=== PATIENT | male | born 1960 | race Caucasian/White ===

== ENCOUNTER 2020-01-31 10:48 | Emergency (ER) | payer MEDICARE, BC, SELFPAY ==
[2020-01-31 11:08] VITALS: BP 155/90; PULSE 70; RESP 16; TEMP 37.1; O2SAT 94; BMI 34.4
--- NOTE | 2020-01-31 11:22 | ED.WOUNDLAC ---
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 Admits to pain & associated tingling. Denies injury to other area. Denies taking anticoagulation. Denies decreased ROM, weakness, fever. Tetanus up-to-date Onset (ago): hour(s) Related Data Allergies Allergy/AdvReac Type Severity Reaction Status Date / Time niacin [NIACIN] Allergy Intermediate AGITATION Unverified 10/27/19 14:42 nystatin [NYSTATIN] Allergy Unknown RASH Unverified 10/27/19 14:42 ropinirole [ROPINIROLE] Allergy Unknown ANXIOUS Unverified 10/27/19 14:42 Review of Systems Review of Systems: Constitutional: No Fever, No Chills Musculoskeletal: + joint pain, No Myalgias, No Joint Swelling Skin: +laceration, No rash Neuro: No Weakness, +tingling, No Numbness, No Paresthesias Yes all other systems are reviewed and are negative Neurologic: Denies Sensory deficit (Neuro) [facility] Past Medical History Attestation statement: The following information was validated with the patient. Medical History (Updated 01/31/20 @ 12:47 by MAYRA Xie) Depression High cholesterol Hypothyroid Surgical History (Updated 01/31/20 @ 11:13 by Christina Millan) S/P ankle joint replacement Social History Social History Smoked in Last 30 Days: No Substance Use Type: Marijuana Substance Use Frequency: Daily Advance Directives: No Advance Directives Information Provided: Yes Physical Exam Vital Signs: Vital Signs: Last Vital Signs Temp 98.8 F 01/31/20 11:08 Pulse 70 01/31/20 11:08 Resp 16 01/31/20 11:08 BP 155/90 H 01/31/20 11:08 Pulse Ox 94 01/31/20 11:08 Body Mass Index 34.4 Const: General: cooperative and healthy appearing Orientation/consciousness: patient oriented x3 Limitations: no limitations HENMT: Head: Yes normal to inspection Ears: hearing grossly normal bilaterally General nose exam: Normal external nose present Face and sinus: Yes normal facial exam Eyes: General: appearance normal, both eyes and all related structures EOM: EOMs intact bilaterally Neck: Neck: Yes normal visual inspection Resp: Effort & Inspection: normal respiratory effort Cardio: Peripheral pulses: radial pulses present Skin: Other: Right 3rd phalanx with distal superifical avulsion. Actively bleeding. No nail involvement or bony exposure. FROM intact. Sensation intact to light touch. NV intact Rashes: no rashes Nails: normal Neuro: General: patient oriented x3 Gait exam (Neuro): Normal gait present Sensory Exam: No Sensory deficit (Neuro) Extrem: General: Yes normal to inspection Course Course Course Narrative: Soaked finger and in lidocaine with epinephrine which controlled the bleeding. Then applied layer of Dermabond for protection. MDM - Wound/Laceration MDM Narrative Medical decision making narrative: On exam VSS, NAD/well-appearing, distal tip of finger avulsed. Will soak in lidocaine with epi to control bleeding and Dermabond for protection Discharge Plan Discharge Clinical Impression: Avulsion of skin Patient Disposition: Home, Self-Care Instructions: Skin Avulsion (ED) Additional Instructions: The skin without was applied will follow up on its own, keep dry and clean, you may get wet, but do not soak, only pat dry, do not scrub If area begins to look infected, is red, there is pus drainage, no fever/chills return to the ED Referrals: Sj Scott [Primary Care Provider] - 1 week (As needed)
[2020-01-31] MEDS: Lidocaine HCl 1%/Epi 1:100,000 20 ML VIAL INFILTRATI (11:59)
== END 2020-01-31 13:13 | disposition home or self-care (01) ==
PROVIDERS: Emergency Provider Emergency Medicine; PCP Hospitalist
DX: S61.212A Laceration without foreign body of right middle finger without damage to nail, initial encounter (principal); W26.0XXA Contact with knife, initial encounter; M79.641 Pain in right hand; F12.90 Cannabis use, unspecified, uncomplicated; Y93.G3 Activity, cooking and baking; Y92.000 Kitchen of unspecified non-institutional (private) residence as the place of occurrence of the external cause; Y99.9 Unspecified external cause status
CPT/HCPCS: 12001; 99284

== ENCOUNTER 2023-04-10 08:57 | Outpatient (AMB) | payer MEDICARE, BC, SELFPAY ==
--- NOTE | 2023-04-10 09:01 | A.OFFPC_ITS ---
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 care Allergies niacin [NIACIN] Allergy (Intermediate, Unverified 04/10/23 09:23) AGITATION nystatin [NYSTATIN] Allergy (Unknown, Unverified 04/10/23 09:23) RASH ropinirole [ROPINIROLE] Allergy (Unknown, Unverified 04/10/23 09:23) ANXIOUS duloxetine Adverse Reaction (Unknown, Verified 04/10/23 09:23) Unknown Medication List - Last Reconciled 04/10/23 by RODRIGUEZ Nunn bupropion HCl 150 mg PO QAM celecoxib mg PO BID clonidine HCl 0.2 mg PO BID fenofibrate 160 mg PO DAILY levothyroxine (Synthroid) 100 mcg PO DAILY pramipexole mg PO pravastatin 40 mg PO DAILY sildenafil 50 mg PO DAILY PRN Tobacco use date assessed: 04/10/23 Dental Screening Dental Screen Date: 04/10/23 Did you have a dental visit in the last 12 months?: Yes Did you have a dental problem in the last 6 months where you did not have access to dental care?: No Was dental information given to patient?: Patient has dentist HPI HPI Comments History of Present Illness Details Patient is a 62-year-old male here to establish care. He is due for colonoscopy, declined, would like to try Cologuard will order. He has a past medical history significant for bilateral osteoarthritis of the knees, restless leg syndrome, depression anxiety, hypothyroid, hyperlipidemia, and SLAC left wrist. Patient states that he feels his anxiety and depression is under control. His primary concern today is bilateral knee pain. He states his history of osteoarthritis, will obtain x-ray. Patient currently takes Celebrex for the pain that he says is having diminished effectiveness. Denies tingling or numbness of the bilateral legs. The patient uses a cane to assist with ambulation. 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 [facility] Medical History (Updated 04/10/23 @ 10:04 by RODRIGUEZ Nunn) Restless legs syndrome Hypothyroid Depression High cholesterol Surgical History H/O rotator cuff surgery S/P tendon repair S/P ankle joint replacement Social History Household Members: Spouse Housing: House Alcohol intake: current Alcohol intake frequency: holidays/special occasions only Patient Tobacco Use Status: Former Tobacco user e-Cigarette/Vaping Use: Currently Using Second Hand Smoke Exposure: No Substance Use Type: Marijuana service: Yes Current occupational status: disabled Questionnaire PHQ-9 Over the last 2 weeks, how often have you been bothered by any of the following problems? 1. Little interest or pleasure in doing things: several days 2. Feeling down, depressed, or hopeless: several days 3. Trouble falling or staying asleep, or sleeping too much: several days 4. Feeling tired or having little energy: several days 5. Poor appetite or overeating: several days 6. Feeling bad about yourself - or that you are a failure or have let yourself or your family down: several days 7. Trouble concentrating on things, such as reading the newspaper or watching television: several days 8. Moving or speaking so slowly that other people could have noticed. Or the opposite - being so fidgety or restless that you have been moving around a lot more than usual: several days 9. Thoughts that you would be better off or of hurting yourself in some way: several days Total score: 9 Depression Screening Interpretation: Negative Depression Screening Done: Yes 78501 - PHQ-9 Billing: Yes Source: Developed by Drs. Woody Florentino, Sue Dash, Shamar Ott and colleagues, with an educational min from [employer]. Thrive Questionnaire I am a: Patient Within the past 12 months, did the food you bought not last and you didn't have the money to get more?: Never true Within the past 12 months, did you worry whether your food would run out before you got money to buy more?: Never true Do you have trouble paying for medicines?: No Do you have trouble getting transportation to medical appointments?: No Do you have trouble paying your heating and electricity bill?: No Do you have trouble taking care of your child, family member or friend?: No Do you have trouble with day-to-day activities such as bathing, preparing meals, shopping, managing finances, etc.?: Yes Are you currently unemployed and looking for a job?: No Are you interested in more education?: No THRIVE Score: 0 AUDIT C Alcohol Use Questionnaire (AUDIT-C) 1. How often do you have a drink containing alcohol?: Never Total Score: 0 LACEY-7 AMB Questionnaire LACEY-7 Feeling nervous, anxious, or on edge: 1 = Several days Not being able to stop or control worryin = Several days Worrying too much about different things: 1 = Several days Trouble relaxin = Several days Being so restless that it is hard to sit still: 1 = Several days Becoming easily annoyed or irritable: 1 = Several days Feeling afraid as if something awful might happen: 1 = Several days Total LACEY-7 score (0-4 normal; 5-9 mild; 10-14 moderate; 15-21 severe): 7 Source: Developed by Drs. Woody Florentino, Sue Dash, Shamar Ott and colleagues, with an educational min from [employer]. LACEY-7 Assessment Billing LACEY-7 Assessment Tool: LACEY-7 Assessment 91128 Review of Systems Const Details: Constitutional : No Weight loss, No Fever, No Chills, No Fatigue, No Malaise ENT/Mouth : No sore throat, No Rhinorrhea Eyes: No Eye Pain, No Swelling, No Redness Cardiovascular : No Chest Pain, No SOB, No Dyspnea on Exertion, No Orthopnea, No Edema, No Palpitations Respiratory : No Cough, No Sputum, No Wheezing Gastrointestinal : No Nausea, No Vomiting, No Diarrhea, No Constipation, No abdominal Pain, No Hematochezia, No Melena Genitourinary : No Dysuria, No Urinary Frequency, No Hematuria, Musculoskeletal : Admits bilateral knee pain. Skin : No Skin Lesions, No rash Neuro : No Weakness, No Numbness, No Dizziness, No Headache. Admits intermittent tingling of the left hand, first 2 fingers and thumb. Psych : No Anxiety/Panic, No Depression Heme/Lymph: No Bruising, No Bleeding,No Lymphadenopathy Endocrine : No Polyuria, No Polydipsia All other systems reviewed and are negative Physical exam (Primary Care) Vital Signs: Last Vital Signs Pulse 55 04/10/23 09:02 BP 110/70 04/10/23 09:02 Pulse Ox 97 04/10/23 09:02 Oxygen Delivery Method Room Air 04/10/23 09:02 Care Plan Goal for BP management: Patient pulse on auscultation was 65 beats per minute BMI result Body Mass Index 30.9 Tobacco/Smoking Status: Tobacco use Status Tobacco use date assessed 04/10/23 04/10/23 09:18 Patient Tobacco Use Status Former Tobacco user 04/10/23 09:18 e-Cigarette/Vaping Use Currently Using 04/10/23 09:18 Depression Screening Interpretation: Negative Const Other: Appearance: Alert.? Oriented X3.? No acute distress.? CVS: Normal heart rate and rhythm.? Pulses normal.? Respiratory: No respiratory distress.? Breath sounds normal.? Abdomen: Soft and nontender.? Skin: Skin warm and dry.? Normal skin color.? Normal skin turgor.? Extremities: Deformity of the left knee. Patient limited motion to flexion and extension of knees bilaterally. + tineals sign left wrist. Back: No midline tenderness, no C-spine tenderness, full range of motion, no CVA tenderness bilaterally Neuro: Oriented X 3.? No motor deficit.? No sensory deficit. CN 2-12 intact Assessment and Plan Assessment & Plan (1) Osteoarthritis of knees, bilateral: Comment: Will obtain x-ray of bilateral knees. 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 Patient currently taking Celebrex with limited effect. Code(s): M17.0 - Bilateral primary osteoarthritis of knee Qualifiers: Osteoarthritis type: unspecified Qualified Code(s): M17.0 - Bilateral primary osteoarthritis of knee Plan: Will follow-up with imaging results (2) Numbness and tingling in left hand: Comment: Patient states he has intermittent numbness and tingling in the left hand, predominantly thumb in the 1st 2 fingers. Positive Tinel sign in office. Patient tried using splint. Will refer for nerve conduction study. Patient also has history of surgical repair of left thumb Code(s): R20.0 - Anesthesia of skin; R20.2 - Paresthesia of skin Plan Will follow-up with labs, patient will follow-up with physical exam in to 3 month Orders: Orders Complete Blood Count Auto Diff Today Z13.0 - Encounter for screening for diseases of the blood and blood-forming organs and certain disorders involving the immune mechanism Lipid Panel Today Z13.220 - Encounter for screening for lipoid disorders PSA,Total (Free>4and<10) Today Z12.5 - Encounter for screening for malignant neoplasm of prostate Vitamin D 25-OH (D2 and D3) Today Z13.21 - Encounter for screening for nutritional disorder Vitamin B6 Today Z13.21 - Encounter for screening for nutritional disorder UA CC w/rflx Micro + Cult Today Z13.89 - Encounter for screening for other disorder Comprehensive Met. Panel Today Z91.89 - Other specified personal risk factors, not elsewhere classified Vitamin B12 Today Z13.21 - Encounter for screening for nutritional disorder TSH reflex Free T4 Today Z13.29 - Encounter for screening for other suspected endocrine disorder XR knee LT 2V Today M17.0 - Bilateral primary osteoarthritis of knee XR knee RT 2V Today M17.0 - Bilateral primary osteoarthritis of knee Referrals Cologuard Test Z12.11 - Encounter for screening for malignant neoplasm of colon, Z12.12 - Encounter for screening for malignant neoplasm of rectum Review Patient declined Colonoscopy: 04/10/23 Flu Vaccine not done: patient reason (Up-to-date) Coding Level of Care Code Est Pt Level 3 (49630) Diagnoses Osteoarthritis of both knees, unspecified osteoarthritis type M17.0 Osteoarthritis type: unspecified Numbness and tingling in left hand R20.0; R20.2 Additional Codes LACEY-7 Assessment Billing - LACEY-7 Assessment Tool: LACEY-7 Assessment 70706 ([id number]) Time Spent (min) 35
[2023-04-10 09:02] VITALS: BP 110/70; PULSE 55; O2SAT 97; BMI 30.9
[2023-04-10 09:58] VITALS: PULSE 65
== END 2023-04-10 10:41 | disposition home or self-care (01) ==
PROVIDERS: PCP Nurse Practitioner Family; Visit Provider Nurse Practitioner Primary Care
DX: M17.0 Bilateral primary osteoarthritis of knee (principal); R20.0 Anesthesia of skin; R20.2 Paresthesia of skin
CPT/HCPCS: 99203

== ENCOUNTER 2023-04-10 09:48 | Outpatient (REF) | payer MEDICARE, BC, SELFPAY ==
[2023-04-10 13:12] LABS: MANUAL DIFF FLAG NO
[2023-04-10 13:22] LABS: Basophils Absolute Auto 0.1 X10*3/uL (0.0-0.2); Eosinophils Absolute Auto 0.1 X10*3/uL (0.0-0.4); Eosinophils Percent Auto 2.1 % (0-4); Hematocrit 43.2 % (42.0-52.0); Imm Gran Abs Auto 0.03 X10*3/uL (0.00-0.03); Imm Gran Pct Auto 0.4 % (0.0-0.4); Lymphocytes Absolute Auto 1.4 X10*3/uL (1.2-4.9); Lymphocytes Percent Auto 21.2 % (20-40); Mean Corpuscular HGB Conc 32.4 g/dl (31.0-36.0); Mean Corpuscular Hemoglobin 27.2 pg (27.0-33.0); Mean Platelet Volume 10.4 fL (9.4-12.4); Monocytes Absolute Auto 0.6 X10*3/uL (0.1-1.2); Monocytes Percent Auto 9.2 % (2-11); Neutrophils Absolute Auto 4.5 x10*3/uL (2.0-8.3); Neutrophils Percent Auto 66.1 % (45-73); Platelet Count 417 X10*3/uL (160-400); Red Blood Count 5.14 X10*6/uL (4.60-5.80); Red Cell Distribution Width 15.5 % (11.0-16.0); White Blood Count 6.7 X10*3/uL (4.8-10.8)
[2023-04-10 13:54] LABS: Appearance Urine Clear; Color Urine Yellow; Glucose Urine UA Negative (Negative); Leukocyte Esterase Urine Negative (Negative); Nitrite Urine Negative (Negative); PH 6.5 (5.0-9.0); Specific Gravity - Urine 1.025 (1.005-1.025); UMIC TRIGGER UACC YES; Urine Blood Trace (Negative); Urine Ketones Negative (Negative); Urine Protein Negative (Neg-Trace)
[2023-04-10 14:03] LABS: Bacteria Urine None Seen (None Seen); Hyaline Casts Urine 0-2 /LPF (0-2); RBC Urine 0-2 /HPF (0-2); Squamous Epithelial Cell Urine 0-2 /HPF (0-2); WBC Urine 0-5 /HPF (0-5)
[2023-04-10 14:27] LABS: PSA,Total (Free>4and<10) 1.65 ng/mL (0.00-4.00)
[2023-04-10 14:31] LABS: Vitamin B12 394 pg/mL (200-900)
[2023-04-10 14:32] LABS: Alanine Aminotransferase 22 U/L (0-40); Albumin Level 3.9 g/dL (3.5-5.0); Alkaline Phosphatase 70 U/L (39-117); Anion Gap 11 (12-20); Aspartate Amino Transferase 19 U/L (5-37); Bilirubin Total 0.5 mg/dL (0.0-1.0); Blood Urea Nitrogen 16 mg/dL (9-16); Calcium 8.9 mg/dL (8.4-10.2); Carbon Dioxide 25 mmol/L (22-29); Chloride 110 mmol/L (96-108); Cholesterol 124 mg/dL (<200); Estimated Glomerular Filt Rate > 60; Glucose Random 110 mg/dL (60-115); HDL Cholesterol 43 mg/dL (>40); LDL Cholesterol Calculated 70 mg/dL (<100); Potassium 4.2 mmol/L (3.3-5.1); Sodium 142 mmol/L (135-145); Total Protein 7.4 g/dL (6.5-8.0); Triglycerides 56 mg/dL (<150)
[2023-04-10 14:35] LABS: TSH reflex Free T4 1.06 uIU/mL (0.32-4.0)
[2023-04-14 17:47] LABS: Vitamin D 25-OH, D2 <4 ng/mL; Vitamin D 25-OH, D3 15 ng/mL; Vitamin D 25-OH, Total 15 ng/mL (30-100)
[2023-04-14 18:09] LABS: Vitamin B6 3.5 ng/mL (2.1-21.7)
== END 2023-04-10 09:49 | disposition home or self-care (01) ==
LOC: HO.HMGCLDS 09:48
PROVIDERS: PCP Nurse Practitioner Primary Care; Visit Provider Nurse Practitioner Primary Care
DX: M17.0 Bilateral primary osteoarthritis of knee (principal); Z13.21 Encounter for screening for nutritional disorder; Z13.0 Encounter for screening for diseases of the blood and blood-forming organs and certain disorders involving the immune mechanism; Z91.89 Other specified personal risk factors, not elsewhere classified; Z13.220 Encounter for screening for lipoid disorders; Z13.29 Encounter for screening for other suspected endocrine disorder; Z13.89 Encounter for screening for other disorder; Z12.5 Encounter for screening for malignant neoplasm of prostate
CPT/HCPCS: 36415; 80053; 80061; 81001; 82306; 82607; 84153; 84207; 84443; 85025

== ENCOUNTER 2023-05-04 08:46 | Outpatient (REF) | payer MEDICARE, BC, SELFPAY ==
--- NOTE | ~2023-05-04 | XR_ITS ---
BILATERAL KNEE RADIOGRAPHS CLINICAL HISTORY: Pain. COMPARISON: No relevant prior studies are available for comparison. TECHNIQUE: Lateral and sunrise views of each knee. AP standing view of both knees. FINDINGS: Right knee: End-stage bone on bone contact of the medial compartment of the right knee with mild lateral subluxation of the tibia with respect to the femur, associated deformity of the medial tibial plateau and focal subcortical lucency in the medial tibial plateau. Moderate to severe degenerative space narrowing of the patellofemoral compartments. Prominent bony productive changes in the medial and patellofemoral compartments. No joint effusion. Scattered vascular calcifications. Left knee: Moderate joint space narrowing of the lateral compartment with associated subcortical sclerosis. Mild multifocal marginal osteophytes. No joint effusion. Scattered vascular calcifications. XR/XR knee RT 3V IMPRESSION: End-stage bone on bone contact of the medial compartment of the right knee with associated mild lateral subluxation of the tibia with respect to the femur as well as deformity and focal subcortical lucency of the medial tibial plateau; further evaluation with a CT or MRI of the right knee is recommended. Moderate to severe degenerative osteoarthritis of the patellofemoral compartment of the right knee. Moderate joint space narrowing of the lateral compartment of the left knee.
--- NOTE | ~2023-05-04 | XR_ITS ---
BILATERAL KNEE RADIOGRAPHS CLINICAL HISTORY: Pain. COMPARISON: No relevant prior studies are available for comparison. TECHNIQUE: Lateral and sunrise views of each knee. AP standing view of both knees. FINDINGS: Right knee: End-stage bone on bone contact of the medial compartment of the right knee with mild lateral subluxation of the tibia with respect to the femur, associated deformity of the medial tibial plateau and focal subcortical lucency in the medial tibial plateau. Moderate to severe degenerative space narrowing of the patellofemoral compartments. Prominent bony productive changes in the medial and patellofemoral compartments. No joint effusion. Scattered vascular calcifications. Left knee: Moderate joint space narrowing of the lateral compartment with associated subcortical sclerosis. Mild multifocal marginal osteophytes. No joint effusion. Scattered vascular calcifications. XR/XR knee LT 3V IMPRESSION: End-stage bone on bone contact of the medial compartment of the right knee with associated mild lateral subluxation of the tibia with respect to the femur as well as deformity and focal subcortical lucency of the medial tibial plateau; further evaluation with a CT or MRI of the right knee is recommended. Moderate to severe degenerative osteoarthritis of the patellofemoral compartment of the right knee. Moderate joint space narrowing of the lateral compartment of the left knee.
== END 2023-05-04 08:47 | disposition home or self-care (01) ==
LOC: HO.HOSX 08:46
PROVIDERS: Visit Provider Orthopaedic Surgery
DX: M17.0 Bilateral primary osteoarthritis of knee (principal)
CPT/HCPCS: 73562; 99202

== ENCOUNTER 2023-05-04 08:47 | Outpatient (AMB) | payer MEDICARE, BC, SELFPAY ==
[2023-05-04 09:15] VITALS: BMI 30.9
--- NOTE | 2023-05-04 09:15 | A.OFFVIS_ITS ---
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 patient reports that he has had ongoing knee pain for about 5 years now, right worse than the left. He has tried physical therapy in the past which he feels made him feel worse. He takes celebrex which has decreased effectiveness over time, and uses a cane for ambulatory assistance. Pain is worsened with all activity.. 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 patient reports that he has had ongoing knee pain for about 5 years now, right worse than the left. He has tried physical therapy in the past which he feels made him feel worse. He takes celebrex which has decreased effectiveness over time, and uses a cane for ambulatory assistance. Pain is worsened with all activity. He feels that he is having a harder and harder time walking and his states it looks like his knee is becoming more crooked . [facility] Medical History (Updated 05/10/23 @ 08:36 by Hernando Zamora MD) Restless legs syndrome Hypothyroid Depression High cholesterol Surgical History H/O rotator cuff surgery S/P tendon repair S/P ankle joint replacement Social History Household Members: Spouse Housing: House Alcohol intake: current Alcohol intake frequency: holidays/special occasions only Patient Tobacco Use Status: Former Tobacco user e-Cigarette/Vaping Use: Currently Using Second Hand Smoke Exposure: No Substance Use Type: Marijuana service: Yes Current occupational status: disabled Physical Exam Vital Signs: BMI result Body Mass Index 30.9 Const General: cooperative, healthy appearing, no acute distress, well developed and alert HEENT Head: Yes normal to inspection, Yes normocephalic and Yes atraumatic Mouth: moist mucous membranes Eyes General: appearance normal, both eyes and all related structures EOM: EOMs intact bilaterally Chest Other: no audible wheezing. Resp Other: No audible wheezing Effort & Inspection: normal respiratory effort Back/Spine/Pelvis Cervical Spine: normal cervical lordosis Skin General skin exam: no rashes or lesions noted Neuro General: no focal motor deficits Extrem Other: right knee with severe varus thrust with gait 2+ varus instability 2+ DP pulse 10-110 deg motion Psych Appearance: grossly normal and well kempt Mental Status: mental status grossly normal Speech and movement: Normal speech and movement present Affect: normal affect Attitude: cooperative Results Reviewed Results Reviewed: I personally reviewed relevant radiographs. End-stage bone on bone contact of the medial compartment of the right knee with associated mild lateral subluxation of the tibia with respect to the femur as well as deformity and focal subcortical lucency of the medial tibial plateau; further evaluation with a CT or MRI of the right knee is recommended. Moderate to severe degenerative osteoarthritis of the patellofemoral compartment of the right knee. Moderate joint space narrowing of the lateral compartment of the left knee. Assessment & Plan Assessment & Plan (1) Arthritis of right knee: Code(s): M17.11 - Unilateral primary osteoarthritis, right knee Plan: This is a 62 yo M with severe, end stage, OA of the right knee. He has medial bone loss and a varus deformity that is severe. He has a severe varus thrust and his thinks it is worsening. He is unable to walk comfortably. His quality of life is diminished and he is unable to engage in ADLs without pain. I recommend right TKA. I discussed the risks benefits and alternatives including but not limited to the risk of pain, infection, stiffness, need for further surgery as well as potential medical complications such as blood clots, pulmonary embolism and cardiac complications. We will begin our pre operative clearance process but he appears to be a good candidate medically with no cardiovascular comorbidities. Orders: Orders XR knee standing BI 05/04/23 M25.569 - Pain in unspecified knee Coding Level of Care Code New Pt Level 4 (95817) Diagnoses Arthritis of right knee M17.11
== END 2023-05-04 09:48 | disposition home or self-care (01) ==
PROVIDERS: PCP Nurse Practitioner Primary Care; Visit Provider Orthopaedic Surgery
DX: M17.11 Unilateral primary osteoarthritis, right knee (principal)
CPT/HCPCS: 99204

== ENCOUNTER → 2023-05-29 08:44 | Outpatient (BNVA) | payer MEDICARE, BC, SELFPAY | PROVIDERS: PCP Nurse Practitioner Primary Care; Visit Provider Orthopaedic Surgery ==

== ENCOUNTER 2023-06-08 10:52 | Outpatient (AMB) | payer MEDICARE, BC, SELFPAY ==
[2023-06-08 11:00] VITALS: BP 120/70; PULSE 82; O2SAT 97; BMI 30.9
--- NOTE | 2023-06-08 11:00 | A.OFFPC_ITS ---
Vital Signs 06/08/23 11:00 Height 5 ft 7 in Weight 197 lb BMI 30.9 BP 120/70 Blood Pressure Location Lt brachial Position Sitting Pulse 82 Pulse Source Pulse Oximeter Pulse Oximetry (%) 97 Oxygen Delivery Method Room Air Intake Visit Reasons: pre-op Rt total knee Dr Zamora(EKG,BMP,CBC.w/dif) Intake Note: pt is here for pre op appt, EKG done in office Allergies niacin [NIACIN] Allergy (Intermediate, Verified 06/08/23 11:25) AGITATION nystatin [NYSTATIN] Allergy (Unknown, Verified 06/08/23 11:25) RASH ropinirole [ROPINIROLE] Allergy (Unknown, Verified 06/08/23 11:25) ANXIOUS duloxetine Adverse Reaction (Unknown, Verified 06/08/23 11:25) Unknown Medication List - Last Reconciled 06/08/23 by RODRIGUEZ Nunn bupropion HCl XL 150 mg PO QAM celecoxib mg PO BID clonidine HCl 0.2 mg PO BID fenofibrate 160 mg PO DAILY levothyroxine (Synthroid) 100 mcg PO DAILY pramipexole mg PO pravastatin 40 mg PO DAILY walker Folding Front wheeled walker Tobacco use date assessed: 04/10/23 Last assessed Fall Risk: 06/08/23 Dental Screening Dental Screen Date: 04/10/23 Did you have a dental visit in the last 12 months?: Yes Did you have a dental problem in the last 6 months where you did not have access to dental care?: No Was dental information given to patient?: Patient has dentist HPI HPI Comments History of Present Illness Details Patient is a 63 year old man in for a preop visit. He is scheduled to have a right knee replacement. Patient has been educated on the importance of not taking NSAIDs including his Celebrex at least 1 week prior to the surgery. Is also indicated that patient should not have dental procedure 1 month prior or 3 months post right knee replacement. Patient will have in office EKG, will have BMP and CBC drawn today. Patient has no new complaints at office visit today [facility] Medical History Restless legs syndrome Hypothyroid Depression High cholesterol Surgical History H/O rotator cuff surgery S/P tendon repair S/P ankle joint replacement Social History Household Members: Spouse Housing: House Alcohol intake: current Alcohol intake frequency: holidays/special occasions only Patient Tobacco Use Status: Former Tobacco user e-Cigarette/Vaping Use: Currently Using Second Hand Smoke Exposure: No Substance Use Type: Marijuana service: Yes Current occupational status: disabled Cognitive needs: No Hearing needs: No Vision needs: No Questionnaire Thrive Questionnaire I am a: Patient What is your living situation today?: I have a steady place to live Within the past 12 months, did the food you bought not last and you didn't have the money to get more?: Never true Within the past 12 months, did you worry whether your food would run out before you got money to buy more?: Never true Please select the resources that you would like help with: None THRIVE Score: 0 AUDIT C Alcohol Use Questionnaire (AUDIT-C) 1. How often do you have a drink containing alcohol?: Never 3. How often do you have six or more drinks on one occasion?: Never Total Score: 0 LACEY-7 AMB Questionnaire LACEY-7 Feeling nervous, anxious, or on edge: 0 = Not at all Not being able to stop or control worryin = Not at all Worrying too much about different things: 0 = Not at all Source: Developed by Drs. Woody Florentino, Sue Dash, Shamar Ott and colleagues, with an educational min from [employer]. Review of Systems Const Details: Constitutional : No Weight loss, No Fever, No Chills, No Fatigue, No Malaise ENT/Mouth : No sore throat, No Rhinorrhea Eyes: No Eye Pain, No Swelling, No Redness Cardiovascular : No Chest Pain, No SOB, No Dyspnea on Exertion, No Orthopnea, No Edema, No Palpitations Respiratory : No Cough, No Sputum, No Wheezing Gastrointestinal : No Nausea, No Vomiting, No Diarrhea, No Constipation, No abdominal Pain, No Hematochezia, No Melena Genitourinary : No Dysuria, No Urinary Frequency, No Hematuria, Musculoskeletal : Admits right knee pain. Skin : No Skin Lesions, No rash Neuro : No Weakness, No Numbness, No Dizziness, No Headache Psych : No Anxiety/Panic, No Depression Heme/Lymph: No Bruising, No Bleeding,No Lymphadenopathy Endocrine : No Polyuria, No Polydipsia All other systems reviewed and are negative Physical exam (Primary Care) Vital Signs: Last Vital Signs Pulse 82 06/08/23 11:00 BP 120/70 06/08/23 11:00 Pulse Ox 97 06/08/23 11:00 Oxygen Delivery Method Room Air 06/08/23 11:00 BMI result Body Mass Index 30.9 Tobacco/Smoking Status: Tobacco use Status Tobacco use date assessed 04/10/23 06/08/23 11:04 Patient Tobacco Use Status Former Tobacco user 06/08/23 11:04 e-Cigarette/Vaping Use Currently Using 06/08/23 11:04 Const Other: Appearance: Alert.? Oriented X3.? No acute distress.? Head: Normocephalic, atraumatic, no step-offs or deformities ?CVS: Normal heart rate and rhythm.? Pulses normal.? Respiratory: No respiratory distress.? Breath sounds normal.? Extremities: No lower extremity edema.? No calf ttp. +right knee crepitus, Ambulates with cane. Back: No midline tenderness, no C-spine tenderness, full range of motion, no CVA tenderness bilaterally Neuro: Oriented X 3.? No motor deficit.? No sensory deficit. CN 2-12 intact Assessment and Plan Assessment & Plan (1) Preoperative clearance: Comment: Patient will have BMP, CMP, and EKG in office today. Code(s): Z01.818 - Encounter for other preprocedural examination (2) Arthritis of right knee: Comment: Patient has known osteoarthritis of right knee is going is scheduled for right knee replacement. Code(s): M17.11 - Unilateral primary osteoarthritis, right knee (3) Hypertension: Comment: Blood pressure is well controlled Code(s): I10 - Essential (primary) hypertension Qualifiers: Hypertension type: unspecified Qualified Code(s): I10 - Essential (primary) hypertension (4) Hypothyroid: Comment: Thyroid values normal, well controlled. Code(s): E03.9 - Hypothyroidism, unspecified Qualifiers: Hypothyroidism type: unspecified Qualified Code(s): E03.9 - Hypothyroidism, unspecified Plan: Patient is cleared for surgical replacement of right knee. Orders: Orders Basic Metabolic Panel 06/08/23 Z01.818 - Encounter for other preprocedural examination Complete Blood Count Auto Diff 06/08/23 Z01.818 - Encounter for other preprocedural examination AMB EKG-In Office 06/08/23 Z13.6 - Encounter for screening for cardiovascular disorders Coding Level of Care Code Est Pt Level 3 (09360) Diagnoses Preoperative clearance Z01.818 Arthritis of right knee M17.11 Hypertension, unspecified type I10 Hypertension type: unspecified Hypothyroidism, unspecified type E03.9 Hypothyroidism type: unspecified Time Spent (min) 25
== END 2023-06-08 15:30 | disposition home or self-care (01) ==
PROVIDERS: PCP Nurse Practitioner Primary Care; Visit Provider Nurse Practitioner Primary Care
DX: Z01.818 Encounter for other preprocedural examination (principal); M17.11 Unilateral primary osteoarthritis, right knee; I10 Essential (primary) hypertension; E03.9 Hypothyroidism, unspecified
CPT/HCPCS: 99213

== ENCOUNTER 2023-06-08 11:35 | Outpatient (REF) | payer MEDICARE, BC, SELFPAY ==
[2023-06-08 13:15] LABS: MANUAL DIFF FLAG NO
[2023-06-08 13:26] LABS: Basophils Absolute Auto 0.1 X10*3/uL (0.0-0.2); Eosinophils Absolute Auto 0.2 X10*3/uL (0.0-0.4); Eosinophils Percent Auto 2.5 % (0-4); Hematocrit 42.8 % (42.0-52.0); Hemoglobin 13.8 g/dl (14.0-18.0); Imm Gran Abs Auto 0.05 X10*3/uL (0.00-0.03); Imm Gran Pct Auto 0.6 % (0.0-0.4); Lymphocytes Absolute Auto 1.4 X10*3/uL (1.2-4.9); Mean Corpuscular HGB Conc 32.2 g/dl (31.0-36.0); Mean Corpuscular Hemoglobin 27.1 pg (27.0-33.0); Mean Corpuscular Volume 83.9 fL (80.0-98.0); Mean Platelet Volume 9.8 fL (9.4-12.4); Monocytes Absolute Auto 0.5 X10*3/uL (0.1-1.2); Monocytes Percent Auto 6.5 % (2-11); Neutrophils Absolute Auto 5.9 x10*3/uL (2.0-8.3); Neutrophils Percent Auto 72.4 % (45-73); Platelet Count 415 X10*3/uL (160-400); Red Cell Distribution Width 14.8 % (11.0-16.0); White Blood Count 8.1 X10*3/uL (4.8-10.8)
[2023-06-08 13:54] LABS: Anion Gap 9 (12-20); Blood Urea Nitrogen 17 mg/dL (9-16); Calcium 8.9 mg/dL (8.4-10.2); Carbon Dioxide 26 mmol/L (22-29); Chloride 106 mmol/L (96-108); Estimated Glomerular Filt Rate > 60; Glucose Random 112 mg/dL (60-115); Potassium 3.9 mmol/L (3.3-5.1); Sodium 137 mmol/L (135-145)
== END 2023-06-08 11:36 | disposition home or self-care (01) ==
LOC: HO.HMGCLDS 11:35
PROVIDERS: PCP Nurse Practitioner Primary Care; Visit Provider Nurse Practitioner Primary Care
DX: Z01.818 Encounter for other preprocedural examination (principal)
CPT/HCPCS: 36415; 80048; 85025

== ENCOUNTER 2023-06-25 12:28 | Outpatient (REF) | payer MEDICARE, BC, SELFPAY ==
--- NOTE | ~2023-06-25 | XR_ITS ---
EXAMINATION: AP UPRIGHT BOTH KNEES WITH ADDITIONAL 2 VIEWS OF THE RIGHT KNEE CLINICAL INFORMATION: Osteoarthritis right knee preoperative. COMPARISON: X-rays of the right and left knee April 2023. TECHNIQUE: AP upright of both knees and lateral patella views of the right knee. FINDINGS: RIGHT KNEE: Severe genu varus. Lateral subluxation of the tibia with respect to the femur. Severe arthrosis of the medial compartment with [id number] appearance and medial sloping of the tibial plateau. Loose bodies noted medially. At least mild arthrosis of lateral plateau. Patellofemoral compartment: Marginal osteophytes and joint space narrowing indicative of [id number] osteoarthritis. Arterial calcification present. LEFT KNEE LIMITED AP UPRIGHT: There is severe joint space narrowing of the lateral compartment with marginal osteophytes indicative of severe osteoarthritis. Medial compartment: Marginal osteophytes without joint space narrowing indicative of at least mild osteoarthritis. Patellofemoral compartment: Not assessed. XR/XR knee RT 3V IMPRESSION: RIGHT KNEE: Advanced osteoarthritis with loose bodies. LEFT KNEE: Osteoarthritis with severe degenerative changes in the lateral compartment.
== END 2023-06-25 12:29 | disposition home or self-care (01) ==
LOC: HO.HOSX 12:28
PROVIDERS: Visit Provider Physician Assistant
DX: Z01.818 Encounter for other preprocedural examination (principal); M17.11 Unilateral primary osteoarthritis, right knee
CPT/HCPCS: 73562; 99212

== ENCOUNTER 2023-06-25 13:03 | Outpatient (AMB) | payer MEDICARE, BC, SELFPAY ==
--- NOTE | 2023-06-25 13:18 | MHC.OFFVIS ---
Vital Signs 06/25/23 13:20 Height 5 ft 7 in Weight 197 lb BMI 30.9 Intake Visit Reasons: R TKA w/NE 06/30/23 Intake Note: Hang a 63 year old male who presents today for a preoperative right TKA, DOS 06/30/23 NE. Pain management agreement reviewed and signed. Allergies niacin [NIACIN] Allergy (Intermediate, Verified 06/25/23 13:19) AGITATION nystatin [NYSTATIN] Allergy (Unknown, Verified 06/25/23 13:19) RASH ropinirole [ROPINIROLE] Allergy (Unknown, Verified 06/25/23 13:19) ANXIOUS duloxetine Adverse Reaction (Unknown, Verified 06/25/23 13:19) Unknown Medication List - Last Reconciled 06/25/23 by Sabina Romano PA-C bupropion HCl XL 150 mg PO QAM celecoxib 200 mg PO BID clonidine HCl 0.2 mg PO BID fenofibrate 160 mg PO DAILY@1700 levothyroxine (Synthroid) 100 mcg PO DAILY pramipexole 1 mg PO TID pravastatin 40 mg PO DAILY@1700 walker Folding Front wheeled walker HPI Comments Details: Mr Bernal presents to the office today for preop visit. She is scheduled for right total knee arthroplasty with Dr. Zamora. She continues to have ongoing pain and difficulty with ambulation in the right knee, which is affecting her quality of life; therefore, she has elected to move forward with surgery. [facility] Medical History (Updated 06/22/23 @ 12:18 by Lise Ravi RN) GERD (gastroesophageal reflux disease) Sleep apnea Restless legs syndrome Hypothyroid Depression High cholesterol Surgical History H/O rotator cuff surgery S/P tendon repair S/P ankle joint replacement Social History Household Members: Spouse Housing: House Are you a primary district manager primary care sales to a significant other at home: No Do you presently have visiting nurse or other home services: No Alcohol intake: current Alcohol intake frequency: does not drink Patient Tobacco Use Status: Former Tobacco user e-Cigarette/Vaping Use: Currently Using Second Hand Smoke Exposure: No Use of substances other than those prescribed or required for medical reasons: Yes Substance Use Type: Marijuana Substance Use Frequency: Daily Have you been hit, kicked, punched, or otherwise hurt by someone within the past year? If so, by whom?: No Are you DNR?: No Advance Directives: No Advance Directives Information Provided: No Advance Directives on File: No Recently lost weight without trying: No Nutrition Risks: No Nutritional Risk Poor oral hygiene: Yes (missing teeth on upper and lower) service: Yes Current occupational status: disabled Cognitive needs: No Hearing needs: No Vision needs: No Review of Systems Const All systems reviewed & are unremarkable except as noted in HPI and below Physical Exam Vital Signs: BMI result Body Mass Index 30.9 Const General: cooperative and no acute distress Orientation/consciousness: patient oriented x3 HEENT Head: Yes normal to inspection, Yes normocephalic and Yes atraumatic Eyes General: appearance normal, both eyes and all related structures Neck Neck: Yes normal visual inspection and Yes no lymphadenopathy Resp Effort & Inspection: normal respiratory effort and able to speak in complete sentences Cardio Rate: regular rate Peripheral pulses: Peripheral pulses 2+ throughout GI Inspection: Yes normal to inspection Palpation (GI): Soft to palpation Skin General skin exam: no rashes or lesions noted Neuro General: patient oriented x3 Extrem Other: Right knee: Skin is intact. No abrasion or open wounds. No erythema or joint effusion. ROM is 0-80 degrees. He has varus alignment. Calf supple, nontender. NVI. ? Psych Appearance: grossly normal Mental Status: mental status grossly normal Results Reviewed Results Reviewed: Xrays were obtained in the office today and personally reviewed by me of the right knee for pre op planning show severe end stage OA with varus deformity. Assessment & Plan Assessment & Plan (1) Arthritis of right knee: Comment: Patient has known osteoarthritis of right knee is going is scheduled for right knee replacement. Code(s): M17.11 - Unilateral primary osteoarthritis, right knee Category: Medical Plan: I discussed in detail the procedure and what to expect pre and post operatively. We discussed the risks, benefits and alternatives to the surgery as well as the rehabilitation course. The risks; which include, but are not limited to infection, bleeding, nerve injury, ongoing pain, swelling, and stiffness, perioperative risk of injury to bones and soft tissues, and blood clots. I?ve answered all questions and with their understanding they have consented to move forward with Right total knee arthroplasty with Dr. Zamora PT ordered for [place] CORE Walker order given ASA for post op dvt ppx Orders: Orders PT Evaluation and Treatment Today Z96.651 - Presence of right artificial knee joint XR knee RT 3V Today M17.11 - Unilateral primary osteoarthritis, right knee Medications: Refilled walker Folding Front wheeled walker 1 ea 0RF duration 99 days M17.11 - Unilateral primary osteoarthritis, right knee Patient Instructions: Scribed for Sabina Romano PA-C, by Jagdeep Foster medical administrative assistant, on 06/25/2023 at 1:15 PM EST.? I, Sabina Romano PA-C, have personally reviewed and agree with the information entered by the scribe. Coding Level of Care Code Est Pt Level 3 (88948) Diagnoses Arthritis of right knee M17
[2023-06-25 13:20] VITALS: BMI 30.9
== END 2023-06-25 15:06 | disposition home or self-care (01) ==
PROVIDERS: PCP Nurse Practitioner Primary Care; Visit Provider Physician Assistant
DX: M17.11 Unilateral primary osteoarthritis, right knee (principal)
CPT/HCPCS: 99024

== ENCOUNTER 2023-06-30 12:08 | Inpatient (IN) | payer BC, SELFPAY ==
[2023-06-22 12:26] VITALS: BP 143/87; PULSE 61; RESP 16; O2SAT 95; BMI 31.0
--- NOTE | 2023-06-22 12:47 | HO.ANESPROP2 ---
HPI - Anesthesia Eval Consult details Narrative: 63yo M for Right Knee Replacement Total, 06/30/23 PCP cleared No recent illness No CP/SOB with housework GERD: Occassional, prn TUMS POLO: No CPAP at this time, partner states mostly resolved On exam at PAT: RUL wheeze, otherwise cta. No cough or SOB. Likely seasonal allergy related. Will use flonase or zyrtek daily until surgery PMFSH Active Problems Active Problems: All Active Problems Preoperative clearance (Acute) Arthritis of right knee (Acute) Numbness and tingling in left hand (Acute) Hypothyroid (Acute) Hypertension (Acute) 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, bilateral (Acute) Osteoarthritis of knees, bilateral (Acute) Past Medical History Medical History (Updated 07/03/23 @ 00:01 by Keli Javier) GERD (gastroesophageal reflux disease) Sleep apnea Restless legs syndrome Hypothyroid Depression High cholesterol Family History Family history of problems with anesthesia: No Surgical History Surgical History H/O rotator cuff surgery S/P tendon repair S/P ankle joint replacement History of Problems with Anesthesia: No Social History Social History Household Members: Family Housing: House Are you a primary health care facilities inspector to a significant other at home: No Do you presently have visiting nurse or other home services: No Alcohol intake: current Alcohol intake frequency: does not drink Patient Tobacco Use Status: Former Tobacco user e-Cigarette/Vaping Use: Currently Using Second Hand Smoke Exposure: No Substance Use Type: Marijuana service: No Current occupational status: disabled Cognitive needs: No Hearing needs: No Vision needs: No Meds Allergies Allergy/AdvReac Type Severity Reaction Status Date / Time niacin [NIACIN] Allergy Intermediate AGITATION Verified 06/25/23 13:19 nystatin [NYSTATIN] Allergy Unknown RASH Verified 06/25/23 13:19 ropinirole [ROPINIROLE] Allergy Unknown ANXIOUS Verified 06/25/23 13:19 duloxetine AdvReac Unknown Unknown Verified 06/25/23 13:19 Home Medications ?Medication ?Instructions ?Recorded ?Confirmed ?Last Taken ?Type bupropion HCl 150 mg 24 hr tablet, 150 mg PO QAM 04/10/23 06/25/23 Unknown History extended release clonidine HCl 0.2 mg tablet 0.2 mg PO BID 04/10/23 06/25/23 Unknown History fenofibrate 160 mg tablet 160 mg PO DAILY@169904/10/23 06/25/23 Unknown History levothyroxine 100 mcg tablet 100 mcg PO DAILY 04/10/23 06/25/23 Unknown History (Synthroid) pramipexole 1 mg tablet 0.75 mg PO TID 04/10/23 06/30/23 Unknown History pravastatin 40 mg tablet 40 mg PO DAILY@169904/10/23 06/25/23 Unknown History Exam Height,Weight and Vital Signs: Height 5 ft 7 in Weight 89.811 kg Last Vital Signs Pulse 61 06/22/23 12:26 Resp 16 06/22/23 12:26 BP 143/87 H 06/22/23 12:26 Pulse Ox 95 06/22/23 12:26 O2 Del Method Room Air 06/22/23 12:26 Pertinent Lab Results Pertinent Lab Results: Laboratory Tests 06/08/23 11:39 WBC 8.1 Hgb 13.8 L Hct 42.8 Plt Count 415 H Sodium 137 Potassium 3.9 Chloride 106 Carbon Dioxide 26 BUN 17 H Creatinine 0.79 Narrative Narrative: EKG 05/2023 SB @ 58 Inc RBBB Airway Mallampati Class: I TM Dist: >3cm Neck ROM: Full Heart: RRR Lungs: RUL wheeze, otherwise cta. Likely seasonal allergy related. Will use flonase or zyrtek daily until surgery Assessment and Plan Assessment Anesthesia Assessment: Anesthesia Plan Discussed and PAT Visit Final Anesthetic Review Family History of Problems with Anesthesia: No History of Problems with Anesthesia: No
[2023-06-22 14:36] LABS: MRSA Nasal PCR NEGATIVE (Negative); SA Nasal PCR NEGATIVE (Negative)
[2023-06-30] VITALS (11 sets, daily range): BP systolic 92–162; BP diastolic 50–83; PULSE 50–65; RESP 14–18; TEMP 36.1–36.8; O2SAT 95–100; BMI 32.6
--- NOTE | ~2023-06-30 | XR_ITS ---
EXAMINATION: XR KNEE, RIGHT CLINICAL INFORMATION: Right total knee arthroplasty COMPARISON: 06/25/2023 TECHNIQUE: AP and lateral views of the right knee. FINDINGS: Prosthetic components of the constrained total knee arthroplasty are appropriately aligned. Of note, there is a fracture in the medial cortex of the tibial plateau in the region of significant subarticular cystic change seen on the presurgical radiographs. Minimal varus angulation at the knee, markedly improved as compared to prior. Gas from recent surgery is present in the joint and surrounding soft tissues along with anterior skin jorge a. A joint effusion is present. XR/XR knee RT 2V IMPRESSION: Appropriate alignment of the constrained right total knee arthroplasty. Small minimally displaced fracture of the medial cortex of the tibial plateau.
--- NOTE | 2023-06-30 11:06 | MHC.SHP ---
Pre-Procedural Eval Section A - 24 Hr Update-Section A only Date of Service: 06/30/23 The patient is an INPATIENT: No Changes since office visit: No Cold of Flu in the past 2 weeks, No New Medical Problems, No Changes in Medication and No Patient answered all questions The patient has been examined within 24 hours of the surgical procedure. The History & Physical has been completed within 30 days and I have reviewed it.: Yes Section B - Complete if H&P > 30 days Chief Complaint: Unilateral primary osteoarthritis, right knee Allergies: Allergies Allergy/AdvReac Type Severity Reaction Status Date / Time niacin [NIACIN] Allergy Intermediate AGITATION Verified 06/25/23 13:19 nystatin [NYSTATIN] Allergy Unknown RASH Verified 06/25/23 13:19 ropinirole [ROPINIROLE] Allergy Unknown ANXIOUS Verified 06/25/23 13:19 duloxetine AdvReac Unknown Unknown Verified 06/25/23 13:19 Plan I have reviewed the history and physical and performed a pertinent physical examination on my patient. No changes have occurred unless specified. Time Spent With Patient Time: Total time managing care of this patient today ____ minutes.
--- OUTSIDE RECORDS SUMMARY | 2023-06-30 12:36 | XMS_ITS | Continuity of Care Document ---
Author Organization [facility] Roger Roger Valentín lt Address [address] [place] [address]- Care Team Providers Care Advertising Consultant Name Role Phone [place], Lora Neri Primary Care Physician [phone] Encounter [facility] Date(s): 02/19/22 - 03/21/22 [facility] Roger Roger Adult [address] [place] [address]- Allergies, Adverse Reactions, Alerts Substance Reaction Severity Status Niaspan ER TINGLING ALL OVER Active Requip anxiety Active Duloxetine Restless legs Active Immunizations Given and Recorded Vaccine Date Status Refusal Reason [id number] 12y+ bivalent booster vax 11/29/21 Given tetanus-diphtheria toxoids (Td) 11/29/21 Given influenza virus vaccine, inactivated 11/14/21 Donnie rded influenza virus vaccine, inactivated 1 02/21/16 Re corded influenza virus vaccine, inactivated 11/23/14 Give n influenza virus vaccine, inactivated 11/10/13 Give n influenza virus vaccine, inactivated 11/04/12 Give n SARS-CoV-2 (COVID-19) mRNA-1273 vaccine 12/15/20 R ecorded SARS-CoV-2 (COVID-19) mRNA BNT-162b2 vac 04/15/20 Recorded SARS-CoV-2 (COVID-19) mRNA BNT-162b2 vac 03/25/20 Recorded Influenza Virus Vaccine (oldterm) 11/09/19 Recorde d Influenza Virus Vaccine (oldterm) 10/14/18 Recorde d Influenza Virus Vaccine (oldterm) 12/17/17 Recorde d FluLaval (oldterm) 02/20/12 Given Fluarix (oldterm) 11/13/10 Given Tet/diphth/pertussis, acel (oldterm) 10/23/10 Give n 1Result Comment: [facility]/22/2016[facility] Medic[facility] buPROPion 150 mg/24 hours (XL) oral tablet, extended release 1 tablet = 150 mg, By Mouth, Every 24 hours, # 90 tablet, 3 Refills, Maintenance, 11/21/21 14:15:00EDT, ER Tablet, [facility]/pharmacy #[id number], Partial fill upon patient request if the prescription is for a schedule II opioid drug., 1 tablet By Mouth Every 24... Start Date: 11/21/21 Status: Ordered cloNIDine 0.2 mg oral tablet 1, tablet, By Mouth, 2 times a day, # 180 tablet, Refills 1, Maintenance, 02/25/22 7:58:00 EST, Route to Pharmacy Electronically, [facility] STORE [id number], 175, cm, 11/29/21 8:48:00 EDT, Height Start Date: 02/25/22 Status: Ordered CPAP Machine See Instructions, # 1 each, Maintenance, BiPAP 21/09, 08/17/14 11:33:22, Compound Start Date: 08/17/14 Status: Ordered fenofibrate 160 mg oral tablet 1 tablet, By Mouth, Daily, # 90 tablet, 3 Refills, 11/21/21 10:39:00 EDT, [facility]/pharmacy #[id number], 175, cm, 11/21/21 10:25:00 EDT, Height Start Date: 11/21/21 Status: Ordered levothyroxine 0.1 mg oral tablet 1 tablet, By Mouth, Daily, # 90 tablet, 3 Refills, 03/04/22 19:04:00 EST, [facility], 175, cm, 11/29/21 8:48:00 EDT, Height Start Date: 03/04/22 Status: Ordered meloxicam 15 mg oral tablet 1 tablet, By Mouth, Daily, # 30 tablet, 5 Refills, Maintenance, 03/17/22 10:52:00 EST, [facility] STORE [id number], 175, cm, 11/29/21 8:48:00 EDT, Height Start Date: 03/17/22 Status: Ordered pramipexole 1 mg oral tablet 1 tablet, By Mouth, 3 times a day, # 270 tablet, 3 Refills, Maintenance, 03/21/22 11:53:00 EST, [facility], 175, cm, 11/29/21 8:48:00 EDT, Height Start Date: 03/21/22 Status: Ordered pramipexole 1 mg oral tablet 1 tablet = 1 mg, By Mouth, 3 times a day, 10-day supply until mail order supply arrives in mail perpt request., # 30 tablet, 0 Refills, Maintenance, 03/21/22 11:53:00 EST, Tablet, [facility]/pharmacy #[id number], Partial fill upon patient request if the prescript... Start Date: 03/21/22 Status: Ordered pravastatin 40 mg oral tablet 1 tablet, By Mouth, Daily, # 90 tablet, 3 Refills, 08/01/21 10:18:00 EDT, [facility], 175, cm, 08/01/21 9:51:00 EDT, Height Start Date: 08/01/21 Status: Ordered sildenafil 25 mg oral tablet 1 tablet = 25 mg, By Mouth, Daily, 1 hour before sexual activity, # 10 tablet, 0 Refills, Maintenance, 11/29/21 15:38:00 EDT, Tablet, [facility]/pharmacy #[id number], Partial fill upon patient request if the prescription is for a schedule II opioid drug., 175, cm,... Start Date: 11/29/21 Status: Ordered Theraworx Relief MCS topical spray See Instructions, [place] over right knee topically every four hours as needed for moderate to severepain., # 1 each, 0 Refills, Maintenance, 11/29/21 15:39:00 EDT, [facility]/pharmacy #[id number], Partial fill upon patient request if the prescription is for a sche... Start Date: 11/29/21 Status: Ordered Problem List Condition Confirmation Course Effective Dates Status Health Status Informant Chronic ankle pain - bilateral Confirmed Active Anxiety Confirmed Active Hypertension Confirmed Active Hypertriglyceridemia Confirmed Active Hypothyroidism Confirmed Active Prediabetes Confirmed Active Insomnia Confirmed 01/16/11 Active Depression, major Confirmed Active Obese class I Confirmed Active Obesity Confirmed Active POLO (obstructive sleep apnea) Confirmed Active PMR (polymyalgia rheumatica) Confirmed Active Restless Legs Syndrome (RLS) Confirmed 08/02/10 Active Social History Social History Type Response Smoking Status Former smoker entered on: 09/10/17 Sex Patient Care team information Care Team Personnel Name: Olimpia Pedro RN Position: [facility] AMB Nurse Member Role: Primary Care Nurse Name: [place] THOMAS, Patience Jasso Position: [facility] SN RN Member Role: Primary Care Nurse Name: Trina Trujillo RN Position: [facility] SN Flat Grinder Operator Member Role: Primary Care Nurse Name: Lora Hensley NP Position: [facility] PCO Associate Professional Member Role: PCP Address: Address: [address] [place] [id number]- Care Team Related Persons Name: PAM CALHOUN Address: home [address] [place] [id number]
--- OUTSIDE RECORDS SUMMARY | 2023-06-30 12:36 | XMS_ITS | Continuity of Care Document ---
Author Organization [facility] Kana Valentín lt Address [address] [place] [address]- Care Team Providers Care Porcelain Technician Name Role Phone [place], Lora Neri Primary Care Physician [place] [facility] [place] 04/27/22 [facility] Adult [address] [place] [address]- Allergies, Adverse Reactions, Alerts Substance Reaction Severity Status Niaspan ER TINGLING ALL OVER Active Requip anxiety Active Duloxetine Restless legs Active Immunizations Given and Recorded Vaccine Date Status Refusal Reason [id number] 12y+ bivalent booster vax 11/29/21 Given tetanus-diphtheria [...] 3 Refills, Maintenance, 11/21/21 14:15:00EDT, ER Tablet, [facility]/pharmacy #[id number], Partial fill upon patient request if the prescription is for a schedule II opioid drug., 1 tablet By Mouth Every 24... Start Date: 11/21/21 Status: Ordered cloNIDine 0.2 mg oral tablet 1, tablet, By Mouth, 2 times a day, # 180 tablet, Refills 1, Maintenance, 02/25/22 7:58:00 EST, Route to Pharmacy Electronically, [id number], 175, cm, 11/29/21 8:48:00 EDT, Height Start Date: 02/25/22 Status: Ordered CPAP Machine See Instructions, # 1 each, Maintenance, BiPAP 21/09, 08/17/14 11:33:22, Compound Start Date: 08/17/14 Status: Ordered fenofibrate 160 mg oral tablet 1 tablet, By Mouth, Daily, # 90 tablet, 3 Refills, 03/31/22 14:27:00 EST, [facility], 175, cm, 11/29/21 8:48:00 EDT, Height Start Date: 03/31/22 Status: Ordered levothyroxine 0.1 mg oral tablet 1 tablet, By Mouth, Daily, # 90 tablet, 3 Refills, 03/04/22 19:04:00 EST, [facility], 175, cm, 11/29/21 8:48:00 EDT, Height Start Date: 03/04/22 Status: Ordered meloxicam 15 mg oral tablet 1 tablet, By Mouth, Daily, # 30 tablet, 5 Refills, Maintenance, 03/17/22 10:52:00 EST, [id number], 175, cm, 11/29/21 8:48:00 EDT, Height Start Date: 03/17/22 Status: Ordered pramipexole 1 mg oral tablet 1 tablet, By Mouth, 3 times a day, # 270 tablet, 3 Refills, Maintenance, 03/21/22 11:53:00 EST, [facility], 175, cm, 11/29/21 8:48:00 EDT, Height Start Date: 03/21/22 Status: Ordered pramipexole 1 mg oral tablet 1 tablet = 1 mg, By Mouth, 3 times a day, 10-day supply until mail order supply arrives in mail perpt request., # 30 tablet, 0 Refills, Maintenance, 03/21/22 11:53:00 EST, Tablet, [facility]/pharmacy #[id number], Partial fill upon patient request if [...] 0 Refills, Maintenance, 11/29/21 15:38:00 EDT, Tablet, [facility]/pharmacy #[id number], Partial fill upon patient request if the prescription is for a schedule II opioid drug., 175, cm,... Start Date: 11/29/21 Status: Ordered Theraworx Relief MCS topical spray See Instructions, [place] over right knee topically every four hours as needed for moderate to severepain., # 1 each, 0 Refills, Maintenance, 11/29/21 15:39:00 EDT, [facility]/pharmacy #[id number], Partial fill upon patient request if [...] Team Personnel Name: Olimpia Pedro RN Position: [facility] Nurse Member Role: Primary Care Nurse Name: Patience Haynes RN Position: [facility] SN RN Member Role: Primary Care Nurse Name: Trina Trujillo RN Position: [facility] SN Dock Supervisor Member Role: Primary Care Nurse Name: Lora Hensley NP Position: [facility] PCO Associate Professional Member Role: PCP Address: Address: [address] [place] [id number] [place] Care Team Related Persons Name: PAM CALHOUN Address: home [address] [place] [id number]
--- OUTSIDE RECORDS SUMMARY | 2023-06-30 12:36 | XMS_ITS | Continuity of Care Document ---
Author Organization [facility] Kana Valentín lt Address [address] [place] [address]- Care Team Providers Care Casting Room Helper Name Role Phone [place], Lora Neri Primary Care Physician [facility] Date(s): 10/21/21 - 11/20/21 [facility] Roger Delucaley Adult [address] [place] [address]- Allergies, Adverse Reactions, Alerts Substance Reaction Severity Status Niaspan ER TINGLING ALL OVER Active Duloxetine Restless legs Active Requip anxiety Active Immunizations Given and Recorded Vaccine Date Status Refusal Reason SARS-CoV-2 (COVID-19) mRNA-1273 vaccine 12/15/20 R ecorded SARS-CoV-2 (COVID-19) mRNA BNT-162b2 vac 04/15/20 Recorded SARS-CoV-2 (COVID-19) mRNA BNT-162b2 vac 03/25/20 Recorded Influenza Virus Vaccine (oldterm) 11/09/19 Recorde d Influenza Virus Vaccine (oldterm) 10/14/18 Recorde d Influenza Virus Vaccine (oldterm) 12/17/17 Recorde d influenza virus vaccine, inactivated 1 02/21/16 Re corded influenza virus vaccine, inactivated 11/23/14 Give n influenza virus vaccine, inactivated 11/10/13 Give n influenza virus vaccine, inactivated 11/04/12 Give n FluLaval (oldterm) 02/20/12 Given Fluarix (oldterm) 11/13/10 Given Tet/diphth/pertussis, acel (oldterm) 10/23/10 Give n 1Result Comment: [02/22/2016[facility] buPROPion 150 mg/24 hours (XL) oral tablet, extended release 1 tablet = 150 mg, By Mouth, Every 24 hours, # 30 tablet, 2 Refills, Maintenance, 10/22/21 9:22:00 EDT, ER Tablet, [facility]/pharmacy #[id number], Partial fill upon patient request if the prescription is for a schedule II opioid drug., 1 tablet By Mouth Every 24... Start Date: 10/22/21 Status: Ordered cloNIDine 0.2 mg oral tablet 1, tablet, By Mouth, 2 times a day, # 180 tablet, Refills 1, Route to Pharmacy Electronically, [id number], 175, cm, 06/24/21 10:17:00 EDT, Height Start Date: 07/19/21 Status: Ordered CPAP Machine See Instructions, # 1 each, Maintenance, BiPAP 21/09, 08/17/14 11:33:22, Compound Start Date: 08/17/14 Status: Ordered fenofibrate 160 mg oral tablet 1 tablet, By Mouth, Daily, # 90 tablet, 3 Refills, [facility], 175, cm, 08/09/2209:17:00 EDT, Height Start Date: 09/20/21 Status: Ordered levothyroxine 0.1 mg oral tablet 1 tablet, By Mouth, Daily, # 90 tablet, 1 Refills, 09/12/21 9:59:00 EDT, [facility], 175, cm, 08/09/21 10:17:00 EDT, Height Start Date: 09/12/21 Status: Ordered meloxicam 15 mg oral tablet 1 tablet = 15 mg, By Mouth, Daily, # 30 tablet, 1 Refills, Maintenance, 10/22/21 9:25:00 EDT, Tablet, [facility]/pharmacy #[id number], Partial fill upon patient request if the prescription is for a schedule II opioid drug., 175, cm, 10/22/21 9:03:00 EDT, Height Start Date: 10/22/21 Status: Ordered pramipexole 1 mg oral tablet 1 tablet, By Mouth, 3 times a day, # 270 tablet, 3 Refills, Maintenance, 08/23/21 10:58:00 EDT, [facility], 175, cm, 08/09/21 10:17:00 EDT, Height Start Date: 08/23/21 Status: Ordered pravastatin 40 mg oral tablet 1 tablet, By Mouth, Daily, # 90 tablet, 3 Refills, 06/23/22 10:18:00 EDT, [facility], 175, cm, 08/01/21 9:51:00 EDT, Height Start Date: 08/01/21 Status: Ordered Problem List Condition Confirmation Course [...] on: 09/10/17 Sex Patient Care team information Personnel Name: Lora Hensley NP Address: Address: [address] [place] [id number]
--- OUTSIDE RECORDS SUMMARY | 2023-06-30 12:36 | XMS_ITS | Continuity of Care Document ---
Author Organization [facility] Roger Roger Valentín lt Address [address] [place] [address]- Care Team Providers Care Broach Trouble Shooter Name Role Phone Sj Scott MD Primary Care Physician [phone] Encounter [facility] Date(s): 07/04/20 - 08/03/20 [facility] Roger Delucaley Adult [address] [place] [address]- Allergies, Adverse Reactions, Alerts Substance Reaction Severity Status Niaspan ER TINGLING ALL OVER Active Requip anxiety Active Duloxetine Restless legs Active Immunizations Given and Recorded Vaccine Date Status Refusal Reason SARS-CoV-2 (COVID-19) mRNA BNT-162b2 vac 04/15/20 Recorded [...] 1Result Comment: [02/22/2016] [facility] Medic[facility] amLODIPine 5 mg oral tablet 5 mg, 1, tablet, By Mouth, Daily, # 90 tablet, Refills 3, Tot. Refills 3, Maintenance, 06/08/20 14:19:00 EDT, Route to Pharmacy Electronically, [facility]/pharmacy #[id number], Partial fill upon patient request if the prescription is for a schedule II opioid drug.... Start Date: 06/08/20 Status: Ordered buPROPion 300 mg/24 hours (XL) oral tablet, extended release 1 tablet = 300 mg, By Mouth, Daily, # 90 tablet, 1 Refills, Maintenance, 05/15/20 15:42:00 EDT, ER Tablet, [facility], 175, cm, 10/20/19 9:33:00 EDT, Height Start Date: 05/15/20 Status: Ordered CPAP Machine See Instructions, # 1 each, Maintenance, BiPAP 21/09, 08/17/14 11:33:22, Compound Start Date: 08/17/14 Status: Ordered fenofibrate 160 mg oral tablet 1 tablet = 160 mg, By Mouth, Daily, # 90 tablet, 1 Refills, Maintenance, 05/18/20 14:02:00 EDT, Tablet, [facility], 175, cm, 10/20/19 9:33:00 EDT, Height Start Date: 05/18/20 Status: Ordered FLUoxetine 20 mg oral capsule 40 mg, 2, capsule, By Mouth, Daily, # 180 capsule, Refills 3, Tot. Refills 3, Maintenance, 12/01/2014:42:00 EDT, Route to Pharmacy Electronically, [facility], D/C RX ON FILE FOR TABLETS, 175, cm, 10/20/19 9:33:00 EDT, Height Start Date: 12/02/19 Status: Ordered gabapentin 800 mg oral tablet See Instructions, 1 tablet By Mouth at 5 pm and 1 at 9 pm, # 180 tablet, 1 Refills, Maintenance, 05/14/20 13:14:00 EDT, Tablet, [facility], 175, cm, 10/20/19 9:33:00 EDT, Height Start Date: 05/14/20 Status: Ordered levothyroxine 0.1 mg oral tablet 1 tablet = 0.1 mg, By Mouth, Daily, # 90 tablet, 1 Refills, Maintenance, 05/14/20 8:53:00 EDT, Tablet, [facility], to mail order per pt, 175, cm, 10/20/19 9:33:00 EDT, Height Start Date: 05/14/20 Status: Ordered pramipexole 1 mg oral tablet 1 tablet = 1 mg, By Mouth, 3 times a day, # 270 tablet, 3 Refills, Soft Stop, 09/30/19 10:42:00 EDT, [facility], 175, cm, 09/30/19 10:20:00 EDT, Height Start Date: 09/30/19 Status: Ordered pravastatin 40 mg oral tablet 1 tablet = 40 mg, By Mouth, Daily, # 90 tablet, 3 Refills, Maintenance, 09/30/19 10:42:00 EDT, Tablet, [facility], 175, cm, 09/30/19 10:20:00 EDT, Height Start Date: 09/30/19 Status: Ordered predniSONE 1 mg oral tablet 4 tablet, By Mouth, Daily, # 120 tablet, 0 Refills, Maintenance, 08/02/20 14:57:00 EDT, [id number], 175, cm, 06/08/20 13:44:00 EDT, Height Start Date: 08/02/20 Status: Ordered Problem List Condition Effective Dates Status Health Status Inform ant Chronic ankle pain - bilateral(Confirmed) Active Anxiety(Confirmed) Active Hypertension(Confirmed) Active Hypertriglyceridemia(Confirmed) Active Hypothyroidism(Confirmed) Active Prediabetes(Confirmed) Active Insomnia(Confirmed) 01/16/11 Active Depression, major(Confirmed) Active Obesity(Confirmed) Active POLO (obstructive sleep apnea)(Confirmed) Active PMR (polymyalgia rheumatica)(Confirmed) Active Restless Legs Syndrome (RLS)(Confirmed) 08/02/10 Active Social History Social History Type Response Smoking Status Former smoker entered on: 09/10/17 Sex
--- OUTSIDE RECORDS SUMMARY | 2023-06-30 12:36 | XMS_ITS | Continuity of Care Document ---
Author Organization [facility] Kana Valentín Address [address] [place] [address]- Care Team Providers Care Body Coverer Name Role Phone Sj Scott MD Primary Care Physician [phone] Encounter [facility] Date(s): 01/22/19 - 05/22/19 [facility] Kana Adult [address] [place] [address]- [facility] Attending Physician: Sj Scott MD Allergies, Adverse Reactions, Alerts Substance Reaction Severity Status Niaspan ER TINGLING ALL OVER Active Requip anxiety Active Duloxetine Restless legs Active Immunizations Given and Recorded Vaccine Date Status Refusal Reason Influenza Virus Vaccine (oldterm) 10/14/18 Recorde d Influenza Virus Vaccine (oldterm) 12/10/17 Recorde d influenza virus vaccine, inactivated 1 02/21/16 Re corded influenza virus vaccine, inactivated 11/23/14 Give n influenza virus vaccine, inactivated 11/10/13 Give n influenza virus vaccine, inactivated 11/04/12 Give n FluLaval (oldterm) 02/20/12 Given Fluarix (oldterm) 11/13/10 Given Tet/diphth/pertussis, acel (oldterm) 10/23/10 Give n 1Result Comment: [02/22/2016] [facility] Medic[facility] buPROPion 300 mg/24 hours (XL) oral tablet, extended release 1 tablet = 300 mg, By Mouth, Daily, # 90 tablet, 3 Refills, Maintenance, 04/16/18 11:11:40 EST, ER Tablet Start Date: 04/16/18 Status: Ordered CPAP Machine See Instructions, # 1 each, Maintenance, BiPAP 21/09, 08/17/14 11:33:22, Compound Start Date: 08/17/14 Status: Ordered fenofibrate 160 mg oral tablet 1 tablet = 160 mg, By Mouth, Daily, # 90 tablet, 1 Refills, Maintenance, 03/17/19 10:56:00 EST, Tablet, [facility], 175, cm, 02/25/19 8:54:00 EST, Height Start Date: 03/17/19 Status: Ordered FLUoxetine 20 mg oral tablet 2 tablet = 40 mg, By Mouth, Daily, # 180 tablet, 3 Refills, Maintenance, 04/28/18 6:59:23 EDT, Tablet Start Date: 04/28/18 Stop Date: 05/12/18 Status: Ordered gabapentin 800 mg oral tablet See Instructions, 1 tablet By Mouth at 5 pm and 1 at 9 pm, # 180 tablet, 1 Refills, Maintenance, 12/24/18 15:48:16 EST, Tablet Start Date: 12/24/18 Status: Ordered levothyroxine 0.1 mg oral tablet 1 tablet = 0.1 mg, By Mouth, Daily, # 90 tablet, 1 Refills, Maintenance, 02/15/19 13:18:00 EST, Tablet, [facility], 175, cm, 04/20/18 8:49:00 EDT, Height Start Date: 02/15/19 Status: Ordered pramipexole 1 mg oral tablet 1 tablet = 1 mg, By Mouth, 3 times a day, # 270 tablet, 1 Refills, Soft Stop, 04/04/19 15:59:00 EST, [facility], 175, cm, 02/25/19 8:54:00 EST, Height Start Date: 04/04/19 Status: Ordered pravastatin 40 mg oral tablet 1 tablet = 40 mg, By Mouth, Daily, # 90 tablet, 1 Refills, Maintenance, 04/21/19 14:27:00 EDT, Tablet, [facility], 175, cm, 02/25/19 8:54:00 EST, Height Start Date: 04/21/19 Status: Ordered Voltaren 1% topical gel 1 application, Topically, 4 times a day, PRN Pain , Joint, # 100 Gm, 5 Refills, Maintenance, 02/25/19 9:10:00 EST, Gel, [facility]/pharmacy #[id number], 1 application Topically 4 times a day,PRN:Pain , Joint, 175, cm, 02/25/19 8:54:00 EST, Height Start Date: 02/25/19 Status: Ordered Problem List Condition Effective Dates Status Health Status Inform ant Chronic ankle pain - bilateral(Confirmed) Active Anxiety(Confirmed) Active Hypertriglyceridemia(Confirmed) Active Hypothyroidism(Confirmed) Active Prediabetes(Confirmed) Active Insomnia(Confirmed) 01/16/11 Active Depression, major(Confirmed) Active Obesity(Confirmed) Active POLO (obstructive sleep apnea)(Confirmed) Active Restless Legs Syndrome (RLS)(Confirmed) 08/02/10 Active Social History Social History Type Response Smoking Status Former smoker entered on: 09/10/17 Sex
--- OUTSIDE RECORDS SUMMARY | 2023-06-30 12:36 | XMS_ITS | Continuity of Care Document ---
Author Organization [facility] Kana Valentín lt Address [address] [place] [address]- Care Team Providers Care Communication Studies Professor Name Role Phone [place], Lora Neri Primary Care Physician [facility]counter [facility] Date(s): 08/23/21 - 09/22/21 [facility] Kana Adult [address] [place] [address]- Allergies, Adverse Reactions, Alerts Substance Reaction Severity [...] hours (XL) oral tablet, extended release 1 tablet, By Mouth, Daily, # 90 tablet, 3 Refills, [facility], 175, cm, :01:00 EDT, Height Start Date: 03/27/21 Status: Ordered cloNIDine 0.2 mg oral tablet 1, tablet, By Mouth, 2 times a day, # 180 tablet, Refills 1, Route to Pharmacy Electronically, [id number], 175, cm, 06/24/21 10:17:00 EDT, Height Start [...] EDT, Height Start Date: 09/12/21 Status: Ordered pramipexole 1 mg oral tablet [...] Date: 08/01/21 Status: Ordered Problem List Condition Effective Dates [...]
--- OUTSIDE RECORDS SUMMARY | 2023-06-30 12:36 | XMS_ITS | Continuity of Care Document ---
Author Organization [facility] Kana Valentín lt Address [address] [place] [address]- Care Team Providers Care Hvac/R Service Technician Name Role Phone [place], Lora Neri Primary Care Physician [phone] Encounter [facility] Date(s): 07/30/21 - 08/29/21 [facility] Kana Adult [address] [place] [address]- Allergies, Adverse Reactions, Alerts Substance Reaction Severity [...] tablet, Refills 1, Route to Pharmacy Electronically, [id number], 175, cm, 06/24/21 10:17:00 EDT, Height Start Date: 07/19/21 Status: Ordered CPAP Machine See Instructions, # 1 each, Maintenance, BiPAP 21/09, 08/17/14 11:33:22, Compound Start Date: 08/17/14 Status: Ordered fenofibrate 160 mg oral tablet 1 tablet, By Mouth, Daily, # 90 tablet, 1 Refills, 03/25/21 14:33:00 EST, [facility], 175, cm, 11/02/20 9:01:00 EDT, Height Start Date: 03/25/21 Status: Ordered levothyroxine 0.1 mg oral tablet 1 tablet, By Mouth, Daily, # 90 tablet, 1 Refills, 03/25/21 14:32:00 EST, [facility], 175, cm, 11/02/20 9:01:00 EDT, Height Start Date: 03/25/21 Status: Ordered pramipexole 1 mg oral tablet [...]
--- OUTSIDE RECORDS SUMMARY | 2023-06-30 12:36 | XMS_ITS | Continuity of Care Document ---
Author Organization [facility] Address [address] [place] [address]- Care Team Providers Care Control Board Operator Name Role Phone [place], Lora Neri Primary Care Physician [phone] Encounter [facility] Date(s): 09/25/21 - 10/25/21 [facility] [address] [place] [address]- Attending Physician: Janee Camargo Admitting Physician: AdmtrJanee Referring Physician: Admtr, Ar8 Allergies, Adverse Reactions, Alerts Substance Reaction Severity [...] Refills, Maintenance, 10/22/21 9:22:00 EDT, ER Tablet, [facility]/pharmacy #[id number], Partial fill upon patient request if the prescription is for a schedule II opioid drug., 1 tablet By Mouth Every 24... Start Date: 10/22/21 Status: Ordered cloNIDine 0.2 mg oral tablet 1, tablet, By Mouth, 2 times a day, # 180 tablet, Refills 1, Route to Pharmacy Electronically, [id number], 175, cm, 06/24/21 10:17:00 EDT, Height Start [...] 1 Refills, Maintenance, 10/22/21 9:25:00 EDT, Tablet, [facility]/pharmacy #[id number], Partial fill upon patient request [...] Active Insomnia(Confirmed) 01/16/11 Active Depression, major(Confirmed) Active Obese class I(Confirmed) Active Obesity(Confirmed) Active POLO (obstructive sleep apnea)(Confirmed) Active PMR (polymyalgia rheumatica)(Confirmed) Active Restless Legs Syndrome (RLS)(Confirmed) 08/02/10 Active Social History Social History Type Response Smoking Status Former smoker entered on: 09/10/17 Sex Care Team Personnel Name: Lora Hensley NP Address: [address] [place] [address] [place], [place] [address]
--- OUTSIDE RECORDS SUMMARY | 2023-06-30 12:36 | XMS_ITS | Continuity of Care Document ---
Author Organization [facility] Roger Roger Valentín Address [address] [place] [address]- Care Team Providers Care Slitter Operator Name Role Phone Tyler BLACKMON, Sj Michaud Primary Care Physician [facility] Date[facility]s): 08/16/19 - 09/15/19 [facility] Roger Delucaley Adult [address] [place] [address]- [facility] Allergies, Adverse Reactions, Alerts Substance Reaction Severity [...] Daily, # 90 tablet, 1 Refills, Maintenance, 06/01/19 10:40:00 EDT, ER Tablet, [facility], 175, cm, 02/25/19 8:54:00 EST, Height Start Date: 06/01/19 Status: Ordered CPAP Machine See Instructions, # 1 each, Maintenance, BiPAP 21/09, 08/17/14 11:33:22, Compound Start Date: 08/17/14 Status: Ordered fenofibrate 160 mg oral tablet 1 tablet = 160 mg, By Mouth, Daily, # 90 tablet, 0 Refills, Maintenance, 09/13/19 15:37:00 EDT, Tablet, [facility], 175, cm, 02/25/19 8:54:00 EST, Height Start Date: 09/13/19 Status: Ordered FLUoxetine 20 mg oral tablet 2 tablet = 40 mg, By Mouth, Daily, # 180 tablet, 3 Refills, Maintenance, 08/22/19 16:27:00 EDT, Tablet, [facility], 175, cm, 02/25/19 8:54:00 EST, Height Start Date: 08/22/19 Stop Date: 08/29/19 Status: Ordered gabapentin 800 mg oral tablet See Instructions, 1 tablet By Mouth at 5 pm and 1 at 9 pm, # 180 tablet, 3 Refills, Maintenance, 06/27/19 13:07:00 EDT, Tablet, [facility], 175, cm, 02/25/19 8:54:00 EST, Height Start Date: 06/27/19 Status: Ordered levothyroxine 0.1 mg oral tablet 1 tablet = 0.1 mg, By Mouth, Daily, # 90 tablet, 0 Refills, Maintenance, 08/16/19 8:51:00 EDT, Tablet, [facility], 175, cm, 02/25/19 8:54:00 EST, Height Start Date: 08/16/19 Status: Ordered pramipexole 1 mg oral tablet [...] 5 Refills, Maintenance, 02/25/19 9:10:00 EST, Gel, [id number], 1 application Topically 4 times a [...]
--- OUTSIDE RECORDS SUMMARY | 2023-06-30 12:36 | XMS_ITS | Continuity of Care Document ---
Author Organization [facility] Roger Roger Valentín lt Address [address] [place] [address]- Care Team Providers Care Table Cover Folder Name Role Phone [place], Lora Neri Primary Care Physician [phone] [facility]counter [facility] Date[facility]s): 02/06/23 - 03/08/23 [facility] Roger Roger Adult [address] [place] [address]- Allergies, Adverse Reactions, Alerts Substance Reaction Severity Status Niaspan ER TINGLING ALL OVER Active Requip anxiety Active Duloxetine Restless legs Active Immunizations Given and Recorded Vaccine Date Status Refusal Reason SARS-CoV-2 mRNA ([id number]-zhazk) vax 1 11/13/22 Recorded influenza virus vaccine, inactivated 11/13/22 Donnie rded influenza virus vaccine, inactivated 11/14/21 Donnie rded influenza virus vaccine, inactivated 2 02/21/16 Re corded influenza virus vaccine, inactivated 11/23/14 Give n influenza virus vaccine, inactivated 11/10/13 Give n influenza virus vaccine, inactivated 11/04/12 Give n [id number] 12y+ bivalent booster vax 11/29/21 Given tetanus-diphtheria toxoids (Td) 11/29/21 Given SARS-CoV-2 (COVID-19) mRNA-1273 vaccine 12/15/20 R ecorded SARS-CoV-2 (COVID-19) mRNA BNT-162b2 vac 04/15/20 Recorded SARS-CoV-2 (COVID-19) mRNA BNT-162b2 vac 03/25/20 Recorded Influenza Virus Vaccine (oldterm) 11/09/19 Recorde d Influenza Virus Vaccine (oldterm) 10/14/18 Recorde d Influenza Virus Vaccine (oldterm) 12/17/17 Recorde d FluLaval (oldterm) 02/20/12 Given Fluarix (oldterm) 11/13/10 Given Tet/diphth/pertussis, acel (oldterm) 10/23/10 Give n [facility] [place] [facility] [place] [facility] Medic[facility] buPROPion 150 mg/24 hours (XL) oral tablet, extended release 1 tablet, By Mouth, Every 24 hours, # 90 tablet, 3 Refills, Maintenance, 01/08/23 13:53:00 EST, [facility], 90, 1 tablet By Mouth Every 24 hours, 175, cm, 12/04/22 8:07:00 EDT,Height Start Date: 01/08/23 Status: Ordered buPROPion 150 mg/24 hours (XL) oral tablet, extended release 1 tablet = 150 mg, By Mouth, Every 24 hours, do not crush or chew pt did not receive mail-order medication on time, requsting 1-week supply until his mail order goes through., # 7 tablet, 0 Refills, Maintenance, 01/08/23 13:54:00 EST, ER Tablet[facility]... Start Date: 01/08/23 Stop Date: 01/15/23 Status: Ordered celecoxib 200 mg oral capsule 1 capsule, By Mouth, 2 times a day, # 180 capsule, 0 Refills, Maintenance, 01/09/23 20:31:00 EST, [facility] STORE [id number], 175, cm, 12/04/22 8:07:00 EDT, Height Start Date: 01/09/23 Status: Ordered cloNIDine 0.2 mg oral tablet 1, tablet, By Mouth, 2 times a day, # 180 tablet, Refills 3, Maintenance, 12/08/22 9:54:00 EDT, Route to Pharmacy Electronically, [id number], 175, cm, 12/04/22 8:07:00 EDT, Height Start Date: 12/08/22 Status: Ordered CPAP Machine See Instructions, # 1 each, Maintenance, BiPAP 21/09, 08/17/14 11:33:22, Compound Start Date: 08/17/14 Status: Ordered fenofibrate 160 mg oral tablet 1 tablet, By Mouth, Daily, # 90 tablet, 3 Refills, 03/31/22 14:27:00 EST, [facility], 175, cm, 11/29/21 8:48:00 EDT, Height Start Date: 03/31/22 Status: Ordered fenofibrate 160 mg oral tablet 1 tablet = 160 mg, By Mouth, Daily, mail service prescription will not arrive for 5 days- supply sent for 5 days per pt request., # 5 tablet, 0 Refills, Maintenance, 10/03/22 12:38:00 EDT, [facility]/pharmacy #[id number], Partial fill upon patient request if the p... Start Date: 10/03/22 Stop Date: 10/08/22 Status: Ordered levothyroxine 0.1 mg oral tablet 1 tablet, By Mouth, Daily, # 90 tablet, 3 Refills, Maintenance, 12/08/22 9:54:00 EDT, [facility] STORE [id number], 175, cm, 12/04/22 8:07:00 EDT, Height Start Date: 12/08/22 Status: Ordered pramipexole 0.75 mg oral tablet 1 tablet, By Mouth, 3 times a day, # 90 tablet, 1 Refills, Maintenance, 02/06/23 11:26:00 EST, [facility] STORE [id number], 175, cm, 12/04/22 8:07:00 EDT, Height Start Date: 02/06/23 Status: Ordered pravastatin 40 mg oral tablet 1 tablet, By Mouth, Daily, # 90 tablet, 1 Refills, Maintenance, 03/03/23 21:25:00 EST, [facility], 175, cm, 12/04/22 8:07:00 EDT, Height Start Date: 03/03/23 Status: Ordered sildenafil 50 mg oral tablet 1 tablet = 50 mg, By Mouth, Daily, 1 hour before sexual activity, # 30 tablet, 5 Refills, Maintenance, 12/11/22 12:34:00 EDT, Tablet, [facility]/pharmacy #[id number], Partial fill upon patient request if the prescription is for a schedule II opioid drug., 175, cm,... Start Date: 12/11/22 Status: Ordered Theraworx Relief MCS topical spray See Instructions, [place] over right knee topically every four hours as needed for moderate to severepain., # 1 each, 0 Refills, Maintenance, 11/29/21 15:39:00 EDT, [id number], Partial fill upon patient request if the prescription is for a sche... Start Date: 11/29/21 Status: Ordered Problem List Condition Confirmation Course Effective Dates Status Health Status Informant Chronic ankle pain - bilateral Confirmed Active Anxiety Confirmed Active Osteoarthritis of knees, bilateral Confirmed Active Hypertension Confirmed Active Hypertriglyceridemia Confirmed Active Hypothyroidism Confirmed Active Prediabetes Confirmed Active Insomnia Confirmed 01/16/11 Active Depression, major Confirmed Active Obesity Confirmed Active POLO (obstructive sleep apnea) Confirmed Active Restless Legs Syndrome (RLS) Confirmed 08/02/10 Active Social History Social History Type Response Smoking Status Former smoker, quit more than 30 days ago entered on: 08/14/22 Sex Patient Care team information Care Team Personnel Name: Olimpia Pedro RN Position: [facility] AMB Nurse Member Role: Primary Care Nurse Name: Patience Hanyes RN Position: [facility] SN RN Member Role: Primary Care Nurse Name: Trina Trujillo RN Position: [facility] SN Solar Energy Installation Manager Member Role: Primary Care Nurse Name: Lora Hensley NP Position: [facility] PCO Associate Professional Member Role: PCP Address: Address: [address] [place] [phone]- Care Team Related Persons Name: PAM CALHOUN Address: home [address] [place] [id number]
--- OUTSIDE RECORDS SUMMARY | 2023-06-30 12:36 | XMS_ITS | Continuity of Care Document ---
Author Organization [facility] Kana Valentín Address [address] [place] [address]- Care Team Providers Care Fur Dry Cleaner Hand Name Role Phone Tyler BLACKMON, Sj Michaud Primary Care Physician [facility] Date[facility]s): 02/25/19 - 03/07/19 [facility] Adult [address] [place] [address]- [facility] Attending Physician: Janee Camargo Admitting Physician: AdmJanee goncalves Referring Physician: AdmtrJanee Allergies, Adverse Reactions, Alerts Substance Reaction Severity [...] Daily, # 90 tablet, 3 Refills, Maintenance, 03/22/18 10:13:18 EST, Tablet Start Date: 03/22/18 Status: Ordered FLUoxetine 20 mg oral tablet [...] Refills, Maintenance, 02/15/19 13:18:00 EST, Tablet, [facility], 175, cm, 04/20/18 8:49:00 EDT, Height Start Date: 02/15/19 Status: Ordered pramipexole 1 mg oral tablet See Instructions, # 270 tablet, Refills 1 Tot. Refills 1, TAKE 1 TABLET THREE TIMES A DAY, [facility] Start Date: 10/05/18 Status: Ordered pravastatin 40 mg oral tablet 1 tablet = 40 mg, By Mouth, Daily, # 90 tablet, 1 Refills, Maintenance, 10/19/18 10:15:01 EDT, Tablet Start Date: 10/19/18 Status: Ordered Voltaren 1% topical gel 1 [...] Active Restless Legs Syndrome (RLS)(Confirmed) 08/02/10 Active Procedures Procedure Date Related Diagnosis Body Site Status Supramalleolar closing wedge osteotomy with first TMT fusion and excision of an os trigonum Completed Social History Social History Type Response Smoking Status Former smoker entered on: 09/10/17 Sex
--- OUTSIDE RECORDS SUMMARY | 2023-06-30 12:36 | XMS_ITS | Continuity of Care Document ---
Author Organization [facility] Kana Valentín lt Address [address] [place] [address]- Care Team Providers Care Scallop Binder Name Role Phone [place], Lora Neri Primary Care Physician [phone] Encounter [facility] Date(s): 03/28/22 - 04/27/22 [facility] Adult [address] [place] [address]- Allergies, Adverse Reactions, Alerts Substance Reaction Severity Status Niaspan ER TINGLING ALL OVER Active Requip anxiety Active Duloxetine Restless legs Active Immunizations Given and Recorded Vaccine Date Status Refusal Reason [id number] 12y+ bivalent booster vax 11/29/21 Given tetanus-diphtheria [...] 3 Refills, Maintenance, 11/21/21 14:15:00EDT, ER Tablet, [facility]/pharmacy #[id number], Partial fill upon patient request if the prescription is for a schedule II opioid drug., 1 tablet By Mouth Every 24... Start Date: 11/21/21 Status: Ordered cloNIDine 0.2 mg oral tablet 1, tablet, By Mouth, 2 times a day, # 180 tablet, Refills 1, Maintenance, 02/25/22 7:58:00 EST, Route to Pharmacy Electronically, [facility] [id number], 175, cm, 11/29/21 8:48:00 EDT, Height Start Date: 02/25/22 Status: Ordered CPAP Machine See Instructions, # 1 each, Maintenance, BiPAP 21/09, 08/17/14 11:33:22, Compound Start Date: 08/17/14 Status: Ordered fenofibrate 160 mg oral tablet 1 tablet, By Mouth, Daily, # 90 tablet, 3 Refills, 03/31/22 14:27:00 EST, [facility], 175, cm, 11/29/21 8:48:00 EDT, Height Start Date: 03/31/22 Status: Ordered levothyroxine 0.1 mg oral tablet 1 tablet, By Mouth, Daily, # 90 tablet, 3 Refills, 03/04/22 19:04:00 EST, [facility], 175, cm, 11/29/21 8:48:00 EDT, Height Start Date: 03/04/22 Status: Ordered meloxicam 15 mg oral tablet 1 tablet, By Mouth, Daily, # 30 tablet, 5 Refills, Maintenance, 03/17/22 10:52:00 EST, [facility]59, 175, cm, 11/29/21 8:48:00 EDT, Height Start Date: 03/17/22 Status: Ordered pramipexole 1 mg oral tablet 1 tablet, By Mouth, 3 times a day, # 270 tablet, 3 Refills, Maintenance, 03/21/22 11:53:00 EST, [facility], 175, cm, 11/29/21 8:48:00 EDT, Height Start Date: 03/21/22 Status: Ordered pramipexole 1 mg oral tablet 1 tablet = 1 mg, By Mouth, 3 times a day, 10-day supply until mail order supply arrives in mail perpt request., # 30 tablet, 0 Refills, Maintenance, 03/21/22 11:53:00 EST, Tablet, [facility]/pharmacy #[id number], Partial fill upon patient request if [...] 0 Refills, Maintenance, 11/29/21 15:38:00 EDT, Tablet, [facility]/pharmacy #[id number], Partial fill upon patient request if the prescription is for a schedule II opioid drug., 175, cm,... Start Date: 11/29/21 Status: Ordered Theraworx Relief MCS topical spray See Instructions, [place] over right knee topically every four hours as needed for moderate to severepain., # 1 each, 0 Refills, Maintenance, 11/29/21 15:39:00 EDT, [facility]/pharmacy #[id number], Partial fill upon patient request if [...] Nurse Name: Dallas THOMAS, Patience Jasso Position: [facility] SN RN Member Role: Primary Care Nurse Name: Trina Trujillo RN Position: [facility] SN Motel Operator Member Role: Primary Care Nurse Name: Lora Hensley NP Position: [facility] PCO Associate Professional Member Role: PCP Address: Address: [address] [place] [id number]- [place] Care Team Related Persons Name: PAM CALHOUN Address: home [address] [place] [id number]
--- OUTSIDE RECORDS SUMMARY | 2023-06-30 12:36 | XMS_ITS | Continuity of Care Document ---
Author Organization [facility] Roger Roger Valentín lt Address [address] [place] [address]- Care Team Providers Care Adjunct Instructor Chemistry Name Role Phone [place], Lora Neri Primary Care Physician [facility] Date[facility]s): 01/08/23 - 02/07/23 [facility] Roger Roger Adult [address] [place] [address]- Allergies, Adverse Reactions, Alerts Substance Reaction Severity Status Niaspan ER TINGLING ALL OVER Active Requip anxiety Active Duloxetine Restless legs Active Immunizations Given and Recorded Vaccine Date Status Refusal Reason SARS-CoV-2 mRNA ([id number]) vax 1 11/13/22 Recorded influenza virus vaccine, inactivated 11/13/22 Donnie rded influenza virus vaccine, inactivated 11/14/21 Donnie rded influenza virus vaccine, inactivated 2 02/21/16 Re corded influenza virus vaccine, inactivated 11/23/14 Give n influenza virus vaccine, inactivated 11/10/13 Give n influenza virus vaccine, inactivated 11/04/12 Give n [id number] 12y+ bivalent booster vax 11/29/21 Given tetanus-diphtheria [...] acel (oldterm) 10/23/10 Give n 1Result Comment: [facility] [place] 2Result Comment: [[place]22/2016[facility] [place] [facility] Medic[place] buPROPion 150 mg/24 hours (XL) oral tablet, extended release 1 tablet, By Mouth, Every 24 hours, # 90 tablet, 3 Refills, Maintenance, 01/08/23 13:53:00 EST, [facility], 90, 1 tablet By Mouth [...] capsule, 0 Refills, Maintenance, 01/09/23 20:31:00 EST, [facility] STORE [id number], 175, cm, 12/04/22 8:07:00 EDT, Height Start Date: 01/09/23 Status: Ordered cloNIDine 0.2 mg oral tablet 1, tablet, By Mouth, 2 times a day, # 180 tablet, Refills 3, Maintenance, 12/08/22 9:54:00 EDT, Route to Pharmacy Electronically, [id number], 175, cm, 12/04/22 8:07:00 EDT, Height Start Date: 12/08/22 Status: Ordered CPAP Machine See Instructions, # 1 each, Maintenance, BiPAP 21/09, 08/17/14 11:33:22, Compound Start Date: 08/17/14 Status: Ordered fenofibrate 160 mg oral tablet 1 tablet, By Mouth, Daily, # 90 tablet, 3 Refills, 03/31/22 14:27:00 EST, [facility], 175, cm, 11/29/21 8:48:00 EDT, Height Start Date: 03/31/22 Status: Ordered fenofibrate 160 mg oral tablet 1 tablet = 160 mg, By Mouth, Daily, mail service prescription will not arrive for 5 days- supply sent for 5 days per pt request., # 5 tablet, 0 Refills, Maintenance, 10/03/22 12:38:00 EDT, [facility]/pharmacy #[id number], Partial fill upon patient request if the p... Start Date: 10/03/22 Stop Date: 10/08/22 Status: Ordered levothyroxine 0.1 mg oral tablet 1 tablet, By Mouth, Daily, # 90 tablet, 3 Refills, Maintenance, 12/08/22 9:54:00 EDT, [facility] STORE [id number], 175, cm, 12/04/22 8:07:00 EDT, Height Start Date: 12/08/22 Status: Ordered pramipexole 0.75 mg oral tablet 1 tablet, By Mouth, 3 times a day, # 90 tablet, 1 Refills, Maintenance, 02/06/23 11:26:00 EST, [facility] STORE [id number], 175, cm, 12/04/22 8:07:00 EDT, Height Start Date: 02/06/23 Status: Ordered pravastatin 40 mg oral tablet See Instructions, TAKE 1 TABLET DAILY, # 90 tablet, 1 Refills, Maintenance, 09/04/22 15:09:00 EDT, [facility], 175, cm, 08/14/22 9:01:00 EDT, Height Start Date: 09/04/22 Status: Ordered sildenafil 50 mg oral tablet 1 tablet = 50 mg, By Mouth, Daily, 1 hour before sexual activity, # 30 tablet, 5 Refills, Maintenance, 12/11/22 12:34:00 EDT, Tablet, [facility]/pharmacy #[id number], Partial fill upon patient request if the prescription is for a schedule II opioid drug., 175, cm,... Start Date: 12/11/22 Status: Ordered Theraworx Relief MCS topical spray See Instructions, [place] over right knee topically every four hours [...] Team Personnel Name: Olimpia Pedro RN Position: [facility] AMB Nurse Member Role: Primary Care Nurse Name: Patience Haynes RN Position: [facility] SN RN Member Role: Primary Care Nurse Name: Trina Trujillo RN Position: [facility] SN Credit Operations Specialist Member Role: Primary Care Nurse Name: Lora Hensley NP Position: [facility] PCO Associate Professional Member Role: PCP Address: Address: [address] [place] [address]- Care Team Related Persons Name: PAM CALHOUN Address: home [address] [place] [id number]
--- OUTSIDE RECORDS SUMMARY | 2023-06-30 12:36 | XMS_ITS | Continuity of Care Document ---
Author Organization [facility] Kana Valentín Address [address] [place] [address]- Care Team Providers Care Spent Grain Dryer Name Role Phone [place], Lora Neri Primary Care Physician [phone] Encounter [facility] Date(s): 05/27/21 - 06/03/21 [facility] Adult [address] [place] [address]- Attending Physician: Lora Hensley NP Referring Physician: Adalberto Villa MD Allergies, Adverse Reactions, Alerts Substance Reaction [...] pharmacy Medications amLODIPine 5 mg oral tablet 1 tablet, By Mouth, Daily, # 60 tablet, 5 Refills, [facility], 175, cm, 03/28/21 6:52:00 EST, Height Start Date: 05/21/21 Status: Ordered buPROPion 300 mg/24 hours (XL) oral tablet, extended release 1 tablet, By Mouth, Daily, # 90 tablet, 3 Refills, [facility], 175, cm, 219:01:00 EDT, Height Start Date: 03/27/21 Status: Ordered cloNIDine 0.1 mg oral tablet 0.1 mg, 1, tablet, By Mouth, Daily at bedtime, # 30 tablet, Refills 5, Tot. Refills 5, Maintenance,05/27/21 8:40:00 EDT, Route to Pharmacy Electronically, [facility]/pharmacy #[id number], Partial fill upon patient request if the prescription is for a schedule II... Start Date: 05/27/21 Status: Ordered CPAP Machine See Instructions, # 1 each, Maintenance, BiPAP 21/09, 08/17/14 11:33:22, Compound Start Date: 08/17/14 Status: Ordered fenofibrate 160 mg oral tablet 1 tablet, By Mouth, Daily, # 90 tablet, 1 Refills, 03/25/21 14:33:00 EST, [facility], 175, cm, 11/02/20 9:01:00 EDT, Height Start Date: 03/25/21 Status: Ordered FLUoxetine 10 mg oral capsule 1, capsule, By Mouth, Daily, # 30 capsule, Refills 5, Route to Pharmacy Electronically, [facility] [address], 175, cm, 03/28/21 6:52:00 EST, Height Start Date: 04/22/21 Status: Ordered gabapentin 100 mg oral capsule See Instructions, Take three capsules twice daily for 7 days. Then take two capsules in the morningand three capsules in the evening for 7 days. Then take two capsules twice daily for 7 days. Then take one capsule in the morning and two capsules i... Start Date: 04/26/21 Status: Ordered gabapentin 800 mg oral tablet See Instructions, 1 tablet By Mouth at 5 pm and 1 at 9 pm, # 180 tablet, 5 Refills, Maintenance, 03/01/21 16:01:00 EST, Tablet, [facility], 175, cm, 11/02/20 9:01:00 EDT, Height Start Date: 03/01/21 Status: Ordered levothyroxine 0.1 mg oral tablet 1 tablet, By Mouth, Daily, # 90 tablet, 1 Refills, 03/25/21 14:32:00 EST, [facility], 175, cm, 11/02/20 9:01:00 EDT, Height Start Date: 03/25/21 Status: Ordered pramipexole 1 mg oral tablet 1 tablet, By Mouth, 3 times a day, # 270 tablet, 3 Refills, Maintenance, 09/18/20 9:13:00 EDT, [facility], 175, cm, 06/08/20 13:44:00 EDT, Height Start Date: 09/18/20 Status: Ordered pravastatin 40 mg oral tablet 1 tablet, By Mouth, Daily, # 90 tablet, 1 Refills, 03/25/21 14:31:00 EST, [facility], 175, cm, 11/02/20 9:01:00 EDT, Height Start Date: 03/25/21 Status: Ordered Problem List Condition Effective Dates Status Health Status Inform ant Chronic ankle pain - bilateral(Confirmed) Active Anxiety(Confirmed) Active Hypertension(Confirmed) Active Hypertriglyceridemia(Confirmed) Active Hypothyroidism(Confirmed) Active Prediabetes(Confirmed) Active Insomnia(Confirmed) 01/16/11 Active Depression, major(Confirmed) Active Obesity(Confirmed) Active POLO (obstructive sleep apnea)(Confirmed) Active PMR (polymyalgia rheumatica)(Confirmed) Active Restless Legs Syndrome (RLS)(Confirmed) 08/02/10 Active Vital Signs Most recent to oldest [Reference Range]: 1 2 Height 175 cm (05/27/21 8:40 AM) 175 cm (05/27/21 8:00 AM) Weight 90.7 kg (05/27/21 8:00 AM) Oxygen Saturation [94-100 %] 98 % (05/27/21 8:00 AM) Pulse Rate [55-90 bpm] 67 bpm (05/27/21 8:00 AM) Body Mass Index [18.5-24.99] 29.62 *H* (05/27/21 8:00 AM) Blood Pressure [90-138/55-84 mm Hg] 132/ 86mm Hg (4/18/22 8:40 AM) 142/80mm Hg *H* (05/27/21 8:00 AM) Temperature [96.8-100.4 DegF] 98.5 DegF (05/27/21 8:00 AM) Mode of Delivery (Oxygen) Room air (05/27/21 8:00 AM) Blood pressure sites Arm, left (05/27/21 8:40 AM) Arm, left (05/27/21 8:00 AM) Temperature Route Oral (05/27/21 8:00 AM) Weight Obtained Via Standing scale (05/27/21 8:00 AM) Social History Social History Type Response Smoking Status Former smoker entered on: 09/10/17 Sex
--- OUTSIDE RECORDS SUMMARY | 2023-06-30 12:37 | XMS_ITS | Continuity of Care Document ---
Author Organization [facility] Kana Valentín Address [address] [place] [address]- Care Team Providers Care Head Librarian Name Role Phone [place], Lora Neri Primary Care Physician [facility] - 05/26/21 [facility] Roger Delucaley Adult [address] [place] [address]- Allergies, Adverse Reactions, Alerts Substance Reaction Severity [...] Mouth, Daily, # 60 tablet, 5 Refills, [facility] STORE [address]68, 175, cm, 03/28/21 6:52:00 EST, Height Start Date: 05/21/21 Status: Ordered buPROPion 300 mg/24 hours (XL) oral tablet, extended release 1 tablet, By Mouth, Daily, # 90 tablet, 3 Refills, [facility], 175, cm, 219:01:00 EDT, Height Start Date: 03/27/21 Status: Ordered CPAP Machine See Instructions, # [...] capsule, Refills 5, Route to Pharmacy Electronically, [id number], 175, cm, 03/28/21 6:52:00 EST, Height Start [...]
--- OUTSIDE RECORDS SUMMARY | 2023-06-30 12:37 | XMS_ITS | Continuity of Care Document ---
Author Organization [facility] Kana Valentín lt Address [address] [place] [address]- Care Team Providers Care Bag Printer Name Role Phone [place], Lora Neri Primary Care Physician [facility] Date[facility]s): 06/13/21 - 07/13/21 [facility] Kana Adult [address] [place] [address]- Allergies, Adverse Reactions, Alerts Substance Reaction Severity [...] Mouth, Daily, # 60 tablet, 5 Refills, [facility] STORE 22346, 175, cm, 03/28/21 6:52:00 EST, Height Start Date: 05/21/21 Status: Ordered buPROPion 300 mg/24 hours (XL) oral tablet, extended release 1 tablet, By Mouth, Daily, # 90 tablet, 3 Refills, [facility], 175, cm, 219:01:00 EDT, Height Start Date: 03/27/21 Status: Ordered cloNIDine 0.2 mg oral tablet 0.2 mg, 1, tablet, By Mouth, 2 times a day, # 60 tablet, Refills 4, Tot. Refills 4, Maintenance, 06/20/21 10:52:00 EDT, Route to Pharmacy Electronically, [facility]/pharmacy #[id number], Partial fill upon patientrequest if the prescription is for a schedule II op... Start Date: 06/20/21 Status: Ordered CPAP Machine See Instructions, # [...]
--- OUTSIDE RECORDS SUMMARY | 2023-06-30 12:37 | XMS_ITS | Continuity of Care Document ---
Author Organization [facility] Roger Roger Valentín lt Address [address] [place] [address]- Care Team Providers Care School Business Administrator Name Role Phone [place], Lora Neri Primary Care Physician [phone] [facility]counter [facility] Date(s): 03/03/23 - 04/02/23 [facility] Roger Roger Adult [address] [place] [address]- Allergies, Adverse Reactions, Alerts Substance Reaction Severity Status Niaspan ER TINGLING ALL OVER Active Duloxetine Restless legs Active Requip anxiety Active Immunizations Given and Recorded Vaccine Date Status Refusal Reason SARS-CoV-2 mRNA ([id number]) vax 1 11/13/22 Recorded influenza virus vaccine, inactivated 11/13/22 Donnie rded influenza virus vaccine, inactivated 11/14/21 Donnie rded influenza virus vaccine, inactivated 2 02/21/16 Re corded influenza virus vaccine, inactivated 11/23/14 Give n influenza virus vaccine, inactivated 11/10/13 Give n influenza virus vaccine, inactivated 11/04/12 Give n [id number] 12y+ bivalent booster vax 11/29/21 Given tetanus-diphtheria [...] acel (oldterm) 10/23/10 Give n 1Result Comment: [facility] in [place] 2Result Comment: [facility]22[facility] Medic[facility] buPROPion 150 mg/24 hours (XL) oral tablet, extended release 1 tablet, By Mouth, Every 24 hours, # 90 tablet, 3 Refills, Maintenance, 01/08/23 13:53:00 EST, [facility], 90, 1 tablet By Mouth [...] Refills, Maintenance, 01/08/23 13:54:00 EST, ER Tablet, [facility]/... Start Date: 01/08/23 Stop Date: 01/15/23 Status: Ordered celecoxib 200 mg oral capsule 1 capsule, By Mouth, 2 times a day, # 180 capsule, 0 Refills, Maintenance, 01/09/23 20:31:00 EST, [id number], 175, cm, 12/04/22 8:07:00 EDT, Height Start Date: 01/09/23 Status: Ordered cloNIDine 0.2 mg oral tablet 1, tablet, By Mouth, 2 times a day, # 180 tablet, Refills 3, Maintenance, 12/08/22 9:54:00 EDT, Route to Pharmacy Electronically, [facility] [id number], 175, cm, 12/04/22 8:07:00 EDT, Height Start Date: 12/08/22 Status: Ordered CPAP Machine See Instructions, # 1 each, Maintenance, BiPAP 21/09, 08/17/14 11:33:22, Compound Start Date: 08/17/14 Status: Ordered fenofibrate 160 mg oral tablet 1 tablet, By Mouth, Daily, # 90 tablet, 1 Refills, Maintenance, 03/18/23 5:45:00 EST, [facility], 175, cm, 12/04/22 8:07:00 EDT, Height Start Date: 03/18/23 Status: Ordered levothyroxine 0.1 mg oral tablet 1 tablet, By Mouth, Daily, # 90 tablet, 3 Refills, Maintenance, 12/08/22 9:54:00 EDT, [facility] [id number], 175, cm, 12/04/22 8:07:00 EDT, Height Start Date: 12/08/22 Status: Ordered pramipexole 0.75 mg oral tablet 1 tablet, By Mouth, 3 times a day, # 90 tablet, 1 Refills, Maintenance, 02/06/23 11:26:00 EST, [id number], 175, cm, 12/04/22 8:07:00 EDT, Height Start Date: 02/06/23 Status: Ordered pravastatin 40 mg oral tablet 1 tablet, By Mouth, Daily, # 90 tablet, 1 Refills, Maintenance, 03/03/23 21:25:00 EST, [facility], 175, cm, 12/04/22 8:07:00 EDT, Height Start Date: 03/03/23 Status: Ordered sildenafil 50 mg oral tablet 1 tablet = 50 mg, By Mouth, Daily, 1 hour before sexual activity, # 30 tablet, 5 Refills, Maintenance, 12/11/22 12:34:00 EDT, Tablet, [facility]/pharmacy #[id number], Partial fill upon patient request if the prescription is for a schedule II opioid drug., 175, cm,... Start Date: 12/11/22 Status: Ordered Theraworx Relief MCS topical spray See Instructions, [place] over right knee topically every four hours as needed for moderate to severepain., # 1 each, 0 Refills, Maintenance, 11/29/21 15:39:00 EDT, [facility]/pharmacy #[id number], Partial fill upon patient request if [...] Team Personnel Name: Olimpia Pedro RN Position: [facility] AMB Nurse Member Role: Primary Care Nurse Name: Patience Haynes RN Position: [facility] SN RN Member Role: Primary Care Nurse Name: Trina Trujillo RN Position: [facility] SN Bee Producer Member Role: Primary Care Nurse Name: Lora Hensley NP Position: [facility] PCO Associate Professional Member Role: PCP Address: Address: [address] [place] [address]- Care Team Related Persons Name: PAM CALHOUN Address: home [address] [place] [id number]
--- OUTSIDE RECORDS SUMMARY | 2023-06-30 12:37 | XMS_ITS | Continuity of Care Document ---
Author Organization [facility] Kana Valentín Address [address] [place] [address]- Care Team Providers Care Weed Science Research Technician Name Role Phone Sj Scott MD Primary Care Physician [phone] [facility] Date[facility]s): 09/30/19 - 10/07/19 [facility] [place] Adult [address] [place] [address]- [place] States Encounter Diagnosis Depression, major(Discharge Diagnosis) - 09/30/19 POLO (obstructive sleep apnea)(Discharge Diagnosis) - 09/30/19 Attending Physician: Sj Scott MD Allergies, Adverse [...] Height Start Date: 09/30/19 Status: Ordered predniSONE 10 mg oral tablet 1 tablet = 10 mg, By Mouth, Daily, # 30 tablet, 2 Refills, Acute 10/06/22 14:00:00 EDT, 10/07/19 15:03:00 EDT, [id number], 175, cm, 09/30/19 10:20:00 EDT, Height Start Date: 10/07/19 Stop Date: 10/06/22 Status: Ordered Problem List Condition Effective Dates Status Health Status Inform ant Chronic ankle pain - bilateral(Confirmed) Active Anxiety(Confirmed) Active Hypertriglyceridemia(Confirmed) Active Hypothyroidism(Confirmed) Active Prediabetes(Confirmed) Active Insomnia(Confirmed) 01/16/11 Active Depression, major(Confirmed) Active Obesity(Confirmed) Active POLO (obstructive sleep apnea)(Confirmed) Active Restless Legs Syndrome (RLS)(Confirmed) 08/02/10 Active Diagnosis Diagnosis Type Effective Dates Health Status Cl inical Service Informant POLO (obstructive sleep apnea) Discharge Diagnosis 09/30/19 Depression, major Discharge Diagnosis 09/30/19 Vital Signs Most recent to oldest [Reference Range]: 1 Height 175 cm (09/30/19 10:20 AM) Weight 97.7 kg (09/30/19 10:20 AM) Oxygen Saturation [94-100 %] 98 % (09/30/19 10:20 AM) Pulse Rate [55-90 bpm] 72 bpm (09/30/19 10:20 AM) Body Mass Index [18.5-24.99] 31.9 *>HHI* (09/30/19 10:20 AM) Blood Pressure [90-138/55-84 mm Hg] 122/ 70mm Hg (09/30/19 10:20 AM) Temperature [96.8-100.4 DegF] 98.3 DegF (09/30/19 10:20 AM) Mode of Delivery (Oxygen) Room air (09/30/19 10:20 AM) Blood pressure sites Arm, left (09/30/19 10:20 AM) Temperature Route Oral (09/30/19 10:20 AM) Weight Obtained Via Standing scale (09/30/19 10:20 AM) Social History Social History Type Response Smoking Status Former smoker entered on: 09/10/17 Sex
--- OUTSIDE RECORDS SUMMARY | 2023-06-30 12:37 | XMS_ITS | Continuity of Care Document ---
Author Organization [facility] Kana Valentín lt Address [address] [place] [address]- Care Team Providers Care Landscape Painter Name Role Phone Sj Hall MD Primary Care Physician [phone] [facility] Date[facility]s): 09/25/20 - 10/25/20 [facility] Roger Delucaley Adult [address] [place] [address]- Allergies, Adverse Reactions, Alerts Substance Reaction Severity [...] 06/08/20 14:19:00 EDT, Route to Pharmacy Electronically, [facility]/pharmacy #[id number], Partial fill upon patient request if the prescription is for a schedule II opioid drug.... Start Date: 06/08/20 Status: Ordered buPROPion 300 mg/24 hours (XL) oral tablet, extended release 1 tablet = 300 mg, By Mouth, Daily, # 90 tablet, 1 Refills, Maintenance, 10/18/20 14:32:00 EDT, ER Tablet, [facility], 175, cm, 06/08/20 13:44:00 EDT, Height Start Date: 10/18/20 Status: Ordered CPAP Machine See Instructions, # 1 each, Maintenance, BiPAP 21/09, 08/17/14 11:33:22, Compound Start Date: 08/17/14 Status: Ordered fenofibrate 160 mg oral tablet 1 tablet = 160 mg, By Mouth, Daily, # 90 tablet, 1 Refills, Maintenance, 10/18/20 14:32:00 EDT, Tablet, [facility], 175, cm, 06/08/20 13:44:00 EDT, Height Start Date: 10/18/20 Status: Ordered FLUoxetine 20 mg oral capsule [...] pm, # 180 tablet, 1 Refills, Maintenance, 10/05/20 7:27:00 EDT, Tablet, [facility], 175, cm, 06/08/20 13:44:00 EDT, Height Start Date: 10/05/20 Status: Ordered gabapentin 800 mg oral tablet See Instructions, 1 tablet By Mouth at 5 pm and 1 at 9 pm, # 10 tablet, 0 Refills, Maintenance, 10/09/20 9:49:00 EDT, Tablet, [facility]/pharmacy #[id number], 175, cm, 06/08/20 13:44:00 EDT, Height Start Date: 10/09/20 Status: Ordered levothyroxine 0.1 mg oral tablet 1 tablet = 0.1 mg, By Mouth, Daily, # 90 tablet, 1 Refills, Maintenance, 10/18/20 14:32:00 EDT, Tablet, [facility], to mail order per pt, 175, cm, 06/08/20 13:44:00 EDT, Height Start Date: 10/18/20 Status: Ordered pramipexole 1 mg oral tablet 1 tablet, By Mouth, 3 times a day, # 270 tablet, 3 Refills, Maintenance, 09/18/20 9:13:00 EDT, [facility], 175, cm, 06/08/20 13:44:00 EDT, Height Start Date: 09/18/20 Status: Ordered pravastatin 40 mg oral tablet 1 tablet = 40 mg, By Mouth, Daily, # 90 tablet, 1 Refills, Maintenance, 09/25/20 9:53:00 EDT, Tablet, [facility], 175, cm, 06/08/20 13:44:00 EDT, Height Start Date: 09/25/20 Status: Ordered predniSONE 1 mg oral tablet 1 tablet = 1 mg, By Mouth, 2 times a day, DECREASED DOSE--TAPERING PER DR HALL, # 60 tablet, 1 Refills, Maintenance, 09/25/20 16:51:00 EDT, [facility]/pharmacy #[id number], 175, cm, 06/08/20 13:44:00 EDT, Height Start Date: 09/25/20 Status: Ordered Problem List Condition Effective Dates [...]
--- OUTSIDE RECORDS SUMMARY | 2023-06-30 12:37 | XMS_ITS | Continuity of Care Document ---
Author Organization [facility] Kana Valentín lt Address [address] [place] [address]- Care Team Providers Care Transformation Manager Name Role Phone [place], Lora Neri Primary Care Physician [phone] [facility] Date(s): 10/03/22 - 11/02/22 [facility] Adult [address] [place] [address]- Allergies, Adverse Reactions, Alerts Substance Reaction Severity Status Duloxetine Restless legs Active Niaspan ER TINGLING ALL OVER Active Requip anxiety Active Immunizations Given and Recorded Vaccine Date Status Refusal Reason [id number] 12y+ bivalent booster vax 11/29/21 Given tetanus-diphtheria [...] 3 Refills, Maintenance, 11/21/21 14:15:00EDT, [id number] fill upon patient request if the prescription is for a schedule II opioid drug., 1 tablet By Mouth Every 24... Start Date: 11/21/21 Status: Ordered CeleBREX 200 mg oral capsule 1 capsule = 200 mg, By Mouth, 2 times a day, # 180 capsule, 0 Refills, Maintenance, 09/24/22 11:32:00 EDT, Capsule, [facility]/pharmacy #[id number], Partial fill upon patient request if the prescription is for a schedule II opioid drug., 175, cm, 08/14/22 9:01:00... Start Date: 09/24/22 Status: Ordered cloNIDine 0.2 mg oral tablet 1, tablet, By Mouth, 2 times a day, # 180 tablet, Refills 1, Maintenance, 08/20/22 6:57:00 EDT, Route to Pharmacy Electronically, [facility] STORE [id number], 175, cm, 08/14/22 9:01:00 EDT, Height Start Date: 08/20/22 Status: Ordered CPAP Machine See Instructions, # 1 each, Maintenance, BiPAP 21/09, 08/17/14 11:33:22, Compound Start Date: 08/17/14 Status: Ordered fenofibrate 160 mg oral tablet 1 tablet, By Mouth, Daily, # 90 tablet, 3 Refills, 03/31/22 14:27:00 EST, [facility], 175, cm, 11/29/21 8:48:00 EDT, Height Start Date: 03/31/22 Status: Ordered fenofibrate 160 mg oral tablet 1 tablet = 160 mg, By Mouth, Daily, mail service prescription will not arrive for 5 days- supply sent for 5 days per pt request., # 5 tablet, 0 Refills, Maintenance, 10/03/22 12:38:00 EDT, [facility]/pharmacy #[id number], Partial fill upon patient request if the p... Start Date: 10/03/22 Stop Date: 10/08/22 Status: Ordered levothyroxine 0.1 mg oral tablet 1 tablet, By Mouth, Daily, # 90 tablet, 3 Refills, 03/04/22 19:04:00 EST, [facility], 175, cm, 11/29/21 8:48:00 EDT, Height Start Date: 03/04/22 Status: Ordered pramipexole 1 mg oral tablet 1 tablet, By Mouth, 3 times a day, # 270 tablet, 3 Refills, Maintenance, 03/21/22 11:53:00 EST, [facility], 175, cm, 11/29/21 8:48:00 EDT, Height Start Date: 03/21/22 Status: Ordered pramipexole 1 mg oral tablet 1 tablet = 1 mg, By Mouth, 3 times a day, 10-day supply until mail order supply arrives in mail perpt request., # 30 tablet, 0 Refills, Maintenance, 03/21/22 11:53:00 EST, [id number] fill upon patient request if the prescript... Start Date: 03/21/22 Status: Ordered pravastatin 40 mg oral tablet See Instructions, TAKE 1 TABLET DAILY, # 90 tablet, 1 Refills, Maintenance, 09/04/22 15:09:00 EDT, [facility], 175, cm, 08/14/22 9:01:00 EDT, Height Start Date: 09/04/22 Status: Ordered sildenafil 50 mg oral tablet 1 tablet = 50 mg, By Mouth, Daily, 1 hour before sexual activity, # 10 tablet, 0 Refills, Maintenance, 09/26/22 9:12:00 EDT, Tablet, [facility]/pharmacy #[id number], Partial fill upon patient request if the prescription is for a schedule II opioid drug., 175, cm,... Start Date: 09/26/22 Status: Ordered Theraworx Relief MCS topical spray See Instructions, [place] over right knee topically every four hours as needed for moderate to severepain., # 1 each, 0 Refills, Maintenance, 11/29/21 15:39:00 EDT, [facility]/pharmacy #[id number], Partial fill upon patient [...] Team Personnel Name: Olimpia Pedro RN Position: [facility] AMB Nurse Member Role: Primary Care Nurse Name: Pateince Haynes RN Position: [facility] SN RN Member Role: Primary Care Nurse Name: Trina Trujillo RN Position: [facility] SN Concrete Mixing Truck Driver Member Role: Primary Care Nurse Name: Lora Hensley NP Position: [facility] PCO Associate Professional Member Role: PCP Address: Address: [address] [place] [id number]- [place] Care Team Related Persons Name: PAM CALHOUN Address: home [address] [place] [id number]
--- OUTSIDE RECORDS SUMMARY | 2023-06-30 12:37 | XMS_ITS | Continuity of Care Document ---
Author Organization [facility] Roger Roger Valentín lt Address [address] [place] [address]- Care Team Providers Care Lead Systems Developer Name Role Phone [place], Lora Neri Primary Care Physician [facility] Date(s): 11/06/22 - 12/06/22 [facility] Roger Roger Adult [address] [place] [address]- Allergies, Adverse Reactions, Alerts Substance Reaction Severity Status Niaspan ER TINGL[place] ALL OVER Active Requip anxiety Active Duloxetine Restless legs Active Immunizations Given and Recorded Vaccine Date Status Refusal Reason SARS-CoV-2 mRNA ([id number]) vax 1 11/13/22 Recorded influenza virus vaccine, inactivated 11/13/22 Donnie rded influenza virus vaccine, inactivated 11/14/21 Donnie rded influenza virus vaccine, inactivated 2 02/21/16 Re corded influenza virus vaccine, inactivated 11/23/14 Give n influenza virus vaccine, inactivated 11/10/13 Give n influenza virus vaccine, inactivated 11/04/12 Give n [id number] 12y+ bivalent booster vax 11/29/21 Given tetanus-diphtheria [...] acel (oldterm) 10/23/10 Give n 1Result Comment: [facility] [place] 2Result Comment: [02/22/2016[facility] Medic[facility] buPROPion 150 mg/24 hours (XL) oral tablet, extended release 1 tablet = 150 mg, By Mouth, Every 24 hours, # 90 tablet, 3 Refills, Maintenance, 11/21/21 14:15:00EDT, ER Tablet, [facility]/pharmacy #[id number], Partial fill upon patient request if the prescription is for a schedule II opioid drug., 1 tablet By Mouth Every 24... Start Date: 11/21/21 Status: Ordered CeleBREX 200 mg oral capsule 1 capsule = 200 mg, By Mouth, 2 times a day, # 180 capsule, 0 Refills, Maintenance, 09/24/22 11:32:00 EDT, Capsule, [facility]/pharmacy #[id number], Partial fill upon patient request if the prescription is for a schedule II opioid drug., 175, cm, 08/14/22 9:01:00... Start Date: 09/24/22 Status: Ordered cloNIDine 0.2 mg oral tablet 1, tablet, By Mouth, 2 times a day, # 180 tablet, Refills 1, Maintenance, 08/20/22 6:57:00 EDT, Route to Pharmacy Electronically, [id number], 175, cm, 08/14/22 9:01:00 EDT, Height Start Date: 08/20/22 Status: Ordered CPAP Machine See Instructions, # 1 each, Maintenance, BiPAP 21/09, 08/17/14 11:33:22, Compound Start Date: 08/17/14 Status: Ordered fenofibrate 160 mg oral tablet 1 tablet, By Mouth, Daily, # 90 tablet, 3 Refills, 03/31/22 14:27:00 EST, [facility], 175, cm, 11/29/21 8:48:00 EDT, Height Start Date: 03/31/22 Status: Ordered fenofibrate 160 mg oral tablet 1 tablet = 160 mg, By Mouth, Daily, mail service prescription will not arrive for 5 days- supply sent for 5 days per pt request., # 5 tablet, 0 Refills, Maintenance, 10/03/22 12:38:00 EDT, [facility]/pharmacy #[id number], Partial fill upon patient request if the p... Start Date: 10/03/22 Stop Date: 10/08/22 Status: Ordered levothyroxine 0.1 mg oral tablet 1 tablet, By Mouth, Daily, # 90 tablet, 0 Refills, 11/26/22 12:07:00 EDT, [facility]/pharmacy #[id number], 175, cm, 08/14/22 9:01:00 EDT, Height Start Date: 11/26/22 Status: Ordered pramipexole 0.75 mg oral tablet 1 tablet = 0.75 mg, By Mouth, 3 times a day, # 90 tablet, 0 Refills, Maintenance, 12/04/22 8:28:00 EDT, Tablet, [id number] fill upon patient request if the prescription is for a schedule II opioid drug., 175, cm, 12/04/22 8:07:00 EDT,... Start Date: 12/04/22 Status: Ordered pramipexole 1 mg oral tablet 1 tablet, By Mouth, 3 times a day, # 270 tablet, 3 Refills, Maintenance, 03/21/22 11:53:00 EST, [facility], 175, cm, 11/29/21 8:48:00 EDT, Height Start Date: 03/21/22 Status: Ordered pravastatin 40 mg oral tablet See Instructions, TAKE 1 TABLET DAILY, # 90 tablet, 1 Refills, Maintenance, 09/04/22 15:09:00 EDT, [facility], 175, cm, 08/14/22 9:01:00 EDT, Height Start Date: 09/04/22 Status: Ordered sildenafil 50 mg oral tablet 1 tablet = 50 mg, By Mouth, Daily, 1 hour before sexual activity, # 10 tablet, 0 Refills, Maintenance, 09/26/22 9:12:00 EDT, Tablet, [id number] Partial fill upon patient request if the prescription is for a schedule II opioid drug., 175, cm,... Start Date: 09/26/22 Status: Ordered Theraworx Relief MCS topical spray See Instructions, [place] over right knee topically every four hours as needed for moderate to severepain., # 1 each, 0 Refills, Maintenance, 11/29/21 15:39:00 EDT, [facility] #[id number], Partial fill upon patient request if the [...] Team Personnel Name: Olimpia Pedro RN Position: [facility] AMB Nurse Member Role: Primary Care Nurse Name: Patience Haynes RN Position: [facility] SN RN Member Role: Primary Care Nurse Name: Trina Trujillo RN Position: [facility] SN Structural Draftsman Member Role: Primary Care Nurse Name: Lora Hensley NP Position: [facility] PCO Associate Professional Member Role: PCP Address: Address: [address] [place] [address]- Care Team Related Persons Name: PAM CALHOUN Address: home [address] [place] [id number]
--- OUTSIDE RECORDS SUMMARY | 2023-06-30 12:37 | XMS_ITS | Continuity of Care Document ---
Author Organization [facility] [place] Valentín lt Address [address] [place] [address]- Care Team Providers Care Quilt Stuffer Name Role Phone Sj Hall MD Primary Care Physician Encounter [facility] Date(s): 11/02/20 - 11/09/20 [facility] Adult [address] [place] [address]- Encounter Diagnosis Depression, major(Discharge Diagnosis) - 11/02/20 POLO (obstructive sleep apnea)(Discharge Diagnosis) - 11/02/20 Attending Physician: Sj Hall MD Allergies, Adverse Reactions, Alerts Substance Reaction [...] 06/08/20 14:19:00 EDT, Route to Pharmacy Electronically, [facility]/pharmacy #[id number], Partial fill upon patient request if the [...] Refills, Maintenance, 10/18/20 14:32:00 EDT, Tablet, [facility], 175, cm, 06/08/20 13:44:00 EDT, Height Start Date: 10/18/20 Status: Ordered FLUoxetine 20 mg oral capsule 20 mg, 1, capsule, By Mouth, Daily, # 180 capsule, Refills 3, Tot. Refills 3, Maintenance, 12/01/2014:42:00 EDT, Route to Pharmacy Electronically, [facility], D/C RX ON FILE FOR TABLETS, 175, cm, 10/20/19 9:33:00 EDT, Height Start Date: 12/02/19 Status: Ordered gabapentin 800 mg oral tablet See Instructions, 1 tablet By Mouth at 5 pm and 1 at 9 pm, # 10 tablet, 0 Refills, Maintenance, 10/09/20 9:49:00 EDT, Tablet, [facility]/pharmacy #[id number], 175, cm, 06/08/20 13:44:00 EDT, Height [...] tablet, 1 Refills, Maintenance, 09/25/20 16:51:00 EDT, [id number], 175, cm, 06/08/20 13:44:00 EDT, Height [...] Dates Health Status Cl inical Service Informant Depression, major Discharge Diagnosis 11/02/20 POLO (obstructive sleep apnea) Discharge Diagnosis 11/02/20 Vital Signs Most recent to oldest [Reference Range]: 1 2 Height 175 cm (11/02/20 9:01 AM) 175 cm (11/02/20 8:53 AM) Weight 91.3 kg (11/02/20 8:53 AM) Oxygen Saturation [94-100 %] 97 % (11/02/20 8:53 AM) Pulse Rate [55-90 bpm] 58 bpm (11/02/20 8:53 AM) Body Mass Index [18.5-24.99] 29.81 *H* (11/02/20 8:53 AM) Blood Pressure [90-138/55-84 mm Hg] 116/ 72mm Hg (11/02/20 9:01 AM) 126/74mm Hg (11/02/20 8:53 AM) Temperature [96.8-100.4 DegF] 98.4 DegF (11/02/20 8:53 AM) Mode of Delivery (Oxygen) Room air (11/02/20 8:53 AM) Blood pressure sites Arm, left (11/02/20 9:01 AM) Arm, left (11/02/20 8:53 AM) Temperature Route Oral (11/02/20 8:53 AM) Weight Obtained Via Standing scale (11/02/20 8:53 AM) Social History Social History Type Response Smoking Status Former smoker entered on: 09/10/17 Sex
--- OUTSIDE RECORDS SUMMARY | 2023-06-30 12:37 | XMS_ITS | Continuity of Care Document ---
Author Organization [facility] Valentín lt Address [address] [place] [phone]- Care Team Providers Care Director Of Operations For Therapy Name Role Phone Sj Scott MD Primary Care Physician [facility] Date(s): 11/14/19 - 12/14/19 [facility] Adult [address] [place] [address]- [facility] Allergies, Adverse Reactions, Alerts Substance Reaction Severity Status Niaspan ER TINGLING ALL OVER Active Requip anxiety Active Duloxetine Restless legs Active Immunizations Given and Recorded Vaccine Date Status Refusal Reason Influenza Virus Vaccine (oldterm) 11/09/19 Recorde d [...] Daily, # 90 tablet, 1 Refills, Maintenance, 11/17/19 13:06:00 EDT, ER Tablet, [facility], 175, cm, 10/20/19 9:33:00 EDT, Height Start Date: 11/17/19 Status: Ordered CPAP Machine See Instructions, # 1 each, Maintenance, BiPAP 21/09, 08/17/14 11:33:22, Compound Start Date: 08/17/14 Status: Ordered fenofibrate 160 mg oral tablet 1 tablet = 160 mg, By Mouth, Daily, # 90 tablet, 1 Refills, Maintenance, 11/17/19 13:06:00 EDT, Tablet, [facility], 175, cm, 10/20/19 9:33:00 EDT, Height Start Date: 11/17/19 Status: Ordered FLUoxetine 20 mg oral capsule [...] Daily, # 90 tablet, 1 Refills, Maintenance, 11/14/19 14:54:00 EDT, Tablet, [facility], 175, cm, 10/20/19 9:33:00 EDT, Height Start Date: 11/14/19 Status: Ordered pramipexole 1 mg oral tablet [...] mg, By Mouth, Daily, # 30 tablet, 11 Refills, Maintenance, 12/12/19 17:01:00 EST, [facility]/pharmacy #[id number], 175, cm, 10/20/19 9:33:00 EDT, Height Start Date: 12/12/19 Status: Ordered Problem List Condition Effective Dates [...]
--- OUTSIDE RECORDS SUMMARY | 2023-06-30 12:37 | XMS_ITS | Continuity of Care Document ---
Author Organization [facility] Roger Roger Valentín Address [address] [place] [address]- Care Team Providers Care Vp Product Marketing Name Role Phone Tyler BLACKMON, Sj Michaud Primary Care Physician [facility] Date[facility]s): 08/22/19 - 09/21/19 [facility] Roger Delucaley Adult [address] [place] [address]- [facility] Allergies, Adverse Reactions, Alerts Substance Reaction [...]
--- OUTSIDE RECORDS SUMMARY | 2023-06-30 12:37 | XMS_ITS | Continuity of Care Document ---
Author Organization [facility] Kana Valentín lt Address [address] [place] [address]- Care Team Providers Care K 9 Handler/ Deputy Name Role Phone Sj Scott MD Primary Care Physician [phone] Encounter [facility] Date(s): 10/20/19 - 11/19/19 [facility] Kana Adult [address] [place] [address]- [facility] [place] [facility] Attending Physician: Admtr, Ar8 Admitting Physician: Admtr, Cristobal8 Referring Physician: Admtr, Ar8 Allergies, Adverse Reactions, [...] 11/17/19 Status: Ordered FLUoxetine 20 mg oral tablet [...] Acute 10/06/22 14:00:00 EDT, 10/07/19 15:03:00 EDT, [facility]/pharmacy #[id number], 175, cm, 09/30/19 10:20:00 EDT, Height [...]
--- OUTSIDE RECORDS SUMMARY | 2023-06-30 12:37 | XMS_ITS | Continuity of Care Document ---
Author Organization [facility] Valentín lt Address [address] [place] [address]- Care Team Providers Care Clother In Name Role Phone Sj Scott MD Primary Care Physician [phone] Encounter [facility] Date(s): 10/20/19 - 10/27/19 [facility] Adult [address] [place] [address]- [facility] Encounter Diagnosis PMR (polymyalgia rheumatica)(Discharge Diagnosis) - 10/20/19 Attending Physician: Sj Scott MD Allergies, Adverse [...] Dates Health Status Cl inical Service Informant PMR (polymyalgia rheumatica) Discharge Diagnosis 10/20/19 Vital Signs Most recent to oldest [Reference Range]: 1 Height 175 cm (10/20/19 9:33 AM) Social History Social History Type Response Smoking Status Former smoker entered on: 09/10/17 Sex
--- OUTSIDE RECORDS SUMMARY | 2023-06-30 12:37 | XMS_ITS | Continuity of Care Document ---
Author Organization [facility] Roger Roger Valentín lt Address [address] [place] [address]- Care Team Providers Care Surveillance Monitor Name Role Phone [place], Lora Neri Primary Care Physician [phone] Encounter [facility] Date(s): 12/10/22 - 01/09/23 [facility] Roger Roger Adult [address] [place] [address]- Allergies, Adverse Reactions, Alerts Substance Reaction Severity Status Niaspan ER TINGLING ALL OVER Active Requip anxiety Active Duloxetine Restless legs Active Immunizations Given and Recorded Vaccine Date Status Refusal Reason SARS-CoV-2 mRNA ([id number]) vax 1 11/13/22 Recorded influenza virus vaccine, inactivated 11/13/22 Donnie rded influenza virus vaccine, inactivated 11/14/21 Donnie rded influenza virus vaccine, inactivated 2 02/21/16 Re corded influenza virus vaccine, inactivated 11/23/14 Give n influenza virus vaccine, inactivated 11/10/13 Give n influenza virus vaccine, inactivated 11/04/12 Give n [id number] 12y+ bivalent booster vax 11/29/21 Given tetanus-diphtheria [...] acel (oldterm) 10/23/10 Give n 1Result Comment: [facility] [place] 2[facility] Comment: [facility]2016[facility] Medic[facility] buPROPion 150 mg/24 hours (XL) oral tablet, extended release 1 tablet, By Mouth, Every 24 hours, # 90 tablet, 3 Refills, Maintenance, 01/08/23 13:53:00 EST, [facility], 90, 1 tablet By Mouth Every [...] Refills, Maintenance, 01/09/23 20:31:00 EST, [facility] STORE [id number], 175, cm, 12/04/22 8:07:00 EDT, Height Start Date: 01/09/23 Status: Ordered cloNIDine 0.2 mg oral tablet 1, tablet, By Mouth, 2 times a day, # 180 tablet, Refills 3, Maintenance, 12/08/22 9:54:00 EDT, Route to Pharmacy Electronically, [facility] STORE [id number], 175, cm, 12/04/22 8:07:00 EDT, Height Start Date: 12/08/22 Status: Ordered CPAP Machine See Instructions, # 1 each, Maintenance, BiPAP 21/09, 08/17/14 11:33:22, Compound Start Date: 08/17/14 Status: Ordered fenofibrate 160 mg oral tablet 1 tablet, By Mouth, Daily, # 90 tablet, 3 Refills, 03/31/22 14:27:00 EST, [facility], 175, cm, 11/29/21 8:48:00 EDT, Height Start Date: 03/31/22 Status: Ordered fenofibrate 160 mg oral tablet 1 tablet = 160 mg, By Mouth, Daily, mail service prescription will not arrive for 5 days- supply sent for 5 days per pt request., # 5 tablet, 0 Refills, Maintenance, 10/03/22 12:38:00 EDT, [facility]/pharmacy #[id number], Partial fill upon patient request if the p... Start Date: 10/03/22 Stop Date: 10/08/22 Status: Ordered levothyroxine 0.1 mg oral tablet 1 tablet, By Mouth, Daily, # 90 tablet, 3 Refills, Maintenance, 12/08/22 9:54:00 EDT, [facility] STORE [id number], 175, cm, 12/04/22 8:07:00 EDT, Height Start Date: 12/08/22 Status: Ordered pramipexole 1 mg oral tablet 1 tablet, By Mouth, 3 times a day, # 270 tablet, 3 Refills, Maintenance, 12/31/22 9:58:00 EST, [facility], [facility], cm, 12/04/22 8:07:00 EDT, Height Start Date: 12/31/22 Status: Ordered pravastatin 40 mg oral tablet See Instructions, TAKE 1 TABLET DAILY, # 90 tablet, 1 Refills, Maintenance, 09/04/22 15:09:00 EDT, [facility], 175, cm, 08/14/22 9:01:00 EDT, Height Start Date: 09/04/22 Status: Ordered sildenafil 50 mg oral tablet 1 tablet = 50 mg, By Mouth, Daily, 1 hour before sexual activity, # 30 tablet, 5 Refills, Maintenance, 12/11/22 12:34:00 EDT, Tablet, [facility]/pharmacy #[id number], Partial fill upon patient request if the prescription is for a schedule II opioid drug., 175, cm,... Start Date: 12/11/22 Status: Ordered Theraworx Relief MCS topical spray See Instructions, [place] over right knee topically every four hours [...] Team Personnel Name: Olimpia Pedro RN Position: [facility] AMB Nurse Member Role: Primary Care Nurse Name: Patience Haynes RN Position: [facility] SN RN Member Role: Primary Care Nurse Name: Trina Trujillo RN Position: [facility] SN Derrick Worker Member Role: Primary Care Nurse Name: Lora Hensley NP Position: [facility] PCO Associate Professional Member Role: PCP Address: Address: [address] [place] [address]- Care Team Related Persons Name: PAM CALHOUN Address: home [address] [place] [address]
--- OUTSIDE RECORDS SUMMARY | 2023-06-30 12:38 | XMS_ITS | Continuity of Care Document ---
Author Organization [facility] Valentín lt Address [address] [place] [address]- Care Team Providers Care Market Intelligence Consultant Name Role Phone Sj Hall MD Primary Care Physician [facility] Date(s): 11/28/20 - 12/28/20 [facility] Adult [address] [place] [address]- Allergies, Adverse Reactions, Alerts Substance Reaction Severity [...] 06/08/20 14:19:00 EDT, Route to Pharmacy Electronically, [facility]/pharmacy #[id number], Partial fill upon patient request [...] Status: Ordered FLUoxetine 20 mg oral capsule 2, capsule, By Mouth, Daily, ON FILE., # 180 capsule, Refills 3, Route to Pharmacy Electronically, [facility], 175, cm, 11/02/20 9:01:00 EDT, Height Start Date: 11/20/20 Status: Ordered gabapentin 800 mg oral tablet See Instructions, 1 tablet By Mouth at 5 pm and 1 at 9 pm, # 10 tablet, 0 Refills, Maintenance, 10/09/20 9:49:00 EDT, Tablet, [facility]/pharmacy #[id number], 175, cm, 06/08/20 13:44:00 EDT, [...]
--- OUTSIDE RECORDS SUMMARY | 2023-06-30 12:38 | XMS_ITS | Continuity of Care Document ---
Author Organization [facility] Kana Valentín lt Address [address] [place] [address]- Care Team Providers Care Lathe Set Up Operator Name Role Phone [place], Lora Neri Primary Care Physician [phone] [place] [facility] [place] 04/29/22 - 05/06/22 [facility] Adult [address] [place] [address]- Encounter Diagnosis Varicose vein of leg(Discharge Diagnosis) - 04/29/22 Attending Physician: Josh Parekh MD Referring Physician: Lora Hensley NP Allergies, Adverse Reactions, Alerts Substance Reaction Severity Status Niaspan ER TINGLING ALL OVER Active Requip anxiety Active Duloxetine Restless legs Active Immunizations Given and Recorded Vaccine Date Status Refusal Reason [id number] 12y+ bivalent booster vax 11/29/21 Given tetanus-diphtheria [...] Maintenance, 11/21/21 14:15:00EDT, ER Tablet, [facility]/pharmacy #[id number], Partial fill upon patient request if the prescription is for a schedule II opioid drug., 1 tablet By Mouth Every 24... Start Date: 11/21/21 Status: Ordered CeleBREX 100 mg oral capsule 1 capsule = 100 mg, By Mouth, 2 times a day, # 60 capsule, 2 Refills, Maintenance, 04/29/22 8:53:00EDT, Capsule, [facility]/pharmacy #[id number], Partial fill upon patient request if the prescription is for a schedule II opioid drug., 175, cm, 04/29/22 8:28:00 ED... Start Date: 04/29/22 Status: Ordered cloNIDine 0.2 mg oral tablet 1, tablet, By Mouth, 2 times a day, # 180 tablet, Refills 1, Maintenance, 02/25/22 7:58:00 EST, Route to Pharmacy Electronically, [facility] STORE [id number], 175, cm, 11/29/21 8:48:00 EDT, Height Start Date: 02/25/22 Status: Ordered CPAP Machine See Instructions, # 1 each, Maintenance, BiPAP 21/09, 08/17/14 11:33:22, Compound Start Date: 08/17/14 Status: Ordered fenofibrate 160 mg oral tablet 1 tablet, By Mouth, Daily, # 90 tablet, 3 Refills, 03/31/22 14:27:00 EST, [facility], 175, cm, 11/29/21 8:48:00 EDT, Height Start Date: 03/31/22 Status: Ordered levothyroxine 0.1 mg oral tablet 1 tablet, By Mouth, Daily, # 90 tablet, 3 Refills, 03/04/22 19:04:00 EST, [facility], 175, cm, 11/29/21 8:48:00 EDT, Height Start Date: 03/04/22 Status: Ordered pramipexole 1 mg oral tablet 1 tablet, By Mouth, 3 times a day, # 270 tablet, 3 Refills, Maintenance, 03/21/22 11:53:00 EST, [facility], 175, cm, 11/29/21 8:48:00 EDT, Height Start Date: 03/21/22 Status: Ordered pramipexole 1 mg oral tablet 1 tablet = 1 mg, By Mouth, 3 times a day, 10-day supply until mail order supply arrives in mail perpt request., # 30 tablet, 0 Refills, Maintenance, 03/21/22 11:53:00 EST, Tablet, [facility]/pharmacy #[id number], Partial fill upon patient request [...] Maintenance, 11/29/21 15:38:00 EDT, Tablet, [facility]/pharmacy #[id number], Partial fill upon patient request if the prescription is for a schedule II opioid drug., 175, cm,... Start Date: 11/29/21 Status: Ordered Theraworx Relief MCS topical spray See Instructions, [place] over right knee topically every four hours as needed for moderate to severepain., # 1 each, 0 Refills, Maintenance, 11/29/21 15:39:00 EDT, [facility]/pharmacy #[id number], Partial fill upon patient request [...] Restless Legs Syndrome (RLS) Confirmed 08/02/10 Active Diagnosis Diagnosis Type Effective Dates Health Status Cl inical Service Informant Varicose vein of leg Discharge Diagnosis 04/29/22 Vital Signs Most recent to oldest [Reference Range]: 1 2 3 Height 175 cm (04/29/22 9:27 AM) 175 cm (04/29/22 9:26 AM) 175 cm (04/29/22 8:55 AM) Weight 89.8 kg (04/29/22 8:28 AM) Oxygen Saturation [94-100 %] 100 % (04/29/22 8:28 AM) Pulse Rate [55-90 bpm] 59 bpm (04/29/22 8:28 AM) Body Mass Index [18.5-24.99 kg/m2] 29.32 kg/m2 *H* (04/29/22 8:28 AM) Blood Pressure [90-138/55-84 mm Hg] 144/73mm Hg *H* (04/29/22 9:27 AM) 137/72mm Hg (04/29/22 9:26 AM) 122/60mm Hg (04/29/22 8:55 AM) Blood pressure sites Arm, right (04/29/22 8:55 AM) Arm, left (04/29/22 8:28 AM) Weight Obtained Via Standing scale (04/29/22 8:28 AM) Social History Social History Type Response Smoking Status Former smoker entered on: 09/10/17 Sex Patient Care team information Care Team Personnel Name: Olimpia Pedro RN Position: [facility] Nurse Member Role: Primary Care Nurse Name: Patience Haynes RN Position: [facility] RN Member Role: Primary Care Nurse Name: Trina Trujillo RN Position: [facility] Client Analyst Member Role: Primary Care Nurse Name: Lora Hensley NP Position: [facility] PCO Associate Professional Member Role: PCP Address: Address: [address] [place] [address]- Care Team Related Persons Name: PAM CALHOUN Address: home [address] [place] [id number]
--- OUTSIDE RECORDS SUMMARY | 2023-06-30 12:38 | XMS_ITS | Continuity of Care Document ---
Author Organization [facility] Roger Roger Valentín lt Address [address] [place] [address]- Care Team Providers Care Tobacco Feeder Catcher Name Role Phone [place], Lora Neri Primary Care Physician [phone] [facility]counter [facility] Date(s): 12/02/22 - 01/01/23 [facility] Roger Roger Adult [address] [place] [address]- Allergies, Adverse Reactions, Alerts Substance Reaction Severity Status Niaspan ER TINGLING ALL OVER Active Requip anxiety Active Duloxetine Restless legs Active Immunizations Given and Recorded Vaccine Date Status Refusal Reason SARS-CoV-2 mRNA ([id number]) vax 1 11/13/22 Recorded influenza virus vaccine, inactivated 11/13/22 Donnie rded influenza virus vaccine, inactivated 11/14/21 Donnie rded influenza virus vaccine, inactivated 2 02/21/16 Re corded influenza virus vaccine, inactivated 11/23/14 Give n influenza virus vaccine, inactivated 11/10/13 Give n influenza virus vaccine, inactivated 11/04/12 Give n [id number] 12y+ bivalent booster vax 11/29/21 Given tetanus-diphtheria [...] acel (oldterm) 10/23/10 Give n 1Result Comment: [facility] [place] 2Result Comment: [02/22/2016[facility] Medications buPROPion 150 mg/24 hours (XL) oral tablet, extended release 1 tablet, By Mouth, Every 24 hours, # 90 tablet, 3 Refills, Maintenance, 12/08/22 9:54:00 EDT, [facility] STORE [id number], 90, TAKE 1 TABLET BY MOUTH EVERY 24 HOURS, 175, cm, 12/04/22 8:07:00 EDT, Height Start Date: 12/08/22 Status: Ordered CeleBREX 200 mg oral capsule 1 capsule = 200 mg, By Mouth, 2 times a day, # 180 capsule, 0 Refills, Maintenance, 09/24/22 11:32:00 EDT, Capsule, [facility]/pharmacy #[id number], Partial fill upon patient request if the prescription is for a schedule II opioid drug., 175, cm, 08/14/22 9:01:00... Start Date: 09/24/22 Status: Ordered cloNIDine 0.2 mg oral tablet 1, tablet, By Mouth, 2 times a day, # 180 tablet, Refills 3, Maintenance, 12/08/22 9:54:00 EDT, Route to Pharmacy Electronically, [facility] STORE [id number], 175, cm, 12/04/22 8:07:00 EDT, Height Start Date: 12/08/22 Status: Ordered CPAP Machine See Instructions, # 1 each, Maintenance, BiPAP 21/09, 08/17/14 11:33:22, Compound Start Date: 08/17/14 Status: Ordered fenofibrate 160 mg oral tablet 1 tablet, By Mouth, Daily, # 90 tablet, 3 Refills, 03/31/22 14:27:00 EST, [facility], 175, cm, 11/29/21 8:48:00 EDT, Height Start Date: 03/31/22 Status: Ordered fenofibrate 160 mg oral tablet 1 tablet = 160 mg, By Mouth, Daily, mail service prescription will not arrive for 5 days- supply sent for 5 days per pt request., # 5 tablet, 0 Refills, Maintenance, 10/03/22 12:38:00 EDT, [facility]/pharmacy #[id number], Partial fill upon patient request if the p... Start Date: 10/03/22 Stop Date: 10/08/22 Status: Ordered levothyroxine 0.1 mg oral tablet 1 tablet, By Mouth, Daily, # 90 tablet, 3 Refills, Maintenance, 12/08/22 9:54:00 EDT, [facility] STORE [id number], 175, cm, 12/04/22 8:07:00 EDT, Height Start Date: 12/08/22 Status: Ordered pramipexole 1 mg oral tablet 1 tablet, By Mouth, 3 times a day, # 270 tablet, 3 Refills, Maintenance, 12/31/22 9:58:00 EST, [facility], 175, cm, 12/04/22 8:07:00 EDT, Height Start Date: 12/31/22 Status: Ordered pravastatin 40 mg oral tablet See Instructions, TAKE 1 TABLET DAILY, # 90 tablet, 1 Refills, Maintenance, 09/04/22 15:09:00 EDT, [facility], 175, cm, 08/14/22 9:01:00 EDT, Height Start Date: 09/04/22 Status: Ordered sildenafil 50 mg oral tablet 1 tablet = 50 mg, By Mouth, Daily, 1 hour before sexual activity, # 30 tablet, 5 Refills, Maintenance, 12/11/22 12:34:00 EDT, Tablet, [facility]/pharmacy #[id number], Partial fill upon patient request if the prescription is for a schedule II opioid drug., 175, cm,... Start Date: 12/11/22 Status: Ordered Theraworx Relief MCS topical spray See Instructions, [place] over right knee topically every four hours as needed for moderate to severepain., # 1 each, 0 Refills, Maintenance, 11/29/21 15:39:00 EDT, [facility]/pharmacy #[id number], Partial fill upon patient [...] Team Personnel Name: Olimpia Pedro RN Position: [facility] AMB Nurse Member Role: Primary Care Nurse Name: Patience Haynes RN Position: [facility] SN RN Member Role: Primary Care Nurse Name: Trina Trujillo RN Position: [facility] SN Speech Lang Path Member Role: Primary Care Nurse Name: Lora Hensley NP Position: [facility] PCO Associate Professional Member Role: PCP Address: Address: [address] [place] [address]- Care Team Related Persons Name: LJ PAM Address: home [address] [place] [address]
--- OUTSIDE RECORDS SUMMARY | 2023-06-30 12:38 | XMS_ITS | Continuity of Care Document ---
Author Organization [facility] Roger Roger Valentín lt Address [address] [place] [address]- Care Team Providers Care Seating Captain Name Role Phone [place], Lora Neri Primary Care Physician [facility] 03[facility]23 - 04/17/23 [facility] Roger Roger Adult [address] [place] [address]- Allergies, Adverse Reactions, Alerts Substance Reaction Severity Status Niaspan ER TINGLING ALL OVER Active Duloxetine Restless legs Active Requip anxiety Active Immunizations Given and Recorded Vaccine Date Status Refusal Reason SARS-CoV-2 mRNA ([id number]-[id number]) vax 1 11/13/22 Recorded influenza virus vaccine, inactivated 11/13/22 Donnie rded influenza virus vaccine, inactivated 11/14/21 Donnie rded influenza virus vaccine, inactivated 2 02/21/16 Re corded influenza virus vaccine, inactivated 11/23/14 Give n influenza virus vaccine, inactivated 11/10/13 Give n influenza virus vaccine, inactivated 11/04/12 Give n [id number] 12y+ bivalent booster vax 11/29/21 Given tetanus-diphtheria [...] acel (oldterm) 10/23/10 Give n 1Result Comment: [facility] in [place] 2Result Comment: [02/22/2016[facility] Medications buPROPion 150 mg/24 hours (XL) oral tablet, extended release 1 tablet, By Mouth, Every 24 hours, # 90 tablet, 3 Refills, Maintenance, 01/08/23 13:53:00 EST, [facility], 90, 1 tablet By Mouth [...] 01/08/23 13:54:00 EST, ER Tablet, [facility]/... Start Date: 01/08/23 Stop Date: 01/15/23 Status: Ordered celecoxib 200 mg oral capsule 1 capsule, By Mouth, 2 times a day, # 180 capsule, 0 Refills, Maintenance, 01/09/23 20:31:00 EST, [facility] STORE [id number], 175, cm, 12/04/22 8:07:00 EDT, Height Start Date: 01/09/23 Status: Ordered cloNIDine 0.2 mg oral tablet 1, tablet, By Mouth, 2 times a day, # 180 tablet, Refills 3, Maintenance, 12/08/22 9:54:00 EDT, Route to Pharmacy Electronically, [facility] STORE [id number], 175, cm, 12/04/22 8:07:00 EDT, Height Start Date: 12/08/22 Status: Ordered CPAP Machine See Instructions, # 1 each, Maintenance, BiPAP 21/09, 08/17/14 11:33:22, Compound Start Date: 08/17/14 Status: Ordered fenofibrate 160 mg oral tablet 1 tablet, By Mouth, Daily, # 90 tablet, 1 Refills, Maintenance, 03/18/23 5:45:00 EST, [facility], 175, cm, 12/04/22 8:07:00 EDT, Height Start Date: 03/18/23 Status: Ordered levothyroxine 0.1 mg oral tablet 1 tablet, By Mouth, Daily, # 90 tablet, 3 Refills, Maintenance, 12/08/22 9:54:00 EDT, [facility] STORE [address], 175, cm, 12/04/22 8:07:00 EDT, Height Start Date: 12/08/22 Status: Ordered pramipexole 0.75 mg oral tablet 1 tablet, By Mouth, 3 times a day, # 90 tablet, 3 Refills, Maintenance, 04/09/23 10:59:00 EST, [id number], cm, 12/04/22 8:07:00 EDT, Height Start Date: 04/09/23 Status: Ordered pravastatin 40 mg oral tablet 1 tablet, By Mouth, Daily, # 90 tablet, 1 Refills, Maintenance, 03/03/23 21:25:00 EST, [facility], 175, cm, 12/04/22 8:07:00 EDT, Height Start Date: 03/03/23 Status: Ordered sildenafil 50 mg oral tablet 1 tablet = 50 mg, By Mouth, Daily, 1 hour before sexual activity, # 30 tablet, 5 Refills, Maintenance, 12/11/22 12:34:00 EDT, Tablet, [facility]/pharmacy #[id number], Partial fill upon patient request if the prescription is for a schedule II opioid drug., 175, cm,... Start Date: 12/11/22 Status: Ordered Theraworx Relief MCS topical spray See Instructions, [place] over right knee topically every four hours as needed for moderate to severepain., # 1 each, 0 Refills, Maintenance, 11/29/21 15:39:00 EDT, [facility]/pharmacy #[id number], Partial fill upon patient request if [...] Team Personnel Name: Olimpia Pedro RN Position: [facility] AMB Nurse Member Role: Primary Care Nurse Name: Trina Trujillo RN Position: [facility] SN C Software Engineer Member Role: Primary Care Nurse Name: Lora Hensley NP Position: [facility] PCO Associate Professional Member Role: PCP Address: Address: [address] [place] [address]- Care Team Related Persons Name: PAM CALHOUN Address: home [address] [place] [id number]
--- OUTSIDE RECORDS SUMMARY | 2023-06-30 12:38 | XMS_ITS | Continuity of Care Document ---
Author Organization [facility] Kana Valentín lt Address [address] [place] [address]- Care Team Providers Care Field Associate Name Role Phone [place]den [place], Lora Neri Primary Care Physician [facility] Date[facility]): 03/21/22 - 04/20/22 [facility] Adult [address] [place] [address]- Allergies, Adverse Reactions, Alerts Substance Reaction Severity Status Duloxetine Restless legs Active Niaspan ER TINGL[place] ALL OVER Active Requip anxiety Active Immunizations Given and Recorded Vaccine Date Status Refusal Reason [id number] 12y+ bivalent booster vax 11/29/21 Given tetanus-diphtheria [...] Refills, Maintenance, 11/21/21 14:15:00EDT, ER Tablet, [facility]/pharmacy #[id number], Partial fill upon patient request if the prescription is for a schedule II opioid drug., 1 tablet By Mouth Every 24... Start Date: 11/21/21 Status: Ordered cloNIDine 0.2 mg oral tablet 1, tablet, By Mouth, 2 times a day, # 180 tablet, Refills 1, Maintenance, 02/25/22 7:58:00 EST, Route to Pharmacy Electronically, [id number], 175, cm, 11/29/21 8:48:00 EDT, Height Start Date: 02/25/22 Status: Ordered CPAP Machine See Instructions, # 1 each, Maintenance, BiPAP 21/09, 08/17/14 11:33:22, Compound Start Date: 08/17/14 Status: Ordered fenofibrate 160 mg oral tablet 1 tablet, By Mouth, Daily, # 90 tablet, 3 Refills, 03/31/22 14:27:00 EST, [facility], 175, cm, 11/29/21 8:48:00 EDT, Height Start Date: 03/31/22 Status: Ordered levothyroxine 0.1 mg oral tablet 1 tablet, By Mouth, Daily, # 90 tablet, 3 Refills, 03/04/22 19:04:00 EST, [facility], 175, cm, 11/29/21 8:48:00 EDT, Height Start Date: 03/04/22 Status: Ordered meloxicam 15 mg oral tablet 1 tablet, By Mouth, Daily, # 30 tablet, 5 Refills, Maintenance, 03/17/22 10:52:00 EST, [id number], 175, cm, 11/29/21 8:48:00 EDT, Height Start Date: 03/17/22 Status: Ordered pramipexole 1 mg oral tablet 1 tablet, By Mouth, 3 times a day, # 270 tablet, 3 Refills, Maintenance, 03/21/22 11:53:00 EST[facility], cm, 11/29/21 8:48:00 EDT, Height Start Date: 03/21/22 Status: Ordered pramipexole 1 mg oral tablet 1 tablet = 1 mg, By Mouth, 3 times a day, 10-day supply until mail order supply arrives in mail perpt request., # 30 tablet, 0 Refills, Maintenance, 03/21/22 11:53:00 EST, Tablet, [facility]/pharmacy #[id number], Partial fill upon patient request [...] Refills, Maintenance, 11/29/21 15:38:00 EDT, Tablet, [facility]/pharmacy #[id number], Partial fill upon patient request if the prescription is for a schedule II opioid drug., 175, cm,... Start Date: 11/29/21 Status: Ordered Theraworx Relief MCS topical spray See Instructions, [place] over right knee topically every four hours as needed for moderate to severepain., # 1 each, 0 Refills, Maintenance, 11/29/21 15:39:00 EDT, [facility]/pharmacy #[id number], Partial fill upon patient request [...] Care Nurse Name: Patience Haynes RN Position: [facility] SN RN Member Role: Primary Care Nurse Name: Trina Trujillo RN Position: [facility] SN Email Marketing Processor Member Role: Primary Care Nurse Name: Lora Hensley NP Position: [facility] PCO Associate Professional Member Role: PCP Address: Address: [address] [place] [address]- Care Team Related Persons Name: PAM CALHOUN Address: home [address] [place] [id number]
--- OUTSIDE RECORDS SUMMARY | 2023-06-30 12:38 | XMS_ITS | Continuity of Care Document ---
Author Organization [facility] Kana Valentín lt Address [address] [place] [address]- Care Team Providers Care Boot And Saddle Repair Person Name Role Phone [place], Lora Neri Primary Care Physician [place] [facility] [place]s): 03/28/21 - 04/04/21 [facility] Adult [address] [place] [address]- Attending Physician: Not on Staff, Attending MD Referring Physician: Lora Hensley NP Allergies, [...] 06/08/20 14:19:00 EDT, Route to Pharmacy Electronically, [facility]/pharmacy #[id number], Partial fill upon patient [...] Status: Ordered FLUoxetine 10 mg oral capsule 10 mg, 1, capsule, By Mouth, Daily, # 30 capsule, Refills 0, Tot. Refills 0, Maintenance, 03/28/21 7:07:00 EST, Route to Pharmacy Electronically, [facility]/pharmacy #[id number], Partial fill upon patient requestif the prescription is for a schedule II opioid kang... Start Date: 03/28/21 Status: Ordered gabapentin 800 mg oral tablet See Instructions, 1 tablet By Mouth at 5 pm and 1 at 9 pm, # 14 tablet, 0 Refills, Maintenance, 01/10/21 17:11:00 EST, Tablet, [facility]/pharmacy #[id number], [facility], 175, cm, 11/02/20 9:01:00 EDT, Height Start Date: 01/10/21 Status: Ordered gabapentin 800 mg oral tablet [...] oldest [Reference Range]: 1 Height 175 cm (03/28/21 6:52 AM) Weight 93.6 kg (03/28/21 6:52 AM) Oxygen Saturation [94-100 %] 98 % (03/28/21 6:52 AM) Pulse Rate [55-90 bpm] 66 bpm (03/28/21 6:52 AM) Body Mass Index [18.5-24.99] 30.56 *>HHI* (03/28/21 6:52 AM) Blood Pressure [90-138/55-84 mm Hg] 114/ 58mm Hg (03/28/21 6:52 AM) Temperature [96.8-100.4 DegF] 98.4 DegF (03/28/21 6:52 AM) Mode of Delivery (Oxygen) Room air (03/28/21 6:52 AM) Blood pressure sites Arm, right (03/28/21 6:52 AM) Temperature Route Oral (03/28/21 6:52 AM) Weight Obtained Via Standing scale (03/28/21 6:52 AM) Social History Social History Type Response Smoking Status Former smoker entered on: 09/10/17 Sex
--- OUTSIDE RECORDS SUMMARY | 2023-06-30 12:38 | XMS_ITS | Continuity of Care Document ---
Author Organization [facility] Roger Roger Valentín lt Address [address] [place] [address]- Care Team Providers Care Adaptive Physical Educator Name Role Phone Sj Scott MD Primary Care Physician [phone] [facility] Date[facility]s): 08/28/20 - 09/27/20 [facility] Roger Delucaley Adult [address] [place] [address]- Allergies, Adverse Reactions, Alerts Substance Reaction Severity [...] 06/08/20 14:19:00 EDT, Route to Pharmacy Electronically, [facility]/pharmacy #[id number], Partial fill upon patient request if the [...] times a day, DECREASED DOSE--TAPERING PER DR SCOTT, # 60 tablet, 1 Refills, Maintenance, 09/25/20 [...]
--- OUTSIDE RECORDS SUMMARY | 2023-06-30 12:38 | XMS_ITS | Continuity of Care Document ---
Author Organization [facility] Valentín lt Address [address] [place] [id number]- Care Team Providers Care Designer And Patternmaker Name Role Phone Sj Hall MD Primary Care Physician [facility] Date[facility]s): 01/10/21 - 02/09/21 [facility] Adult [address] [place] [address]- Allergies, Adverse Reactions, Alerts Substance Reaction Severity [...] 06/08/20 14:19:00 EDT, Route to Pharmacy Electronically, [facility]/pharmacy #[id number], Partial fill upon patient request if the [...] 0 Refills, Maintenance, 01/10/21 17:11:00 EST, Tablet, [facility]/pharmacy #[id number], [facility], 175, cm, 11/02/20 9:01:00 EDT, Height Start Date: 01/10/21 Status: Ordered gabapentin 800 mg oral tablet See Instructions, 1 tablet By Mouth at 5 pm and 1 at 9 pm, # 180 tablet, 2 Refills, Maintenance, 01/10/21 17:11:00 EST, Tablet, [facility], 175, cm, 11/02/20 9:01:00 EDT, Height Start Date: 01/10/21 Status: Ordered levothyroxine 0.1 mg oral tablet [...]
--- OUTSIDE RECORDS SUMMARY | 2023-06-30 12:38 | XMS_ITS | Continuity of Care Document ---
Author Organization [facility] Roger Roger Valentín lt Address [address] [place] [address]- Care Team Providers Care Gear Hobber Name Role Phone Sj Scott MD Primary Care Physician [facility]s): 08/14/20 - 09/13/20 [facility] Roger Delucaley Adult [address] [place] [address]- Allergies, Adverse Reactions, Alerts Substance Reaction Severity [...] 06/08/20 14:19:00 EDT, Route to Pharmacy Electronically, [facility]/pharmacy #[id number], Partial fill upon patient request if the [...] Status: Ordered predniSONE 1 mg oral tablet 3 tablet = 3 mg, By Mouth, Daily, # 90 tablet, 0 Refills, Maintenance, 08/28/20 16:53:00 EDT, [facility]/pharmacy #[id number], 175, cm, 06/08/20 13:44:00 EDT, Height Start Date: 08/28/20 Status: Ordered Problem List Condition Effective Dates [...]
--- OUTSIDE RECORDS SUMMARY | 2023-06-30 12:38 | XMS_ITS | Continuity of Care Document ---
Author Organization [facility] Kana Valentín lt Address [address] [place] [address]- Care Team Providers Care Public Health Internship Name Role Phone [place], Lora Neri Primary Care Physician [phone] Encounter [facility] Date(s): 09/04/22 - 10/04/22 [facility] Adult [address] [place] [address]- Allergies, Adverse Reactions, Alerts Substance Reaction Severity Status Niaspan ER [place] ALL OVER Active Requip anxiety Active Duloxetine Restless legs Active Immunizations Given and Recorded Vaccine Date Status Refusal Reason [id number] 12y+ bivalent booster vax 11/29/21 Given tetanus-diphtheria [...] 3 Refills, Maintenance, 11/21/21 14:15:00EDT, [id number] Partial fill upon patient request if the prescription is for a schedule II opioid drug., 1 tablet By Mouth Every 24... Start Date: 11/21/21 Status: Ordered CeleBREX 200 mg oral capsule 1 capsule = 200 mg, By Mouth, 2 times a day, # 180 capsule, 0 Refills, Maintenance, 09/24/22 11:32:00 EDT, Capsule, [facility]/pharmacy #[id number], Partial fill upon patient request if the prescription is for a schedule II opioid drug., 175, cm, 08/14/22 9:01:00... Start Date: 09/24/22 Status: Ordered cloNIDine 0.2 mg oral tablet 1, tablet, By Mouth, 2 times a day, # 180 tablet, Refills 1, Maintenance, 08/20/22 6:57:00 EDT, Route to Pharmacy Electronically, [id number], 175, cm, 08/14/22 9:01:00 EDT, Height Start Date: 08/20/22 Status: Ordered CPAP Machine See Instructions, # 1 each, Maintenance, BiPAP 21/09, 08/17/14 11:33:22, Compound Start Date: 08/17/14 Status: Ordered fenofibrate 160 mg oral tablet 1 tablet, By Mouth, Daily, # 90 tablet, 3 Refills, 03/31/22 14:27:00 EST, [facility], 175, cm, 11/29/21 8:48:00 EDT, Height Start Date: 03/31/22 Status: Ordered fenofibrate 160 mg oral tablet 1 tablet = 160 mg, By Mouth, Daily, mail service prescription will not arrive for 5 days- supply sent for 5 days per pt request., # 5 tablet, 0 Refills, Maintenance, 10/03/22 12:38:00 EDT, [facility]/pharmacy #[id number], Partial fill upon patient request if the p... Start Date: 10/03/22 Stop Date: 10/08/22 Status: Ordered levothyroxine 0.1 mg oral tablet 1 tablet, By Mouth, Daily, # 90 tablet, 3 Refills, 03/04/22 19:04:00 EST, [facility], 175, cm, 11/29/21 8:48:00 EDT, Height Start Date: 03/04/22 Status: Ordered pramipexole 1 mg oral tablet 1 tablet, By Mouth, 3 times a day, # 270 tablet, 3 Refills, Maintenance, 03/21/22 11:53:00 EST, [facility], 175, cm, 11/29/21 8:48:00 EDT, Height Start Date: 03/21/22 Status: Ordered pramipexole 1 mg oral tablet 1 tablet = 1 mg, By Mouth, 3 times a day, 10-day supply until mail order supply arrives in mail perpt request., # 30 tablet, 0 Refills, Maintenance, 03/21/22 11:53:00 EST, [id number] Partial fill upon patient request if the prescript... Start Date: 03/21/22 Status: Ordered pravastatin 40 mg oral tablet See Instructions, TAKE 1 TABLET DAILY, # 90 tablet, 1 Refills, Maintenance, 09/04/22 15:09:00 EDT, [facility], 175, cm, 08/14/22 9:01:00 EDT, Height Start Date: 09/04/22 Status: Ordered sildenafil 50 mg oral tablet 1 tablet = 50 mg, By Mouth, Daily, 1 hour before sexual activity, # 10 tablet, 0 Refills, Maintenance, 09/26/22 9:12:00 EDT, Tablet, [facility]/pharmacy #[id number], Partial fill upon patient request if the prescription is for a schedule II opioid drug., 175, cm,... Start Date: 09/26/22 Status: Ordered Theraworx Relief MCS topical spray See Instructions, [place] over right knee topically every four hours as needed for moderate to severepain., # 1 each, 0 Refills, Maintenance, 11/29/21 15:39:00 EDT, [facility]/pharmacy #[id number], Partial fill upon patient request [...] Team Personnel Name: Olimpia Pedro RN Position: [facility] AMB Nurse Member Role: Primary Care Nurse Name: Patience Haynes RN Position: [facility] SN RN Member Role: Primary Care Nurse Name: Trina Trujillo RN Position: [facility] SN Finishing Machine Operator Member Role: Primary Care Nurse Name: Lora Hensley NP Position: [facility] PCO Associate Professional Member Role: PCP Address: Address: [address] [place] [id number]- [place] Care Team Related Persons Name: PAM CALHOUN Address: home [address] [place] [address]
--- OUTSIDE RECORDS SUMMARY | 2023-06-30 12:38 | XMS_ITS | Continuity of Care Document ---
Author Organization [facility] Roger Roger Valentín lt Address [address] [place] [address]- Care Team Providers Care Supervisor Wood Room Name Role Phone Sj Scott MD Primary Care Physician [facility]s): 05/14/20 - 06/13/20 [facility] Roger Delucaley Adult [address] [place] [address]- Allergies, Adverse Reactions, Alerts Substance Reaction Severity [...] 06/08/20 14:19:00 EDT, Route to Pharmacy Electronically, [facility]/pharmacy #[id number], Partial fill upon patient request if the [...] Height Start Date: 09/30/19 Status: Ordered predniSONE 5 mg oral tablet 1 tablet = 5 mg, By Mouth, Daily, # 30 tablet, 3 Refills, Maintenance, 06/08/20 14:18:00 EDT, Tablet, [id number], Partial fill upon patient request if the prescription is for a schedule II opioid drug., 175, cm, 06/08/20 13:44:00 EDT, Height Start Date: 06/08/20 Status: Ordered Problem List Condition Effective Dates [...]
--- OUTSIDE RECORDS SUMMARY | 2023-06-30 12:38 | XMS_ITS | Continuity of Care Document ---
Author Organization [facility] Valentín lt Address [address] [place] [address]- Care Team Providers Care Medtronics Technician Name Role Phone Tyler BLACKMON, Sj Michaud Primary Care Physician [facility]s): 06/22/20 - 06/29/20 [facility] [place] Adult [address] [place] [address]- Attending Physician: Not on Staff, Attending MD Allergies, Adverse Reactions, Alerts Substance Reaction [...] 06/08/20 14:19:00 EDT, Route to Pharmacy Electronically, [facility]/pharmacy #[id number], Partial fill upon patient request if the [...] Refills, Maintenance, 06/08/20 14:18:00 EDT, Tablet, [id number], Partial fill upon patient request if the [...] Most recent to oldest [Reference Range]: 1 Oxygen Saturation [94-100 %] 96 % (06/22/20 9:40 AM) Pulse Rate [55-90 bpm] 70 bpm (06/22/20 9:40 AM) Blood Pressure [90-138/55-84 mm Hg] 138/ 82mm Hg (06/22/20 9:40 AM) Blood pressure sites Arm, right (06/22/20 9:40 AM) Social History Social History Type Response Smoking Status Former smoker entered on: 09/10/17 Sex
--- OUTSIDE RECORDS SUMMARY | 2023-06-30 12:38 | XMS_ITS | Continuity of Care Document ---
Author Organization [facility] Roger Roger Valentín lt Address [address] [place] [address]- Care Team Providers Care Helicopter Repairer Name Role Phone Sj Scott MD Primary Care Physician [facility] Date[facility]s): 05/18/20 - 06/17/20 [facility] Roger Delucaley Adult [address] [place] [address]- Allergies, Adverse Reactions, Alerts Substance Reaction Severity [...] 06/08/20 14:19:00 EDT, Route to Pharmacy Electronically, [facility]/pharmacy #[id number], Partial fill upon patient request if the [...] Refills, Maintenance, 06/08/20 14:18:00 EDT, Tablet, [id number], Partial fill upon patient request if the [...]
--- OUTSIDE RECORDS SUMMARY | 2023-06-30 12:38 | XMS_ITS | Continuity of Care Document ---
Author Organization [facility] Kana Valentín lt Address [address] [place] [address]- Care Team Providers Care Pourer Buggy Ladle Name Role Phone [place], Lora Neri Primary Care Physician Encounter [facility] Date(s): 04/29/22 - 05/29/22 [facility] Adult [address] [place] [address]- Attending Physician: Admtr, Ar8 Admitting Physician: Admtr, Ar8 Referring Physician: Admtr, Ar8 Allergies, Adverse Reactions, Alerts Substance Reaction Severity Status Niaspan ER TINGLING ALL OVER Active Requip anxiety Active Duloxetine Restless legs Active Immunizations Given and Recorded Vaccine Date Status Refusal Reason [id number] 12y+ bivalent booster vax 11/29/21 Given tetanus-diphtheria [...] 3 Refills, Maintenance, 11/21/21 14:15:00EDT, ER Tablet, [facility]/pharmacy #[id number], Partial fill upon patient request if the prescription is for a schedule II opioid drug., 1 tablet By Mouth Every 24... Start Date: 11/21/21 Status: Ordered CeleBREX 100 mg oral capsule 1 capsule = 100 mg, By Mouth, 2 times a day, # 60 capsule, 2 Refills, Maintenance, 04/29/22 8:53:00EDT, Capsule, [facility]/pharmacy #[id number], Partial fill upon patient request if the prescription is for a schedule II opioid drug., 175, cm, 04/29/22 8:28:00 ED... Start Date: 04/29/22 Status: Ordered cloNIDine 0.2 mg oral tablet 1, tablet, By Mouth, 2 times a day, # 180 tablet, Refills 1, Maintenance, 02/25/22 7:58:00 EST, Route to Pharmacy Electronically, [id number], 175, cm, 11/29/21 8:48:00 EDT, Height Start Date: 02/25/22 Status: Ordered CPAP Machine See Instructions, # 1 each, Maintenance, BiPAP 21/09, 08/17/14 11:33:22, Compound Start Date: 08/17/14 Status: Ordered fenofibrate 160 mg oral tablet 1 tablet, By Mouth, Daily, # 90 tablet, 3 Refills, 03/31/22 14:27:00 EST, [facility], 175, cm, 11/29/21 8:48:00 EDT, Height Start Date: 03/31/22 Status: Ordered levothyroxine 0.1 mg oral tablet 1 tablet, By Mouth, Daily, # 90 tablet, 3 Refills, 03/04/22 19:04:00 EST, [facility], 175, cm, 11/29/21 8:48:00 EDT, Height Start Date: 03/04/22 Status: Ordered pramipexole 1 mg oral tablet 1 tablet, By Mouth, 3 times a day, # 270 tablet, 3 Refills, Maintenance, 03/21/22 11:53:00 EST, [facility], 175, cm, 11/29/21 8:48:00 EDT, Height Start Date: 03/21/22 Status: Ordered pramipexole 1 mg oral tablet 1 tablet = 1 mg, By Mouth, 3 times a day, 10-day supply until mail order supply arrives in mail perpt request., # 30 tablet, 0 Refills, Maintenance, 03/21/22 11:53:00 EST, Tablet, [facility]/pharmacy #[id number], Partial fill upon patient request if [...] 0 Refills, Maintenance, 11/29/21 15:38:00 EDT, Tablet, [facility]/pharmacy #[id number], Partial fill upon patient request if the prescription is for a schedule II opioid drug., 175, cm,... Start Date: 11/29/21 Status: Ordered Theraworx Relief MCS topical spray See Instructions, [place] over right knee topically every four hours as needed for moderate to severepain., # 1 each, 0 Refills, Maintenance, 11/29/21 15:39:00 EDT, [facility]/pharmacy #[id number], Partial fill upon patient request if [...] Restless Legs Syndrome (RLS) Confirmed 08/02/10 Active Procedures Procedure Date Related Diagnosis Body Site Status Supramalleolar closing wedge osteotomy with first TMT fusion and excision of an os trigonum Completed Social History Social History Type Response Smoking Status Former smoker entered on: 09/10/17 Sex Note * MarbellaStaci: PERFORM, SIGN, VERIFY Event Display: Patient Education/Instruction Authored Date: [id number] [facility] BMP So Kana Ivy Clinical Summary Person Information Visit Date 04/20/2018 9:00 AM Name KARSON CALHOUN Age 57 Years 1960 12:00 AM PCP Sj Scott MD PCP Sex Male Race White Ethnicity Non-/Non- Language Macedonian You can now view a summary of your hospital visit from the comfort of your home through a free online portal called Zilta. Zilta is a website that allows you to securely view your medical information including discharge summary, medications and follow-up visits. You can also send a secure electronic message to your doctor???s office to request appointments, renew medicationsor just ask a question. You can enroll at [email or web address] or register during your next office visit. Smoking can increase your chances of developing chronic health problems and can cause harmful effects to other family members in your house. If you smoke, you are strongly encouraged to quit. Please call the [place] Smokers??? Helpline at 7-887-GYSBNOW (or ) or log on to [email or web address] for more information. The National Suicide Prevention Hotline is available 01/09 if you or someone you know needs to find a reason to keep living. By calling 1-751-977-jlxj (6547) you'll be connected to a skilled, trained counselor at a crisis center in your area. Reason for Visit: Allergy Info: Duloxetine; Requip; Niaspan ER Smoking Status Former smoker Vital Signs Height Weight BMI Blood Pressure / Temperature Pulse Rate Respiratory Rate 02 Sat Mode of Delivery / Medication Information BuPROpion (buPROPion 300 mg/24 hours (XL) oral tablet, extended release) 1 tab(s) Oral Daily. Refills: 3. Durable Medical Equipment (CPAP Machine) BiPAP 21/09. Refills: 0. Fenofibrate (fenofibrate 160 mg oral tablet) 1 tab(s) Oral Daily. Refills: 3. Fluoxetine Oral. Gabapentin (gabapentin 800 mg oral tablet) 1 tablet By Mouth at 5 pm and 1 at 9 pm. Refills: 3. Levothyroxine (levothyroxine 0.1 mg oral tablet) 1 tab(s) Oral Daily. Refills: 3. Pramipexole (pramipexole 1 mg oral tablet) 1 tab(s) Oral 3 times a day. Refills: 3. Pravastatin (pravastatin 40 mg oral tablet) 1 tab(s) Oral Daily. Refills: 3. Future Orders Comprehensive Metabolic Panel Order Date:04/20/18 - Complete exactly on 04/20/18 TSH with T4 Reflex Order Date:04/20/18 - Complete exactly on 04/20/18 Lipid Panel Order Date:04/20/18 - Complete exactly on 04/20/18 PSA Screen Order Date:04/20/18 - Complete exactly on 04/20/18 Orders Completed this Visit No visit orders documented Problem List Problem Insomnia.. Restless Legs Syndrome (RLS) Hypertriglyceridemia Anxiety POLO (obstructive sleep apnea) Obesity Hypothyroidism Ankle pain Impaired glucose tolerance Major depressive disorder Diagnosis Pure Hyperglyceridemia Procedures Supramalleolar closing wedge osteotomy with first TMT fusion and excision of an os trigonum If the following labs have been performed in the last year, the most recent result is displayed below. Diagnostic Results Lab Result Value Date Lead Hemoglobin A1C LDL HDL Triglycerides Total Cholesterol Disclaimer: The information provided is of a general nature and is intended to be used in conjunction with the recommendations and advice of your health care practitioner. Every effort has been made to ensure that the information provided is accurate and complete at the time it is provided to you however, as your needs change, or, as new information becomes available, different or additional instructions may be required. If you have questions, please consult with your primary care provider or pharmacist, as appropriate. This information is not intended to serve as substitution for assessment and evaluation by a qualified health care provider. If you do not have a primary care provider, you may find a [facility] provider by calling [facility]uli K[facility] at [phone]. For information about the plan of care including goals and instructions for your diagnosis, please see the patient education orders section of this document. Patient Visit Summary: Future Appointments: Follow-Up Instructions Additional Patient Instructions: Patient Education Materials Additional Instructions: * Staci Tyson: PERFORM Event Display: Radiology Results Scanned Authored Date: [id number] * Pat Figueroa: PERFORM Event Display: Radiology Results Scanned Authored Date: [id number] Patient Care team information Care Team Personnel Name: Olimpia Pedro RN Position: [facility] AMB Nurse Member Role: Primary Care Nurse Name: Patience Haynes RN Position: [facility] SN RN Member Role: Primary Care Nurse Name: Trina Trujillo RN Position: [facility] SN Folding Rules Printing Machine Operator Member Role: Primary Care Nurse Name: Lora Hensley NP Position: [facility] PCO Associate Professional Member Role: PCP Address: Address: [address] [place] [address]- Care Team Related Persons Name: PAM CALHOUN Address: [address] [address]
--- OUTSIDE RECORDS SUMMARY | 2023-06-30 12:38 | XMS_ITS | Continuity of Care Document ---
Author Organization [facility] Kana Valentín lt Address [address] [place] [address]- Care Team Providers Care Ceo Name Role Phone Sj Scott MD Primary Care Physician [phone] Encounter [facility] Date(s): 06/08/20 - 06/15/20 [facility] Roger Delucaley Adult [address] [place] [address]- Encounter Diagnosis Hypertension(Discharge Diagnosis) - 06/08/20 Attending Physician: Sj Scott MD Allergies, Adverse [...] 06/08/20 14:19:00 EDT, Route to Pharmacy Electronically, [facility]/pharmacy #[id number], Partial fill upon patient request if the [...] 3 Refills, Maintenance, 06/08/20 14:18:00 EDT, Tablet, [facility]/pharmacy #[id number], Partial fill upon patient request [...] Dates Health Status Cl inical Service Informant Hypertension Discharge Diagnosis 06/08/20 Vital Signs Most recent to oldest [Reference Range]: 1 2 Height 175 cm (06/08/20 1:44 PM) 175 cm (06/08/20 1:37 PM) Weight 101.9 kg (06/08/20 1:37 PM) Oxygen Saturation [94-100 %] 96 % (06/08/20 1:37 PM) Pulse Rate [55-90 bpm] 94 bpm *H* (06/08/20 1:37 PM) Body Mass Index [18.5-24.99] 33.27 *>HHI* (06/08/20 1:37 PM) Blood Pressure [90-138/55-84 mm Hg] 158/ 84mm Hg *H* (06/08/20 1:44 PM) 156/84mm Hg *H* (06/08/20 1:37 PM) Mode of Delivery (Oxygen) Room air (06/08/20 1:37 PM) Blood pressure sites Arm, left (06/08/20 1:44 PM) Arm, left (06/08/20 1:37 PM) Temperature Route Oral (06/08/20 1:37 PM) Weight Obtained Via Standing scale (06/08/20 1:37 PM) Social History Social History Type Response Smoking Status Former smoker entered on: 09/10/17 Sex
--- OUTSIDE RECORDS SUMMARY | 2023-06-30 12:38 | XMS_ITS | Continuity of Care Document ---
Author Organization [facility] Roger Roger Valentín lt Address [address] [place] [address]- Care Team Providers Care First Helper Name Role Phone [place], Lora Neri Primary Care Physician Encounter [facility] Date(s): 12/04/22 - 12/11/22 [facility] Roger Delucaley Adult [address] [place] [address]- Encounter Diagnosis Medicare annual wellness visit, subsequent(Discharge Diagnosis) - 12/04/22 Anxiety(Discharge Diagnosis) - 12/04/22 Restless Legs Syndrome (RLS)(Discharge Diagnosis) - 12/04/22 POOL (obstructive sleep apnea)(Discharge Diagnosis) - 12/04/22 Hypertension(Discharge Diagnosis) - 12/04/22 Depression, major(Discharge Diagnosis) - 12/04/22 Osteoarthritis of knees, bilateral(Discharge Diagnosis) - 12/04/22 Memory deficits(Discharge Diagnosis) - 12/04/22 Attending Physician: Lora Hensley NP Referring Physician: Adalberto Villa MD Allergies, Adverse Reactions, Alerts Substance Reaction Severity Status Niaspan ER TINGLING ALL OVER Active Requip anxiety Active Duloxetine Restless legs Active Immunizations Given and Recorded Vaccine Date Status Refusal Reason SARS-CoV-2 mRNA ([id number]) vax 1 11/13/22 Recorded influenza virus vaccine, inactivated 11/13/22 Donnie rded influenza virus vaccine, inactivated 11/14/21 Donnie rded influenza virus vaccine, inactivated 2 02/21/16 Re corded influenza virus vaccine, inactivated 11/23/14 Give n influenza virus vaccine, inactivated 11/10/13 Give n influenza virus vaccine, inactivated 11/04/12 Give n [id number] 12y+ bivalent booster vax 11/29/21 Given tetanus-diphtheria [...] acel (oldterm) 10/23/10 Give n 1Result Comment: [facility] [place] 2Result Comment: [facility]/22/2016[facility] Medications buPROPion 150 mg/24 hours (XL) oral tablet, extended release 1 tablet, By Mouth, Every 24 hours, # 90 tablet, 3 Refills, Maintenance, 12/08/22 9:54:00 EDT, [id number], 90, TAKE 1 TABLET BY MOUTH EVERY 24 HOURS, 175, cm, 12/04/22 8:07:00 EDT, Height Start Date: 12/08/22 Status: Ordered CeleBREX 200 mg oral capsule 1 capsule = 200 mg, By Mouth, 2 times a day, # 180 capsule, 0 Refills, Maintenance, 09/24/22 11:32:00 EDT, Capsule, [facility]/pharmacy #[id number], Partial fill upon patient request if the prescription is for a schedule II opioid drug., 175, cm, 08/14/22 9:01:00... Start Date: 09/24/22 Status: Ordered cloNIDine 0.2 mg oral tablet 1, tablet, By Mouth, 2 times a day, # 180 tablet, Refills 3, Maintenance, 12/08/22 9:54:00 EDT, Route to Pharmacy Electronically, [facility] [id number], 175, cm, 12/04/22 8:07:00 EDT, Height Start Date: 12/08/22 Status: Ordered CPAP Machine See Instructions, # 1 each, Maintenance, BiPAP 21/09, 08/17/14 11:33:22, Compound Start Date: 08/17/14 Status: Ordered fenofibrate 160 mg oral tablet 1 tablet, By Mouth, Daily, # 90 tablet, 3 Refills, 03/31/22 14:27:00 EST, [facility], 175, cm, 11/29/21 8:48:00 EDT, Height Start Date: 03/31/22 Status: Ordered fenofibrate 160 mg oral tablet 1 tablet = 160 mg, By Mouth, Daily, mail service prescription will not arrive for 5 days- supply sent for 5 days per pt request., # 5 tablet, 0 Refills, Maintenance, 10/03/22 12:38:00 EDT, [facility]/pharmacy #[id number], Partial fill upon patient request if the p... Start Date: 10/03/22 Stop Date: 10/08/22 Status: Ordered levothyroxine 0.1 mg oral tablet 1 tablet, By Mouth, Daily, # 90 tablet, 3 Refills, Maintenance, 12/08/22 9:54:00 EDT, [facility] [id number], 175, cm, 12/04/22 8:07:00 EDT, Height Start Date: 12/08/22 Status: Ordered pramipexole 0.75 mg oral tablet 1 tablet = 0.75 mg, By Mouth, 3 times a day, # 90 tablet, 0 Refills, Maintenance, 12/04/22 8:28:00 EDT, Tablet, [id number], Partial fill upon patient request if the prescription is for a schedule II opioid drug., 175, cm, 12/04/22 8:07:00 EDT,... Start Date: 12/04/22 Status: Ordered pramipexole 1 mg oral tablet 1 tablet, By Mouth, 3 times a day, # 270 tablet, 3 Refills, Maintenance, 03/21/22 11:53:00 EST, [facility], 175, cm, 11/29/21 8:48:00 EDT, Height Start Date: 03/21/22 Status: Ordered pravastatin 40 mg oral tablet See Instructions, TAKE 1 TABLET DAILY, # 90 tablet, 1 Refills, Maintenance, 09/04/22 15:09:00 EDT, [facility], 175, cm, 08/14/22 9:01:00 EDT, Height Start Date: 09/04/22 Status: Ordered sildenafil 50 mg oral tablet 1 tablet = 50 mg, By Mouth, Daily, 1 hour before sexual activity, # 30 tablet, 5 Refills, Maintenance, 12/11/22 12:34:00 EDT, Tablet, [facility]acy #[id number], Partial fill upon patient request [...] Diagnosis Diagnosis Type Effective Dates Health Status Clinical Service Informant Medicare annual wellness visit, subsequent Discharge Diagnosis 12/04/22 Anxiety Discharge Diagnosis 12/04/22 Restless Legs Syndrome (RLS) Discharge Diagnosis 12/04/22 POLO (obstructive sleep apnea) Discharge Diagnosis 12/04/22 Hypertension Discharge Diagnosis 12/04/22 Depression, major Discharge Diagnosis 12/04/22 Osteoarthritis of knees, bilateral Discharge Diagnosis 12/04/22 Memory deficits Discharge Diagnosis 12/04/22 Vital Signs Most recent to oldest [Reference Range]: 1 Height 175 cm (12/04/22 8:07 AM) Weight 91.7 kg (12/04/22 8:07 AM) Oxygen Saturation [94-100 %] 100 % (12/04/22 8:07 AM) Pulse Rate [55-90 bpm] 94 bpm *H* (12/04/22 8:07 AM) Body Mass Index [18.5-24.99 kg/m2] 29.94 kg/m2 *H* (12/04/22 8:07 AM) Blood Pressure [90-138/55-84 mm Hg] 134/ 68mm Hg (12/04/22 8:07 AM) Blood pressure sites Arm, left (12/04/22 8:07 AM) Weight Obtained Via Standing scale (12/04/22 8:07 AM) Social History Social History Type Response Smoking Status Former smoker, quit more than 30 days ago entered on: 08/14/22 Sex Note * Kylee Russell: PERFORM, SIGN, VERIFY Event Display: Patient Education/Instruction Authored Date: [id number] [facility] *BMP So Kana Haynes Clinical Summary Name KARSON CALHOUN Age 62 Years 1960 PCP Lora Hensley NP PCP Visit Date 12/04/2022 07:58:00 Additional Instructions: Scheduled Appointments?? Future Appointments ?No Future Appointments Scheduled Follow-Up Instructions ?? With: Address: When: [place], Lora Neri Within 1 year Comments: MWV Diagnosis Anxiety disorder, unspecified; Encounter for general adult medical examination without abnormal findings; Obstructive sleep apnea (adult) (pediatric); Hypothyroidism, unspecified; Major depressive disorder, single episode, severe without psychotic features; Bilateral primary osteoarthritis of knee;Essential (primary) hypertension; Restless legs syndrome; Other amnesia Medications: Please continue your medications until treatment is completed or stopped by your provider. Discuss any questions related to medications with your provider. Medications to Continue Taking That Have Changed [facility]/pharmacy #[id number], [address] [place] [phone], [phone] - Pramipexole (pramipexole 0.75 mg oral tablet) 1 tab(s) Oral 3 times a day. Refills: 0. Next Dose: These medications were not printed or sent to your pharmacy - Pramipexole (pramipexole 1 mg oral tablet) 1 tab(s) Oral 3 times a day. Refills: 3. Next Dose: Medications to Continue with No Changes [id number], [address] [place], [place] [phone], [phone] Levothyroxine (levothyroxine 0.1 mg oral tablet) 1 tab(s) Oral Daily. Refills: 0. Next Dose: These medications were not printed or sent to your pharmacy BuPROpion (buPROPion 150 mg/24 hours (XL) oral tablet, extended release) 1 tab(s) Oral every 24 hours. Refills: 3. Next Dose: Celecoxib (CeleBREX 200 mg oral capsule) 1 capsule Oral twice a day. Refills: 0. Next Dose: Clonidine (cloNIDine 0.2 mg oral tablet) 1 tab(s) Oral twice a day. Refills: 1. Next Dose: Durable Medical Equipment (CPAP Machine) BiP 21/09. Refills: 0. Next Dose: Fenofibrate (fenofibrate 160 mg oral tablet) 1 tab(s) Oral Daily. Refills: 3. Next Dose: Fenofibrate (fenofibrate 160 mg oral tablet) 1 tab(s) Oral Daily for 5 Days. mail service prescription will not arrive for 5 days- supply sent for 5 days per pt request.. Refills: 0. Next Dose: magnesium sulfate topical (Theraworx Relief MCS topical spray) [place] over right knee topically every four hours as needed for moderate to severe pain.. Refills: 0. Next Dose: Pravastatin (pravastatin 40 mg oral tablet) TAKE 1 TABLET DAILY. Refills: 1. Next Dose: Sildenafil (sildenafil 50 mg oral tablet) 1 tab(s) Oral Daily. 1 hour before sexual activity. Refills: 0. Next Dose: Allergy Info:?? Duloxetine; Requip; Niaspan ER Medications Given This Visit Future Orders ?No future orders Vital Signs Height 175 cm Weight 91.7 kg BMI 29.94 kg/m2 Blood Pressure 134 mm Hg/68 mm Hg Temperature Pulse Rate 94 bpm Respiratory Rate 02 Sat Mode of Delivery 100 %/ You can now view a summary of your hospital visit from the comfort of your home through a free online portal called [employer]. [employer] is a website that allows you to securely view your medical information including discharge summary, medications and follow-up visits. ??You can alsosend a secure electronic message to your doctor???s office to request appointments, renew medications or just ask a question. You can enroll at [email or web address] or register during your next office visit. Disclaimer:?? The information provided is of a general nature and is intended to be used in conjunction with the recommendations and advice of your health care practitioner. ??Every effort has been made to ensure that the information provided is accurate and complete at the time it is provided to you however, as your needs change, or, as new ??information becomes available, different or additional instructions may be required. If you have questions, please consult with your primary care provider or pharmacist, as appropriate. ??This information is not intended to serve as substitution for assessment and evaluation by a qualified health care provider. If you do not have a primary care provider, you may find a [facility] provider by calling [facility] [employer] at [phone]. [facility], in keeping with [facility] guidance, no longer requires face masks for staff, patientsor visitors in most situations. Similar to time spent indoors at other locations, there is the chance that you were exposed to respiratory viruses during your time with us (such as flu or COVID-19).? If you develop symptoms concerning for a viral respiratory infection, please seek testing (and treatment if indicated) from your medical provider or home test kit. For information about the plan of care including goals and instructions for your diagnosis, please see the patient education orders section of this document. Patient Education Materials?? The content of this educational material or handout may have been modified, supplemented, or adapted from its original content and format to support your individualized medical care. Patient Care team information Care Team Personnel Name: Olimpia Pedro RN Position: [facility] AMB Nurse Member Role: Primary Care Nurse Name: Patience Haynes RN Position: [facility] SN RN Member Role: Primary Care Nurse Name: Trina Trujillo RN Position: [facility] SN Consulting Solution Manager Member Role: Primary Care Nurse Name: Lora Hensley NP Position: [facility] PCO Associate Professional Member Role: PCP Address: Address: [address] [place] [address]- Care Team Related Persons Name: PAM CALHOUN Address: home [address] [place] [id number]
--- OUTSIDE RECORDS SUMMARY | 2023-06-30 12:38 | XMS_ITS | Continuity of Care Document ---
Author Organization [facility] Valentín lt Address [address] [place] [address]- Care Team Providers Care Batteryman Name Role Phone [place], Lora Neri Primary Care Physician Encounter [facility] Date(s): 06/27/21 - 07/27/21 [facility] Adult [address] [place] [address]- Allergies, Adverse Reactions, Alerts Substance Reaction Severity [...] Mouth, Daily, # 60 tablet, 5 Refills, [id number], 175, cm, 03/28/21 6:52:00 EST, Height Start [...] tablet, Refills 1, Route to Pharmacy Electronically, [facility], 175, cm, 06/24/21 10:17:00 EDT, Height Start [...]
--- OUTSIDE RECORDS SUMMARY | 2023-06-30 12:38 | XMS_ITS | Continuity of Care Document ---
Author Organization [facility] Roger Roger Valentín lt Address [address] [place] [address]- Care Team Providers Care Strategic Communications Specialist Name Role Phone [place], Lora Neri Primary Care Physician [facility] Date[facility]): 05/22/23 - 06/21/23 [facility] Roger Roger Adult [address] [place] [address]- Allergies, Adverse Reactions, Alerts Substance Reaction Severity Status Requip anxiety Active Duloxetine Restless legs Active Niaspan ER TINGLING ALL OVER Active Immunizations Given and Recorded Vaccine Date Status Refusal Reason SARS-CoV-2 mRNA ([id number]) vax 1 11/13/22 Recorded influenza virus vaccine, inactivated 11/13/22 Donnie rded influenza virus vaccine, inactivated 11/14/21 Donnie rded influenza virus vaccine, inactivated 2 02/21/16 Re corded influenza virus vaccine, inactivated 11/23/14 Give n influenza virus vaccine, inactivated 11/10/13 Give n influenza virus vaccine, inactivated 11/04/12 Give n [id number] 12y+ bivalent booster vax 11/29/21 Given tetanus-diphtheria [...] n [facility] [place] [facility] [place] [facility] Medic[facility] buPROPion 150 mg/24 hours (XL) oral tablet, extended release 1 tablet, By Mouth, Every 24 hours, # 90 tablet, 3 Refills, Maintenance, 01/08/23 13:53:00 EST, [facility], 90, 1 tablet By Mouth [...] Refills, Maintenance, 01/08/23 13:54:00 EST, ER Tablet, [facility]/... Start Date: 01/08/23 Stop Date: 01/15/23 Status: Ordered celecoxib 200 mg oral capsule 1 capsule, By Mouth, 2 times a day, # 180 capsule, 1 Refills, Maintenance, 05/21/23 20:23:00 EDT, [facility] STORE [id number], 175, cm, 12/04/22 8:07:00 EDT, Height Start Date: 05/21/23 Status: Ordered cloNIDine 0.2 mg oral tablet 1, tablet, By Mouth, 2 times a day, # 180 tablet, Refills 3, Maintenance, 12/08/22 9:54:00 EDT, Route to Pharmacy Electronically, [facility] STORE [facility]1549, 175, cm, 12/04/22 8:07:00 EDT, Height Start Date: 12/08/22 Status: Ordered CPAP Machine See Instructions, # 1 each, Maintenance, BiPAP 21/09, 08/17/14 11:33:22, Compound Start Date: 08/17/14 Status: Ordered fenofibrate 160 mg oral tablet 1 tablet, By Mouth, Daily, # 90 tablet, 1 Refills, Maintenance, 03/18/23 5:45:00 EST, [facility], 175, cm, 12/04/22 8:07:00 EDT, Height Start Date: 03/18/23 Status: Ordered levothyroxine 0.1 mg oral tablet 1 tablet, By Mouth, Daily, # 90 tablet, 3 Refills, Maintenance, 12/08/22 9:54:00 EDT, [facility] STORE [id number], 175, cm, 12/04/22 8:07:00 EDT, Height Start Date: 12/08/22 Status: Ordered pramipexole 0.75 mg oral tablet 1 tablet, By Mouth, 3 times a day, # 90 tablet, 3 Refills, Maintenance, 04/09/23 10:59:00 EST[id number], cm, 12/04/22 8:07:00 EDT, Height Start Date: 04/09/23 Status: Ordered pravastatin 40 mg oral tablet 1 tablet, By Mouth, Daily, # 90 tablet, 1 Refills, Maintenance, 03/03/23 21:25:00 EST, [facility], 175, cm, 12/04/22 8:07:00 EDT, Height Start Date: 03/03/23 Status: Ordered sildenafil 50 mg oral tablet 1 tablet = 50 mg, By Mouth, Daily, 1 hour before sexual activity, # 30 tablet, 5 Refills, Maintenance, 12/11/22 12:34:00 EDT, [facility]t, [id number] Partial fill upon patient request if the prescription is for a schedule II opioid drug., 175, cm,... Start Date: 12/11/22 Status: Ordered Theraworx Relief MCS topical spray See Instructions, [place] over right knee topically every four hours as needed for moderate to severepain., # 1 each, 0 Refills, Maintenance, 11/29/21 15:39:00 EDT, [facility]/pharmacy #[id number], Partial fill upon patient request [...] Team Personnel Name: Olimpia Pedro RN Position: [facility] AMB Nurse Member Role: Primary Care Nurse Name: Patience Haynes RN Position: [facility] [place] Office Staff Member Role: Primary Care Nurse Name: Trina Trujillo RN Position: [facility] SN Inbound Telemarketer Member Role: Primary Care Nurse Name: Lora Hensley NP Position: [facility] PCO Associate Professional Member Role: PCP Address: Address: [address] [place] [address]- Care Team Related Persons Name: PAM CALHOUN Address: home [address] [place] [address]
--- OUTSIDE RECORDS SUMMARY | 2023-06-30 12:38 | XMS_ITS | Continuity of Care Document ---
Author Organization [facility] Roger Roger Valentín lt Address [address] [place] [address]- Care Team Providers Care Hydrodynamics Teacher Name Role Phone [place], Lora Neri Primary Care Physician [phone] [facility]counter [facility] Date(s): 01/02/23 - 02/01/23 [facility] Roger Roger Adult [address] [place] [address]- Allergies, Adverse Reactions, Alerts Substance Reaction Severity Status Niaspan ER TINGLING ALL OVER Active Requip anxiety Active Duloxetine Restless legs Active Immunizations Given and Recorded Vaccine Date Status Refusal Reason SARS-CoV-2 mRNA ([id number]) vax 1 11/13/22 Recorded influenza virus vaccine, inactivated 11/13/22 Donnie rded influenza virus vaccine, inactivated 11/14/21 Donnie rded influenza virus vaccine, inactivated 2 02/21/16 Re corded influenza virus vaccine, inactivated 11/23/14 Give n influenza virus vaccine, inactivated 11/10/13 Give n influenza virus vaccine, inactivated 11/04/12 Give n [id number] 12y+ bivalent booster vax 11/29/21 Given tetanus-diphtheria [...] acel (oldterm) 10/23/10 Give n 1Result Comment: [facility] in [place] 2Result Comment: [02[place]22/2016[facility] [place] [facility] Medications buPROPion 150 mg/24 hours (XL) oral tablet, extended release 1 tablet, By Mouth, Every 24 hours, # 90 tablet, 3 Refills, Maintenance, 01/08/23 13:53:00 EST, [facility], 90, 1 tablet By [...] 20:31:00 EST, [facility] STORE [address]99, 175, cm, 12/04/22 8:07:00 EDT, Height Start Date: 01/09/23 Status: Ordered cloNIDine 0.2 mg oral tablet 1, tablet, By Mouth, 2 times a day, # 180 tablet, Refills 3, Maintenance, 12/08/22 9:54:00 EDT, Route to Pharmacy Electronically, [facility] STORE 10772, 175, cm, 12/04/22 8:07:00 EDT, Height Start Date: 12/08/22 Status: Ordered CPAP Machine See Instructions, # 1 each, Maintenance, BiPAP 21/09, 08/17/14 11:33:22, Compound Start Date: 08/17/14 Status: Ordered fenofibrate 160 mg oral tablet 1 tablet, By Mouth, Daily, # 90 tablet, 3 Refills, 03/31/22 14:27:00 EST, [facility], 175, cm, 11/29/21 8:48:00 EDT, Height Start Date: 03/31/22 Status: Ordered fenofibrate 160 mg oral tablet 1 tablet = 160 mg, By Mouth, Daily, mail service prescription will not arrive for 5 days- supply sent for 5 days per pt request., # 5 tablet, 0 Refills, Maintenance, 10/03/22 12:38:00 EDT, [facility]/pharmacy #[id number], Partial fill upon patient request if the p... Start Date: 10/03/22 Stop Date: 10/08/22 Status: Ordered levothyroxine 0.1 mg oral tablet 1 tablet, By Mouth, Daily, # 90 tablet, 3 Refills, Maintenance, 12/08/22 9:54:00 EDT, [facility] STORE [address]22, 175, cm, 12/04/22 8:07:00 EDT, Height Start Date: 12/08/22 Status: Ordered pramipexole 1 mg oral tablet 1 tablet, By Mouth, 3 times a day, # 270 tablet, 3 Refills, Maintenance, 12/31/22 9:58:00 EST, [facility], 175, cm, 12/04/22 8:07:00 EDT, Height Start Date: 12/31/22 Status: Ordered pravastatin 40 mg oral tablet See Instructions, TAKE 1 TABLET DAILY, # 90 tablet, 1 Refills, Maintenance, 09/04/22 15:09:00 EDT, [facility], 175, cm, 08/14/22 [...] Theraworx Relief MCS topical spray See Instructions, [place] over right knee topically every four hours [...] Team Personnel Name: Olimpia Pedro RN Position: [facility] AMB Nurse Member Role: Primary Care Nurse Name: Patience Haynes RN Position: [facility] SN RN Member Role: Primary Care Nurse Name: Trina Trujillo RN Position: [facility] SN Instructional Consultant Member Role: Primary Care Nurse Name: Lora Hensley NP Position: [facility] PCO Associate Professional Member Role: PCP Address: Address: [address] [place] [address]- Care Team Related Persons Name: PAM CALHOUN Address: home [address] [place] [address]
--- OUTSIDE RECORDS SUMMARY | 2023-06-30 12:38 | XMS_ITS | Continuity of Care Document ---
Author Organization [facility] Kana Valentín lt Address [address] [place] [address]- Care Team Providers Care Meat Products Demonstrator Name Role Phone [place], Lora Neri Primary Care Physician Encounter [facility] Date(s): 05/30/22 - 06/06/22 [facility] Adult [address] [place] [address]- Attending Physician: Lora Hensley NP Referring Physician: Daisy BLACKMON, Adalberto Holt Allergies, Adverse Reactions, Alerts Substance Reaction Severity Status Niaspan ER TINGLING ALL OVER Active Requip anxiety Active Duloxetine Restless legs Active Immunizations Given and Recorded Vaccine Date Status Refusal Reason [id number] 12y+ bivalent booster vax 11/29/21 Given tetanus-diphtheria [...] Refills, Maintenance, 11/21/21 14:15:00EDT, ER Tablet, [id number] Partial fill upon patient request if the prescription is for a schedule II opioid drug., 1 tablet By Mouth Every 24... Start Date: 11/21/21 Status: Ordered CeleBREX 200 mg oral capsule 1 capsule = 200 mg, By Mouth, 2 times a day, # 180 capsule, 0 Refills, Maintenance, 05/30/22 8:34:00 EDT, Capsule, [facility]/pharmacy #[id number], Partial fill upon patient request if the prescription is for a schedule II opioid drug., 175, cm, 05/30/22 8:19:00 E... Start Date: 05/30/22 Status: Ordered cloNIDine 0.2 mg oral tablet 1, tablet, By Mouth, 2 times a day, # 180 tablet, Refills 1, Maintenance, 02/25/22 7:58:00 EST, Route to Pharmacy Electronically, [facility] STORE [id number], 175, cm, 11/29/21 8:48:00 EDT, Height Start Date: 02/25/22 Status: Ordered CPAP Machine See Instructions, # 1 each, Maintenance, BiPAP 21/09, 08/17/14 11:33:22, Compound Start Date: 08/17/14 Status: Ordered fenofibrate 160 mg oral tablet 1 tablet, By Mouth, Daily, # 90 tablet, 3 Refills, 03/31/22 14:27:00 EST, [facility], 175, cm, 11/29/21 8:48:00 EDT, Height Start Date: 03/31/22 Status: Ordered levothyroxine 0.1 mg oral tablet 1 tablet, By Mouth, Daily, # 90 tablet, 3 Refills, 03/04/22 19:04:00 EST, [facility], 175, cm, 11/29/21 8:48:00 EDT, Height Start Date: 03/04/22 Status: Ordered pramipexole 1 mg oral tablet 1 tablet, By Mouth, 3 times a day, # 270 tablet, 3 Refills, Maintenance, 03/21/22 11:53:00 EST, [facility], 175, cm, 11/29/21 8:48:00 EDT, Height Start Date: 03/21/22 Status: Ordered pramipexole 1 mg oral tablet 1 tablet = 1 mg, By Mouth, 3 times a day, 10-day supply until mail order supply arrives in mail perpt request., # 30 tablet, 0 Refills, Maintenance, 03/21/22 11:53:00 EST, Tablet, [facility]/pharmacy #[id number], Partial fill upon patient request [...] 0 Refills, Maintenance, 11/29/21 15:38:00 EDT, Tablet, [facility]/pharmacy #[id number], Partial fill upon patient request if the prescription is for a schedule II opioid drug., 175, cm,... Start Date: 11/29/21 Status: Ordered Theraworx Relief MCS topical spray See Instructions, [place] over right knee topically every four hours as needed for moderate to severepain., # 1 each, 0 Refills, Maintenance, 11/29/21 15:39:00 EDT, [facility]/pharmacy #[id number], Partial fill upon patient request [...] Restless Legs Syndrome (RLS) Confirmed 08/02/10 Active Vital Signs Most recent to oldest [Reference Range]: 1 2 3 Height 175 cm (05/30/22 8:37 AM) 175 cm (05/30/22 8:19 AM) 175 cm (05/30/22 8:12 AM) Weight 90.3 kg (05/30/22 8:12 AM) Oxygen Saturation [94-100 %] 99 % (05/30/22 8:12 AM) Pulse Rate [55-90 bpm] 62 bpm (05/30/22 8:12 AM) Body Mass Index [18.5-24.99 kg/m2] 29.49 kg/m2 *H* (05/30/22 8:12 AM) Blood Pressure [90-138/55-84 mm Hg] 128/78mm Hg (05/30/22 8:37 AM) 154/81mm Hg *H* (05/30/22 8:19 AM) 167/80mm Hg *H* (05/30/22 8:12 AM) Blood pressure sites Arm, right (05/30/22 8:37 AM) Arm, right (05/30/22 8:12 AM) Weight Obtained Via Standing scale (05/30/22 8:12 AM) Social History Social History Type Response Smoking Status Former smoker entered on: 09/10/17 Sex Note * Haydee Andrea: PERFORM, SIGN, VERIFY Event Display: Patient Education/Instruction Authored Date: [id number] [facility] *BMP So [place] Haynes Clinical Summary Name KARSON CALHOUN Age 62 Years 1960 PCP [place], Lora Neri [id number] Visit Date 05/30/2022 08:07:00 Additional Instructions: Scheduled Appointments?? Future Appointments ?*BMP??So??[place] ?Phone:??--?Fax:??-- ?Appt. Date:??08/14/2022?9:10 AM ?Scheduled Provider:??Lora Hensley NP Follow-Up Instructions ?? With: Address: When: Lora Hensley NP Within 6 months Comments: MWV when due With: Address: When: Lora Hensley NP Within 3 months Comments: telehealth visit Diagnosis Unilateral primary osteoarthritis, right knee Medications: Please continue your medications until treatment is completed or stopped by your provider. Discuss any questions related to medications with your provider. Medications to Continue Taking That Have Changed [facility]/pharmacy #[id number], [address] [place] [phone], [phone] - Celecoxib (CeleBREX 200 mg oral capsule) 1 capsule Oral twice a day. Refills: 0. Next Dose: Medications to Continue with No Changes These medications were not printed or sent to your pharmacy BuPROpion (buPROPion 150 mg/24 hours (XL) oral tablet, extended release) 1 tab(s) Oral every 24 hours. Refills: 3. Next Dose: Clonidine (cloNIDine 0.2 mg oral tablet) 1 tab(s) Oral twice a day. Refills: 1. Next Dose: Durable Medical Equipment (CPAP Machine) [facility] 21/09. Refills: 0. Next Dose: Fenofibrate (fenofibrate 160 mg oral tablet) 1 tab(s) Oral Daily. Refills: 3. Next Dose: Levothyroxine (levothyroxine 0.1 mg oral tablet) 1 tab(s) Oral Daily. Refills: 3. Next Dose: magnesium sulfate topical (Theraworx Relief MCS topical spray) [place] over right knee topically every four hours as needed for moderate to severe pain.. Refills: 0. Next Dose: Pramipexole (pramipexole 1 mg oral tablet) 1 tab(s) Oral 3 times a day. 10-day supply until mail order supply arrives in mail per pt request.. Refills: 0. Next Dose: Pramipexole (pramipexole 1 mg oral tablet) 1 tab(s) Oral 3 times a day. Refills: 3. Next Dose: Pravastatin (pravastatin 40 mg oral tablet) 1 tab(s) Oral Daily. Refills: 3. Next Dose: Sildenafil (sildenafil 25 mg oral tablet) 1 tab(s) Oral Daily. 1 hour before sexual activity. Refills: 0. Next Dose: Allergy Info:?? Duloxetine; Requip; Niaspan ER Medications Given This Visit Future Orders ?Basic Metabolic Panel? Order Date:05/30/22?- Complete on or after?05/30/22 Vital Signs Height 175 cm Weight 90.3 kg BMI 29.49 kg/m2 Blood Pressure 128 mm Hg/78 mm Hg Temperature Pulse Rate 62 bpm Respiratory Rate 02 Sat Mode of Delivery 99 %/ You can now view a summary of your hospital visit from the comfort of your home through a free online portal called [employer]. [employer] is a website that allows you to securely view your medical information including discharge summary, medications and follow-up visits. ??You can alsosend a secure electronic message to your doctor???s office to request appointments, renew medications or just ask a question. You can enroll at [email or web address] or register during your next office [...] primary care provider, you may find a [facility] provider by calling [facility] [place] [facility] at [phone]. For information about the plan of care [...] Team Personnel Name: Olimpia Pedro RN Position: [facility] AMB Nurse Member Role: Primary Care Nurse Name: Patience Haynes RN Position: [facility] RN Member Role: Primary Care Nurse Name: Trina Trujillo RN Position: [facility] SN Leather Tanner Member Role: Primary Care Nurse Name: Lora Hensley NP Position: [facility] PCO Associate Professional Member Role: PCP Address: Address: [address] [place] [address]- Care Team Related Persons Name: LJ, PAM Address: home [address] [place] [address]
--- OUTSIDE RECORDS SUMMARY | 2023-06-30 12:38 | XMS_ITS | Continuity of Care Document ---
Author Organization [facility] Address [address] [place] [address]- Care Team Providers Care Quill Stripper Name Role Phone [place], Lora Nunezmichael Primary Care Physician Encounter [facility] Date(s): 06/27/21 - 10/25/21 [facility] [address] [place] [address]- Attending Physician: Soy Leong MD Allergies, Adverse Reactions, Alerts Substance Reaction [...] Refills, Maintenance, 10/22/21 9:22:00 EDT, ER Tablet, [id number], Partial fill upon patient request if the prescription is for a schedule II opioid drug., 1 tablet By Mouth Every 24... Start Date: 10/22/21 Status: Ordered cloNIDine 0.2 mg oral tablet 1, tablet, By Mouth, 2 times a day, # 180 tablet, Refills 1, Route to Pharmacy Electronically, [facility] STORE [id number], 175, cm, 06/24/21 10:17:00 EDT, Height Start [...] 1 Refills, Maintenance, 10/22/21 9:25:00 EDT, Tablet, [facility]/pharmacy #[id number], Partial fill upon patient [...] Team Personnel Name: Lora Hensley NP Address: [address] [place] [address] [place], [place] [address]
--- OUTSIDE RECORDS SUMMARY | 2023-06-30 12:38 | XMS_ITS | Continuity of Care Document ---
Author Organization [facility] Kana Valentín lt Address [address] [place] [address]- Care Team Providers Care Director Strategic Account Management Name Role Phone [place], Lora Neri Primary Care Physician [phone] Encounter [facility] Date(s): 11/29/21 - 12/06/21 [facility] [place] Adult [address] [place] [address]- Attending Physician: Lora Hensley NP Referring Physician: Daisy BLACKMON, Adalberto Holt Allergies, Adverse Reactions, Alerts Substance Reaction Severity Status Duloxetine Restless legs Active Niaspan ER TINGLING ALL OVER Active Requip anxiety Active Immunizations Given and Recorded Vaccine Date Status Refusal Reason [id number] 12y+ bivalent booster vax 11/29/21 Given tetanus-diphtheria [...] Maintenance, 11/21/21 14:15:00EDT, ER Tablet, [facility]/pharmacy #[id number], Partial fill upon patient request if the prescription is for a schedule II opioid drug., 1 tablet By Mouth Every 24... Start Date: 11/21/21 Status: Ordered cloNIDine 0.2 mg oral tablet 1, tablet, By Mouth, 2 times a day, # 180 tablet, Refills 1, Route to Pharmacy Electronically, [facility] STORE [address]1892, 175, cm, 06/24/21 10:17:00 EDT, Height Start Date: 07/19/21 Status: Ordered CPAP Machine See Instructions, # 1 each, Maintenance, BiPAP 21/09, 08/17/14 11:33:22, Compound Start Date: 08/17/14 Status: Ordered fenofibrate 160 mg oral tablet 1 tablet, By Mouth, Daily, # 90 tablet, 3 Refills, 11/21/21 10:39:00 EDT, [facility]/pharmacy #[id number], 175, cm, 11/21/21 10:25:00 EDT, Height [...] 1 Refills, Maintenance, 10/22/21 9:25:00 EDT, Tablet, [facility]/pharmacy #[id number], Partial fill upon patient request if [...] 0 Refills, Maintenance, 11/29/21 15:38:00 EDT, Tablet, [id number], Partial fill upon patient request if the prescription is for a schedule II opioid drug., 175, cm,... Start Date: 11/29/21 Status: Ordered Theraworx Relief MCS topical spray See Instructions, [place] over right knee topically every four hours [...] [Reference Range]: 1 2 Height 175 cm (11/29/21 8:48 AM) 175 cm (11/29/21 8:06 AM) Weight 93.0 kg (11/29/21 8:06 AM) Oxygen Saturation [94-100 %] 100 % (11/29/21 8:06 AM) Pulse Rate [55-90 bpm] 66 bpm (11/29/21 8:06 AM) Body Mass Index [18.5-24.99 kg/m2] 30.37 kg/m2 *>HHI* (11/29/21 8:06 AM) Blood Pressure [90-138/55-84 mm Hg] 130/ 82mm Hg (11/29/21 8:48 AM) 168/74mm Hg *H* (11/29/21 8:06 AM) Blood pressure sites Arm, right (11/29/21 8:48 AM) Arm, left (11/29/21 8:06 AM) Weight Obtained Via Standing scale (11/29/21 8:06 AM) Social History Social History Type Response Smoking Status Former smoker entered on: 09/10/17 Sex Patient Care team information Personnel Name: Lora Hensley NP Address: Address: [address] [place] [address]-
--- OUTSIDE RECORDS SUMMARY | 2023-06-30 12:38 | XMS_ITS | Continuity of Care Document ---
Author Organization [facility] Roger Roger Valentín lt Address [address] [place] [address]- Care Team Providers Care Water And Sewer Systems Supervisor Name Role Phone [place], Lora Neir Primary Care Physician [facility]counter [facility] Date(s): 07/18/21 - 08/17/21 [facility] Roger [place]ucaley Adult [address] [place] [address]- Allergies, Adverse Reactions, Alerts Substance Reaction Severity [...] tablet, Refills 1, Route to Pharmacy Electronically, [facility], 175, cm, 06/24/21 10:17:00 EDT, Height Start [...] day, # 270 tablet, 3 Refills, Maintenance, 08/09/21 10:34:00 EDT, [facility]/pharmacy #[id number], 175, cm, 08/09/21 10:17:00 EDT, Height Start Date: 08/09/21 Status: Ordered pravastatin 40 mg oral tablet [...]
--- OUTSIDE RECORDS SUMMARY | 2023-06-30 12:39 | XMS_ITS | Continuity of Care Document ---
Author Organization [facility] Roger Roger Valentín lt Address [address] [place] [address]- Care Team Providers Care Air Conditioning Equipment Mechanic Name Role Phone [place], Lora Neri Primary Care Physician [phone] [facility] Date(s): 01/09/23 - 02/08/23 [facility] Roger Roger Adult [address] [place] [address]- Allergies, Adverse Reactions, Alerts Substance Reaction Severity Status Duloxetine Restless legs Active Niaspan ER TINGLING ALL OVER Active Requip anxiety Active Immunizations Given and Recorded Vaccine Date Status Refusal Reason SARS-CoV-2 mRNA ([id number]-[id number]-fsbth) vax 1 11/13/22 Recorded influenza virus vaccine, inactivated 11/13/22 Donnie rded influenza virus vaccine, inactivated 11/14/21 Donnie rded influenza virus vaccine, inactivated 2 02/21/16 Re corded influenza virus vaccine, inactivated 11/23/14 Give n influenza virus vaccine, inactivated 11/10/13 Give n influenza virus vaccine, inactivated 11/04/12 Give n [id number] 12y+ bivalent booster vax 11/29/21 Given tetanus-diphtheria [...] acel (oldterm) 10/23/10 Give n 1Result Comment: [facility] [place] 2[place] Comment: [facility] Medic[facility] bu[facility]ion 150 mg/24 hours (XL) oral tablet, extended release 1 tablet, By Mouth, Every 24 hours, # 90 tablet, 3 Refills, Maintenance, 01/08/23 13:53:00 EST, [facility], 90, 1 tablet By Mouth [...] Refills, Maintenance, 01/08/23 13:54:00 EST, ER Tablet, [facility]/... Start Date: 01/08/23 Stop Date: 01/15/23 Status: Ordered celecoxib 200 mg oral capsule 1 capsule, By Mouth, 2 times a day, # 180 capsule, 0 Refills, Maintenance, 01/09/23 20:31:00 EST, [id number], 175, cm, 12/04/22 8:07:00 EDT, Height Start Date: 01/09/23 Status: Ordered cloNIDine 0.2 mg oral tablet 1, tablet, By Mouth, 2 times a day, # 180 tablet, Refills 3, Maintenance, 12/08/22 9:54:00 EDT, Route to Pharmacy Electronically, [id number], 175, cm, 12/04/22 8:07:00 EDT, Height Start Date: 12/08/22 Status: Ordered CPAP Machine See Instructions, # 1 each, Maintenance, BiPAP 21/09, 08/17/14 11:33:22, Compound Start Date: 08/17/14 Status: Ordered fenofibrate 160 mg oral tablet 1 tablet, By Mouth, Daily, # 90 tablet, 3 Refills, 03/31/22 14:27:00 EST, [facility], 175, cm, 11/29/21 8:48:00 EDT, Height Start Date: 03/31/22 Status: Ordered fenofibrate 160 mg oral tablet 1 tablet = 160 mg, By Mouth, Daily, mail service prescription will not arrive for 5 days- supply sent for 5 days per pt request., # 5 tablet, 0 Refills, Maintenance, 10/03/22 12:38:00 EDT, [facility]/pharmacy #[id number], Partial fill upon patient request if the p... Start Date: 10/03/22 Stop Date: 10/08/22 Status: Ordered levothyroxine 0.1 mg oral tablet 1 tablet, By Mouth, Daily, # 90 tablet, 3 Refills, Maintenance, 12/08/22 9:54:00 EDT, [facility] STORE [id number], 175, cm, 12/04/22 8:07:00 EDT, Height Start Date: 12/08/22 Status: Ordered pramipexole 0.75 mg oral tablet 1 tablet, By Mouth, 3 times a day, # 90 tablet, 1 Refills, Maintenance, 02/06/23 11:26:00 EST, [facility] STORE 93848, 175, cm, 12/04/22 8:07:00 EDT, Height Start Date: 02/06/23 Status: Ordered pravastatin 40 mg oral tablet See Instructions, TAKE 1 TABLET DAILY, # 90 tablet, 1 Refills, Maintenance, 09/04/22 15:09:00 EDT, [facility], 175, cm, 08/14/22 9:01:00 EDT, Height Start Date: 09/04/22 Status: Ordered sildenafil 50 mg oral tablet 1 tablet = 50 mg, By Mouth, Daily, 1 hour before sexual activity, # 30 tablet, 5 Refills, Maintenance, 12/11/22 12:34:00 EDT, Tablet, [facility]/pharmacy #[id number], Partial fill upon patient request if the prescription is for a schedule II opioid drug., 175, cm,... Start Date: 12/11/22 Status: Ordered Theraworx Relief MCS topical spray See Instructions, [place] over right knee topically every four hours [...] RN Position: [facility] SN Vat Tender Member Role: Primary Care Nurse Name: Lora Hensley NP Position: [facility] PCO Associate Professional Member Role: PCP Address: Address: [address] [place] [address]- Care Team Related Persons Name: PAM CALHOUN Address: home [address] [place] [address]
--- OUTSIDE RECORDS SUMMARY | 2023-06-30 12:39 | XMS_ITS | Continuity of Care Document ---
Author Organization [facility] Valentín lt Address [address] [place] [address]- Care Team Providers Care Structural Steel Erection Supervisor Name Role Phone [place], Lora Neri Primary Care Physician [phone] Encounter [facility] Date(s): 10/22/21 - 10/29/21 [facility] Adult [address] [place] [address]- Attending Physician: Not on Staff, Attending MD [...] tablet, Refills 1, Route to Pharmacy Electronically, [facility] STORE [id number], 175, cm, 06/24/21 10:17:00 EDT, Height Start [...] 1 Refills, Maintenance, 10/22/21 9:25:00 EDT, Tablet, [facility]/pharmacy #[id number], Partial fill upon patient request [...] Range]: 1 2 3 Height 175 cm (10/22/21 9:20 AM) 175 cm (10/22/21 9:03 AM) 175 cm (10/22/21 9:03 AM) Weight 93.0 kg (10/22/21 8:49 AM) Oxygen Saturation [94-100 %] 99 % (10/22/21 8:49 AM) Pulse Rate [55-90 bpm] 61 bpm (10/22/21 8:49 AM) Body Mass Index [18.5-24.99] 30.37 *>HHI* (10/22/21 8:49 AM) Blood Pressure [90-138/55-84 mm Hg] 122/74mm Hg (10/22/21 9:20 AM) 150/77mm Hg *H* (10/22/21 9:03 AM) 152/75mm Hg *H* (10/22/21 9:03 AM) Blood pressure sites Arm, right (10/22/21 9:20 AM) Arm, right (10/22/21 8:49 AM) Weight Obtained Via Standing scale (10/22/21 8:49 AM) Social History Social History Type Response Smoking Status Former smoker entered on: 09/10/17 Sex Care Team Personnel Name: Lora Hensley NP Address: [address] [place] [address] [place], [place] [address]
--- OUTSIDE RECORDS SUMMARY | 2023-06-30 12:39 | XMS_ITS | Continuity of Care Document ---
Author Organization [facility] Roger Roger Valentín Address [address] [place] [address]- Care Team Providers Care Major Assembly Lineman Name Role Phone [place], Lora Neri Primary Care Physician [phone] [facility] Date[facility]s): 04/26/21 - 05/26/21 [facility] Roger Delucaley Adult [address] [place] [address]- Allergies, Adverse Reactions, Alerts Substance Reaction Severity [...] Mouth, Daily, # 60 tablet, 5 Refills, [facility] [address]16, 175, cm, 03/28/21 6:52:00 EST, Height Start [...] capsule, Refills 5, Route to Pharmacy Electronically, [facility] STORE [id number], 175, cm, 03/28/21 6:52:00 EST, Height Start [...]
--- OUTSIDE RECORDS SUMMARY | 2023-06-30 12:39 | XMS_ITS | Continuity of Care Document ---
Author Organization [facility] Valentín lt Address [address] [place] [address]- Care Team Providers Care Medical Office Assistant Name Role Phone Sj Hall MD Primary Care Physician [phone] [facility] Date(s): 10/09/20 - 11/08/20 [facility] Adult [address] [place] [address]- Allergies, Adverse Reactions, Alerts Substance Reaction Severity [...] Refills, Maintenance, 10/18/20 14:32:00 EDT, Tablet, [facility], 175, cm, 06/08/20 13:44:00 EDT, Height Start Date: 10/18/20 Status: Ordered FLUoxetine 20 mg oral capsule 20 mg, 1, capsule, By Mouth, Daily, # 180 capsule, Refills 3, Tot. Refills 3, Maintenance, 12/01/2014:42:00 EDT, Route to Pharmacy Electronically, [facility], D/C RX ON FILE FOR TABLETS, 175, cm, 10/20/19 9:33:00 EDT, Height Start Date: 12/02/19 Status: Ordered gabapentin 800 mg oral tablet See Instructions, 1 tablet By Mouth at 5 pm and 1 at 9 pm, # 10 tablet, 0 Refills, Maintenance, 10/09/20 9:49:00 EDT, Tablet, [facility]/pharmacy #[id number], 175, cm, 06/08/20 13:44:00 EDT, Height Start Date: 10/09/20 Status: Ordered levothyroxine 0.1 mg oral tablet 1 tablet = 0.1 mg, By Mouth, Daily, # 90 tablet, 1 Refills, Maintenance, 10/18/20 14:32:00 EDT, Tablet, [facility], to mail order per pt, [...]
--- OUTSIDE RECORDS SUMMARY | 2023-06-30 12:39 | XMS_ITS | Continuity of Care Document ---
Author Organization [facility] Roger Roger Valentín lt Address [address] [place] [address]- Care Team Providers Care Salon Receptionist Name Role Phone [place], Lora Neri Primary Care Physician [facility] Date(s): 05/21/23 - 06/20/23 [facility] Roger Roger Adult [address] [place] [address]- Allergies, Adverse Reactions, Alerts Substance Reaction Severity Status Duloxetine Restless legs Active Niaspan ER T[place] ALL OVER Active Requip anxiety Active Immunizations Given and Recorded Vaccine Date Status Refusal Reason SARS-CoV-2 mRNA (tfzncys-bcfm-darri) vax 1 11/13/22 Recorded influenza virus vaccine, inactivated 11/13/22 Donnie rded influenza virus vaccine, inactivated 11/14/21 Donnie rded influenza virus vaccine, inactivated 2 02/21/16 Re corded influenza virus vaccine, inactivated 11/23/14 Give n influenza virus vaccine, inactivated 11/10/13 Give n influenza virus vaccine, inactivated 11/04/12 Give n [id number] 12y+ bivalent booster vax 11/29/21 Given tetanus-diphtheria [...] acel (oldterm) 10/23/10 Give n 1Result Comment: [facility] in [place] 2Result Comment: [02/22/2016[facility] Medications buPROPion 150 mg/24 hours (XL) oral tablet, extended release 1 tablet, By Mouth, Every 24 hours, # 90 tablet, 3 Refills, Maintenance, 01/08/23 13:53:00 EST, [facility], 90, 1 tablet By [...] Refills, Maintenance, 01/08/23 13:54:00 EST, ER Tablet, [facility]/... Start Date: 01/08/23 Stop Date: 01/15/23 Status: Ordered celecoxib 200 mg oral capsule 1 capsule, By Mouth, 2 times a day, # 180 capsule, 1 Refills, Maintenance, 05/21/23 20:23:00 EDT, [facility] STORE [id number], 175, cm, 12/04/22 8:07:00 EDT, Height Start Date: 05/21/23 Status: Ordered cloNIDine 0.2 mg oral tablet 1, tablet, By Mouth, 2 times a day, # 180 tablet, Refills 3, Maintenance, 12/08/22 9:54:00 EDT, Route to Pharmacy Electronically, [facility] 58705, 175, cm, 12/04/22 8:07:00 EDT, Height Start Date: 12/08/22 Status: Ordered CPAP Machine See Instructions, # 1 each, Maintenance, BiPAP 21/09, 08/17/14 11:33:22, Compound Start Date: 08/17/14 Status: Ordered fenofibrate 160 mg oral tablet 1 tablet, By Mouth, Daily, # 90 tablet, 1 Refills, Maintenance, 03/18/23 5:45:00 EST, [facility], 175, cm, 12/04/22 8:07:00 EDT, Height Start Date: 03/18/23 Status: Ordered levothyroxine 0.1 mg oral tablet 1 tablet, By Mouth, Daily, # 90 tablet, 3 Refills, Maintenance, 12/08/22 9:54:00 EDT, [facility] STORE 50955, 175, cm, 12/04/22 8:07:00 EDT, Height Start Date: 12/08/22 Status: Ordered pramipexole 0.75 mg oral tablet 1 tablet, By Mouth, 3 times a day, # 90 tablet, 3 Refills, Maintenance, 04/09/23 10:59:00 EST[id number], cm, 12/04/22 8:07:00 EDT, Height Start Date: 04/09/23 Status: Ordered pravastatin 40 mg oral tablet 1 tablet, By Mouth, Daily, # 90 tablet, 1 Refills, Maintenance, 03/03/23 21:25:00 EST, [facility], 175, cm, 12/04/22 8:07:00 EDT, Height Start Date: 03/03/23 Status: Ordered sildenafil 50 mg oral tablet 1 tablet = 50 mg, By Mouth, Daily, 1 hour before sexual activity, # 30 tablet, 5 Refills, Maintenance, 12/11/22 12:34:00 EDT, Tablet, [id number] Partial fill upon patient request if the prescription is for a schedule II opioid drug., 175, cm,... Start Date: 12/11/22 Status: Ordered Theraworx Relief MCS topical spray See Instructions, [place] over right knee topically every four hours as needed for moderate to severepain., # 1 each, 0 Refills, Maintenance, 11/29/21 15:39:00 EDT, [facility]/pharmacy #[id number], Partial fill upon patient [...] Care Nurse Name: Patience Haynes RN Position: [facility] Office Staff Member Role: Primary Care Nurse Name: Trina Trujillo RN Position: [facility] SN Soaker Member Role: Primary Care Nurse Name: Lora Hensley NP Position: [facility] PCO Associate Professional Member Role: PCP Address: Address: [address] [place] [address]- Care Team Related Persons Name: PAM CALHOUN Address: home [address] [place] [address]
--- OUTSIDE RECORDS SUMMARY | 2023-06-30 12:39 | XMS_ITS | Continuity of Care Document ---
Author Organization [facility] Kana Valentín lt Address [address] [place] [address]- Care Team Providers Care Forensic Computer Examiner Name Role Phone Sj Scott MD Primary Care Physician [phone] [facility] Date(s): 07/23/20 - 08/22/20 [facility] Kana Adult [address] [place] [address]- Allergies, Adverse Reactions, Alerts Substance Reaction Severity [...] Route to Pharmacy Electronically, [facility]/pharmacy #[id number], Partial fill upon patient request if the [...] Refills, Maintenance, 08/02/20 14:57:00 EDT, [facility], 175, cm, 06/08/20 13:44:00 EDT, Height Start [...]
--- OUTSIDE RECORDS SUMMARY | 2023-06-30 12:39 | XMS_ITS | Continuity of Care Document ---
Author Organization [facility] Kana Valentín lt Address [address] [place] [address]- Care Team Providers Care Medical Sales Consultant Name Role Phone Sj Hall MD Primary Care Physician [facility] Date(s): 08/28/20 - 09/27/20 [facility] Anselmo Adult [address] [place] [address]- Allergies, Adverse Reactions, Alerts Substance Reaction Severity [...] EDT, Route to Pharmacy Electronically, [facility]/pharmacy #[id number], Partial fill upon patient request if the [...]
--- OUTSIDE RECORDS SUMMARY | 2023-06-30 12:39 | XMS_ITS | Continuity of Care Document ---
Author Organization [facility] Valentín lt Address [address] [place] [address]- Care Team Providers Care Upsetter Name Role Phone Sj Scott MD Primary Care Physician [phone] [facility] Date(s): 10/20/19 - 11/19/19 [facility] Adult [address] [place] [address]- [facility] Allergies, Adverse Reactions, Alerts [...] Acute 10/06/22 14:00:00 EDT, 10/07/19 15:03:00 EDT, [facility]/pharmacy #[id number], 175, cm, 09/30/19 10:20:00 EDT, Height [...]
--- OUTSIDE RECORDS SUMMARY | 2023-06-30 12:39 | XMS_ITS | Continuity of Care Document ---
Author Organization [facility] Kana Valentín lt Address [address] [place] [address]- Care Team Providers Care Head Stock Operator Name Role Phone Sj Scott MD Primary Care Physician [facility] Date(s): 08/06/20 - 09/05/20 [facility] Kana Adult [address] [place] [address]- Allergies, Adverse Reactions, Alerts Substance Reaction Severity [...] EDT, Route to Pharmacy Electronically, [facility]/pharmacy #[id number], Partial fill upon patient request if the [...]
--- OUTSIDE RECORDS SUMMARY | 2023-06-30 12:39 | XMS_ITS | Continuity of Care Document ---
Author Organization [facility] Roger Roger Valentín lt Address [address] [place] [address]- Care Team Providers Care Tape Cutting Machine Operator Name Role Phone [place], Lora Neri Primary Care Physician [phone] Encounter [facility] Date(s): 08/09/21 - 08/16/21 [facility] Roger Delucaley Adult [address] [place] [address]- Encounter Diagnosis Tongue ulcer(Discharge Diagnosis) - 08/09/21 Attending Physician: Lora Hensley NP Referring Physician: [...] 1, Route to Pharmacy Electronically, [facility], 175, cm, 06/24/21 10:17:00 EDT, Height Start [...] tablet, 3 Refills, Maintenance, 08/09/21 10:34:00 EDT, [facility]/pharmacy #[id number], 175, cm, 08/09/21 10:17:00 EDT, Height [...] Dates Health Status Cl inical Service Informant Tongue ulcer Discharge Diagnosis 08/09/21 Vital Signs Most recent to oldest [Reference Range]: 1 Height 175 cm (08/09/21 10:17 AM) Social History Social History Type Response Smoking Status Former smoker entered on: 09/10/17 Sex
--- OUTSIDE RECORDS SUMMARY | 2023-06-30 12:39 | XMS_ITS | Continuity of Care Document ---
Author Organization [facility] Roger Roger Valentín lt Address [address] [place] [address]- Care Team Providers Care Manager Drug Safety Name Role Phone [place], Lora Neri Primary Care Physician [phone] [facility]counter [facility] Date(s): 01/07/23 - 02/06/23 [facility] Roger Roger Adult [address] [place] [address]- Allergies, Adverse Reactions, Alerts Substance Reaction Severity Status Niaspan ER TINGL[place] ALL OVER Active Requip anxiety Active Duloxetine Restless legs Active Immunizations Given and Recorded Vaccine Date Status Refusal Reason SARS-CoV-2 mRNA (agrwczx-kard-qyhmg) vax 1 11/13/22 Recorded influenza virus vaccine, inactivated 11/13/22 Donnie rded influenza virus vaccine, inactivated 11/14/21 Donnie rded influenza virus vaccine, inactivated 2 02/21/16 Re corded influenza virus vaccine, inactivated 11/23/14 Give n influenza virus vaccine, inactivated 11/10/13 Give n influenza virus vaccine, inactivated 11/04/12 Give n [id number] 12y+ bivalent booster vax 11/29/21 Given tetanus-diphtheria [...] acel (oldterm) 10/23/10 Give n 1Result Comment: [facility] in [place] 2Result Comment: [02/22/2016[facility] Medic[facility] buPROPion 150 mg/24 hours (XL) oral tablet, extended release 1 tablet, By Mouth, Every 24 hours, # 90 tablet, 3 Refills, Maintenance, 01/08/23 13:53:00 EST, [facility], 90, 1 tablet By [...] capsule, 0 Refills, Maintenance, 01/09/23 20:31:00 EST, [facility] STORE [id number], 175, cm, 12/04/22 8:07:00 EDT, Height Start Date: 01/09/23 Status: Ordered cloNIDine 0.2 mg oral tablet 1, tablet, By Mouth, 2 times a day, # 180 tablet, Refills 3, Maintenance, 12/08/22 9:54:00 EDT, Route to Pharmacy Electronically, [facility] 8[facility]38, 175, cm, 12/04/22 8:07:00 EDT, Height Start Date: 12/08/22 Status: Ordered CPAP Machine See Instructions, # 1 each, Maintenance, BiPAP 21/09, 08/17/14 11:33:22, Compound Start Date: 08/17/14 Status: Ordered fenofibrate 160 mg oral tablet 1 tablet, By Mouth, Daily, # 90 tablet, 3 Refills, 03/31/22 14:27:00 EST, [facility], 175, cm, 11/29/21 8:48:00 EDT, Height Start Date: 03/31/22 Status: Ordered fenofibrate 160 mg oral tablet 1 tablet = 160 mg, By Mouth, Daily, mail service prescription will not arrive for 5 days- supply sent for 5 days per pt request., # 5 tablet, 0 Refills, Maintenance, 10/03/22 12:38:00 EDT, [facility]/pharmacy #[id number], Partial fill upon patient request if the p... Start Date: 10/03/22 Stop Date: 10/08/22 Status: Ordered levothyroxine 0.1 mg oral tablet 1 tablet, By Mouth, Daily, # 90 tablet, 3 Refills, Maintenance, 12/08/22 9:54:00 EDT, [facility] STORE 45630, 175, cm, 12/04/22 8:07:00 EDT, Height Start Date: 12/08/22 Status: Ordered pramipexole 0.75 mg oral tablet 1 tablet, By Mouth, 3 times a day, # 90 tablet, 1 Refills, Maintenance, 02/06/23 11:26:00 EST, [facility] STORE 88322, 175, cm, 12/04/22 8:07:00 EDT, Height Start Date: 02/06/23 Status: Ordered pravastatin 40 mg oral tablet See Instructions, TAKE 1 TABLET DAILY, # 90 tablet, 1 Refills, Maintenance, 09/04/22 15:09:00 EDT, [facility], 175, cm, 08/14/22 9:01:00 EDT, Height Start Date: 09/04/22 Status: Ordered sildenafil 50 mg oral tablet 1 tablet = 50 mg, By Mouth, Daily, 1 hour before sexual activity, # 30 tablet, 5 Refills, Maintenance, 12/11/22 12:34:00 EDT, Tablet, [facility]/pharmacy #[id number], Partial fill upon patient request if the prescription is for a schedule II opioid drug., 175, cm,... Start Date: 12/11/22 Status: Ordered Theraworx Relief MCS topical spray See Instructions, [place] over right knee topically every four [...] Team Personnel Name: Olimpia Pedro RN Position: [facility] AMB Nurse Member Role: Primary Care Nurse Name: Patience Haynes RN Position: [facility] SN RN Member Role: Primary Care Nurse Name: Trina Trujillo RN Position: [facility] SN Getter Filler Member Role: Primary Care Nurse Name: Lora Hensley NP Position: [facility] PCO Associate Professional Member Role: PCP Address: Address: [address] [place] [address]- Care Team Related Persons Name: PAM CALHOUN Address: home [address] [place] [address]
--- OUTSIDE RECORDS SUMMARY | 2023-06-30 12:39 | XMS_ITS | Continuity of Care Document ---
Author Organization [facility] Valentín lt Address [address] [place] [address]- Care Team Providers Care Flame Annealing Machine Setter Name Role Phone Sj Scott MD Primary Care Physician [phone] [facility] Date(s): 10/04/19 - 11/03/19 [facility] Adult [address] [place] [address]- [facility] Allergies, Adverse Reactions, Alerts Substance Reaction [...]
--- OUTSIDE RECORDS SUMMARY | 2023-06-30 12:39 | XMS_ITS | Continuity of Care Document ---
Author Organization [facility] Valentín lt Address [address] [place] [address]- Care Team Providers Care Drapery Hanger Name Role Phone Sj Hall MD Primary Care Physician [phone] Encounter [facility] Date(s): 07/14/20 - 11/11/20 [facility] Adult [address] [place] [address]- Attending Physician: Sj Hall MD Allergies, Adverse [...] 06/08/20 14:19:00 EDT, Route to Pharmacy Electronically, [facility]/pharmacy #[id number], Partial fill upon patient request if [...] Refills, Maintenance, 10/18/20 14:32:00 EDT, Tablet, [facility], 175, cm, 06/08/20 13:44:00 EDT, Height Start Date: 10/18/20 Status: Ordered FLUoxetine 20 mg oral capsule 20 mg, 1, capsule, By Mouth, Daily, # 180 capsule, Refills 3, Tot. Refills 3, Maintenance, 12/01/2014:42:00 EDT, Route to Pharmacy Electronically, [facility], D/C RX ON FILE FOR TABLETS, 175, cm, 10/20/19 9:33:00 EDT, Height Start Date: 12/02/19 Status: Ordered gabapentin 800 mg oral tablet See Instructions, 1 tablet By Mouth at 5 pm and 1 at 9 pm, # 10 tablet, 0 Refills, Maintenance, 10/09/20 9:49:00 EDT, Tablet, [facility]/pharmacy #[id number], 175, cm, 06/08/20 13:44:00 EDT, Height [...]
--- OUTSIDE RECORDS SUMMARY | 2023-06-30 12:39 | XMS_ITS | Continuity of Care Document ---
Author Organization [facility] Kana Valentín lt Address [address] [place] [address]- Care Team Providers Care Deliverer Food Name Role Phone Ayden [place], Lora Neri Primary Care Physician Encounter [facility] Date(s): 08/01/21 - 08/08/21 [facility] Adult [address] [place] [address]- Attending Physician: Lora Hensley NP Allergies, Adverse Reactions, [...] Mouth, Daily, # 60 tablet, 5 Refills, [id number], 175, cm, 03/28/21 6:52:00 EST, Height Start [...] tablet, Refills 1, Route to Pharmacy Electronically, [id number], 175, cm, 06/24/21 10:17:00 EDT, Height Start [...] [Reference Range]: 1 2 Height 175 cm (08/01/21 10:19 AM) 175 cm (08/01/21 9:51 AM) Weight 88.8 kg (08/01/21 9:51 AM) Oxygen Saturation [94-100 %] 99 % (08/01/21 9:51 AM) Body Mass Index [18.5-24.99] 29 *H* (08/01/21 9:51 AM) Blood Pressure [90-138/55-84 mm Hg] 136/ 86mm Hg (08/01/21 10:19 AM) 152/80mm Hg *H* (08/01/21 9:51 AM) Blood pressure sites Arm, right (08/01/21 10:19 AM) Arm, right (08/01/21 9:51 AM) Weight Obtained Via Standing scale (08/01/21 9:51 AM) Social History Social History Type Response Smoking Status Former smoker entered on: 09/10/17 Sex
--- OUTSIDE RECORDS SUMMARY | 2023-06-30 12:39 | XMS_ITS | Continuity of Care Document ---
Author Organization [facility] Kana Valentín lt Address [address] [place] [address]- Care Team Providers Care Optician Name Role Phone Ayden [place], Lora Neri Primary Care Physician [phone] [facility]counter [facility] Date(s): 03/04/22 - 04/03/22 [facility] Adult [address] [place] [address]- Allergies, Adverse Reactions, Alerts Substance Reaction Severity Status Niaspan ER TINGLING ALL OVER Active Requip anxiety Active Duloxetine Restless legs Active Immunizations Given and Recorded Vaccine Date Status Refusal Reason [id number] 12y+ bivalent booster vax 11/29/21 Given tetanus-diphtheria [...] Maintenance, 11/21/21 14:15:00EDT, ER Tablet, [facility]/pharmacy #[id number], Partial fill upon patient request if the prescription is for a schedule II opioid drug., 1 tablet By Mouth Every 24... Start Date: 11/21/21 Status: Ordered cloNIDine 0.2 mg oral tablet 1, tablet, By Mouth, 2 times a day, # 180 tablet, Refills 1, Maintenance, 02/25/22 7:58:00 EST, Route to Pharmacy Electronically, [id number], 175, cm, 11/29/21 8:48:00 EDT, Height Start Date: 02/25/22 Status: Ordered CPAP Machine See Instructions, # 1 each, Maintenance, BiPAP 21/09, 08/17/14 11:33:22, Compound Start Date: 08/17/14 Status: Ordered fenofibrate 160 mg oral tablet 1 tablet, By Mouth, Daily, # 90 tablet, 3 Refills, 03/31/22 14:27:00 EST, [facility], 175, cm, 11/29/21 8:48:00 EDT, Height Start Date: 03/31/22 Status: Ordered levothyroxine 0.1 mg oral tablet 1 tablet, By Mouth, Daily, # 90 tablet, 3 Refills, 03/04/22 19:04:00 EST, [facility], 175, cm, 11/29/21 8:48:00 EDT, Height Start Date: 03/04/22 Status: Ordered meloxicam 15 mg oral tablet 1 tablet, By Mouth, Daily, # 30 tablet, 5 Refills, Maintenance, 03/17/22 10:52:00 EST, [facility] [id number], 175, cm, 11/29/21 8:48:00 EDT, Height Start Date: 03/17/22 Status: Ordered pramipexole 1 mg oral tablet 1 tablet, By Mouth, 3 times a day, # 270 tablet, 3 Refills, Maintenance, 03/21/22 11:53:00 EST[facility], [facility], cm, 11/29/21 8:48:00 EDT, Height Start Date: 03/21/22 Status: Ordered pramipexole 1 mg oral tablet 1 tablet = 1 mg, By Mouth, 3 times a day, 10-day supply until mail order supply arrives in mail perpt request., # 30 tablet, 0 Refills, Maintenance, 03/21/22 11:53:00 EST, Tablet, [facility]/pharmacy #[id number], Partial fill [...] Maintenance, 11/29/21 15:38:00 EDT, Tablet, [facility]/pharmacy #[id number], Partial fill upon patient request if the prescription is for a schedule II opioid drug., 175, cm,... Start Date: 11/29/21 Status: Ordered Theraworx Relief MCS topical spray See Instructions, [place] over right knee topically every four hours as needed for moderate to severepain., # 1 each, 0 Refills, Maintenance, 11/29/21 15:39:00 EDT, [facility]/pharmacy #[id number], Partial [...] Care Nurse Name: Patience Haynes RN Position: [facility] SN RN Member Role: Primary Care Nurse Name: Trina Trujillo RN Position: [facility] SN Recreation Programmer Member Role: Primary Care Nurse Name: Lora Hensley NP Position: [facility] PCO Associate Professional Member Role: PCP Address: Address: [address] [place] [address]- Care Team Related Persons Name: PAM CALHOUN Address: home [address] [place] [address]
--- OUTSIDE RECORDS SUMMARY | 2023-06-30 12:39 | XMS_ITS | Continuity of Care Document ---
Author Organization [facility] Kana Valentín lt Address [address] [place] [address]- Care Team Providers Care Fuse Cutter Name Role Phone [place]den [place], Lora Neri Primary Care Physician Encounter [facility] Date(s): 08/14/22 - 08/21/22 [facility] Kana Adult [address] [place] [address]- Encounter Diagnosis Tremor of both hands(Discharge Diagnosis) - 08/14/22 Right knee pain(Discharge Diagnosis) - 08/14/22 Attending Physician: Ayden BLACKMON, Sarah Estes Referring Physician: Adalberto Villa MD Allergies, Adverse Reactions, Alerts Substance Reaction Severity Status Duloxetine Restless legs Active Niaspan ER TINGLING ALL OVER Active Requip anxiety Active Immunizations Given and Recorded Vaccine Date Status Refusal Reason [id number] 12y+ bivalent booster vax 11/29/21 Given tetanus-diphtheria [...] 3 Refills, Maintenance, 11/21/21 14:15:00EDT, ER Tablet, [facility]/pharmacy #[id number], Partial fill upon patient request if the prescription is for a schedule II opioid drug., 1 tablet By Mouth Every 24... Start Date: 11/21/21 Status: Ordered CeleBREX 200 mg oral capsule 1 capsule = 200 mg, By Mouth, 2 times a day, # 180 capsule, 0 Refills, Maintenance, 05/30/22 8:34:00 EDT, Capsule, [facility]/pharmacy #[id number], Partial fill upon patient request if the prescription is for a schedule II opioid drug., 175, cm, 05/30/22 8:19:00 E... Start Date: 05/30/22 Status: Ordered cloNIDine 0.2 mg oral tablet 1, tablet, By Mouth, 2 times a day, # 180 tablet, Refills 1, Maintenance, 08/20/22 6:57:00 EDT, Route to Pharmacy Electronically, [facility] STORE [id number], 175, cm, 08/14/22 9:01:00 EDT, Height Start Date: 08/20/22 Status: Ordered CPAP Machine See Instructions, # 1 each, Maintenance, BiPAP 21/09, 08/17/14 11:33:22, Compound Start Date: 08/17/14 Status: Ordered fenofibrate 160 mg oral tablet 1 tablet, By Mouth, Daily, # 90 tablet, 3 Refills, 03/31/22 14:27:00 EST, [facility], 175, cm, 11/29/21 8:48:00 EDT, Height Start Date: 03/31/22 Status: Ordered levothyroxine 0.1 mg oral tablet 1 tablet, By Mouth, Daily, # 90 tablet, 3 Refills, 03/04/22 19:04:00 EST, [facility], 175, cm, 11/29/21 8:48:00 EDT, Height Start Date: 03/04/22 Status: Ordered pramipexole 1 mg oral tablet 1 tablet, By Mouth, 3 times a day, # 270 tablet, 3 Refills, Maintenance, 03/21/22 11:53:00 EST, [facility], 175, cm, 11/29/21 8:48:00 EDT, Height Start Date: 03/21/22 Status: Ordered pramipexole 1 mg oral tablet 1 tablet = 1 mg, By Mouth, 3 times a day, 10-day supply until mail order supply arrives in mail perpt request., # 30 tablet, 0 Refills, Maintenance, 03/21/22 11:53:00 EST, [id number] fill upon patient request [...] 0 Refills, Maintenance, 11/29/21 15:38:00 EDT, Tablet, [facility]/pharmacy #[id number], Partial fill upon patient request if the prescription is for a schedule II opioid drug., 175, cm,... Start Date: 11/29/21 Status: Ordered Theraworx Relief MCS topical spray See Instructions, [place] over right knee topically every four hours as needed for moderate to severepain., # 1 each, 0 Refills, Maintenance, 11/29/21 15:39:00 EDT, [facility]/pharmacy #[id number], Partial fill upon patient request if [...] Dates Health Status Cl inical Service Informant Tremor of both hands Discharge Diagnosis 08/14/22 Right knee pain Discharge Diagnosis 08/14/22 Vital Signs Most recent to oldest [Reference Range]: 1 Height 175 cm (08/14/22 9:01 AM) Social History Social History Type Response Smoking Status Former smoker, quit more than 30 days ago entered on: 08/14/22 Sex Patient Care team information Care Team Personnel Name: Olimpia Pedro RN Position: [facility] AMB Nurse Member Role: Primary Care Nurse Name: Patience Haynes RN Position: [facility] SN RN Member Role: Primary Care Nurse Name: Trina Trujillo RN Position: [facility] SN Head Of Mobile Member Role: Primary Care Nurse Name: Lora Hensley NP Position: [facility] PCO Associate Professional Member Role: PCP Address: Address: [address] [place] [id number]- Care Team Related Persons Name: PAM CALHOUN Address: home [address] [place] [address]
--- OUTSIDE RECORDS SUMMARY | 2023-06-30 12:39 | XMS_ITS | Continuity of Care Document ---
Author Organization [facility] Kana Valentín lt Address [address] [place] [address]- Care Team Providers Care Editor Map Name Role Phone Ayden [place], Lora Neri Primary Care Physician Encounter [facility] Date(s): 09/24/22 - 10/24/22 [facility] [place] Adult [address] [place] [address]- Allergies, Adverse Reactions, Alerts Substance Reaction Severity Status Niaspan ER TINGLING ALL OVER Active Requip anxiety Active Duloxetine Restless legs Active Immunizations Given and Recorded Vaccine Date Status Refusal Reason [id number] 12y+ bivalent booster vax 11/29/21 Given tetanus-diphtheria [...] 3 Refills, Maintenance, 11/21/21 14:15:00EDT, ER [id number] Partial fill upon patient request if the prescription is for a schedule II opioid drug., 1 tablet By Mouth Every 24... Start Date: 11/21/21 Status: Ordered CeleBREX 200 mg oral capsule 1 capsule = 200 mg, By Mouth, 2 times a day, # 180 capsule, 0 Refills, Maintenance, 09/24/22 11:32:00 EDT, Capsule, [facility]/pharmacy #[id number], Partial fill upon patient request if the prescription is for a schedule II opioid drug., 175, cm, 08/14/22 9:01:00... Start Date: 09/24/22 Status: Ordered cloNIDine 0.2 mg oral tablet 1, tablet, By Mouth, 2 times a day, # 180 tablet, Refills 1, Maintenance, 08/20/22 6:57:00 EDT, Route to Pharmacy Electronically, [facility] [id number], 175, cm, 08/14/22 9:01:00 EDT, Height Start Date: 08/20/22 Status: Ordered CPAP Machine See Instructions, # 1 each, Maintenance, BiPAP 21/09, 08/17/14 11:33:22, Compound Start Date: 08/17/14 Status: Ordered fenofibrate 160 mg oral tablet 1 tablet, By Mouth, Daily, # 90 tablet, 3 Refills, 03/31/22 14:27:00 EST, [facility], 175, cm, 11/29/21 8:48:00 EDT, Height Start Date: 03/31/22 Status: Ordered fenofibrate 160 mg oral tablet 1 tablet = 160 mg, By Mouth, Daily, mail service prescription will not arrive for 5 days- supply sent for 5 days per pt request., # 5 tablet, 0 Refills, Maintenance, 10/03/22 12:38:00 EDT, [facility]/pharmacy #[id number], Partial fill upon patient request if the p... Start Date: 10/03/22 Stop Date: 10/08/22 Status: Ordered levothyroxine 0.1 mg oral tablet 1 tablet, By Mouth, Daily, # 90 tablet, 3 Refills, 03/04/22 19:04:00 EST, [facility], 175, cm, 11/29/21 8:48:00 EDT, Height [...] 0 Refills, Maintenance, 03/21/22 11:53:00 EST, Tablet, [id number] Partial fill upon [...] 0 Refills, Maintenance, 09/26/22 9:12:00 EDT, Tablet, [facility]/pharmacy #[id number], Partial fill upon patient request if the prescription is for a schedule II opioid drug., 175, cm,... Start Date: 09/26/22 Status: Ordered Theraworx Relief MCS topical spray See Instructions, [place] over right knee topically every four hours as needed for moderate to severepain., # 1 each, 0 Refills, Maintenance, 11/29/21 15:39:00 EDT, [facility]/pharmacy #[id number], Partial fill upon [...] Team Personnel Name: Olimpia Pedro RN Position: [facility] AMB Nurse Member Role: Primary Care Nurse Name: Patience Haynes RN Position: [facility] SN RN Member Role: Primary Care Nurse Name: Trina Trujillo RN Position: [facility] SN Production Metal Sprayer Member Role: Primary Care Nurse Name: Lora Hensley NP Position: [facility] PCO Associate Professional Member Role: PCP Address: Address: [address] [place] [address]- [place] Care Team Related Persons Name: PAM CALHOUN Address: home [address] [place] [address]
--- OUTSIDE RECORDS SUMMARY | 2023-06-30 12:39 | XMS_ITS | Continuity of Care Document ---
Author Organization [facility] Roger Valentín lt Address [address] [place] [address]- Care Team Providers Care Distribution Sales Manager Name Role Phone [place]den [place], Lora Neri Primary Care Physician [facility]counter [facility] Date(s): 12/29/22 - 01/28/23 [facility] Adult [address] [place] [address]- Allergies, Adverse Reactions, Alerts Substance Reaction Severity Status Duloxetine Restless legs Active Niaspan ER TINGLING ALL OVER Active Requip anxiety Active Immunizations Given and Recorded Vaccine Date Status Refusal Reason SARS-CoV-2 mRNA ([id number]) vax 1 11/13/22 Recorded influenza virus vaccine, inactivated 11/13/22 Donnie rded influenza virus vaccine, inactivated 11/14/21 Donnie rded influenza virus vaccine, inactivated 2 02/21/16 Re corded influenza virus vaccine, inactivated 11/23/14 Give n influenza virus vaccine, inactivated 11/10/13 Give n influenza virus vaccine, inactivated 11/04/12 Give n [id number] 12y+ bivalent booster vax 11/29/21 Given tetanus-diphtheria [...] [facility] [place] 2Result Comment: [02/22/2016] [facility] Medications buPROPion 150 mg/24 hours (XL) oral tablet, extended release 1 tablet, By Mouth, Every 24 hours, # 90 tablet, 3 Refills, Maintenance, 01/08/23 13:53:00 EST, [facility], 90, 1 tablet By [...] capsule, 0 Refills, Maintenance, 01/09/23 20:31:00 EST, [facility] ST[facility] [id number], 175, cm, 12/04/22 8:07:00 EDT, Height Start Date: 01/09/23 Status: Ordered cloNIDine 0.2 mg oral tablet 1, tablet, By Mouth, 2 times a day, # 180 tablet, Refills 3, Maintenance, 12/08/22 9:54:00 EDT, Route to Pharmacy Electronically, [facility] [id number], 175, cm, 12/04/22 8:07:00 EDT, Height Start Date: 12/08/22 Status: Ordered CPAP Machine See Instructions, # 1 each, Maintenance, BiPAP 21/09, 08/17/14 11:33:22, Compound Start Date: 08/17/14 Status: Ordered fenofibrate 160 mg oral tablet 1 tablet, By Mouth, Daily, # 90 tablet, 3 Refills, 03/31/22 14:27:00 EST, [facility], 175, cm, 11/29/21 8:48:00 EDT, Height Start Date: 03/31/22 Status: Ordered fenofibrate 160 mg oral tablet 1 tablet = 160 mg, By Mouth, Daily, mail service prescription will not arrive for 5 days- supply sent for 5 days per pt request., # 5 tablet, 0 Refills, Maintenance, 10/03/22 12:38:00 EDT, [facility]/pharmacy #[id number], Partial fill upon patient request if the p... Start Date: 10/03/22 Stop Date: 10/08/22 Status: Ordered levothyroxine 0.1 mg oral tablet 1 tablet, By Mouth, Daily, # 90 tablet, 3 Refills, Maintenance, 12/08/22 9:54:00 EDT, [facility] STORE [id number], 175, cm, 12/04/22 8:07:00 EDT, Height Start Date: 12/08/22 Status: Ordered pramipexole 1 mg oral tablet 1 tablet, By Mouth, 3 times a day, # 270 tablet, 3 Refills, Maintenance, 12/31/22 9:58:00 EST, [facility], 175, cm, 12/04/22 8:07:00 EDT, Height Start Date: 12/31/22 Status: Ordered pravastatin 40 mg oral tablet See Instructions, TAKE 1 TABLET DAILY, # 90 tablet, 1 Refills, Maintenance, 09/04/22 15:09:00 EDT, [facility], 175, cm, 08/14/22 9:01:00 EDT, Height Start Date: 09/04/22 Status: Ordered sildenafil 50 mg oral tablet 1 tablet = 50 mg, By Mouth, Daily, 1 hour before sexual activity, # 30 tablet, 5 Refills, Maintenance, 12/11/22 12:34:00 EDT, Tablet, [facility]/pharmacy #[id number], Partial fill upon patient request if the prescription is for a schedule II opioid drug., 175, cm,... Start Date: 12/11/22 Status: Ordered Theraworx Relief MCS topical spray See Instructions, [place] over right knee topically every four hours [...] Team Personnel Name: Olimpia Pedro RN Position: [facility] AMB Nurse Member Role: Primary Care Nurse Name: Patience Haynes RN Position: [facility] SN RN Member Role: Primary Care Nurse Name: Trina Trujillo RN Position: [facility] SN Forming Department End Finder Member Role: Primary Care Nurse Name: Lora Hensley NP Position: [facility] PCO Associate Professional Member Role: PCP Address: Address: [address] [place] [address]- Care Team Related Persons Name: PAM CALHOUN Address: home [address] [place] [id number]
--- OUTSIDE RECORDS SUMMARY | 2023-06-30 12:39 | XMS_ITS | Continuity of Care Document ---
Author Organization [facility] Address [address] [place] [address]- Care Team Providers Care Wax Specialist Name Role Phone Ayden [place], Lora Neri Primary Care Physician [facility] Date(s): 12/20/21 - 01/19/[address] [address] Attending Physician: Janee Camargo Admitting Physician: AdmJanee goncalves Referring Physician: Admtr ArElsa Allergies, Adverse Reactions, Alerts Substance Reaction Severity Status Duloxetine Restless legs Active Niaspan ER TINGLING ALL OVER Active Requip anxiety Active Immunizations Given and Recorded Vaccine Date Status Refusal Reason [id number] 12y+ bivalent booster vax 11/29/21 Given tetanus-diphtheria [...] 11/21/21 14:15:00EDT, ER Tablet, [facility]/pharmacy #[id number], Partial fill upon patient request if the prescription is for a schedule II opioid drug., 1 tablet By Mouth Every 24... Start Date: 11/21/21 Status: Ordered cloNIDine 0.2 mg oral tablet 1, tablet, By Mouth, 2 times a day, # 180 tablet, Refills 1, Route to Pharmacy Electronically, [facility] STORE [id number], 175, cm, 06/24/21 10:17:00 EDT, Height Start Date: 07/19/21 Status: Ordered CPAP Machine See Instructions, # 1 each, Maintenance, BiPAP 21/09, 08/17/14 11:33:22, Compound Start Date: 08/17/14 Status: Ordered fenofibrate 160 mg oral tablet 1 tablet, By Mouth, Daily, # 90 tablet, 3 Refills, 11/21/21 10:39:00 EDT, [facility]/pharmacy #[id number], 175, cm, 11/21/21 10:25:00 EDT, Height [...] Daily, # 30 tablet, 1 Refills, Maintenance, 12/12/21 13:25:00 EDT, Tablet, [facility]/pharmacy #[id number], Partial fill upon patient request if the prescription is for a schedule II opioid drug., 175, cm, 11/29/21 8:48:00 EDT, Height Start Date: 12/12/21 Status: Ordered pramipexole 1 mg oral tablet [...] Theraworx Relief MCS topical spray See Instructions, [place] over right knee topically every four hours [...] Team Personnel Name: Olimpia Pedro RN Position: [facility] Nurse Member Role: Primary Care Nurse Name: Patience Haynes RN Position: [facility] SN RN Member Role: Primary Care Nurse Name: Trina Trujillo RN Position: [facility] SN Vehicle Service Attendant Member Role: Primary Care Nurse Name: Lora Hensley NP Position: [facility] PCO Associate Professional Member Role: PCP Address: Address: [address] [place] [address]- Care Team Related Persons Name: PAM CALHOUN Address: home [address] [place] [id number]
--- OUTSIDE RECORDS SUMMARY | 2023-06-30 12:39 | XMS_ITS | Continuity of Care Document ---
Author Organization [facility] Kana Valentín Address [address] [place] [address]- Care Team Providers Care Chiseler Head Name Role Phone Tyler BLACKMON, Sj Michaud Primary Care Physician [facility] Date(s): 08/11/19 - 09/10/19 [facility] Roger Delucaley Adult [address] [place] [address]- [facility] Allergies, Adverse Reactions, Alerts Substance Reaction Severity [...]
--- OUTSIDE RECORDS SUMMARY | 2023-06-30 12:39 | XMS_ITS | Continuity of Care Document ---
Author Organization [facility] Kana Valentín lt Address [address] [place] [address]- Care Team Providers Care Piper Helper Name Role Phone Ayden [place], Lora Neri Primary Care Physician Encounter [facility] Date(s): 11/21/21 - 11/28/21 [facility] Roger Delucaley Adult [address] [place] [address]- Encounter Diagnosis Right knee pain(Discharge Diagnosis) - 11/21/21 Attending Physician: Lora Hensley NP Referring Physician: [...] 3 Refills, Maintenance, 11/21/21 14:15:00EDT, ER Tablet, [facility]/pharmacy #[id number], Partial fill upon patient request if the prescription is for a schedule II opioid drug., 1 tablet By Mouth Every 24... Start Date: 11/21/21 Status: Ordered cloNIDine 0.2 mg oral tablet 1, tablet, By Mouth, 2 times a day, # 180 tablet, Refills 1, Route to Pharmacy Electronically, [facility] STORE [id number], 175, cm, 06/24/21 10:17:00 EDT, Height Start Date: 07/19/21 Status: Ordered CPAP Machine See Instructions, # 1 each, Maintenance, BiPAP 21/09, 08/17/14 11:33:22, Compound Start Date: 08/17/14 Status: Ordered fenofibrate 160 mg oral tablet 1 tablet, By Mouth, Daily, # 90 tablet, 3 Refills, 11/21/21 10:39:00 EDT, [id number], 175, cm, 11/21/21 10:25:00 EDT, Height Start Date: 11/21/21 Status: Ordered levothyroxine 0.1 mg oral tablet 1 tablet, By Mouth, Daily, # 90 tablet, 1 Refills, 09/12/21 9:59:00 EDT, [facility], 175, cm, 08/09/21 10:17:00 EDT, Height Start Date: 09/12/21 Status: Ordered meloxicam 15 mg oral tablet 1 tablet = 15 mg, By Mouth, Daily, # 30 tablet, 1 Refills, Maintenance, 10/22/21 9:25:00 EDT, Tablet, [facility]/pharmacy #[id number], Partial fill upon patient request [...] Dates Health Status Cl inical Service Informant Right knee pain Discharge Diagnosis 11/21/21 Vital Signs Most recent to oldest [Reference Range]: 1 Height 175 cm (11/21/21 10:25 AM) Social History Social History Type Response Smoking Status Former smoker entered on: 09/10/17 Sex Patient Care team information Personnel Name: Lora Hensley NP Address: Address: [address] [place] [id number]
--- OUTSIDE RECORDS SUMMARY | 2023-06-30 12:39 | XMS_ITS | Continuity of Care Document ---
Author Organization [facility] Roger Roger Valentín lt Address [address] [place] [address]- Care Team Providers Care Tuber Machine Operator Helper Name Role Phone Ayden [place], Lora Neri Primary Care Physician [phone] [facility]): 12/[facility]/22 - 01/04/23 [facility] Roger Roger Adult [address] [place] [address]- Allergies, Adverse Reactions, Alerts Substance Reaction Severity Status Duloxetine Restless legs Active Niaspan ER TINGLING ALL OVER Active Requip anxiety Active Immunizations Given and Recorded Vaccine Date Status Refusal Reason SARS-CoV-2 mRNA ([id number]) vax 1 11/13/22 Recorded influenza virus vaccine, inactivated 11/13/22 Donnie rded influenza virus vaccine, inactivated 11/14/21 Donnie rded influenza virus vaccine, inactivated 2 02/21/16 Re corded influenza virus vaccine, inactivated 11/23/14 Give n influenza virus vaccine, inactivated 11/10/13 Give n influenza virus vaccine, inactivated 11/04/12 Give n [id number] 12y+ bivalent booster vax 11/29/21 Given tetanus-diphtheria [...] acel (oldterm) 10/23/10 Give n 1Result Comment: [facility] [place] 2Result Comment: [02/22/2016[facility] Medications buPROPion 150 mg/24 hours (XL) oral tablet, extended release 1 tablet, By Mouth, Every 24 hours, # 90 tablet, 3 Refills, Maintenance, 12/08/22 9:54:00 EDT, [facility] STORE [id number], 90, TAKE 1 TABLET BY MOUTH EVERY 24 HOURS, 175, cm, 12/04/22 8:07:00 EDT, Height Start Date: 12/08/22 Status: Ordered CeleBREX 200 mg oral capsule 1 capsule = 200 mg, By Mouth, 2 times a day, # 180 capsule, 0 Refills, Maintenance, 09/24/22 11:32:00 EDT, Capsule, [facility]/pharmacy #[id number], Partial fill upon patient request if the prescription is for a schedule II opioid drug., 175, cm, 08/14/22 9:01:00... Start Date: 09/24/22 Status: Ordered cloNIDine 0.2 mg oral tablet 1, tablet, By Mouth, 2 times a day, # 180 tablet, Refills 3, Maintenance, 12/08/22 9:54:00 EDT, Route to Pharmacy Electronically, [facility] STORE [id number], 175, cm, 12/04/22 8:07:00 EDT, Height Start Date: 12/08/22 Status: Ordered CPAP Machine See Instructions, # 1 each, Maintenance, BiPAP 21/09, 08/17/14 11:33:22, Compound Start Date: 08/17/14 Status: Ordered fenofibrate 160 mg oral tablet 1 tablet, By Mouth, Daily, # 90 tablet, 3 Refills, 03/31/22 14:27:00 EST, [facility], 175, cm, 11/29/21 8:48:00 [...] 9:54:00 EDT, [facility] STORE [id number], 175, cm, 12/04/22 8:07:00 EDT, Height Start Date: 12/08/22 Status: Ordered pramipexole 1 mg oral tablet 1 tablet, By Mouth, 3 times a day, # 270 tablet, 3 Refills, Maintenance, 12/31/22 9:58:00 EST, [facility], 175, cm, 12/04/22 8:07:00 [...] Theraworx Relief MCS topical spray See Instructions, [place] over right knee topically every four hours [...] Team Personnel Name: Olimpia Pedro RN Position: [facility] AMB Nurse Member Role: Primary Care Nurse Name: Patience Haynes RN Position: [facility] SN RN Member Role: Primary Care Nurse Name: Trina Trujillo RN Position: [facility] SN Nursing Home Director Member Role: Primary Care Nurse Name: Lora Hensley NP Position: [facility] PCO Associate Professional Member Role: PCP Address: Address: [address] [place] [phone]- Care Team Related Persons Name: LJ PAM Address: home [address] [place] [id number]
--- OUTSIDE RECORDS SUMMARY | 2023-06-30 12:39 | XMS_ITS | Continuity of Care Document ---
Author Organization [facility] Kana Valentín lt Address [address] [place] [address]- Care Team Providers Care Special Order Jeweler Name Role Phone [place], Lora Neri Primary Care Physician [phone] [facility]): 03/04/22 - 04/03/22 [facility] Adult [address] [place] [address]- Allergies, Adverse Reactions, Alerts Substance Reaction Severity Status Niaspan ER TINGLING ALL OVER Active Requip anxiety Active Duloxetine Restless legs Active Immunizations Given and Recorded Vaccine Date Status Refusal Reason [id number] 12y+ bivalent booster vax 11/29/21 Given tetanus-diphtheria [...] 3 Refills, Maintenance, 11/21/21 14:15:00EDT, ER Tablet, [facility]/pharmacy #[id number], Partial fill upon patient request if the prescription is for a schedule II opioid drug., 1 tablet By Mouth Every 24... Start Date: 11/21/21 Status: Ordered cloNIDine 0.2 mg oral tablet 1, tablet, By Mouth, 2 times a day, # 180 tablet, Refills 1, Maintenance, 02/25/22 7:58:00 EST, Route to Pharmacy Electronically, [id number], 175, cm, 11/29/21 8:48:00 EDT, Height Start Date: 02/25/22 Status: Ordered CPAP Machine See Instructions, # 1 each, Maintenance, BiPAP 21/09, 08/17/14 11:33:22, Compound Start Date: 08/17/14 Status: Ordered fenofibrate 160 mg oral tablet 1 tablet, By Mouth, Daily, # 90 tablet, 3 Refills, 03/31/22 14:27:00 EST, [facility], 175, cm, 11/29/21 8:48:00 EDT, Height Start Date: 03/31/22 Status: Ordered levothyroxine 0.1 mg oral tablet 1 tablet, By Mouth, Daily, # 90 tablet, 3 Refills, 03/04/22 19:04:00 EST, [facility], 175, cm, 11/29/21 8:48:00 EDT, Height Start Date: 03/04/22 Status: Ordered meloxicam 15 mg oral tablet 1 tablet, By Mouth, Daily, # 30 tablet, 5 Refills, Maintenance, 03/17/22 10:52:00 EST, [facility] [id number], 175, cm, 11/29/21 8:48:00 EDT, Height Start Date: 03/17/22 Status: Ordered pramipexole 1 mg oral tablet 1 tablet, By Mouth, 3 times a day, # 270 tablet, 3 Refills, Maintenance, 03/21/22 11:53:00 EST[facility], [facility], cm, 11/29/21 8:48:00 EDT, Height Start Date: 03/21/22 Status: Ordered pramipexole 1 mg oral tablet 1 tablet = 1 mg, By Mouth, 3 times a day, 10-day supply until mail order supply arrives in mail perpt request., # 30 tablet, 0 Refills, Maintenance, 03/21/22 11:53:00 EST, Tablet, [facility]/pharmacy #[id number], Partial fill upon [...] 0 Refills, Maintenance, 11/29/21 15:38:00 EDT, Tablet, [facility]/pharmacy #[id number], Partial fill upon patient request if the prescription is for a schedule II opioid drug., 175, cm,... Start Date: 11/29/21 Status: Ordered Theraworx Relief MCS topical spray See Instructions, [place] over right knee topically every four hours as needed for moderate to severepain., # 1 each, 0 Refills, Maintenance, 11/29/21 15:39:00 EDT, [facility]/pharmacy #[id number], Partial fill upon [...] Care Nurse Name: Patience Haynes RN Position: [facility] SN RN Member Role: Primary Care Nurse Name: Trina Trujillo RN Position: [facility] SN Transformer Assembler Member Role: Primary Care Nurse Name: Lora Hensley NP Position: [facility] PCO Associate Professional Member Role: PCP Address: Address: [address] [place] [address]- Care Team Related Persons Name: PAM CALHOUN Address: home [address] [place] [address]
--- OUTSIDE RECORDS SUMMARY | 2023-06-30 12:39 | XMS_ITS | Continuity of Care Document ---
Author Organization [facility] Kana Valentín Address [address] [place] [address]- Care Team Providers Care Technical Service Representative Name Role Phone Sj Scott MD Primary Care Physician [facility] 02[facility]25/19 - 03/04/19 [facility] [employer] Adult [address] [place] [address]- [place] Encounter Diagnosis Postural tremor(Discharge Diagnosis) - 02/25/19 Depression, major(Discharge Diagnosis) - 02/25/19 Attending Physician: Sj Scott MD Allergies, Adverse [...] Dates Health Status Cl inical Service Informant Postural tremor Discharge Diagnosis 02/25/19 Depression, major Discharge Diagnosis 02/25/19 Vital Signs Most recent to oldest [Reference Range]: 1 Height 175 cm (02/25/19 8:54 AM) Weight 102.2 kg (02/25/19 8:54 AM) Oxygen Saturation [94-100 %] 98 % (02/25/19 8:54 AM) Pulse Rate [55-90 bpm] 62 bpm (02/25/19 8:54 AM) Body Mass Index [18.5-24.99] 33.37 *>HHI* (02/25/19 8:54 AM) Blood Pressure [90-138/55-84 mm Hg] 144/ 82mm Hg *H* (02/25/19 8:54 AM) Temperature [96.8-100.4 DegF] 98.2 DegF (02/25/19 8:54 AM) Mode of Delivery (Oxygen) Room air (02/25/19 8:54 AM) Blood pressure sites Arm, left (02/25/19 8:54 AM) Temperature Route Oral (02/25/19 8:54 AM) Weight Obtained Via Standing scale (02/25/19 8:54 AM) Social History Social History Type Response Smoking Status Former smoker entered on: 09/10/17 Sex
--- OUTSIDE RECORDS SUMMARY | 2023-06-30 12:40 | XMS_ITS | Continuity of Care Document ---
Author Organization [facility] Kana Valentín lt Address [address] [place] [address]- Care Team Providers Care Transistor Tester Name Role Phone Sj Scott MD Primary Care Physician [facility]s): 07/25/20 - 08/24/20 [facility] Kana Adult [address] [place] [address]- Allergies, Adverse Reactions, Alerts Substance Reaction Severity [...] 06/08/20 14:19:00 EDT, Route to Pharmacy Electronically, [facility]/pharmacy #[id number], Partial fill upon patient request if the [...] Refills, Maintenance, 08/02/20 14:57:00 EDT, [id number], 175, cm, 06/08/20 13:44:00 EDT, Height Start [...]
--- OUTSIDE RECORDS SUMMARY | 2023-06-30 12:40 | XMS_ITS | Continuity of Care Document ---
Author Organization [facility] Roger Roger Valentín lt Address [address] [place] [address]- Care Team Providers Care Typing Section Chief Name Role Phone [place]den [place], Lora Neri Primary Care Physician [facility]s): 02/25/22 - 03/27/22 [facility] Roger Roger Adult [address] [place] [address]- Allergies, Adverse Reactions, Alerts Substance Reaction Severity Status Niaspan ER TINGL[place] ALL OVER Active Requip anxiety Active Duloxetine Restless legs Active Immunizations Given and Recorded Vaccine Date Status Refusal Reason [id number] 12y+ bivalent booster vax 11/29/21 Given tetanus-diphtheria [...] 3 Refills, Maintenance, 11/21/21 14:15:00EDT, ER Tablet, [facility]/pharmacy #[id number], Partial fill upon patient request if the prescription is for a schedule II opioid drug., 1 tablet By Mouth Every 24... Start Date: 11/21/21 Status: Ordered cloNIDine 0.2 mg oral tablet 1, tablet, By Mouth, 2 times a day, # 180 tablet, Refills 1, Maintenance, 02/25/22 7:58:00 EST, Route to Pharmacy Electronically, [id number], 175, cm, 11/29/21 8:48:00 EDT, Height Start Date: 02/25/22 Status: Ordered CPAP Machine See Instructions, # 1 each, Maintenance, BiPAP 21/09, 08/17/14 11:33:22, Compound Start Date: 08/17/14 Status: Ordered fenofibrate 160 mg oral tablet 1 tablet, By Mouth, Daily, # 90 tablet, 3 Refills, 11/21/21 10:39:00 EDT, [facility]/pharmacy #[id number], 175, cm, 11/21/21 [...] tablet, 5 Refills, Maintenance, 03/17/22 10:52:00 EST, [facility] [id number], 175, cm, 11/29/21 8:48:00 EDT, Height Start Date: 03/17/22 Status: Ordered pramipexole 1 mg oral tablet 1 tablet, By Mouth, 3 times a day, # 270 tablet, 3 Refills, Maintenance, 03/21/22 11:53:00 EST, [facility], 175, cm, 11/29/21 8:48:00 EDT, Height Start Date: 03/21/22 Status: Ordered pramipexole 1 mg oral tablet 1 tablet = 1 mg, By Mouth, 3 times a day, 10-day supply until mail order supply arrives in mail perpt request., # 30 tablet, 0 Refills, Maintenance, 03/21/22 11:53:00 EST, Tablet, [facility]/pharmacy #[id number], Partial fill upon [...] 0 Refills, Maintenance, 11/29/21 15:38:00 EDT, Tablet, [facility]/pharmacy #[id number], Partial fill upon patient request if the prescription is for a schedule II opioid drug., 175, cm,... Start Date: 11/29/21 Status: Ordered Theraworx Relief MCS topical spray See Instructions, [place] over right knee topically every four hours as needed for moderate to severepain., # 1 each, 0 Refills, Maintenance, 11/29/21 15:39:00 EDT, [facility]/pharmacy #[id number], Partial fill upon [...] Name: Olimpia Pedro RN Position: [facility] AMB Nurse Member Role: Primary Care Nurse Name: [place] THOMAS, Patience Jasso Position: [facility] SN RN Member Role: Primary Care Nurse Name: Trina Trujillo RN Position: [facility] SN Junior Accounting Clerk Member Role: Primary Care Nurse Name: Lora Hensley NP Position: [facility] PCO Associate Professional Member Role: PCP Address: Address: [address] [place] [address]- Care Team Related Persons Name: PAM CALHOUN Address: home [address] [place] [id number]
--- OUTSIDE RECORDS SUMMARY | 2023-06-30 12:40 | XMS_ITS | Continuity of Care Document ---
Author Organization [facility] Roger Roger Valentín lt Address [address] [place] [address]- Care Team Providers Care Passenger Tire Builder Name Role Phone [place], Lora Neri Primary Care Physician [phone] [facility]s): 11/29/21 - 12/29/21 [facility] Roger Roger Adult [address] [place] [address]- Allergies, Adverse Reactions, Alerts Substance Reaction Severity Status Requip anxiety Active Duloxetine Restless legs Active Niaspan ER T[place] ALL OVER Active Immunizations Given and Recorded Vaccine Date Status Refusal Reason [id number] 12y+ bivalent booster vax 11/29/21 Given tetanus-diphtheria [...] 3 Refills, Maintenance, 11/21/21 14:15:00EDT, ER Tablet, [facility]/pharmacy #[id number], Partial fill upon patient request if the prescription is for a schedule II opioid drug., 1 tablet By Mouth Every 24... Start Date: 11/21/21 Status: Ordered cloNIDine 0.2 mg oral tablet 1, tablet, By Mouth, 2 times a day, # 180 tablet, Refills 1, Route to Pharmacy Electronically, [facility], 175, cm, 06/24/21 10:17:00 EDT, Height Start [...] 1 Refills, Maintenance, 12/12/21 13:25:00 EDT, [facility]t, [id number], Partial fill upon [...] Theraworx Relief MCS topical spray See Instructions, [place] over right knee topically every four hours [...] Olimpia Pedro RN Position: [facility] Nurse Member Role: Primary Care Nurse Name: Patience Haynes RN Position: [facility] RN Member Role: Primary Care Nurse Name: Trina Trujillo RN Position: [facility] Real Estate Lawyer Member Role: Primary Care Nurse Name: Lora Hensley NP Position: [facility] PCO Associate Professional Member Role: PCP Address: Address: [address] [place] [address], [place] [address]- [place] Care Team Related Persons Name: VIKI CALHOUNIA Address: home [address] [place] [id number]
--- OUTSIDE RECORDS SUMMARY | 2023-06-30 12:40 | XMS_ITS | Continuity of Care Document ---
Author Organization [facility] Kana Valentín lt Address [address] [place] [address]- Care Team Providers Care Tray Checker Name Role Phone [place], Lora Neri Primary Care Physician Encounter [facility] Date(s): 05/30/22 - 06/29/22 [facility] Adult [address] [place] [address]- Allergies, Adverse Reactions, Alerts Substance Reaction Severity Status Niaspan ER TINGL[place] ALL OVER Active Requip anxiety Active Duloxetine Restless legs Active Immunizations Given and Recorded Vaccine Date Status Refusal Reason [id number] 12y+ bivalent booster vax 11/29/21 Given tetanus-diphtheria [...] 3 Refills, Maintenance, 11/21/21 14:15:00EDT, [id number] Partial fill upon patient request if the prescription is for a schedule II opioid drug., 1 tablet By Mouth Every 24... Start Date: 11/21/21 Status: Ordered CeleBREX 200 mg oral capsule 1 capsule = 200 mg, By Mouth, 2 times a day, # 180 capsule, 0 Refills, Maintenance, 05/30/22 8:34:00 EDT, Capsule, [id number], Partial fill upon patient request if the prescription is for a schedule II opioid drug., 175, cm, 05/30/22 8:19:00 E... Start Date: 05/30/22 Status: Ordered cloNIDine 0.2 mg oral tablet 1, tablet, By Mouth, 2 times a day, # 180 tablet, Refills 1, Maintenance, 02/25/22 7:58:00 EST, Route to Pharmacy Electronically, [facility] STORE [id number], 175, cm, 11/29/21 8:48:00 EDT, Height Start Date: 02/25/22 Status: Ordered CPAP Machine See Instructions, # 1 each, Maintenance, BiPAP 21/09, 08/17/14 11:33:22, Compound Start Date: 08/17/14 Status: Ordered fenofibrate 160 mg oral tablet 1 tablet, By Mouth, Daily, # 90 tablet, 3 Refills, 03/31/22 14:27:00 EST, [facility], 175, cm, 11/29/21 8:48:00 EDT, Height Start Date: 03/31/22 Status: Ordered levothyroxine 0.1 mg oral tablet 1 tablet, By Mouth, Daily, # 90 tablet, 3 Refills, 03/04/22 19:04:00 EST, [facility], 175, cm, 11/29/21 8:48:00 EDT, [...] 0 Refills, Maintenance, 03/21/22 11:53:00 EST, Tablet, [facility]/pharmacy #[id number], Partial [...] 0 Refills, Maintenance, 11/29/21 15:38:00 EDT, Tablet, [facility]/pharmacy #[id number], Partial fill upon patient request if the prescription is for a schedule II opioid drug., 175, cm,... Start Date: 11/29/21 Status: Ordered Theraworx Relief MCS topical spray See Instructions, [place] over right knee topically every four hours as needed for moderate to severepain., # 1 each, 0 Refills, Maintenance, 11/29/21 15:39:00 EDT, [facility]/pharmacy #[id number], Partial [...] Care Nurse Name: Patience Haynes RN Position: [facility] SN RN Member Role: Primary Care Nurse Name: Trina Trujillo RN Position: [facility] SN Clammer Member Role: Primary Care Nurse Name: Lora Hensley NP Position: [facility] PCO Associate Professional Member Role: PCP Address: Address: [address] [place] [address]- Care Team Related Persons Name: PAM CALHOUN Address: home [address] [place] [id number]
--- OUTSIDE RECORDS SUMMARY | 2023-06-30 12:40 | XMS_ITS | Continuity of Care Document ---
Author Organization [facility] Valentín Address [address] [place] [address]- Care Team Providers Care Engraver Automatic Name Role Phone Tyler BLACKMON, Sj Michaud Primary Care Physician [facility] 04/22/19 - 05/02/19 [facility] Adult [address] [place] [address]- [facility] Attending Physician: Janee Camargo Admitting [...] 5 Refills, Maintenance, 02/25/19 9:10:00 EST, Gel, [facility]/pharmacy #[id number], 1 application Topically 4 times a [...]
--- OUTSIDE RECORDS SUMMARY | 2023-06-30 12:40 | XMS_ITS | Continuity of Care Document ---
Author Organization [facility] Kana Valentín lt Address [address] [place] [address]- Care Team Providers Care Hot Top Liner Helper Name Role Phone [place]den [place], Lora Neri Primary Care Physician [phone] [facility] Date(s): 03/04/22 - 04/03/22 [facility] Adult [address] [place] [address]- Allergies, Adverse Reactions, Alerts Substance Reaction Severity Status Niaspan ER TINGLING ALL OVER Active Requip anxiety Active Duloxetine Restless legs Active Immunizations Given and Recorded Vaccine Date Status Refusal Reason [id number] 12y+ bivalent booster vax 11/29/21 Given tetanus-diphtheria [...] Maintenance, 11/21/21 14:15:00EDT, ER Tablet, [facility]/pharmacy #[id number], Partial fill upon patient request if the prescription is for a schedule II opioid drug., 1 tablet By Mouth Every 24... Start Date: 11/21/21 Status: Ordered cloNIDine 0.2 mg oral tablet 1, tablet, By Mouth, 2 times a day, # 180 tablet, Refills 1, Maintenance, 02/25/22 7:58:00 EST, Route to Pharmacy Electronically, [facility], 175, cm, 11/29/21 8:48:00 EDT, Height Start Date: 02/25/22 Status: Ordered CPAP Machine See Instructions, # 1 each, Maintenance, BiPAP 21/09, 08/17/14 11:33:22, Compound Start Date: 08/17/14 Status: Ordered fenofibrate 160 mg oral tablet 1 tablet, By Mouth, Daily, # 90 tablet, 3 Refills, 03/31/22 14:27:00 EST, [facility], 175, cm, 11/29/21 8:48:00 EDT, Height Start Date: 03/31/22 Status: Ordered levothyroxine 0.1 mg oral tablet 1 tablet, By Mouth, Daily, # 90 tablet, 3 Refills, 03/04/22 19:04:00 EST, [facility], 175, cm, 11/29/21 8:48:00 EDT, Height Start Date: 03/04/22 Status: Ordered meloxicam 15 mg oral tablet 1 tablet, By Mouth, Daily, # 30 tablet, 5 Refills, Maintenance, 03/17/22 10:52:00 EST, [facility], 175, cm, 11/29/21 8:48:00 EDT, Height Start Date: 03/17/22 Status: Ordered pramipexole 1 mg oral tablet 1 tablet, By Mouth, 3 times a day, # 270 tablet, 3 Refills, Maintenance, 03/21/22 11:53:00 EST[facility], [facility], cm, 11/29/21 8:48:00 EDT, Height Start Date: 03/21/22 Status: Ordered pramipexole 1 mg oral tablet 1 tablet = 1 mg, By Mouth, 3 times a day, 10-day supply until mail order supply arrives in mail perpt request., # 30 tablet, 0 Refills, Maintenance, 03/21/22 11:53:00 EST, Tablet, [facility]/pharmacy #[id number], Partial fill upon patient request if [...] 0 Refills, Maintenance, 11/29/21 15:38:00 EDT, Tablet, [facility]/pharmacy #0693, Partial fill upon patient request if the prescription is for a schedule II opioid drug., 175, cm,... Start Date: 11/29/21 Status: Ordered Theraworx Relief MCS topical spray See Instructions, [place] over right knee topically every four hours as needed for moderate to severepain., # 1 each, 0 Refills, Maintenance, 11/29/21 15:39:00 EDT, [facility]/pharmacy #0693, Partial fill upon patient request if [...] Care Nurse Name: Patience Haynes RN Position: [facility] SN RN Member Role: Primary Care Nurse Name: Trina Trujillo RN Position: [facility] SN Mechanical Engineering Lecturer Member Role: Primary Care Nurse Name: Lora Hensley NP Position: [facility] PCO Associate Professional Member Role: PCP Address: Address: [address] [place] [address]- Care Team Related Persons Name: PAM CALHOUN Address: home [address] [place] [id number]
--- OUTSIDE RECORDS SUMMARY | 2023-06-30 12:40 | XMS_ITS | Continuity of Care Document ---
Author Organization [facility] Valentín lt Address [address] [place] [address]- Care Team Providers Care Inclusion Specialist Name Role Phone [place], Lora Neri Primary Care Physician [phone] Encounter [facility] Date(s): 07/22/21 - 07/29/21 [facility] Adult [address] [place] [address]- Attending Physician: Mercedes Gibbs Allergies, Adverse Reactions, Alerts Substance Reaction Severity [...] Mouth, Daily, # 60 tablet, 5 Refills, [facility], 175, cm, 03/28/21 6:52:00 EST, Height Start [...] tablet, Refills 1, Route to Pharmacy Electronically, [facility], 175, cm, 06/24/21 10:17:00 EDT, Height Start [...] oldest [Reference Range]: 1 Height 175 cm (07/22/21 10:58 AM) Weight 87.9 kg (07/22/21 10:58 AM) Oxygen Saturation [94-100 %] 100 % (07/22/21 10:58 AM) Pulse Rate [55-90 bpm] 69 bpm (07/22/21 10:58 AM) Body Mass Index [18.5-24.99] 28.7 *H* (07/22/21 10:58 AM) Blood Pressure [90-138/55-84 mm Hg] 119/ 72mm Hg (07/22/21 10:58 AM) Temperature [96.8-100.4 DegF] 97.4 DegF (07/22/21 10:58 AM) Blood pressure sites Arm, right (07/22/21 10:58 AM) Temperature Route Temporal (07/22/21 10:58 AM) Weight Obtained Via Standing scale (07/22/21 10:58 AM) Social History Social History Type Response Smoking Status Former smoker entered on: 09/10/17 Sex
--- NOTE | 2023-06-30 13:07 | P.DS_ITS ---
DS: Providers Provider Date of Service: 07/01/23 Date of admission: 06/30/23 12:08 Primary care physician: RODRIGUEZ Nunn DS: Summary Hospital Course Hospital Course: The patient underwent a successful right total knee arthroplasty, they were transferred to PACU and then to the floor to recover. During their stay, their vitals were stable, afebrile at 98.0. Labs were unremarkable, H/H 13.1/38.7. POD 1 they were started on Aspirin 325mg po bid for DVT ppx, they also received Physical Therapy services twice a day. Prior to discharge, their dressing was c lean dry and intact, and the plan was to be discharged home with VNA services. Time Attestation Discharge Coordination Time (in mins): 30 Quality: Safe Use of Opioids Does Pt have an Active Cancer Diagnosis on the Problem List?: No Quality: Stroke Does the patient have a stroke diagnosis?: No Physical Exam Vital Signs: Vital Signs: Last Vital Signs Temp 98.1 F 06/30/23 12:10 Pulse 65 06/30/23 12:10 Resp 16 06/30/23 12:10 BP 148/82 H 06/30/23 12:10 Pulse Ox 98 06/30/23 12:10 O2 Del Method Room Air 06/30/23 12:10 BMI result Body Mass Index 31.0 Const: General: cooperative, healthy appearing and no acute distress Resp: Effort & Inspection: normal respiratory effort and able to speak in complete sentences Cardio: Rate: regular rate Peripheral pulses: Peripheral pulses 2+ throughout GI: Palpation (GI): Soft to palpation Skin: Lesions: no lesions Rashes: no rashes Extrem: Other: right knee dressing is c/d/i. Able to dorsi/plantar flex. Calf is supple and nontender. Sensation intact. Pedal pulse intact. Discharge Plan Discharge Anticipated Discharge Date/Time: 07/01/23 13:05 Patient Disposition: Home Health Service Discharge Diagnosis: s/p RTKA Referrals: Sabina Romano PA-C [Physician Agricultural Education Professor] - 07/16/23 12:30 pm Discharge Medications: New acetaminophen 325 mg Tablet 650 mg PO Q6H PRN (Reason: Pain, Mild (Pain Scale 1-3)) 30 Days Qty: 240 0RF aspirin 325 mg Tablet 325 mg PO BID 42 Days Qty: 84 0RF celecoxib 200 mg Capsule 200 mg PO BID 30 Days Qty: 60 0RF docusate sodium 100 mg Capsule 100 mg PO BID 30 Days Qty: 60 0RF oxycodone 5 mg Tablet 5 mg PO Q4H PRN (Reason: Pain, Moderate(Pain Scale 4-6)) 7 Days Qty: 42 0RF Rx Instructions: Partial Fill upon patient request. Continued pravastatin 40 mg tablet 40 mg PO DAILY@1700 clonidine HCl 0.2 mg tablet 0.2 mg PO BID pramipexole 1 mg tablet 0.75 mg PO TID fenofibrate 160 mg tablet 160 mg PO DAILY@1700 bupropion HCl 150 mg tablet extended release 24 hr 150 mg PO QAM levothyroxine [Synthroid] 100 mcg tablet 100 mcg PO DAILY (DME) walker Misc See Rx Instructions .MEDSUPPLY Qty: 1 0RF Rx Instructions: Folding Front wheeled walker Discontinued celecoxib 200 mg capsule 200 mg PO BID Discharge Orders: Discharge Order (Routine); Ordered 07/01/23 Ordered By: Nissa James Diet: Advance to usual diet Activity on Discharge: Use cane or walker Stand Alone Forms: Patient Portal Discharge page Print Language: Romansh Care Plan Goals: restore fxn to right knee Health Concerns: none Plan of Treatment: Physical Therapy for ROM 0-120, quad strength, gait training. Use walker for ambulation Limit stair climbing, No shower, No tub bath, No driving Continue anticoagulant x 6 weeks Keep Aquacel dressing clean, dry and intact. Follow up with orthopedics in 2 weeks Assessment: stable for d/c
--- NOTE | 2023-06-30 13:10 | P.F2F_ITS ---
Service Date Service Date: 06/30/23 Encounter Date of encounter: 07/01/23 Reasons for Services Signs and symptoms assessed: s/p RTKA Pt. is considered homebound due to recent surgery. Unable to drive, poor balance, poor gait mechanics. Reason for physical therapy: home safety and mobility, therapeutic exercises, restore joint function, gait/transfer training, assess need for DME and ADL training Homebound: Leaving the home is medically contraindicated at this time without the asist of a device and/or another person due th the listed conditions above and below. Reason homebound: unsteady gait / fall risk, leg weakness, pain with ambulation, poor balance / fall risk and unable to drive Certification: Based on the above findings, I certify that this patient is confined to the home and needs intermittent intermediate care, physical therapy and/or speech t herapy, or continues to need occupational therapy. The patient is under my care, and I have initiated the establishment of the plan of care. The patient will be followed by a physician who will periodically review the plan of care. Time Spent With Patient Time: Total time managing care of this patient today ____ minutes.
[2023-06-30] MEDS: ceFAZolin Sodium/Dextrose,Iso 2 GM/50 ML PIGGYBACK IV ×2 (13:16→19:00)
[2023-06-30] MEDS: Acetaminophen 1,000 MG/100 ML PIGGYBACK 400 MG IV (14:00)
--- NOTE | 2023-06-30 14:45 | P.BOP_ITS ---
Brief Operative Note Date of Service: 06/30/23 Pre-op diagnosis: Right knee OA Post-op diagnosis: same Procedure: Right TKA Implants: [employer] Triathlon cemented 04/12/12 Surgeon: Hernando Zamora MD Anesthesia: regional and spinal Was an Office Services Manager used for this Procedure?: Yes Office Services Manager: Sabina Romano Estimated blood loss (mL): 25 Tourniquet time (min): 62 IV fluids (mL): 800 Pathology: other Condition: stable Disposition: PACU
--- NOTE | 2023-06-30 15:06 | PHA.MEDREC ---
Pharmacy Consult ? Medication Reconciliation Pharmacy has REVIEWED the medication reconciliation.
[2023-06-30] MEDS: Lactated Ringers 1,000 ML 100 ML IVCONT (17:48)
--- NOTE | 2023-06-30 19:39 | PC.NURSE ---
Patricia message not going through to receiving RN. Report given via telephone and Anupama Barakat RN states that she is ready to receive the patient. Pt now reporting knee pain of 3-4/10 but is declining medication at this time. I prefer to wait and have something before I go to sleep pt states
[2023-06-30] MEDS: oxyCODONE HCl ER 10 MG TAB.ER.12H PO (21:01)
[2023-06-30] MEDS: HYDROmorphone HCl 0.5 MG/0.5 ML SYRINGE 0.25 MG IVPUSH (21:01)
[2023-06-30] MEDS: buPROPion HCl XL 150 MG TAB.ER.24H PO (21:03)
[2023-06-30] MEDS: Celecoxib 200 MG CAPSULE PO (21:03)
[2023-06-30] MEDS: cloNIDine HCL 0.2 MG TABLET PO (21:03)
[2023-06-30] MEDS: Docusate Sodium 100 MG CAPSULE PO (21:03)
[2023-06-30] MEDS: Acetaminophen 325 MG TABLET 650 MG PO (22:28)
[2023-06-30] MEDS: oxyCODONE HCl Immed Release 5 MG TABLET PO (22:29)
[2023-07-01] MEDS: Lactated Ringers 1,000 ML 100 ML IVCONT (02:25)
[2023-07-01 02:53] VITALS: BP 146/78; PULSE 58; RESP 16; TEMP 36; O2SAT 95
[2023-07-01 05:45] LABS: MANUAL DIFF FLAG NO
[2023-07-01 05:50] LABS: Basophils Percent Auto 0.3 % (0-2); Eosinophils Absolute Auto 0.1 X10*3/uL (0.0-0.4); Eosinophils Percent Auto 0.5 % (0-4); Hematocrit 38.7 % (42.0-52.0); Hemoglobin 13.1 g/dl (14.0-18.0); Imm Gran Abs Auto 0.07 X10*3/uL (0.00-0.03); Imm Gran Pct Auto 0.7 % (0.0-0.4); Lymphocytes Absolute Auto 1.5 X10*3/uL (1.2-4.9); Lymphocytes Percent Auto 15.6 % (20-40); Mean Corpuscular HGB Conc 33.9 g/dl (31.0-36.0); Mean Corpuscular Hemoglobin 27.9 pg (27.0-33.0); Mean Corpuscular Volume 82.3 fL (80.0-98.0); Mean Platelet Volume 9.4 fL (9.4-12.4); Monocytes Percent Auto 10.5 % (2-11); Neutrophils Percent Auto 72.4 % (45-73); Platelet Count 365 X10*3/uL (160-400); Red Cell Distribution Width 14.3 % (11.0-16.0); White Blood Count 9.7 X10*3/uL (4.8-10.8)
[2023-07-01] MEDS: HYDROmorphone HCl 0.5 MG/0.5 ML SYRINGE 0.25 MG IVPUSH (05:59)
[2023-07-01 06:03] LABS: Anion Gap 12 (12-20); Blood Urea Nitrogen 13 mg/dL (9-16); Calcium 8.7 mg/dL (8.4-10.2); Carbon Dioxide 22 mmol/L (22-29); Chloride 107 mmol/L (96-108); Creatinine Clr Calc Pharmacy 116.7; Estimated Glomerular Filt Rate > 60; Glucose Fasting 134 mg/dL (60-99); Potassium 3.9 mmol/L (3.3-5.1); Sodium 137 mmol/L (135-145)
[2023-07-01] MEDS: Levothyroxine Sodium 100 MCG TABLET PO (06:05)
[2023-07-01 07:08] VITALS: PULSE 71; RESP 16; TEMP 36.6; O2SAT 99
--- NOTE | 2023-07-01 07:36 | P.CONHOSP_ITS ---
History of Present Illness Data of Consult Service Date: 07/01/23 Primary Care Provider: RODRIGUEZ Nunn HPI 63-year-old man with a history of hypothyroidism, hypertension, depression admitted by Orthopedic surgery and is status post right total knee arthroplasty. Surgery was unremarkable. Patient has been able to eat and drink without any nausea or vomiting. She was hemodynamically stable at this time with no acute medical complaints. Review of Systems 2 Review of Systems: Denies any recent fever chills or decrease in appetite respiratory denies any shortness of breath or cough cardiovascular denies chest pain gastrointestinal denies any dysphagia abdominal pain nausea vomiting or diarrhea genitourinary denies any dysuria frequency or hematuria musculoskeletal right knee pain neuropsych denies any weakness or seizures all other systems reviewed are negative COUNT INCLUDES [facility] Medical History GERD (gastroesophageal reflux disease) Sleep apnea Restless legs syndrome Hypothyroid Depression High cholesterol Surgical History H/O rotator cuff surgery S/P tendon repair S/P ankle joint replacement Social History Household Members: Family Housing: House Are you a primary healthcare advisory services manager to a significant other at home: No Do you presently have visiting nurse or other home services: No Alcohol intake: current Alcohol intake frequency: does not drink Patient Tobacco Use Status: Former Tobacco user e-Cigarette/Vaping Use: Currently Using Second Hand Smoke Exposure: No Use of substances other than those prescribed or required for medical reasons: No Substance Use Type: Marijuana Substance Use Frequency: Daily Currently Displaying Signs/Symptoms of Drug Intoxication Withdrawal: No Have you been hit, kicked, punched, or otherwise hurt by someone within the past year? If so, by whom?: No Do you feel safe in your current relationship?: Yes Is there a partner from a previous relationship who is making you feel unsafe now?: No Are you made to feel afraid or neglected: No Are you DNR?: No Advance Directives: No Advance Directives on File: No Do you have a plan to hurt others: No Plan Recently lost weight without trying: No Nutrition Risks: No Nutritional Risk Poor oral hygiene: No service: Yes Current occupational status: disabled Cognitive needs: No Hearing needs: No Vision needs: No Meds Allergies Allergy/AdvReac Type Severity Reaction Status Date / Time niacin [NIACIN] Allergy Intermediate AGITATION Verified 06/25/23 13:19 nystatin [NYSTATIN] Allergy Unknown RASH Verified 06/25/23 13:19 ropinirole [ROPINIROLE] Allergy Unknown ANXIOUS Verified 06/25/23 13:19 duloxetine AdvReac Unknown Unknown Verified 06/25/23 13:19 Active Medications: Current Medications Acetaminophen (Acetaminophen 325 Mg Tablet) 650 mg PO Q6H PRN PRN Reason: Pain, Mild (Pain Scale 1-3) Last Admin: 06/30/23 22:28 Dose: 650 mg Aspirin (Aspirin 325 Mg Tablet) 325 mg PO BID [facility] Bupropion HCl (Bupropion Hcl Xl 150 Mg Tab.Er.24h) 150 mg PO DAILY [facility] Last Admin: 06/30/23 21:03 Dose: 150 mg Celecoxib (Celecoxib 200 Mg Capsule) 200 mg PO BID [facility] Last Admin: 06/30/23 21:03 Dose: 200 mg Clonidine HCl (Clonidine Hcl 0.2 Mg Tablet) 0.2 mg PO BID [facility]; Protocol Last Admin: 06/30/23 21:03 Dose: 0.2 mg Docusate Sodium (Docusate Sodium 100 Mg Capsule) 100 mg PO BID [facility] Last Admin: 06/30/23 21:03 Dose: 100 mg Hydromorphone HCl (Hydromorphone Hcl 0.5 Mg/0.5 Ml Syringe) 0.25 mg IVPUSH Q4H PRN; Protocol PRN Reason: Pain, Severe (Pain Scale 7-10) Last Admin: 07/01/23 05:59 Dose: 0.25 mg Lactated Ringer's (Lr) 1,000 mls @ 100 mls/hr IVCONT .Q10H [facility] Last Admin: 07/01/23 02:25 Dose: 100 mls/hr Levothyroxine Sodium (Levothyroxine Sodium 100 Mcg Tablet) 100 mcg PO DAILY@0600 [facility] Last Admin: 07/01/23 06:05 Dose: 100 mcg Ondansetron HCl (Ondansetron Hcl 4 Mg/2 Ml Vial) 4 mg IVPUSH Q8H PRN PRN Reason: Nausea and Vomiting Oxycodone HCl (Oxycodone Hcl Immed Release 5 Mg Tablet) 5 mg PO Q4H PRN PRN Reason: Pain, Moderate(Pain Scale 4-6) Last Admin: 06/30/23 22:29 Dose: 5 mg Oxycodone HCl (Oxycodone Hcl Er 10 Mg Tab.Er.12h) 10 mg PO BID [facility] Last Admin: 06/30/23 21:01 Dose: 10 mg Pramipexole Dihydrochloride (Pramipexole Di-Hcl 1 Mg Tablet) 1 mg PO TID [facility] Last Admin: 06/30/23 21:04 Dose: Not Given Sodium Chloride (0.9 % Sodium Chloride Flush 3 Ml Syringe) 3 ml IVFLUSH QSHIFT [facility] Last Admin: 07/01/23 07:19 Dose: Not Given Home Medications ?Medication ?Instructions ?Recorded ?Confirmed ?Last Taken ?Type bupropion HCl 150 mg 24 hr tablet, 150 mg PO QAM 04/10/23 06/25/23 Unknown History extended release clonidine HCl 0.2 mg tablet 0.2 mg PO BID 04/10/23 06/25/23 Unknown History fenofibrate 160 mg tablet 160 mg PO DAILY@1700 04/10/23 06/25/23 Unknown History levothyroxine 100 mcg tablet 100 mcg PO DAILY 04/10/23 06/25/23 Unknown History (Synthroid) pramipexole 1 mg tablet 0.75 mg PO TID 04/10/23 06/30/23 Unknown History pravastatin 40 mg tablet 40 mg PO DAILY@1700 04/10/23 06/25/23 Unknown History Physical Exam 2 Vital Signs and Narrative: Vital Signs: Last Vital Signs Temp 98 F 07/01/23 07:08 Pulse 71 07/01/23 07:08 Resp 16 07/01/23 07:08 BP 146/78 H 07/01/23 02:53 Pulse Ox 99 07/01/23 07:08 O2 Del Method Nasal Cannula 07/01/23 07:08 O2 Flow Rate 2 06/30/23 16:28 BMI result Body Mass Index 32.6 Appearing in no acute distress head is normocephalic atraumatic eyes pupils are PERRLA sclera is anicteric mouth throat mucous membranes are intact and moist neck is supple no lymphadenopathy, no JVD noted lung sounds are clear to auscultation heart regular rate rhythm, clear S1, S2 positive bowel sounds, abdomen is soft, nontender neuro patient is alert x3, no focal deficits Right knee surgical dressing intact, surgical incision not visualized Results Labs 07/01/23 05:18 07/01/23 05:18 Labs: Laboratory Results - last 24 hr 07/01/23 05:18 MCV 82.3 MCH 27.9 MCHC 33.9 RDW 14.3 Plt Count 365 MPV 9.4 Immature Gran % (Auto) 0.7 H Neut % (Auto) 72.4 Lymph % (Auto) 15.6 L [place] % (Auto) 10.5 Eos % (Auto) 0.5 Baso % (Auto) 0.3 Lymph # (Auto) 1.5 [place] # (Auto) 1.0 Eos # (Auto) 0.1 Baso # (Auto) 0.0 Abs Immat Gran (auto) 0.07 H Absolute Neuts (auto) 7.0 Absolute Nucleated RBC 0.000 Nucleated RBC % (auto) 0.0 Anion Gap 12 Estim Creat Clear Calc 116.7 Estimated GFR > 60 Fasting Glucose 134 H Calcium 8.7 Imaging Radiologist's Impressions: Impressions Knee X-Ray 06/30/23 15:29 IMPRESSION: Appropriate alignment of the constrained right total knee arthroplasty. Small minimally displaced fracture of the medial cortex of the tibial plateau. Assessment and Plan (1) Status post total knee replacement, right: Status: Acute Plan 63-year-old man admitted by Orthopedic surgery and is status post right total knee arthroplasty Right total knee arthroplasty Management as per surgical team Pain management Mental Health Continue home medications Hypothyroidism Continue levothyroxine DVT prophylaxis with full-dose aspirin Full code Medical consultation complete. Will sign off
--- NOTE | 2023-07-01 07:37 | PM.PNORT ---
Subjective Subjective Date of Service: 07/01/23 Interval history: POD1 s/p RTKA Patient is resting in bed comfortably No overnight events Pain is managed No additional complaints Physical Exam Vital Signs: Vital Signs: Last Vital Signs Temp 98 F 07/01/23 07:08 Pulse 71 07/01/23 07:08 Resp 16 07/01/23 07:08 BP 146/78 H 07/01/23 02:53 Pulse Ox 99 07/01/23 07:08 O2 Del Method Nasal Cannula 07/01/23 07:08 O2 Flow Rate 2 06/30/23 16:28 BMI result Body Mass Index 32.6 Const: General: cooperative, healthy appearing and no acute distress Resp: Effort & Inspection: normal respiratory effort and able to speak in complete sentences Cardio: Rate: regular rate Peripheral pulses: Peripheral pulses 2+ throughout GI: Palpation (GI): Soft to palpation Skin: Lesions: no lesions Rashes: no rashes Extrem: Other: Right knee Aquacel is c/d/i. Block still in effect. Procedures Date of Service Date of Service: 07/01/23 Progress Note: A&P Assessment and plan (1) Status post total knee replacement, right: Status: Acute Plan Continue pain mgmnt Begin ASA for dvt ppx begin PT for RTKA Dispo planning-Pending PT eval, pain mgmnt Time Spent With Patient Time: Total time managing care of this patient today ____ minutes. Quality Stroke Does the patient have a stroke diagnosis?: No VTE Prior VTE?: No VTE Risk Level:: Medical - moderate - high VTE Device Contraindication: N/A - Device Ordered VTE Drug Contraindication: N/A - Med Ordered
[2023-07-01 09:06] VITALS: BP 146/78
[2023-07-01] MEDS: Celecoxib 200 MG CAPSULE PO (09:06)
[2023-07-01] MEDS: cloNIDine HCL 0.2 MG TABLET PO (09:06)
[2023-07-01] MEDS: buPROPion HCl XL 150 MG TAB.ER.24H PO (09:06)
[2023-07-01] MEDS: oxyCODONE HCl ER 10 MG TAB.ER.12H PO (09:06)
[2023-07-01] MEDS: Docusate Sodium 100 MG CAPSULE PO (09:06)
[2023-07-01 09:36] VITALS: BP 146/78
[2023-07-01 10:33] VITALS: BP 146/78
--- NOTE | 2023-07-01 11:21 | MHC.CM.PN ---
IMM delivered. Patient lives in a home w/ his and mother in law. Functionally independent. Was using a cane PRN, and will use a walker post op. 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 Copy requested, will bring to ortho f/u appt. DP: Medically cleared for dc home w/ services, prefers [facility] who has accepted. [facility] made aware of dc. to transport.
--- NOTE | 2023-07-01 11:38 | HO.POSTANES ---
Post Anesthesia Evaluation Post Anesthesia Evaluation Date of Service: 06/30/23 Vital Signs: Vital Signs Temp Pulse Resp BP Pulse Ox O2 Del Method 07/01/23 10:33 146/78 H 07/01/23 09:36 146/78 H 07/01/23 09:06 146/78 H 07/01/23 07:08 98 F 71 16 99 Nasal Cannula 07/01/23 02:53 96.8 F 58 16 146/78 H 95 Room Air Anesthesia: Spinal Mental Status: Awake Pain Control: Satisfactory Nausea/Vomiting: None Hydration: Adequate Anesthesia-Related Issues: No Anes. Related Issues
--- NOTE | 2023-07-02 10:56 | P.OP_ITS ---
Operative Note Operative Note Date of Service: 06/30/23 Narrative: Date of Service: 06/30/23 Pre-op diagnosis: Right knee OA Post-op diagnosis: same Procedure: Right TKA Implants: [place] Triathlon cemented 04/12/12 Surgeon: Hernando Zamora MD Anesthesia: regional and spinal Was an Event Planning Manager used for this Procedure?: Yes Event Planning Manager: Sabina Romano Estimated blood loss (mL): 25 Tourniquet time (min): 62 IV fluids (mL): 800 Pathology: other Condition: stable Disposition: PACU Procedure in detail: The patient was brought to the operating room and prepped and draped in standard sterile fashion. A time-out was called to identify proper site proper procedure proper surgeon and IV antibiotics were administered. 1 g of IV tranexamic acid was administered. There was a 20 deg flexion contracture with maderate to severe varus. I began by making a midline incision to the retinaculum and performed a medial parapatellar arthrotomy. The patella was translated laterally and the knee was flexed up. There was severe medial eburnation and far medial tibial bone loss. I performed a small medial peel and resected the infrapatellar fat pad. [place]'s line was then used to drill my intramedullary femoral guide and my distal femur cut of 12 mm was made in 5 degrees of valgus while protecting the soft tissues. I then measured a # 3 femur and placed my cutting guide and made my anterior posterior and chamfer cuts protecting the soft tissues at all times. I then made my box but removing the PCL. Once I was satisfied with my cuts I turned my attention to the tibia. I removed the meniscus medially and laterally and , using an external cutting guide, in line with the tibial crest and the third ray, I made my distal tibial cut in 0 deg slope of while protecting the posterior soft tissues at all times. I took ~13 mm off the lateral side and there was a stable medial plateau. An extension block was used to confirm appropriate amount of bony resection. I then sized a #4 tibia. The area of tibial bone loss was not involved and there was bone underlying the entirety of the #4 tibia. I placed my trial and with the trial femur in place took the knee through range of motion. I was satisfied with the extension and flexion as well as the balance at 0, 30 and 90 degrees. There were no releases necessary. I then turned my attention to the patella where I removed 1 cm from the undersurface of the patella and then trialed a 29apatellar button. Again the knee was taken through range of motion I was satisfied with the tracking. I then prepared the tibia with a drill and punch. A femoral bone plug was placed and the knee was irrigated copiously. I then cemented the patella, tibia and femur in standard fashion. Axial compression adn a clamp were used while the cement dried. Once the cement was hard on the back table all excess cement was removed and I trialed different inserts until I selected a #13TS insert. The final insert was placed and local TXA was administered. The knee was then closed with a running Quill suture, a 3 0 Vicryl and jorge a on the skin. Patient was then placed in sterile dressing and brought to recovery room in stable condition there were no known complications.
== END 2023-07-01 11:36 | disposition home health service (06) | DRG 326 ==
LOC: HO.SSSA 13:07 → HO.S3 18:38
PROVIDERS: Orthopaedic Surgery; Admitting Provider Physician Assistant; PCP Nurse Practitioner Primary Care; Visit Provider Physician Assistant
PROC: 0SRC0J9 Replacement of Right Knee Joint with Synthetic Substitute, Cemented, Open Approach (ICD-10-PCS; CPT 27447; principal; 2023-06-30 14:20)
DX: M17.11 Unilateral primary osteoarthritis, right knee (principal); E03.9 Hypothyroidism, unspecified; K21.9 Gastro-esophageal reflux disease without esophagitis; G89.18 Other acute postprocedural pain; Z87.891 Personal history of nicotine dependence; Z79.890 Hormone replacement therapy; Z79.899 Other long term (current) drug therapy
CPT/HCPCS: 27447; 36415; 73560; 80048; 85025; 86850; 86900; 86901; 87640; 87641; 88305; 88311; 97162; C1713; C1776; J0131; J0665; J0690; J1100; J1170; J1885; J2250; J2704; J7120

== ENCOUNTER → 2023-06-30 12:08 | Outpatient (BNV) | payer MEDICARE, BC, SELFPAY | PROVIDERS: Admitting Provider Physician Assistant; PCP Nurse Practitioner Primary Care; Visit Provider Orthopaedic Surgery | DX: Z47.1 Aftercare following joint replacement surgery (principal); Z96.651 Presence of right artificial knee joint | CPT/HCPCS: 27447; 99024; G0180 ==

== ENCOUNTER → 2023-06-30 12:08 | Outpatient (BNV) | payer MEDICARE, BC, SELFPAY | PROVIDERS: Admitting Provider Physician Assistant; PCP Nurse Practitioner Primary Care; Visit Provider Nurse Practitioner Acute Care | DX: I82.409 Acute embolism and thrombosis of unspecified deep veins of unspecified lower extremity (principal); Z96.651 Presence of right artificial knee joint | CPT/HCPCS: 99221 ==

== ENCOUNTER 2023-07-08 09:51 | Outpatient (AMB) | payer MEDICARE, BC, SELFPAY ==
--- NOTE | 2023-07-08 10:36 | MHC.OFFVIS ---
Intake Visit Reasons: PO-R TKA w/NE 06/30/23-bandage change Intake Note: Hang is a 63 year old male who presents today for a post operative bandage change s/p Right TKA 06/30/23 Allergies niacin [NIACIN] Allergy (Intermediate, Verified 06/25/23 13:19) AGITATION nystatin [NYSTATIN] Allergy (Unknown, Verified 06/25/23 13:19) RASH ropinirole [ROPINIROLE] Allergy (Unknown, Verified 06/25/23 13:19) ANXIOUS duloxetine Adverse Reaction (Unknown, Verified 06/25/23 13:19) Unknown Medication List - Last Reconciled 07/13/23 by Sabina Romano PA-C acetaminophen 650 mg (2 x 325 mg) PO Q6H PRN 30 days aspirin 325 mg PO BID 42 days bupropion HCl XL 150 mg PO QAM celecoxib 200 mg PO BID 30 days clonidine HCl 0.2 mg PO BID docusate sodium 100 mg PO BID 30 days fenofibrate 160 mg PO DAILY@1700 levothyroxine (Synthroid) 100 mcg PO DAILY oxycodone 5 mg PO Q4H PRN 7 days pramipexole 0.75 mg PO TID pravastatin 40 mg PO DAILY@1700 walker Folding Front wheeled walker HPI HPI PO-R TKA w/NE 06/30/23-bandage change: Details: 63-year-old male who returns to the office today for bandage change s/p right TKA, 06/30/[address] Zamora. [facility] Medical History (Updated 07/03/23 @ 00:01 by Keli Javier) GERD (gastroesophageal reflux disease) Sleep apnea Restless legs syndrome Hypothyroid Depression High cholesterol Surgical History H/O rotator cuff surgery S/P tendon repair S/P ankle joint replacement Social History Household Members: Family Housing: House Are you a primary aged or disabled carer to a significant other at home: No Do you presently have visiting nurse or other home services: No Alcohol intake: current Alcohol intake frequency: does not drink Patient Tobacco Use Status: Former Tobacco user e-Cigarette/Vaping Use: Currently Using Second Hand Smoke Exposure: No Substance Use Type: Marijuana service: No Current occupational status: disabled Cognitive needs: No Hearing needs: No Vision needs: No Review of Systems Const All systems reviewed & are unremarkable except as noted in HPI and below Physical Exam Extrem Other: Right knee: Incision clean, dry and intact. Slight erythema around knee with hematoma. No drainage. He has good ROM with good activation of quad strength. Calf supple, nontender. NVI. Assessment & Plan Assessment & Plan (1) Status post total knee replacement, right: Code(s): Z96.651 - Presence of right artificial knee joint Category: Surgical Plan New aquacel dressing was applied. He will continue working with physical therapy and see me back for routine post-op appointment, sooner if needed. Patient Instructions: Scribed for Sabina Romano PA-C, by Jagdeep Foster medical review coordinator, on 07/08/2023 at 10:00 AM EST.? I, Sabina Romano PA-C, have personally reviewed and agree with the information entered by the scribe. Coding Level of Care Code Global (15091) Diagnoses Status post total knee replacement, right Z96.651
== END 2023-07-08 10:37 | disposition home or self-care (01) ==
PROVIDERS: PCP Nurse Practitioner Primary Care; Visit Provider Physician Assistant
DX: Z96.651 Presence of right artificial knee joint (principal)
CPT/HCPCS: 99024

== ENCOUNTER → 2023-07-08 09:51 | Outpatient (BNVA) | payer MEDICARE, BC, SELFPAY | PROVIDERS: PCP Nurse Practitioner Primary Care; Visit Provider Physician Assistant | DX: Z96.651 Presence of right artificial knee joint (principal) | CPT/HCPCS: 99212 ==

== ENCOUNTER 2023-07-16 12:22 | Outpatient (AMB) | payer MEDICARE, BC, SELFPAY ==
--- NOTE | 2023-07-16 12:27 | A.OFFVIS_ITS ---
Intake Visit Reasons: R TKA w/NE 06/30/23 Intake Note: Hang is a 63 year old male who presents today for a post operative s/p Right TKA 06/30/23. He reports everything is going well. Allergies niacin [NIACIN] Allergy (Intermediate, Verified 07/16/23 12:32) AGITATION nystatin [NYSTATIN] Allergy (Unknown, Verified 07/16/23 12:32) RASH ropinirole [ROPINIROLE] Allergy (Unknown, Verified 07/16/23 12:32) ANXIOUS duloxetine Adverse Reaction (Unknown, Verified 07/16/23 12:32) Unknown Medication List - Last Reconciled 07/16/23 by Traci Vera, RN acetaminophen 650 mg (2 x 325 mg) PO Q6H PRN 30 days aspirin 325 mg PO BID 42 days bupropion HCl XL 150 mg PO QAM celecoxib 200 mg PO BID 30 days clonidine HCl 0.2 mg PO BID docusate sodium 100 mg PO BID 30 days fenofibrate 160 mg PO DAILY@1700 levothyroxine (Synthroid) 100 mcg PO DAILY oxycodone 5 mg PO Q4H PRN 7 days pramipexole 0.75 mg PO TID pravastatin 40 mg PO DAILY@1700 walker Folding Front wheeled walker HPI HPI R TKA w/NE 06/30/23: Details: 63-year-old male who returns to the office today for post-op right TKA, 06/30/[address] Zamora. He states he has no pain and is doing well overall. He has no concerns today. [facility] Medical History (Updated 07/03/23 @ 00:01 by Keli Javier) GERD (gastroesophageal reflux disease) Sleep apnea Restless legs syndrome Hypothyroid Depression High cholesterol Surgical History H/O rotator cuff surgery S/P tendon repair S/P ankle joint replacement Social History Household Members: Family Housing: House Are you a primary senior care provider to a significant other at home: No Do you presently have visiting nurse or other home services: No Alcohol intake: current Alcohol intake frequency: does not drink Patient Tobacco Use Status: Former Tobacco user e-Cigarette/Vaping Use: Currently Using Second Hand Smoke Exposure: No Substance Use Type: Marijuana service: No Current occupational status: disabled Cognitive needs: No Hearing needs: No Vision needs: No Review of Systems Const All systems reviewed & are unremarkable except as noted in HPI and below Physical Exam Extrem Other: Right knee: Incision clean, dry and intact. No redness or drainage. ROM is 0-105 degrees. Good quad activation. Calf supple, nontender. NVI. Assessment & Plan Assessment & Plan (1) Status post total knee replacement, right: Code(s): Z96.651 - Presence of right artificial knee joint Category: Surgical Plan Srikanth removed, steri strips applied. He will begin to transition to Outpatient PT to continue working on Gait training, ROM and quad strength. No driving for another 4 weeks. He will require ppx abx for dental procedures. He will f/u in 4 weeks, sooner if needed. Patient Instructions: Scribed for Sabina Romano PA-C, by Jagdeep Foster medical lab technician, on 07/16/2023 at 12:30 PM EST.? I, Sabina Romano PA-C, have personally reviewed and agree with the information entered by the scribe. Coding Level of Care Code Global (56419) Diagnoses Status post total knee replacement, right Z96.651
== END 2023-07-16 12:59 | disposition home or self-care (01) ==
PROVIDERS: PCP Nurse Practitioner Primary Care; Visit Provider Physician Assistant
DX: Z96.651 Presence of right artificial knee joint (principal)
CPT/HCPCS: 99024

== ENCOUNTER → 2023-07-16 12:22 | Outpatient (BNVA) | payer MEDICARE, BC, SELFPAY | PROVIDERS: PCP Nurse Practitioner Primary Care; Visit Provider Physician Assistant | DX: Z47.1 Aftercare following joint replacement surgery (principal); Z96.651 Presence of right artificial knee joint | CPT/HCPCS: 99212 ==

== ENCOUNTER 2023-08-06 10:09 | Outpatient (AMB) | payer MEDICARE, BC, SELFPAY ==
--- NOTE | 2023-08-06 10:12 | A.OFFVIS_ITS ---
Intake Visit Reasons: Post Op- R TKA 06/30/23 Intake Note: Hang is a 63 year old male who presents today for a post operative 5 week follow up s/p Right TKA 06/30/23. Patient reports that he is doing well, he would like to know when he can resume driving. He relatively painless. He continues to take Aspirin, but is wonde ring how long he will be taking this for. Allergies niacin [NIACIN] Allergy (Intermediate, Verified 07/16/23 12:32) AGITATION nystatin [NYSTATIN] Allergy (Unknown, Verified 07/16/23 12:32) RASH ropinirole [ROPINIROLE] Allergy (Unknown, Verified 07/16/23 12:32) ANXIOUS duloxetine Adverse Reaction (Unknown, Verified 07/16/23 12:32) Unknown HPI HPI Post Op- R TKA 06/30/23: Details: Hang is a 63 year old male who presents today for a post operative 5 week follow up s/p Right TKA 06/30/23. Patient reports that he is doing well, he would like to know when he can resume driving. He denies pain. He is happy with his results so far. He continues to take Aspirin, but is wondering how long he will be taking this for. COUNTS INCLUDE 234 BEDS AT THE [facility] Medical History (Updated 07/03/23 @ 00:01 by Keli Javier) GERD (gastroesophageal reflux disease) Sleep apnea Restless legs syndrome Hypothyroid Depression High cholesterol Surgical History H/O rotator cuff surgery S/P tendon repair S/P ankle joint replacement Social History Household Members: Family Housing: House Are you a primary health and social care teacher to a significant other at home: No Do you presently have visiting nurse or other home services: No Alcohol intake: current Alcohol intake frequency: does not drink Patient Tobacco Use Status: Former Tobacco user e-Cigarette/Vaping Use: Currently Using Second Hand Smoke Exposure: No Substance Use Type: Marijuana service: No Current occupational status: disabled Cognitive needs: No Hearing needs: No Vision needs: No Physical Exam Extrem Other: inc c/d/i 0-125 deg motion no gait antalgia Assessment & Plan Assessment & Plan (1) Status post total knee replacement, right: Code(s): Z96.651 - Presence of right artificial knee joint Category: Surgical Plan: Seere varus deformity now doing well 6 weeks s/p TKA. Cont PT for gait training. f/u 6 weeks Orders: Orders PT Evaluation and Treatment Today Z96.651 - Presence of right artificial knee joint Coding Level of Care Code Global (34745) Diagnoses Status post total knee replacement, right Z96.651
== END 2023-08-06 10:24 | disposition home or self-care (01) ==
LOC: HO.HOS 10:09
PROVIDERS: PCP Nurse Practitioner Primary Care; Visit Provider Orthopaedic Surgery
DX: Z96.651 Presence of right artificial knee joint (principal)
CPT/HCPCS: 99024

== ENCOUNTER → 2023-08-06 10:09 | Outpatient (BNVA) | payer MEDICARE, BC, SELFPAY | PROVIDERS: PCP Nurse Practitioner Primary Care; Visit Provider Orthopaedic Surgery | DX: Z47.1 Aftercare following joint replacement surgery (principal); Z96.651 Presence of right artificial knee joint | CPT/HCPCS: 99212 ==

== ENCOUNTER 2023-08-10 10:50 | Outpatient (AMB) | payer MEDICARE, BC, SELFPAY ==
--- NOTE | 2023-08-10 11:04 | MHC.PC.OV ---
Vital Signs 08/10/23 11:06 Height 5 ft 7 in Weight 200 lb BMI 31.3 BP 112/80 Blood Pressure Location Lt brachial Position Sitting Pulse 54 Pulse Source Pulse Oximeter Pulse Oximetry (%) 94 Oxygen Delivery Method Room Air Intake Visit Reasons: Annual PE Intake Note: pt is here for annual PE. Declined colonoscopy Allergies niacin [NIACIN] Allergy (Intermediate, Verified 08/10/23 11:23) AGITATION nystatin [NYSTATIN] Allergy (Unknown, Verified 08/10/23 11:23) RASH ropinirole [ROPINIROLE] Allergy (Unknown, Verified 08/10/23 11:23) ANXIOUS duloxetine Adverse Reaction (Unknown, Verified 08/10/23 11:23) Unknown Medication List - Last Reconciled 08/10/23 by RODRIGUEZ Nunn acetaminophen 650 mg (2 x 325 mg) PO Q6H PRN 30 days aspirin 325 mg PO BID 42 days bupropion HCl XL 150 mg PO QAM celecoxib 200 mg PO BID 30 days clonidine HCl 0.2 mg PO BID docusate sodium 100 mg PO BID 30 days fenofibrate 160 mg PO DAILY@1700 levothyroxine (Synthroid) 100 mcg PO DAILY pramipexole 0.75 mg PO TID pravastatin 40 mg PO DAILY@1700 walker Folding Front wheeled walker Tobacco use date assessed: 08/10/23 Dental Screening Dental Screen Date: 04/10/23 HPI HPI Comments History of Present Illness Details Patient is a 63-year-old male in today for physical exam. Patient was up-to-date with tetanus last obtained in 2021. Patient's Cologuard test in 2023 was normal. Patient is up-to-date with PSA draw which came back within normal limits. He has a past medical history significant for: Postop left knee replacement. Patient had recent postop appointment with Ortho who is following him for this Vitamin-D deficiency-patient has been utilizing vitamin D3 2000 units per day for the past 3 months. History of impaired fasting glucose: Will redraw A1c. Hypothyroid: Controlled with levothyroxine 100 mcg p.o. daily History of abnormal EKG, preop EKG demonstrated history of right bundle-branch block. Patient has declined cardiology referral at this time. He has no symptoms of chest pain, SOB, numbness, or dizziness. Hyperlipidemia: Patient utilizing pravastatin 40 mg p.o. daily and and fenofibrate 160 mg p.o. daily Restless leg syndrome: Utilizing premise med Paxil 0.75 mg daily. Anxiety and depression. Bupropion 150 mg daily and clonidine 0.2 mg p.o. b.i.d.. [facility] Medical History GERD (gastroesophageal reflux disease) Sleep apnea Restless legs syndrome Hypothyroid Depression High cholesterol Surgical History Status post right knee replacement H/O rotator cuff surgery S/P tendon repair S/P ankle joint replacement Social History Household Members: Family Housing: House Are you a primary foster care therapist to a significant other at home: No Do you presently have visiting nurse or other home services: No Alcohol intake: current Alcohol intake frequency: does not drink Patient Tobacco Use Status: Former Tobacco user e-Cigarette/Vaping Use: Former Use Second Hand Smoke Exposure: No Substance Use Type: Marijuana service: No Current occupational status: disabled Cognitive needs: No Hearing needs: No Vision needs: No Questionnaire PHQ-9 Over the last 2 weeks, how often have you been bothered by any of the following problems? 1. Little interest or pleasure in doing things: not at all 2. Feeling down, depressed, or hopeless: not at all 3. Trouble falling or staying asleep, or sleeping too much: not at all 4. Feeling tired or having little energy: not at all 5. Poor appetite or overeating: not at all 6. Feeling bad about yourself - or that you are a failure or have let yourself or your family down: not at all 7. Trouble concentrating on things, such as reading the newspaper or watching television: not at all 8. Moving or speaking so slowly that other people could have noticed. Or the opposite - being so fidgety or restless that you have been moving around a lot more than usual: not at all 9. Thoughts that you would be better off or of hurting yourself in some way: not at all Total score: 0 Depression Screening Interpretation: Negative Depression Screening Done: Yes 10337 - PHQ-9 Billing: Yes Source: Developed by Drs. Woody Florentino, Sue Dash, Shamar Ott and colleagues, with an educational min from [employer]. Thrive Questionnaire Date Thrive assessed: 07/01/23 AUDIT C Alcohol Use Questionnaire (AUDIT-C) 1. How often do you have a drink containing alcohol?: Never 3. How often do you have six or more drinks on one occasion?: Never Total Score: 0 Review of Systems Const All systems reviewed & are unremarkable except as noted in HPI and below Physical exam (Primary Care) Care Plan Goal for BP management: Blood pressure is controlled. Tobacco/Smoking Status: Tobacco use Status Tobacco use date assessed 08/10/23 08/10/23 11:06 Patient Tobacco Use Status Former Tobacco user 08/10/23 11:05 e-Cigarette/Vaping Use Former Use 08/10/23 11:06 Depression Screening Interpretation: Negative Thrive Assessment: Date of Thrive Assessment Date Thrive assessed 07/01/23 08/10/23 11:05 Const Other: Appearance: Alert.? Oriented X3.? No acute distress.? Head: Normocephalic. Eyes: Sclera and Conjunctiva normal. ENT: Pharynx normal.?TM intact and pearly bravo. Neck: Normal inspection.? Neck supple.? CVS: Normal heart rate and rhythm.? Pulses normal.? Respiratory: No respiratory distress.? Breath sounds normal.? Abdomen: Soft and nontender.? Skin: Skin warm and dry.? Normal skin color.? Normal skin turgor.? Extremities: No lower extremity edema. Back: No midline tenderness, no C-spine tenderness, full range of motion, no CVA tenderness bilaterally Neuro: Oriented X 3.? No motor deficit.? No sensory deficit. CN 2-12 intact Assessment and Plan Assessment & Plan (1) Physical exam: Comment: Patient is a 63-year-old male in today for physical exam. Patient was up-to-date with tetanus last obtained in 2021. Patient's Cologuard test in 2023 was normal. Patient is up-to-date with PSA draw which came back within normal limits. He has a past medical history significant for: Postop left knee replacement. Patient had recent postop appointment with Ortho who is following him for this Vitamin-D deficiency-patient has been utilizing vitamin D3 2000 units per day for the past 3 months. History of impaired fasting glucose: Will redraw A1c. Hypothyroid: Controlled with levothyroxine 100 mcg p.o. daily History of abnormal EKG, preop EKG demonstrated history of right bundle-branch block. Patient has declined cardiology referral at this time. He has no symptoms of chest pain, SOB, numbness, or dizziness. Hyperlipidemia: Patient utilizing pravastatin 40 mg p.o. daily and and fenofibrate 160 mg p.o. daily Restless leg syndrome: Utilizing premise med Paxil 0.75 mg daily. Anxiety and depression. Bupropion 150 mg daily and clonidine 0.2 mg p.o. b.i.d.. Code(s): Z00.00 - Encounter for general adult medical examination without abnormal findings Orders: Orders Vitamin D 25-OH (D2 and D3) Today Z13.21 - Encounter for screening for nutritional disorder UA CC w/rflx Micro + Cult Today Z13.89 - Encounter for screening for other disorder Lipid Panel Today Z13.220 - Encounter for screening for lipoid disorders Hemoglobin A1c Today Z13.1 - Encounter for screening for diabetes mellitus Complete Blood Count Auto Diff Today Z13.0 - Encounter for screening for diseases of the blood and blood-forming organs and certain disorders involving the immune mechanism Comprehensive Met. Panel Today Z91.89 - Other specified personal risk factors, not elsewhere classified Coding Level of Care Code Est Pt Prev Care 40-64y(72011) Diagnoses Physical exam Z00.00 Time Spent (min) 28
[2023-08-10 11:06] VITALS: BP 112/80; PULSE 54; O2SAT 94; BMI 31.3
== END 2023-08-10 11:58 | disposition home or self-care (01) ==
PROVIDERS: PCP Nurse Practitioner Family; Visit Provider Nurse Practitioner Primary Care
DX: Z00.00 Encounter for general adult medical examination without abnormal findings (principal)
CPT/HCPCS: 99396

== ENCOUNTER 2023-08-10 11:35 | Outpatient (REF) | payer MEDICARE, BC, SELFPAY ==
[2023-08-10 13:23] LABS: Appearance Urine Clear; Color Urine Yellow; Glucose Urine UA Negative (Negative); Leukocyte Esterase Urine Negative (Negative); Nitrite Urine Negative (Negative); PH 5.5 (5.0-9.0); Specific Gravity - Urine 1.025 (1.005-1.025); UMIC TRIGGER UACC YES; Urine Blood Trace (Negative); Urine Ketones Negative (Negative); Urine Protein Negative (Neg-Trace)
[2023-08-10 13:27] LABS: Bacteria Urine None Seen (None Seen); Hyaline Casts Urine 0-2 /LPF (0-2); RBC Urine 0-2 /HPF (0-2); Squamous Epithelial Cell Urine 0-2 /HPF (0-2); WBC Urine 0-5 /HPF (0-5)
[2023-08-10 13:42] LABS: MANUAL DIFF FLAG NO
[2023-08-10 13:54] LABS: Basophils Absolute Auto 0.1 X10*3/uL (0.0-0.2); Basophils Percent Auto 1.2 % (0-2); Eosinophils Absolute Auto 0.2 X10*3/uL (0.0-0.4); Eosinophils Percent Auto 2.7 % (0-4); Hematocrit 39.1 % (42.0-52.0); Hemoglobin 12.5 g/dl (14.0-18.0); Imm Gran Abs Auto 0.09 X10*3/uL (0.00-0.03); Imm Gran Pct Auto 1.2 % (0.0-0.4); Lymphocytes Absolute Auto 1.6 X10*3/uL (1.2-4.9); Lymphocytes Percent Auto 20.6 % (20-40); Mean Corpuscular Hemoglobin 27.2 pg (27.0-33.0); Mean Platelet Volume 9.7 fL (9.4-12.4); Monocytes Absolute Auto 0.7 X10*3/uL (0.1-1.2); Monocytes Percent Auto 8.8 % (2-11); Neutrophils Absolute Auto 5.1 x10*3/uL (2.0-8.3); Neutrophils Percent Auto 65.5 % (45-73); Platelet Count 461 X10*3/uL (160-400); Red Cell Distribution Width 15.6 % (11.0-16.0); White Blood Count 7.8 X10*3/uL (4.8-10.8)
[2023-08-10 14:07] LABS: Estimated Average Glucose 128 mg/dL; Hemoglobin A1c % 6.1 % (<6.0)
[2023-08-10 14:13] LABS: Alanine Aminotransferase 15 U/L (0-40); Albumin Level 3.7 g/dL (3.5-5.0); Alkaline Phosphatase 68 U/L (39-117); Anion Gap 11 (12-20); Aspartate Amino Transferase 16 U/L (5-37); Bilirubin Total 0.3 mg/dL (0.0-1.0); Blood Urea Nitrogen 16 mg/dL (9-16); Calcium 9.4 mg/dL (8.4-10.2); Carbon Dioxide 25 mmol/L (22-29); Chloride 107 mmol/L (96-108); Cholesterol 139 mg/dL (<200); Estimated Glomerular Filt Rate > 60; Glucose Random 113 mg/dL (60-115); HDL Cholesterol 40 mg/dL (>40); LDL Cholesterol Calculated 73 mg/dL (<100); Potassium 4.8 mmol/L (3.3-5.1); Sodium 138 mmol/L (135-145); Total Protein 7.3 g/dL (6.5-8.0); Triglycerides 134 mg/dL (<150)
[2023-08-14 10:18] LABS: Vitamin D 25-OH, D2 <4 ng/mL; Vitamin D 25-OH, D3 21 ng/mL; Vitamin D 25-OH, Total 21 ng/mL (30-100)
== END 2023-08-10 11:36 | disposition home or self-care (01) ==
LOC: HO.HMGCLDS 11:35
PROVIDERS: PCP Nurse Practitioner Primary Care; Visit Provider Nurse Practitioner Primary Care
DX: Z13.21 Encounter for screening for nutritional disorder (principal); Z13.220 Encounter for screening for lipoid disorders; Z13.1 Encounter for screening for diabetes mellitus; Z13.0 Encounter for screening for diseases of the blood and blood-forming organs and certain disorders involving the immune mechanism; Z91.89 Other specified personal risk factors, not elsewhere classified
CPT/HCPCS: 36415; 80053; 80061; 81001; 82306; 83036; 85025

== ENCOUNTER 2023-09-08 09:00 | Outpatient (RCR) | payer MEDICARE, BC, SELFPAY ==
--- NOTE | 2023-07-17 08:48 | MHC.PT.EP ---
[facility] [place] Office [place] Office [place] Office [address] Biju Chua [address] [phone] F: [phone] F: [phone] F: [phone] F: [phone] Physical Therapy Plan of Care Date of Evaluation: 07/17/23 Date of Surgery: 06/30/23 Diagnosis: s/p R knee TKA Assessment: Patient is a 63 year old R handed male who presents with s/s consistent with R knee TKA, R knee pain. He does not work but enjoys being active at home, in the yard, and cooking. Patient past medical history includes GERD and depression. Current impairments include pain, balance, ROM, strength, activity tolerance and functional mobility. Functional limitations include decreased ability to walk, negotiate stairs, stand, cook, mow and do yard work. Patient is motivated with good rehab potential. Skilled PT will address impairments and functional limitations in order to achieve goals. Frequency and Duration: The patient will be seen 2x/week for 5 weeks Short Term Goals: I with HEP - 2 weeks AROM 0-125 - 3 weeks symmetrical gait with amb and stairs - no AD - 3 weeks Residential Goals: LEFS 60/80 - 5 weeks Strength 4+/5 grossly - 5 weeks SLB > 15 seconds on R LE - 5 weeks Max pain with ADLs 2/10 - 5 weeks Treatment Plan: Modalities to reduce pain, spasms and effusion. Manual therapy to restore motion and function. Therapeutic exercise to improve strength and flexibility. Neuromuscular re-education for posture and balance. Therapeutic activities to return to functional activities of daily living. Electronically signed by: Prince Moore, PT Please sign and return to therapist. Thank you for your referral.
--- NOTE | 2023-09-01 14:45 | MHC.PT.EP ---
[facility] [place] Office [place] Office [place] Office [address] Biju Chua [address] [phone] F: [phone] F: [phone] F: [phone] F: [phone] Physical Therapy Plan of Care Date of Evaluation: 07/17/23 Date of Surgery: 06/30/23 Diagnosis: s/p R knee TKA Assessment: Patient is a 63 year old R handed male who presents with s/s consistent with R knee TKA, R knee pain. He does not work but enjoys being active at home, in the yard, and cooking. Patient past medical history includes GERD and depression. Current impairments include pain, balance, ROM, strength, activity tolerance and functional mobility. Functional limitations include decreased ability to walk, negotiate stairs, stand, cook, mow and do yard work. Patient is motivated with good rehab potential. Skilled PT will address impairments and functional limitations in order to achieve goals. Frequency and Duration: The patient will be seen 2x/week for 5 weeks Short Term Goals: I with HEP - 2 weeks AROM 0-125 - 3 weeks symmetrical gait with amb and stairs - no AD - 3 weeks Halfway Goals: LEFS 60/80 - 5 weeks Strength 4+/5 grossly - 5 weeks SLB > 15 seconds on R LE - 5 weeks Max pain with ADLs 2/10 - 5 weeks Treatment Plan: Modalities to reduce pain, spasms and effusion. Manual therapy to restore motion and function. Therapeutic exercise to improve strength and flexibility. Neuromuscular re-education for posture and balance. Therapeutic activities to return to functional activities of daily living. Electronically signed by: Prince Moore, PT Please sign and return to therapist. Thank you for your referral.
--- NOTE | 2024-03-09 09:28 | MHC.PT.DC ---
[facility] [place] Office [place] Office [place] Office [address] Biju Chua [address] [phone] F: [phone] F: [phone] F: [phone] F: [phone] Physical Therapy Discharge Report Diagnosis: s/p R knee TKA Date of Surgery: 06/30/23 Date of Evaluation: 07/17/23 Date of Discharge: 09/21/23 Treatments to Date: 13 Cancellations to Date: No Shows to Date: Discharge Status: Improved Function Independent with HEP Discharge Summary: 09/08/23: some L calf discomfort started on bike. assessed and (-) for s/s of DVT. we did continue with caution. cues for step up/over 8.5 today. struggles R HH assist to control descent. 09/01/23: ROM maintaining. strength progressing. no adverse reactions from above program. 08/25/23: pt with no new s/s. mild swelling. good mechanics. continue to progress as tolerated. 08/21/23: pt responding well. did not sleep well so he asked to cut PT short today, resume NV. He elected to stop PT and he does have a well established HEP at this time. 08/19/23: pt progressing well. swelling well controlled. stairs mechanics improving and progression tolerated well. Pt continues to progress well with skilled PT. started shuttle today to improve functional mobility related to stairs and transfers. continue to respond well. Electronically signed by: Prince Moore, PT Please sign and return to therapist. Thank you for your referral.
== END 2024-03-09 09:29 | disposition home or self-care (01) ==
LOC: HO.PTCHIC 09:00
PROVIDERS: PCP Nurse Practitioner Primary Care; Visit Provider Physician Assistant
DX: Z96.651 Presence of right artificial knee joint (principal)
CPT/HCPCS: 97110; 97140; 97162

== ENCOUNTER 2023-09-17 09:35 | Outpatient (REF) | payer MEDICARE, BC, SELFPAY ==
--- NOTE | ~2023-09-17 | XR_ITS ---
EXAMINATION: XR KNEE, RIGHT CLINICAL INFORMATION: Pain right knee. COMPARISON: Postoperative right knee x-rays 06/30/2023. TECHNIQUE: AP view bilateral knees, lateral and patellofemoral view right knee. Please note, due to [facility] contractual, systems, and staffing issues, an [facility] radiologist was not available for review and dictation of this case until 10/30/2023. FINDINGS: RIGHT KNEE: -There has been a total right knee arthroplasty. Tibial, and femoral components are intact, in anatomic alignment. No periprosthetic fracture. Lucency has developed lateral to the keel and stem of the tibial component. -Addition, osteopenia appears developing surrounding the femoral component. -Patellar view demonstrates lateral patellar tilt with undersurface component and remodeling. The also demonstrates osseous bodies in the patellofemoral joint space, possibly intra-articular loose bodies. -Screw tract noted in the medial femoral plateau. -Extensive soft tissue swelling anteriorly and laterally. -Vascular calcifications. LEFT KNEE: -Stable tricompartmental arthritis, similar to prior exams, most significant lateral compartment. No acute finding. XR/XR knee RT 3V IMPRESSION: 1. Total right knee arthroplasty, with lucency developing lateral to the tibial component keel and stem, osteopenia developing surrounding the femoral component, and diffuse soft tissue swelling most prominent ventrally. Findings suggest developing septic arthropathy, with possible early osteomyelitis. Correlate clinically with appearance and laboratory values. Consider aspiration if felt warranted. 2. Stable tricompartmental degenerative arthritis left knee. No acute findings. Electronically signed by: Kermit Montesinos MD 10/30/2023 05:25 PM EDT
== END 2023-09-17 09:36 | disposition home or self-care (01) ==
LOC: HO.HOSX 09:35
PROVIDERS: PCP Nurse Practitioner Primary Care; Visit Provider Orthopaedic Surgery
DX: M25.561 Pain in right knee (principal); Z96.651 Presence of right artificial knee joint
CPT/HCPCS: 73562; 99212

== ENCOUNTER 2023-09-17 09:35 | Outpatient (AMB) | payer MEDICARE, BC, SELFPAY ==
--- NOTE | 2023-09-17 09:37 | A.OFFVIS_ITS ---
Vital Signs 09/17/23 09:55 Height 5 ft 7 in Weight 200 lb BMI 31.3 Intake Visit Reasons: Post Op- R TKA 06/30/23 6 week follow up Intake Note: Hang is a 63 year old male who presents today for a post operative 5 week follow up s/p Right TKA 06/30/23.Severe Varus deformity. Patient reports that he is having some continued pain in the right knee. His pain is worse when going down stairs, he explains that it feels like its going to tear this is felt along the incision. He continues to work with PT. Allergies niacin [NIACIN] Allergy (Intermediate, Verified 08/10/23 11:23) AGITATION nystatin [NYSTATIN] Allergy (Unknown, Verified 08/10/23 11:23) RASH ropinirole [ROPINIROLE] Allergy (Unknown, Verified 08/10/23 11:23) ANXIOUS duloxetine Adverse Reaction (Unknown, Verified 08/10/23 11:23) Unknown HPI HPI Post Op- R TKA 06/30/23 6 week follow up: Details: Hang is a 63 year old male who presents today for a post operative 5 week follow up s/p Right TKA 06/30/23.Severe Varus deformity. Patient reports that he is having some continued pain in the right knee. His pain is worse when going down stairs, he explains that it feels like its going to tear this is felt along the incision. He continues to work with PT. [facility] Medical History GERD (gastroesophageal reflux disease) Sleep apnea Restless legs syndrome Hypothyroid Depression High cholesterol Surgical History Status post right knee replacement H/O rotator cuff surgery S/P tendon repair S/P ankle joint replacement Social History Household Members: Family Housing: House Are you a primary behavioral health care coordinator to a significant other at home: No Do you presently have visiting nurse or other home services: No Alcohol intake: current Alcohol intake frequency: does not drink Patient Tobacco Use Status: Former Tobacco user e-Cigarette/Vaping Use: Former Use Second Hand Smoke Exposure: No Substance Use Type: Marijuana service: No Current occupational status: disabled Cognitive needs: No Hearing needs: No Vision needs: No Physical Exam Vital Signs: BMI result Body Mass Index 31.3 Extrem Other: 0-110 degrees of motion. Stable arc of motion No gait antalgia Mild tenderness to palpation over the incision Results Reviewed Results Reviewed: I personally reviewed relevant radiographs. RIght total knee arthroplasty in expected post operative position with no hardware complications or evidence of loosening Assessment & Plan Assessment & Plan (1) Status post total knee replacement, right: Code(s): Z96.651 - Presence of right artificial knee joint Category: Surgical Plan: Hang is doing well status post right knee replacement. He has had some anterior knee pain. He had severe varus deformity and I would anticipate some difficulty in recovery. He has no effusion and overall is doing well on exam. Continue physical therapy and follow up in 3 months' time. Orders: Orders XR knee RT 3V Today M25.561 - Pain in right knee Coding Level of Care Code Global (94608) Diagnoses Status post total knee replacement, right Z96.651
[2023-09-17 09:55] VITALS: BMI 31.3
== END 2023-09-17 12:38 | disposition home or self-care (01) ==
PROVIDERS: PCP Nurse Practitioner Primary Care; Visit Provider Orthopaedic Surgery
DX: Z96.651 Presence of right artificial knee joint (principal)
CPT/HCPCS: 99024

== ENCOUNTER → 2023-09-17 10:06 | Outpatient (BNV) | payer MEDICARE, BC, SELFPAY | PROVIDERS: PCP Nurse Practitioner Primary Care; Visit Provider Radiology Diagnostic Radiology | DX: M25.561 Pain in right knee (principal); Z96.651 Presence of right artificial knee joint | CPT/HCPCS: 73562 ==

== ENCOUNTER 2023-12-21 08:39 | Outpatient (REF) | payer MEDICARE, BC, SELFPAY | END 2023-12-21 08:40 | disposition home or self-care (01) | LOC: HO.HOSX 08:39 | PROVIDERS: Visit Provider Orthopaedic Surgery | DX: M25.561 Pain in right knee (principal); M25.562 Pain in left knee; Z96.651 Presence of right artificial knee joint | CPT/HCPCS: 73560; 73562; 99212 ==

== ENCOUNTER 2023-12-21 10:26 | Outpatient (AMB) | payer MEDICARE, BC, SELFPAY ==
--- NOTE | 2023-12-21 10:33 | A.OFFVIS_ITS ---
Vital Signs 12/21/23 10:36 Height 5 ft 7 in Weight 200 lb BMI 31.3 Intake Visit Reasons: OV- R TKA 06/30/23 3 month f/u Intake Note: Hang is a 63 year old male who presents today for a follow up of his right knee s/p Right TKA 06/30/23.Severe Varus deformity. Patient reports that he is making slow progress. Since he has stopped therapy he feels that he has regressed, he is struggling with prolonged walking, stairs. He feels that the knees feel weak and he does not feel steady on his feet. His pain is mild but noticable, he does not take anything for his pain. Allergies niacin [NIACIN] Allergy (Intermediate, Verified 12/21/23 10:33) AGITATION nystatin [NYSTATIN] Allergy (Unknown, Verified 12/21/23 10:33) RASH ropinirole [ROPINIROLE] Allergy (Unknown, Verified 12/21/23 10:33) ANXIOUS duloxetine Adverse Reaction (Unknown, Verified 12/21/23 10:33) Unknown HPI HPI OV- R TKA 06/30/23 3 month f/u: Details: Hang is a 63 year old male who presents today for a follow up of his right knee s/p Right TKA 06/30/23.Severe Varus deformity. Patient reports that he is making slow progress. Since he has stopped therapy he feels that he has regressed, he is struggling with prolonged walking, stairs. He feels that the knees feel weak and he does not feel steady on his feet. His pain is mild but noticable, he does not take anything for his pain. COUNT INCLUDES THE [facility] Medical History GERD (gastroesophageal reflux disease) Sleep apnea Restless legs syndrome Hypothyroid Depression High cholesterol Surgical History (Updated 12/21/23 @ 10:38 by Lynnette Merida CMA) Status post right knee replacement (06/30/23) H/O rotator cuff surgery S/P tendon repair S/P ankle joint replacement Social History Household Members: Family Housing: House Are you a primary associate director career services to a significant other at home: No Do you presently have visiting nurse or other home services: No Alcohol intake: current Alcohol intake frequency: does not drink Patient Tobacco Use Status: Former Tobacco user e-Cigarette/Vaping Use: Former Use Second Hand Smoke Exposure: No Substance Use Type: Marijuana service: No Current occupational status: disabled Cognitive needs: No Hearing needs: No Vision needs: No Physical Exam Vital Signs: BMI result Body Mass Index 31.3 Extrem Other: Stable right knee with no tenderness to palpation. No gait antalgia and full range of motion with well-healed incision. Results Reviewed Results Reviewed: I personally reviewed relevant radiographs. Right total knee replacement in position slightly changed from prior with mild lucency around the tibial stem . Assessment & Plan Assessment & Plan (1) Status post total knee replacement, right: Code(s): Z96.651 - Presence of right artificial knee joint Category: Surgical Plan: This is a 63-year-old gentleman 6 months status post right knee replacement who was doing well he was at a slight decline in his functional status although he has no pain. I reviewed the radiographs with him and there is radiographic evidence of possible tibial stem loosening. Without pain I would not intervene and recommend that he work on muscle strengthening and we will see him back in 3 months. I discussed my rationale for this and the patient in his were present understand. A prescription for physical therapy was written Orders: Orders XR knee RT 3V Today M25.561 - Pain in right knee XR knee LT 1V Today M25.569 - Pain in unspecified knee PT Evaluation and Treatment Today Z96.651 - Presence of right artificial knee joint Coding Level of Care Code Est Pt Level 3 (96001) Diagnoses Status post total knee replacement, right Z96.651
[2023-12-21 10:36] VITALS: BMI 31.3
== END 2023-12-21 11:11 | disposition home or self-care (01) ==
PROVIDERS: PCP Nurse Practitioner Family; Visit Provider Orthopaedic Surgery
DX: Z47.1 Aftercare following joint replacement surgery (principal); Z96.651 Presence of right artificial knee joint
CPT/HCPCS: 99213

== ENCOUNTER 2024-02-15 12:59 | Outpatient (AMB) | payer MEDICARE, BC, SELFPAY ==
[2024-02-15 13:00] VITALS: BP 118/78; PULSE 66; O2SAT 97; BMI 33.5
--- NOTE | 2024-02-15 13:00 | A.OFFPC_ITS ---
Vital Signs 02/15/24 13:00 Height 5 ft 7 in Weight 214 lb BMI 33.5 BP 118/78 Blood Pressure Location Lt brachial Position Sitting Pulse 66 Pulse Source Pulse Oximeter Pulse Oximetry (%) 97 Oxygen Delivery Method Room Air Intake Visit Reasons: Transfer from [facility] Intake Note: pt is here for transfer of care, hx of HTN Wood Floor Layer Required: No Accompanied by: Self / Same As Patient Allergies niacin [NIACIN] Allergy (Intermediate, Verified 02/15/24 13:01) AGITATION nystatin [NYSTATIN] Allergy (Unknown, Verified 02/15/24 13:01) RASH ropinirole [ROPINIROLE] Allergy (Unknown, Verified 02/15/24 13:01) ANXIOUS duloxetine Adverse Reaction (Unknown, Verified 02/15/24 13:01) Unknown Medication List - Last Reconciled 02/15/24 by COOPER Jones acetaminophen 650 mg (2 x 325 mg) PO Q6H PRN 30 days aspirin 325 mg PO BID 42 days bupropion HCl XL 150 mg PO QAM celecoxib 200 mg PO BID 30 days clonidine HCl 0.2 mg PO BID fenofibrate 160 mg PO DAILY@1700 levothyroxine (Synthroid) 100 mcg PO DAILY pramipexole 0.75 mg PO TID pravastatin 40 mg PO DAILY@1700 sennosides (senna) 8.6 mg PO BEDTIME PRN walker Folding Front wheeled walker Tobacco use date assessed: 02/15/24 Fall risk assessment: No Falls in past year Last assessed Fall Risk: 02/15/24 Dental Screening Dental Screen Date: 02/15/24 Did you have a dental visit in the last 12 months?: Yes Did you have a dental problem in the last 6 months where you did not have access to dental care?: No Was dental information given to patient?: Patient has dentist HPI Transfer from [facility] HPI Details Chief Complaint Chronic management of hypertension and hypothyroidism. History of Present Illness The patient is a 63-year-old male presenting with chronic management concerns related to essential hypertension and hypothyroidism following a transfer of care due to a change in provider. The hypertension is managed with clonidine taken twice daily, indicating a need for regular monitoring and adjustment based on response and blood pressure variations. Hypothyroidism is monitored and managed with current hormone replacement therapy, likely levothyroxine adjusted per thyroid function tests. The patient also reports the use of labral ferroxide, suggesting management of iron levels, possibly due to anemia or related condition, though further context was not specified. The patient experiences chronic lower extremity pain necessitating the use of a cane for ambulation and reports being on disability, suggesting a profound impact on functional status and quality of life. Importantly, the patient denies associated symptoms such as chest pain, shortness of breath, fevers, or chills, indicating stable control of hypertension at present. Additionally, there is a denial of major depression, anxiety, suicidal ideation, or homicidal ideation, as well as any gastrointestinal or visual disturbances, suggesting no acute psychiatric or systemic complaints at this time. Social History - The patient is on disability due to lo wer extremity pain. - The patient uses a cane for ambulation due to chronic lower extremity pain. Health Maintenance Review of Systems - Cardiovascular: Denies chest pain. - Respiratory: Denies shortness of breat h. - Constitutional: Denies fevers and chil ls. - Musculoskeletal: Reports the use of a cane for ambulation due to lower extremity pain. - Psychiatric: Denies major depression, anxiety, suicidal ideation, and homicidal ideation. - Gastrointestinal: Denies abdominal dis comfort. - Neurological: Denies blurred vision an d headache. Physical Exam General: Cooperative, healthy appearing, comfortable, no acute distress and well developed, obese, uses a cane Orientation: Patient oriented x3 Limitations: Uses a cane for lower extremity pains Head: Normal to inspection Ears: Hearing grossly normal bilaterally Nose: Normal external nose present Face and sinus: Normal facial exam Eyes: Appearance normal, both eyes and all related structures Neck: Normal visual inspection and Yes full ROM Respiratory: Normal respiratory effort and able to speak in complete sentences. Clear to auscultation bilaterally Cardiovascular: Regular rate and rhythm. Normal S1 and S2 GI: Normal to inspection. Soft to palpation and nontender Skin: No rashes or lesions noted Neuro: Patient oriented x3 Extremities: trace to BLE Results Plan - Continue management of essential hyper tension with clonidine, monitoring blood pressure levels and adjusting dosage as necessary. - Continue [facility] adjust hypothyroidism management with current therapy. - Initiate basic laboratory tests to [facility] for any underlying issues or adjustments needed in current management plans. - Schedule follow-up visit in six months to monitor conditions and reassess management plans. Patient was informed and verbally consented to the use of an ambient scribe for clinic note documentation during this visit. Discussion Notes During the visit, I reviewed with the patient the importance of maintaining consistent blood pressure management given the current medication regimen involving clonidine. We discussed the need for regular monitoring of thyroid function tests to adjust thyroid hormone replacement therapy as needed due to the patient's history of hypothyroidism. I outlined the plan to obtain basic laboratory tests at the current visit as part of ongoing monitoring and disease management. The patient was advised on the potential need for adjustments to his medication regimen based on these future lab results. We planned a follow-up visit scheduled for six months from now to comprehensively reassess and manage his chronic conditions. Patient Instructions - Continue the current medications as pr escribed. - Monitor blood pressure regularly and r eport any significant changes. - Keep follow-up appointments and schedu le for ongoing laboratory tests as discussed. - Use the cane for support and avoid act ivities that exacerbate lower extremity pain. - Contact the clinic if any new symptoms arise or existing conditions worsen. [facility] Medical History GERD (gastroesophageal reflux disease) Sleep apnea Restless legs syndrome Hypothyroid Depression High cholesterol Surgical History Status post right knee replacement (06/30/23) H/O rotator cuff surgery S/P tendon repair S/P ankle joint replacement Social History Household Members: Family Housing: House Are you a primary long term care pharmacist to a significant other at home: No Do you presently have visiting nurse or other home services: No Alcohol intake: current Alcohol intake frequency: does not drink Patient Tobacco Use Status: Former Tobacco user e-Cigarette/Vaping Use: Former Use Second Hand Smoke Exposure: No Substance Use Type: Marijuana service: No Current occupational status: disabled Cognitive needs: No Hearing needs: No Vision needs: No Questionnaire PHQ-9 Over the last 2 weeks, how often have you been bothered by any of the following problems? 1. Little interest or pleasure in doing things: several days 2. Feeling down, depressed, or hopeless: several days 3. Trouble falling or staying asleep, or sleeping too much: several days 4. Feeling tired or having little energy: several days 5. Poor appetite or overeating: more than half the days 6. Feeling bad about yourself - or that you are a failure or have let yourself or your family down: several days 7. Trouble concentrating on things, such as reading the newspaper or watching television: not at all 8. Moving or speaking so slowly that other people could have noticed. Or the opposite - being so fidgety or restless that you have been moving around a lot more than usual: several days 9. Thoughts that you would be better off or of hurting yourself in some way: not at all Total score: 8 Depression Screening Interpretation: Negative Depression Screening Done: Yes 74861 - PHQ-9 Billing: Yes Source: Developed by Drs. Woody Florentino, Sue Dash, Shamar Ott and colleagues, with an educational min from [employer]. Thrive Questionnaire Date Thrive assessed: 02/15/24 I am a: Patient What is your living situation today?: I have a steady place to live Within the past 12 months, did the food you bought not last and you didn't have the money to get more?: Never true Within the past 12 months, did you worry whether your food would run out before you got money to buy more?: Never true Do you have trouble paying for medicines?: No Do you have trouble getting transportation to medical appointments?: No Do you have trouble paying your heating and electricity bill?: No Do you have trouble taking care of your child, family member or friend?: No Do you have trouble with day-to-day activities such as bathing, preparing meals, shopping, managing finances, etc.?: No Are you currently unemployed and looking for a job?: No Are you interested in more education?: No Please select the resources that you would like help with: None Currently or been in a relationship where the following occur: No concerns reported THRIVE Score: 0 AUDIT C Alcohol Use Questionnaire (AUDIT-C) 1. How often do you have a drink containing alcohol?: Never 3. How often do you have six or more drinks on one occasion?: Never Total Score: 0 Score Reviewed/Action Taken: Yes LACEY-7 AMB Questionnaire LACEY-7 Date LACEY - 7 assessed: 02/15/24 Feeling nervous, anxious, or on edge: 0 = Not at all Not being able to stop or control worryin = Not at all Worrying too much about different things: 0 = Not at all Trouble relaxin = Not at all Being so restless that it is hard to sit still: 0 = Not at all Becoming easily annoyed or irritable: 0 = Not at all Feeling afraid as if something awful might happen: 0 = Not at all Total LACEY-7 score (0-4 normal; 5-9 mild; 10-14 moderate; 15-21 severe): 0 Source: Developed by Drs. Woody Florentino, Sue Dash, Shamar Ott and colleagues, with an educational min from [employer]. LACEY-7 Assessment Billing LACEY-7 Assessment Tool: LACEY-7 Assessment 45582 Physical exam (Primary Care) Vital Signs: Last Vital Signs Pulse 66 02/15/24 13:00 BP 118/78 02/15/24 13:00 Pulse Ox 97 02/15/24 13:00 Oxygen Delivery Method Room Air 02/15/24 13:00 BMI result Body Mass Index 33.5 Tobacco/Smoking Status: Tobacco use Status Tobacco use date assessed 02/15/24 02/15/24 13:03 Patient Tobacco Use Status Former Tobacco user 02/15/24 13:03 e-Cigarette/Vaping Use Former Use 02/15/24 13:03 PHQ-9: PHQ-9 Score PHQ-9: Total score 8 02/15/24 13:03 Depression Screening Interpretation: Negative Thrive Assessment: Date of Thrive Assessment Date Thrive assessed 02/15/24 02/15/24 13:03 Currently or been in a relationship where the following occur: No concerns reported Coding Level of Care Code New Pt Level 3 (65409) Diagnoses Hypertension, unspecified type I10 Hypertension type: unspecified Hypothyroidism, unspecified type E03.9 Hypothyroidism type: unspecified Screening for prostate cancer Z12.5 Additional Codes LACEY-7 Assessment Billing - LACEY-7 Assessment Tool: LACEY-7 Assessment 74967 ([id number]) PHQ-9 - 20481 - PHQ-9 Billing: Yes ([id number]) Assessment & Plan Assessment & Plan (1) Hypertension: Comment: Blood pressure is well controlled Code(s): I10 - Essential (primary) hypertension Category: Medical Qualifiers: Hypertension type: unspecified Qualified Code(s): I10 - Essential (primary) hypertension (2) Hypothyroid: Code(s): E03.9 - Hypothyroidism, unspecified Category: Medical Qualifiers: Hypothyroidism type: unspecified Qualified Code(s): E03.9 - Hypothyroidism, unspecified (3) Screening for prostate cancer: Code(s): Z12.5 - Encounter for screening for malignant neoplasm of prostate Category: Medical Plan . Orders: Orders Comprehensive [place]. Panel Fast Today E03.9 - Hypothyroidism, unspecified, I10 - Essential (primary) hypertension Lipid Panel Today E03.9 - Hypothyroidism, unspecified, I10 - Essential (primary) hypertension Complete Blood Count Auto Diff Today E03.9 - Hypothyroidism, unspecified, I10 - Essential (primary) hypertension TSH reflex Free T4 Today E03.9 - Hypothyroidism, unspecified, I10 - Essential (primary) hypertension UA CC w/rflx Micro + Cult Today E03.9 - Hypothyroidism, unspecified, I10 - Essential (primary) hypertension Prostate Specific Antigen Scr Today Z12.5 - Encounter for screening for malignant neoplasm of prostate
== END 2024-02-15 13:51 | disposition home or self-care (01) ==
PROVIDERS: PCP Nurse Practitioner Family; Visit Provider Nurse Practitioner Family
DX: I10 Essential (primary) hypertension (principal); E03.9 Hypothyroidism, unspecified; Z12.5 Encounter for screening for malignant neoplasm of prostate

== ENCOUNTER → 2024-02-15 12:59 | Outpatient (BNVA) | payer MEDICARE, BC, SELFPAY | PROVIDERS: PCP Nurse Practitioner Family; Visit Provider Nurse Practitioner Family | DX: I10 Essential (primary) hypertension (principal); E03.9 Hypothyroidism, unspecified | CPT/HCPCS: 96127; 99202 ==

== ENCOUNTER 2024-02-25 10:00 | Outpatient (RCR) | payer BC, MEDICARE, SELFPAY ==
--- NOTE | 2024-01-12 10:55 | MHC.PT.EP ---
[facility] [place] Office [place] Office [place] Office [address] Biju Chua [address] [phone] F: [phone] F: [phone] F: [phone] F: [phone] Physical Therapy Plan of Care Date of Evaluation: 01/12/24 Date of Surgery: Diagnosis: S/P R TKA Assessment: Patient is a 63 year old R handed male who presents with s/s consistent with R knee pain, s/p R TKA. He is retired but does take care of his house and who is recently diagnosed with cancer. Patient past medical history includes ankle replacement, knee replacement, rotator cuff surgery. Current impairments include pain, balance, ROM, strength, activity tolerance and functional mobility. Functional limitations include decreased ability to walk, stand, squat, bend, negotiate stairs, and perform strenuous activities. Patient is motivated with good rehab potential. Skilled PT will address impairments and functional limitations in order to achieve goals. 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 Manual therapy to restore motion and function. Therapeutic exercise to improve strength and flexibility. Neuromuscular re-education for posture and balance. Therapeutic activities to return to functional activities of daily living. Electronically signed by: Prince Moore, PT Please sign and return to therapist. Thank you for your referral.
--- NOTE | 2024-05-04 10:33 | MHC.PT.DC ---
[facility] [place] Office [place] Office [place] Office [address] Biju Chua [address] [phone] F: [phone] F: [phone] F: [phone] F: [phone] Physical Therapy Discharge Report Diagnosis: S/P R TKA Date of Surgery: Date of Evaluation: 01/12/24 Date of Discharge: 03/25/24 Treatments to Date: 10 Cancellations to Date: No Shows to Date: Discharge Status: Independent with HEP Patient Elected to Stop Discharge Summary: 02/24; Pt performed exs on table. Pt guarded with gait with sc.Pt is checking his melecio when he can go in to get fitted for brace. Pt 02/22/23: increased pain recently. resorted to mostly table therex today. pt does tend to have gait mechanics promoting varus force through R knee. 02/17; Pt pronated discussed posiatrist orthotics. Pt buckling decreased and feels stronger. 02/11/24: pt progressing well with skilled PT. he does still have episodes of buckling but no falls. continue to progress as tolerated. 02/09/24: progressed shuttle resistance. continue to progress strength as tolerated. 02/05/24: had to depart early for chemo. continues to progress and maintain good motivation. 01/26/24: pt progressing well with skilled PT. no adverse reactions. continue to progress as tolerated. 01/21/24: pt progressing well with skilled PT, ROM restore to prior levels. we will continue to progress strength as tolerated. 01/18; Pt fatigued after exs. Pt has decreased stride L L.E. Pt c/o L knee pain also. Patient is a 63 year old R handed male who presents with s/s consistent with R knee pain, s/p R TKA. He is retired but does take care of his house and who is recently diagnosed with cancer. Patient past medical history includes ankle replacement, knee replacement, rotator cuff surgery. Current impairments include pain, balance, ROM, strength, activity tolerance and functional mobility. Functional limitations include decreased ability to walk, stand, squat, bend, negotiate stairs, and perform strenuous activities. Patient is motivated with good rehab potential. Skilled PT will address impairments and functional limitations in order to achieve goals. Electronically signed by: Prince Moore, PT Please sign and return to therapist. Thank you for your referral.
== END 2024-05-04 10:34 | disposition home or self-care (01) ==
LOC: HO.PTCHIC 10:00
PROVIDERS: PCP Nurse Practitioner Family; Visit Provider Orthopaedic Surgery
DX: Z96.651 Presence of right artificial knee joint (principal)
CPT/HCPCS: 97110; 97112; 97162

== ENCOUNTER 2024-02-29 09:14 | Outpatient (REF) | payer MEDICARE, BC, SELFPAY ==
--- NOTE | ~2024-02-29 | XR_ITS ---
EXAMINATION: XR KNEE, RIGHT CLINICAL INFORMATION: M25.561 - Pain in right knee COMPARISON: None available. TECHNIQUE: Four views of the right knee. FINDINGS: The right knee prosthesis with prosthetic components in satisfactory alignment. There is no periprosthetic bony abnormality or fracture. There is a small loose body in the suprapatellar bursa. There is moderate anterior superficial knee soft tissue swelling. There is moderate loss of medial and lateral compartment joint space left knee. Mild periarticular spurring medial compartment is noted. XR/XR knee RT 3V IMPRESSION: Right knee arthroplasty with prosthetic components in satisfactory alignment. There is a loose body in the suprapatellar bursa and moderate superficial anterior knee soft tissue swelling. Electronically signed by: Huseyin Kilgore MD 02/29/2024 01:20 PM TRELL
== END 2024-02-29 09:15 | disposition home or self-care (01) ==
LOC: HO.HOSX 09:14
PROVIDERS: Visit Provider Orthopaedic Surgery
DX: M25.561 Pain in right knee (principal); T84.038A Mechanical loosening of other internal prosthetic joint, initial encounter; Z96.659 Presence of unspecified artificial knee joint
CPT/HCPCS: 73562; 99212

== ENCOUNTER 2024-02-29 10:42 | Outpatient (AMB) | payer MEDICARE, BC, SELFPAY ==
--- NOTE | 2024-02-29 10:46 | A.OFFVIS_ITS ---
Vital Signs 02/29/24 10:54 Height 5 ft 7 in Intake Visit Reasons: OV- R TKA 06/30/23 f/u Intake Note: Hang is a 63 year old male who presents today for a follow up of his right knee s/p Right TKA 06/30/23.Severe Varus deformity. Patients last visit the note states that there is possible tibial stem loosening, it was recommended that he works on strengthening. He reports increased pain today. He continues to work with physical therapy. Allergies niacin [NIACIN] Allergy (Intermediate, Verified 02/29/24 10:46) AGITATION nystatin [NYSTATIN] Allergy (Unknown, Verified 02/29/24 10:46) RASH ropinirole [ROPINIROLE] Allergy (Unknown, Verified 02/29/24 10:46) ANXIOUS duloxetine Adverse Reaction (Unknown, Verified 02/29/24 10:46) Unknown Medication List - Last Reconciled 02/29/24 by Traci Vera RN acetaminophen 650 mg (2 x 325 mg) PO Q6H PRN 30 days aspirin 325 mg PO BID 42 days bupropion HCl XL 150 mg PO QAM celecoxib 200 mg PO BID 30 days clonidine HCl 0.2 mg PO BID fenofibrate 160 mg PO DAILY@1700 levothyroxine (Synthroid) 100 mcg PO DAILY pramipexole 1 mg PO TID pravastatin 40 mg PO DAILY@1700 sennosides (senna) 8.6 mg PO BEDTIME PRN walker Folding Front wheeled walker HPI HPI OV- R TKA 06/30/23 f/u: Details: Hang is a 63-year-old gentleman who is proximally 8 months status post right knee replacement. Had last visit there was some change in alignment with worsening varus and is question of aseptic loosening. His pain however was tolerable and he has been continuing to do a therapy and was doing well until about 2 weeks ago when he had acute onset of worsening lateral tibial pain. He has had to start using a cane and/or a walker again. He denies fevers and chills. [facility] Medical History GERD (gastroesophageal reflux disease) Sleep apnea Restless legs syndrome Hypothyroid Depression High cholesterol Surgical History Status post right knee replacement (06/30/23) H/O rotator cuff surgery S/P tendon repair S/P ankle joint replacement Social History Household Members: Family Housing: House Are you a primary resident care aid to a significant other at home: No Do you presently have visiting nurse or other home services: No Alcohol intake: current Alcohol intake frequency: does not drink Patient Tobacco Use Status: Former Tobacco user e-Cigarette/Vaping Use: Former Use Second Hand Smoke Exposure: No Substance Use Type: Marijuana service: No Current occupational status: disabled Cognitive needs: No Hearing needs: No Vision needs: No Physical Exam Extrem Other: There is 1+ varus instability with 5-120 degrees motion. No effusion. Results Reviewed Results Reviewed: I personally reviewed relevant radiographs. Compared to radiographs from 12/21/23 there does appear to be tibial component loosening. Assessment & Plan Assessment & Plan (1) Aseptic loosening of prosthetic knee: Code(s): T84.038A - Mechanical loosening of other internal prosthetic joint, initial encounter; Z96.659 - Presence of unspecified artificial knee joint Category: Medical Plan: This is a 63-year-old gentleman with early aseptic loosening right total knee replacement. I recommend revision right knee arthroplasty. I explained the rationale for this and the radiographic and clinical findings. I explained the pathophysiology of his current condition. His is currently undergoing cancer treatments not a good time for him. I do think we should plan this but he states the pain is tolerable and as long as he has a brace he is okay. A hinged knee brace was given to him and I will order an unloading brace. I would like to see him back in approximately 6 weeks' time. Orders: Orders XR knee RT 3V Today M25.561 - Pain in right knee XR knee LT 1V Today M25.569 - Pain in unspecified knee Coding Level of Care Code Est Pt Level 4 (21026) Diagnoses Aseptic loosening of prosthetic knee T84.038A; Z96.659
== END 2024-02-29 11:35 | disposition home or self-care (01) ==
PROVIDERS: PCP Nurse Practitioner Family; Visit Provider Orthopaedic Surgery
DX: T84.038A Mechanical loosening of other internal prosthetic joint, initial encounter (principal); Z96.659 Presence of unspecified artificial knee joint
CPT/HCPCS: 99214

== ENCOUNTER 2024-03-03 08:00 | Outpatient (REF) | payer BC, MEDICARE, SELFPAY ==
[2024-03-03 10:13] LABS: MANUAL DIFF FLAG NO
[2024-03-03 10:27] LABS: Basophils Absolute Auto 0.1 X10*3/uL (0.0-0.2); Basophils Percent Auto 1.3 % (0-2); Eosinophils Absolute Auto 0.2 X10*3/uL (0.0-0.4); Eosinophils Percent Auto 2.8 % (0-4); Hematocrit 42.7 % (42.0-52.0); Imm Gran Abs Auto 0.06 X10*3/uL (0.00-0.03); Imm Gran Pct Auto 0.8 % (0.0-0.4); Lymphocytes Percent Auto 26.9 % (20-40); Mean Corpuscular HGB Conc 32.8 g/dl (31.0-36.0); Mean Corpuscular Hemoglobin 27.8 pg (27.0-33.0); Mean Corpuscular Volume 84.9 fL (80.0-98.0); Mean Platelet Volume 9.6 fL (9.4-12.4); Monocytes Absolute Auto 0.7 X10*3/uL (0.1-1.2); Monocytes Percent Auto 8.8 % (2-11); Neutrophils Absolute Auto 4.4 x10*3/uL (2.0-8.3); Neutrophils Percent Auto 59.4 % (45-73); Platelet Count 460 X10*3/uL (160-400); Red Blood Count 5.03 X10*6/uL (4.60-5.80); Red Cell Distribution Width 14.6 % (11.0-16.0); White Blood Count 7.5 X10*3/uL (4.8-10.8)
[2024-03-03 10:49] LABS: Alanine Aminotransferase 24 U/L (0-40); Albumin Level 3.7 g/dL (3.5-5.0); Alkaline Phosphatase 74 U/L (39-117); Anion Gap 9 (12-20); Aspartate Amino Transferase 29 U/L (5-37); Bilirubin Total 0.4 mg/dL (0.0-1.0); Blood Urea Nitrogen 19 mg/dL (9-16); Calcium 9.6 mg/dL (8.4-10.2); Carbon Dioxide 27 mmol/L (22-29); Chloride 108 mmol/L (96-108); Cholesterol 145 mg/dL (<200); Estimated Glomerular Filt Rate > 60; Glucose Fasting 131 mg/dL (60-99); HDL Cholesterol 34 mg/dL (>40); LDL Cholesterol Calculated 85 mg/dL (<100); Potassium 4.3 mmol/L (3.3-5.1); Sodium 140 mmol/L (135-145); Total Protein 7.2 g/dL (6.5-8.0); Triglycerides 133 mg/dL (<150)
[2024-03-03 10:55] LABS: Prostate Specific Antigen Scr 1.34 ng/mL (<0.05-4.0)
[2024-03-03 11:11] LABS: TSH reflex Free T4 3.46 uIU/mL (0.32-4.0)
[2024-03-03 13:53] LABS: Appearance Urine Cloudy; Color Urine Yellow; Glucose Urine UA Negative (Negative); Leukocyte Esterase Urine Negative (Negative); Nitrite Urine Negative (Negative); PH 5.5 (5.0-9.0); Specific Gravity - Urine 1.025 (1.005-1.025); UMIC TRIGGER UACC YES; Urine Blood Trace (Negative); Urine Ketones Negative (Negative); Urine Protein Negative (Neg-Trace)
[2024-03-03 14:00] LABS: Bacteria Urine None Seen (None Seen); Hyaline Casts Urine 0-2 /LPF (0-2); RBC Urine 0-2 /HPF (0-2); Squamous Epithelial Cell Urine 0-2 /HPF (0-2); WBC Urine 0-5 /HPF (0-5)
== END 2024-03-03 08:01 | disposition home or self-care (01) ==
LOC: HO.HMGCLDS 08:00
PROVIDERS: PCP Nurse Practitioner Family; Visit Provider Nurse Practitioner Family
DX: I10 Essential (primary) hypertension (principal); E03.9 Hypothyroidism, unspecified; Z12.5 Encounter for screening for malignant neoplasm of prostate
CPT/HCPCS: 36415; 80053; 80061; 81001; 84153; 84443; 85025

== ENCOUNTER → 2024-03-17 08:30 | Outpatient (BNVA) | payer BC, MEDICARE, SELFPAY | PROVIDERS: PCP Nurse Practitioner Family ==

== ENCOUNTER 2024-04-27 09:45 | Outpatient (REF) | payer BC, MEDICARE, SELFPAY ==
--- NOTE | ~2024-04-27 | CT_ITS ---
CLINICAL HISTORY: R31.29 - Other microscopic hematuria CT abdomen and pelvis with and without contrast Comparison: None Findings: The lung bases are clear. The liver is hypodense. No focal liver lesion. Unremarkable spleen, pancreas and adrenal glands. There is no renal or ureteral calculus or hydronephrosis. No renal mass. No calcified gallstones. Small left inguinal hernia containing a short segment of the proximal sigmoid colon without obstruction or edema. Colonic diverticulosis without diverticulitis. No bowel edema or dilatation. Small umbilical hernia containing fat. Pelvic contents unremarkable. Mildly limited evaluation of the urinary bladder as the bladder did not yet contain contrast on the delayed images. Normal appendix. The bones are intact. IMPRESSION: 1. No findings to explain the patient's hematuria. 2. Small left inguinal hernia containing a small portion of the colon with no associated obstruction or edema. 3. Fatty infiltration of the liver. This document has been electronically signed by: Sheridan Rebollar MD on 04/28/2024 15:48:25
[2024-04-27] MEDS: iohexoL 350 MG/ML 100 ML INFUS..BTL IV (11:05)
[2024-04-27 13:00] LABS: Creatinine POC 1.2 mg/dL (0.5-1.4); GFR POC > 60
== END 2024-04-27 09:46 | disposition home or self-care (01) ==
LOC: HO.CT 09:45
PROVIDERS: PCP Nurse Practitioner Family; Visit Provider Nurse Practitioner Family
DX: R31.29 Other microscopic hematuria (principal)
CPT/HCPCS: 74178; 82565; Q9967

== ENCOUNTER → 2024-04-27 09:47 | Outpatient (BNV) | payer BC, MEDICARE, SELFPAY | PROVIDERS: PCP Nurse Practitioner Family; Visit Provider Radiology Diagnostic Radiology | DX: K40.90 Unilateral inguinal hernia, without obstruction or gangrene, not specified as recurrent (principal); K76.0 Fatty (change of) liver, not elsewhere classified | CPT/HCPCS: 74178 ==

== ENCOUNTER 2024-05-05 08:46 | Outpatient (AMB) | payer BC, MEDICARE, SELFPAY ==
--- NOTE | 2024-05-05 09:10 | A.OFFVIS_ITS ---
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 Accompanied by: Self / Same As Patient Allergies niacin [NIACIN] Allergy (Intermediate, Verified 05/05/24 09:40) AGITATION nystatin [NYSTATIN] Allergy (Unknown, Verified 05/05/24 09:40) RASH ropinirole [ROPINIROLE] Allergy (Unknown, Verified 05/05/24 09:40) ANXIOUS duloxetine Adverse Reaction (Unknown, Verified 05/05/24 09:40) Unknown Medication List - Last Reconciled 05/05/24 by COOPER Caballero blood sugar diagnostic (FreeStyle Lite Strips) Test sugar once a day blood-glucose meter (FreeStyle Lite Meter kit) As directed to test blood sugar once a day bupropion HCl XL 150 mg PO QAM clonidine HCl 0.2 mg PO BID fenofibrate 160 mg PO DAILY@1700 lancets (FreeStyle Lancets) Test blood sugar once a day levothyroxine (Synthroid) 100 mcg PO DAILY pramipexole 1 mg PO TID pravastatin 40 mg PO DAILY@1700 walker [facility] Comments Details: Hang Jones is a 63-year-old male patient of Dr. Norton. He has a past medical history of fatty liver, GERD, sleep apnea, restless leg syndrome, hypothyroidism, depression, and hypercholesteremia. He presents to the office today as a new patient for microscopic hematuria. In discussion with the patient today he reports having established new primary care at which time microscopic hematuria was noted and recommendations were made for urology referral for further assessment evaluation. He reports a longstanding history of microscopic hematuria however never following up with Urology in the past. He does report a known workplace chemical exposure for 5 years as well as a previous history of nicotine dependence and recreational marijuana. In review of patient's chart it appears CT urogram was ordered and performed. These results were reviewed and communicated with the patient today 05/03 no findings to explain the patient's hematuria. Pelvic contents unremarkable. Mildly limited evaluation of the urinary bladder as the bladder did not yet contain contrast on delayed imaging. We discussed at length potential causes of microscopic hematuria as well as further workup to include cystoscopy given patient's risk factors. However, patient declines at this time. He otherwise denies any bothersome urinary issues. He denies urinary urgency, urinary frequency, incontinence, nocturia, hematuria, dysuria, foul smelling urine, changes to urinary stream, flank pain, fever, and or chills. He is happy with her current voiding parameters. PSA 03/05 1.3. The patient has a long history microscopic blood in the urine, first identified during routine check-ups, with no visible blood during urination. These findings have persisted throughout his adult life and were previously monitored by Dr. Lora Hensley patients previous PCP. The patient's history includes significant risk factors, such as a history of smoking and chemical exposure due to his employment at a [employer], potentially increasing his risk for bladder malignancies. He has not previously undergone urological evaluations like cystoscopy. A recent CT scan was reviewed, and will send urine for cytology today. The patient is hesitant to pursue cystoscopy presently but is open to discussing monitoring options. He is aware of the risks associated with such a decision, especially concerning the potential implications for timely diagnosis and treatment. Plan The plan for addressing the patient's microscopic hematuria involves ongoing m onitoring and patient education. While imaging studies were negative, the risk factors of smoking and chemical exposure could warrant further exploration with cystoscopy, a safe office-based procedure. The patient preferred to defer the cystoscopy, understanding its role in ruling out serious conditions like bladder cancer. Urine cytology is pending for further evaluation of his hematuria. Patient education on the implications of potential treatment delays was provided, along with printed information for his review. Patient was informed and verbally consented to the use of an ambient scribe for clinic note documentation during this visit. Discussion Notes I discussed the current findings and management of hematuria with the patient, detailing the importance of further evaluation due to his history of tobacco use and chemical exposure, which poses a higher risk for malignancy. I explained that a cystoscopy would allow us to visually inspect the bladder to rule out serious conditions like cancer. I expressed concern about his decision to defer diagnostic cystoscopy, cautioning about the risks of delaying diagnosis. Alternatives and potential follow-up surveillance were reviewed. The patient chose monitoring, understanding the need for repeat discussions at future visits about his willingness to reconsider. Risks and benefits, typical success rates when abnormalities are explored and treated early, and consent for periodic review and surveillance were also discussed. [facility] Medical History Fatty liver GERD (gastroesophageal reflux disease) Sleep apnea Restless legs syndrome Hypothyroid Depression High cholesterol Surgical History Status post right knee replacement (06/30/23) H/O rotator cuff surgery S/P tendon repair S/P ankle joint replacement Social History Household Members: Family Housing: House Are you a primary home care giver to a significant other at home: No Do you presently have visiting nurse or other home services: No Alcohol intake: current Alcohol intake frequency: does not drink Patient Tobacco Use Status: Former Tobacco user e-Cigarette/Vaping Use: Former Use Second Hand Smoke Exposure: No Substance Use Type: Marijuana service: No Current occupational status: disabled Cognitive needs: No Hearing needs: No Vision needs: No Review of Systems Const All systems reviewed & are unremarkable except as noted in HPI and below Physical Exam Const General: cooperative, comfortable, no acute distress, well developed, alert and awake Orientation/consciousness: patient oriented x3 Limitations: ambulation with cane HEENT Head: Yes normal to inspection, Yes normocephalic and Yes atraumatic Ears: hearing grossly normal bilaterally Eyes General: appearance normal, both eyes and all related structures Neck Neck: Yes normal visual inspection and Yes trachea midline Chest Chest palpation & inspection: normal inspection of the chest Resp Effort & Inspection: normal respiratory effort and able to speak in complete sentences Cardio Rate: regular rate GI Inspection: Yes normal to inspection General: Yes no CVA tenderness Back/Spine/Pelvis Back: no CVA tenderness Skin General skin exam: no rashes or lesions noted Neuro General: patient oriented x3 Extrem General: Yes normal to inspection Psych Appearance: grossly normal and well kempt Mental Status: mental status grossly normal Speech and movement: Normal speech and movement present and Clear speech present Affect: normal affect Attitude: cooperative Thought process: Normal thought process present Thought content: Normal thought content present Insight: Fair insight present (Psych) Judgement: Fair judgement present (Psych) Results AMB Urinalysis, Automated UA Leukoctes 0 Simran/uL Last Edit by [email or web address] on 05/05/24 09:48 UA Nitrite Last Edit by [email or web address] on 05/05/24 09:48 UA Urobilinogen 0.2 mg/dL Last Edit by [email or web address] on 05/05/24 09:48 UA Protein 15 mg/dL Last Edit by [email or web address] on 05/05/24 09:48 UA pH 6.0 Last Edit by [email or web address] on 05/05/24 09:48 UA Blood 25 Leonard/uL Last Edit by [email or web address] on 05/05/24 09:48 UA Specific [place] 1.015 Last Edit by [email or web address] on 05/05/24 09:48 UA Ketone Last Edit by [email or web address] on 05/05/24 09:48 UA Bilirubin 0 mg/dL Last Edit by [email or web address] on 05/05/24 09:48 UA Glucose 0 mg/dL Last Edit by [email or web address] on 05/05/24 09:48 Results Reviewed Results Reviewed: Ordering Physician: Matthew Vale Date of Service: 04/27/24 Procedure(s): CT urogram Accession Number(s): [id number] cc: Matthew Vale~ Report Number: [id number]: Total DLP = 1876.00 mGy-cm CLINICAL HISTORY: R31.29 - Other microscopic hematuria CT abdomen and pelvis with and without contrast Comparison: None Findings: The lung bases are clear. The liver is hypodense. No focal liver lesion. Unremarkable spleen, pancreas and adrenal glands. There is no renal or ureteral calculus or hydronephrosis. No renal mass. No calcified gallstones. Small left inguinal hernia containing a short segment of the proximal sigmoid colon without obstruction or edema. Colonic diverticulosis without diverticulitis. No bowel edema or dilatation. Small umbilical hernia containing fat. Pelvic contents unremarkable. Mildly limited evaluation of the urinary bladder as the bladder did not yet contain contrast on the delayed images. Normal appendix. The bones are intact. IMPRESSION: 1. No findings to explain the patient's hematuria. 2. Small left inguinal hernia containing a small portion of the colon with no associated obstruction or edema. 3. Fatty infiltration of the liver. Assessment & Plan Assessment & Plan (1) Microscopic hematuria: Code(s): R31.29 - Other microscopic hematuria Category: Medical (2) History of nicotine dependence: Code(s): Z87.891 - Personal history of nicotine dependence Category: Medical (3) Marijuana dependence: Code(s): F12.20 - Cannabis dependence, uncomplicated Category: Medical Plan In office urinalysis results with the patient today; as noted above; will send for urine cytology. Previous CT urogram results reviewed with the patient today; as noted above. We discussed at length potential causes of microscopic hematuria as well as fur ther workup to include cystoscopy; patient refuses we discussed potential for delay in treatment. He otherwise offers no other issues or concerns at this time. He reports be happy with current voiding parameters. Follow-up in 3-6 months; or sooner with any issues, concerns, and or questions. Orders: Orders AMB Urinalysis Automated Today Z13.9 - Encounter for screening, unspecified Urine Cytology Today R31.29 - Other microscopic hematuria Patient Instructions: The patient had an opportunity to ask questions regarding the treatment plan. All questions were answered. Physical exam, labs, and imaging were discussed and reviewed in detail. As well as risks, benefits, and discussion of treatment choices. No major barriers to understanding were identified. The patient expressed understanding and agreement with the above treatment plan. The patient was made aware they should contact our office by phone for worsening of their current condition, the appearance of new symptoms, or with any questi ons or concerns. Compliance is encouraged with any medications and follow up testing that is ordered. It is a privilege to be allowed the opportunity to participate in? your urological care.? Again, if you have any questions or concerns If you have any questions or concerns please do not hesitate to contact me. The office is [phone]. This note is constructed using voice recognition software. While every effort has been made to ensure accuracy build technician errors may have been included. Yours sincerely, Cher Ledezma, BI ANALYST-BC Coding Level of Care Code New Pt Level 3 (58171) Diagnoses Microscopic hematuria R31.29 History of nicotine dependence Z87.891 Marijuana dependence F12.20
== END 2024-05-05 09:44 | disposition home or self-care (01) ==
LOC: HO.HUSH 08:46
PROVIDERS: PCP Nurse Practitioner Family; Visit Provider Nurse Practitioner Family
DX: R31.29 Other microscopic hematuria (principal); Z87.891 Personal history of nicotine dependence; F12.20 Cannabis dependence, uncomplicated; Z13.9 Encounter for screening, unspecified
CPT/HCPCS: 99203

== ENCOUNTER 2024-05-05 08:46 | Outpatient (REF) | payer BC, MEDICARE, SELFPAY ==
[2024-05-05 16:54] LABS: Urine Cytology See Pathology rpt
== END 2024-05-05 08:47 | disposition home or self-care (01) ==
LOC: HO.LNP 08:46
PROVIDERS: PCP Nurse Practitioner Family; Visit Provider Nurse Practitioner Family
DX: R31.29 Other microscopic hematuria (principal)
CPT/HCPCS: 81003; 88112

== ENCOUNTER 2024-05-09 09:30 | Outpatient (AMB) | payer BC, MEDICARE, SELFPAY ==
--- NOTE | 2024-05-09 09:44 | A.OFFVIS_ITS ---
Intake Visit Reasons: OV- R TKA 06/30/23 Intake Note: Hang is a 63 year old male who presents today for a follow up of his right knee s/p Right TKA 06/30/23. 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 He is currently wearing a hinged knee brace as he is holding off on surgery as his is currently undergoing cancer treatments. Allergies niacin [NIACIN] Allergy (Intermediate, Verified 05/09/24 09:57) AGITATION nystatin [NYSTATIN] Allergy (Unknown, Verified 05/09/24 09:57) RASH ropinirole [ROPINIROLE] Allergy (Unknown, Verified 05/09/24 09:57) ANXIOUS duloxetine Adverse Reaction (Unknown, Verified 05/09/24 09:57) Unknown Medication List - Last Reconciled 05/09/24 by Traic Lozano RN blood sugar diagnostic (FreeStyle Lite Strips) Test sugar once a day blood-glucose meter (FreeStyle Lite Meter kit) As directed to test blood sugar once a day bupropion HCl XL 150 mg PO QAM clonidine HCl 0.2 mg PO BID fenofibrate 160 mg PO DAILY@1700 lancets (FreeStyle Lancets) Test blood sugar once a day levothyroxine (Synthroid) 100 mcg PO DAILY pramipexole 1 mg PO TID pravastatin 40 mg PO DAILY@1700 walker Folding Front wheeled walker HPI HPI OV- R TKA 06/30/23: Details: Hang is a 63-year-old with 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 He does not want to undergo surgery at this time and while he is uncomfortable with extended ambulation he is not worse. He tried to get him an unloading brace but his insurance would not cover it. [facility] Medical History Fatty liver GERD (gastroesophageal reflux disease) Sleep apnea Restless legs syndrome Hypothyroid Depression High cholesterol Surgical History Status post right knee replacement (06/30/23) H/O rotator cuff surgery S/P tendon repair S/P ankle joint replacement Social History Household Members: Family Housing: House Are you a primary resident care associate to a significant other at home: No Do you presently have visiting nurse or other home services: No Alcohol intake: current Alcohol intake frequency: does not drink Patient Tobacco Use Status: Former Tobacco user e-Cigarette/Vaping Use: Former Use Second Hand Smoke Exposure: No Substance Use Type: Marijuana service: No Current occupational status: disabled Cognitive needs: No Hearing needs: No Vision needs: No Physical Exam Extrem Other: Incision clean dry and intact. No warmth. There is 1+ varus instability with 5-120 degrees motion. No effusion. Assessment & Plan Assessment & Plan (1) Aseptic loosening of prosthetic knee: Code(s): T84.038A - Mechanical loosening of other internal prosthetic joint, initial encounter; Z96.659 - Presence of unspecified artificial knee joint Category: Medical Plan: Aseptic loosening status post right TKA. He will order an unloading brace from [employer] and he can come in and we will try to have him fitted for it. I do continue to recommend surgery. I think this will likely occur in fall Coding Level of Care Code Est Pt Level 3 (21302) Diagnoses Aseptic loosening of prosthetic knee T84.038A; Z96.659
== END 2024-05-09 10:18 | disposition home or self-care (01) ==
LOC: HO.HOS 09:31
PROVIDERS: PCP Nurse Practitioner Family; Visit Provider Orthopaedic Surgery
DX: T84.038A Mechanical loosening of other internal prosthetic joint, initial encounter (principal); Z96.659 Presence of unspecified artificial knee joint
CPT/HCPCS: 99213

== ENCOUNTER → 2024-05-09 09:30 | Outpatient (BNVA) | payer BC, MEDICARE, SELFPAY | PROVIDERS: PCP Nurse Practitioner Family; Visit Provider Orthopaedic Surgery ==

== ENCOUNTER 2024-07-29 09:38 | Outpatient (AMB) | payer BC, MEDICARE, SELFPAY ==
[2024-07-29 09:40] VITALS: BMI 33.5
--- NOTE | 2024-07-29 09:40 | A.OFFVIS_ITS ---
Vital Signs 07/29/24 09:40 Height 5 ft 7 in Weight 214 lb BMI 33.5 Intake Visit Reasons: OV- Discuss aseptic loosening R TKA 06/30/23 Intake Note: Hang is a 64 year old male who presents today for a follow up of his right knee s/p Right TKA 06/30/23. At his last visit we discussed that surgery is recommended due to aseptic loosening. Patient is hesitant to move forward with revision, he was going to order an unloading brace from [employer] which he has not done. Today he would like to discuss what aseptic loosening is and how it happens. Allergies niacin (NIACIN) Allergy (Intermediate, Verified 05/09/24 09:57) AGITATION nystatin (NYSTATIN) Allergy (Unknown, Verified 05/09/24 09:57) RASH ropinirole (ROPINIROLE) Allergy (Unknown, Verified 05/09/24 09:57) ANXIOUS duloxetine Adverse Reaction (Unknown, Verified 05/09/24 09:57) Unknown HPI HPI OV- Discuss aseptic loosening R TKA 06/30/23: Details: Hang is a 64 year old male who presents today for a follow up of his right knee s/p Right TKA 06/30/23. At his last visit we discussed that surgery is recommended due to aseptic loosening. Patient is hesitant to move forward with revision, he was going to order an unloading brace from [employer] which he has not done. Today he would like to discuss what aseptic loosening is and how it happens. He states he has gotten worse over the past 3 months. In April he was having pain with radiographic evidence of loosening but his was undergoing cancer treatment and we elected to postpone any potential treatment. [facility] Medical History Fatty liver GERD (gastroesophageal reflux disease) Sleep apnea Restless legs syndrome Hypothyroid Depression High cholesterol Surgical History Status post right knee replacement (06/30/23) H/O rotator cuff surgery S/P tendon repair S/P ankle joint replacement Social History Household Members: Family Housing: House Are you a primary critical care nurse specialist to a significant other at home: No Do you presently have visiting nurse or other home services: No Alcohol intake: current Alcohol intake frequency: does not drink Patient Tobacco Use Status: Former Tobacco user e-Cigarette/Vaping Use: Former Use Second Hand Smoke Exposure: No Substance Use Type: Marijuana service: No Current occupational status: disabled Cognitive needs: No Hearing needs: No Vision needs: No Physical Exam Vital Signs: BMI result Body Mass Index 33.5 Extrem Other: On exam there is varus alignment of the right knee. There is no effusion. He has mostly medial-sided tenderness to palpation with trace effusion. Incision is clean dry and intact. Results Reviewed Results Reviewed: I personally reviewed relevant radiographs. Radiographs from April re demonstrated lucency around the tibial prosthesis highly suggestive of loosening. Assessment & Plan Assessment & Plan (1) Status post total knee replacement, right: Code(s): Z96.651 - Presence of right artificial knee joint Category: Surgical Plan: This is a 64-year-old with left knee prosthetic loosening likely aseptic. His varus malalignment has worsened and I recommend revision surgery of his left knee. I explained to him that loosening can occur postoperatively and that is a known potential complication. I discussed the rationale for going forward in the risks, benefits and alternatives to surgery. He expressed understanding and we will proceed forward accordingly. I will order an ESR and a CRP now and if those are negative we will proceed forward if they are positive we will need an aspiration of his left knee. His gait and alignment has worsened dramatically since I last saw him and so we will try to do this sometime within the next 6 weeks. Orders: Orders C Reactive Protein Today Z96.651 - Presence of right artificial knee joint Erythrocyte Sedimentation Rate Today Z96.651 - Presence of right artificial knee joint Coding Level of Care Code Est Pt Level 4 (95216) Diagnoses Status post total knee replacement, right Z96.651
--- OUTSIDE RECORDS SUMMARY | 2024-07-29 09:51 | XMS_ITS | Patient Health Record ---
[facility] Address [address] [place] [address] Care Team Providers Care Rotor Plate Washer Name Role Phone Sj Scott MD Primary Care Provider Unavailab Che Dukes Unavailable [phone] Allergies Allergen (clinical drug ingredient) Drug/Non Drug Allergy documented on EMR Reaction Allergy Type Onset Date Status Niaspan Unknown Drug Allergy Active Reason For Referral No Information Medications Medication SIG (Take, Route, Frequency, Duration) Notes Start Date End Date Status Ciclopirox Olamine 0.77 % 1 application to affected area Externally Twice a day for 30 days Active LamISIL 250 MG 1 tablet Orally Once a day for 10 day(s) 11/27/2017 Not-Taking buPROPion HCl ER (XL) Active Gabapentin 300 MG 1 capsule Orally Onc e a day Active Pravastatin Sodium 40 MG 1 tablet Orally Once a day Active Pramipexole Dihydrochloride 0.25 MG 1 tablet before bedtime Orally Once a day Active Levothyroxine Sodium 100 MCG 1 tablet on an empty stomach in the morning Orally Once a day Active Fluoxetine Active DULoxetine HCl 20 MG 1 capsule Orally Tw ice a day Not-Taking Fenofibrate 160 MG 1 tablet with food Orally Once a day Active Fluoxetine Not-Takin g Ciclopirox Olamine 0.77 % 1 application to affected area Externally Twice a day for 30 days 09/17/2017 Not-Taking Social History Tobacco Use: Social History Observation Description Date Details (start date - stop date) Former Smoker NA - NA Tobacco Use/Smoking Question Answer Notes Are you a: former smoker When did you start smoking? 13 years old When did you stop smoking? 27 years old Additional Findings: Tobacco Non-User Current no n-smoker Alcohol Screen Question Answer Notes Did you have a drink containing alcohol in the p ast year? No Points 0 Interpretation Negative Tobacco use other than smoking: Question Answer Notes Are you an other tobacco user? No Problems Problem Type SNOMED Code ICD Code Onset Dates Problem Status W/U Status Risk Notes Problem Localized, primary osteoarthritis of the ankle and/or foot (143505445) Primary osteoarthrit is, left ankle and foot (M19.072) Active confirmed Plan Of Treatment Pending Test Test Name Order Date *Liver Function Test (LFT) 11/05/2017 [id number] NAIL, 6 OR MORE 01/21/2018 [id number] NAIL, 6 OR MORE 04/26/2018 [id number] NAIL, 6 OR MORE 07/29/2018 [id number] NAIL, 6 OR MORE 11/01/2018 [id number] NAIL, 6 OR MORE 04/04/2019 Insurance Providers Payer Name Payer Address Payer Phone Subscriber Number Group Number Insured Name Patient Relationship to Insured Coverage Start Date Coverage End Date Medicare National Govt Sv[employer] [address] [facility] [place] [address] [id number] Hang Bernal Self - patient is the insured [facility] [address] [place] [address] [phone] [id number] Hang Bernal Self - patient is the insured Medical (General) History Medical History History ICD Code Depression Joint implants/screws Surgical History Surgery Date(Month/Year) right ankle replacement (multiple surger ies) Hospitalization History Reason Date(Month/Year) [facility] [place] ER pt cut finger off 2017
== END 2024-07-29 10:49 | disposition home or self-care (01) ==
LOC: HO.HOS 09:39
PROVIDERS: PCP Nurse Practitioner Family; Visit Provider Orthopaedic Surgery
DX: T84.032A Mechanical loosening of internal right knee prosthetic joint, initial encounter (principal); T84.84XA Pain due to internal orthopedic prosthetic devices, implants and grafts, initial encounter; Z96.651 Presence of right artificial knee joint
CPT/HCPCS: 99214

== ENCOUNTER 2024-08-04 12:35 | Outpatient (AMB) | payer MEDICARE, BC, SELFPAY ==
--- NOTE | 2024-08-04 12:49 | A.OFFVIS_ITS ---
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 Norton. He has a past medical history of fatty liver, GERD, sleep apnea, restless leg syndrome, hypothyroidism, depression, and hypercholesteremia. He presents to the office today for follow-up of his microscopic hematuria. In discussion with the patient today reports to be doing and feeling well. He discusses upcoming right knee revision with Dr. Zamora within the next 2-3 weeks. Previous workup has included a CT urogram 05/03 no findings to explain the patient's hematuria. Pelvic contents unremarkable. Mildly limited evaluation of the urinary bladder as the bladder did not yet contain contrast on delayed imaging. We discussed microscopic hematuria in the setting of nicotine dependence workup to include cystoscopy. In office urinalysis results reviewed with the patient today. Microscopic hematuria again noted. We discussed at length potential causes of microscopic hematuria as well as further workup to include cystoscopy given patient's risk factors. However, patient declines at this time. He otherwise denies any bothersome urinary issues. He denies urinary urgency, urinary frequency, incontinence, nocturia, hematuria, dysuria, foul smelling urine, changes to urinary stream, flank pain, fever, and or chills. He is happy with her current voiding parameters. PSA 03/05 1.3. Urine cytology 05/03 Negative for high-grade urothelial carcinoma. 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 All questions were answered. He otherwise offers no other issues or concerns at this time. [facility] Medical History Fatty liver GERD (gastroesophageal reflux disease) Sleep apnea Restless legs syndrome Hypothyroid Depression High cholesterol Surgical History Status post right knee replacement (06/30/23) H/O rotator cuff surgery S/P tendon repair S/P ankle joint replacement Social History Household Members: Family Housing: House Are you a primary hospice care transitions coordinator to a significant other at home: No Do you presently have visiting nurse or other home services: No Alcohol intake: current Alcohol intake frequency: does not drink Patient Tobacco Use Status: Former Tobacco user e-Cigarette/Vaping Use: Former Use Second Hand Smoke Exposure: No Substance Use Type: Marijuana service: No Current occupational status: disabled Cognitive needs: No Hearing needs: No Vision needs: No Review of Systems Const All systems reviewed & are unremarkable except as noted in HPI and below Physical Exam Const General: cooperative, comfortable, no acute distress, well developed, alert and awake Orientation/consciousness: patient oriented x3 Limitations: ambulation with cane HEENT Head: Yes normal to inspection, Yes normocephalic and Yes atraumatic Ears: hearing grossly normal bilaterally Eyes General: appearance normal, both eyes and all related structures Neck Neck: Yes normal visual inspection and Yes trachea midline Chest Chest palpation & inspection: normal inspection of the chest Resp Effort & Inspection: normal respiratory effort and able to speak in complete sentences Cardio Rate: regular rate GI Inspection: Yes normal to inspection General: Yes no CVA tenderness Back/Spine/Pelvis Back: no CVA tenderness Skin General skin exam: no rashes or lesions noted Neuro General: patient oriented x3 Extrem General: Yes normal to inspection Psych Appearance: grossly normal and well kempt Mental Status: mental status grossly normal Speech and movement: Normal speech and movement present and Clear speech present Affect: normal affect Attitude: cooperative Thought process: Normal thought process present Thought content: Normal thought content present Insight: Fair insight present (Psych) Judgement: Fair judgement present (Psych) Results Reviewed Results Reviewed: Date of Service: 04/27/24 Procedure(s): CT urogram Findings: The lung bases are clear. The liver is hypodense. No focal liver lesion. Unremarkable spleen, pancreas and adrenal glands. There is no renal or ureteral calculus or hydronephrosis. No renal mass. No calcified gallstones. Small left inguinal hernia containing a short segment of the proximal sigmoid colon without obstruction or edema. Colonic diverticulosis without diverticulitis. No bowel edema or dilatation. Small umbilical hernia containing fat. Pelvic contents unremarkable. Mildly limited evaluation of the urinary bladder as the bladder did not yet contain contrast on the delayed images. Normal appendix. The bones are intact. IMPRESSION: 1. No findings to explain the patient's hematuria. 2. Small left inguinal hernia containing a small portion of the colon with no associated obstruction or edema. 3. Fatty infiltration of the liver. Assessment & Plan Assessment & Plan (1) Microscopic hematuria: Code(s): R31.29 - Other microscopic hematuria Category: Medical (2) Marijuana dependence: Code(s): F12.20 - Cannabis dependence, uncomplicated Category: Medical Plan In office urinalysis results reviewed with the patient today; as noted above; will send for urine cytology. We did discussed potential causes of microscopic hematuria as well as further wo rkup to include cystoscopy. He currently denies any bothersome urinary issues or concerns. He reports be happy with current voiding parameters. Previous urine cytology results were reviewed. All questions were answered. He would like to continue with surveillance monitoring at this time; we did discussed potential delay in treatment. Follow-up in 3-6 months; or sooner with any issues, concerns, and or questions. Orders: Orders Urine Cytology Today F12.20 - Cannabis dependence, uncomplicated, R31.29 - Other microscopic hematuria Patient Instructions: The patient had an opportunity to ask questions regarding the treatment plan. All questions were answered. Physical exam, labs, and imaging were discussed and reviewed in detail. As well as risks, benefits, and discussion of treatment choices. No major barriers to understanding were identified. The patient expressed understanding and agreement with the above treatment plan. The patient was made aware they should contact our office by phone for worsening of their current condition, the appearance of new symptoms, or with any questions or concerns. Compliance is encouraged with any medications and follow up testing that is ordered. It is a privilege to be allowed the opportunity to participate in? your urological care.? Again, if you have any questions or concerns If you have any questions or concerns please do not hesitate to contact me. The office is [phone]. This note is constructed using voice recognition software. While every effort has been made to ensure accuracy gear inspector errors may have been included. Yours sincerely, RODRIGUEZ Caballero-MARY Coding Level of Care Code Est Pt Level 3 (69841) Complex EM visit Add On G2211 Diagnoses Microscopic hematuria R31.29 Marijuana dependence F12.20
--- OUTSIDE RECORDS SUMMARY | 2024-08-04 14:56 | XMS_ITS | Patient Health Record ---
[facility] Organization [facility] Address [address] [place] [address] Care Team Providers Care Sociocultural Anthropology Professor Name Role Phone Sj Scott MD Primary Care Provider Unavailab Che Dukes Unavailable [phone] Allergies Allergen (clinical drug ingredient) Drug/Non Drug Allergy documented on EMR Reaction Allergy Type Onset Date Status Niaspan Unknown Drug Allergy Active Reason For Referral No Information Medications Medication SIG (Take, Route, Frequency, Duration) Notes Start Date End Date Status Ciclopirox Olamine 0.77 % 1 application to affected area Externally Twice a day; Duration: 30 days Active LamISIL 250 MG 1 tablet Orally Once a day; Duration: 10 day(s) 11/27/2017 Not-Taking buPROPion HCl ER [...] application to affected area Externally Twice a day; Duration: 30 days 09/17/2017 Not-Evaristo g Social History Tobacco Use: Social History Observation [...] primary osteoarthritis of the ankle and/or foot (986963719) Primary osteoarthrit is, left ankle and foot (M19.072) Active confirmed Plan Of Treatment Pending Test Test Name Order Date *Liver Function Test (LFT) 11/05/2017 [id number] NAIL, 6 OR MORE 01/21/2018 [id number] NAIL, 6 OR MORE 04/26/2018 [id number] NAIL, 6 OR MORE 07/29/2018 [id number] NAIL, 6 OR MORE 11/01/2018 [id number] NAIL, 6 OR MORE 04/04/2019 Insurance Providers Payer Name Payer Address Payer Phone Subscriber Number Group Number Insured Name Patient Relationship to Insured Coverage Start Date Coverage End Date Medicare National Govt Svcs Inc [address] [facility] [place] [address] [id number] Hang Bernal Self - patient is the insured [facility] [address] [place] [address] [phone] [id number] [phone] Hang Bernal Self - patient is the insured Medical (General) History Medical History History ICD Code Depression Joint implants/screws Surgical History Surgery Date(Month/Year) right ankle replacement (multiple surger ies) Hospitalization History Reason Date(Month/Year) [facility] [place] [facility] pt cut finger off 2017
== END 2024-08-04 13:19 | disposition home or self-care (01) ==
PROVIDERS: PCP Nurse Practitioner Family; Visit Provider Nurse Practitioner Family
DX: R31.29 Other microscopic hematuria (principal); F12.20 Cannabis dependence, uncomplicated; Z13.9 Encounter for screening, unspecified
CPT/HCPCS: 99213; G2211

== ENCOUNTER 2024-08-04 12:35 | Outpatient (REF) | payer BC, MEDICARE, SELFPAY ==
[2024-08-04 17:05] LABS: Urine Cytology See Pathology rpt
== END 2024-08-04 12:36 | disposition home or self-care (01) ==
LOC: HO.LAB 12:35
PROVIDERS: PCP Nurse Practitioner Family; Visit Provider Nurse Practitioner Family
DX: F12.20 Cannabis dependence, uncomplicated (principal); R31.29 Other microscopic hematuria
CPT/HCPCS: 81003; 88112; 99212

== ENCOUNTER → 2024-08-05 10:46 | Outpatient (BNVA) | payer BC, MEDICARE, SELFPAY | PROVIDERS: PCP Nurse Practitioner Family | DX: Z01.818 Encounter for other preprocedural examination (principal) ==

== ENCOUNTER 2024-08-09 06:40 | Outpatient (REF) | payer MEDICARE, SELFPAY ==
[2024-08-09 10:12] LABS: MANUAL DIFF FLAG NO
[2024-08-09 10:17] LABS: Hematocrit 40.7 % (42.0-52.0); Hemoglobin 13.2 g/dl (14.0-18.0); Imm Gran Abs Auto 0.07 X10*3/uL (0.00-0.03); Imm Gran Pct Auto 0.8 % (0.0-0.4); Lymphocytes Absolute Auto 2.0 X10*3/uL (1.2-4.9); Mean Corpuscular HGB Conc 32.4 g/dl (31.0-36.0); Mean Corpuscular Hemoglobin 26.8 pg (27.0-33.0); Mean Corpuscular Volume 82.7 fL (80.0-98.0); NRBC Abs Auto 0.000 X10*3/uL (0.0-0.012); NRBC Pct Auto 0.0 /100WBC (0.0-0.2); Platelet Count 436 X10*3/uL (160-400); Red Blood Count 4.92 X10*6/uL (4.60-5.80); White Blood Count 8.4 X10*3/uL (4.8-10.8)
[2024-08-09 10:19] LABS: Appearance Urine Clear; Glucose Urine UA Negative (Negative); PH 6.5 (5.0-9.0); Specific Gravity - Urine 1.020 (1.005-1.025); UMIC TRIGGER UACC YES
[2024-08-09 10:52] LABS: Alanine Aminotransferase 13 U/L (0-40); Albumin Level 3.6 g/dL (3.5-5.0); Alkaline Phosphatase 72 U/L (39-117); Anion Gap 13 (12-20); Aspartate Amino Transferase 35 U/L (5-37); Blood Urea Nitrogen 24 mg/dL (9-16); Calcium 8.4 mg/dL (8.4-10.2); Carbon Dioxide 23 mmol/L (22-29); Chloride 107 mmol/L (96-108); Cholesterol 133 mg/dL (<200); Estimated Glomerular Filt Rate > 60; HDL Cholesterol 32 mg/dL (>40); Hemoglobin A1C 173.0354 umol/L; Potassium 3.9 mmol/L (3.3-5.1); Sodium 139 mmol/L (135-145); Total Hemoglobin (HGBA1C) 3511.5778 umol/L; Total Protein 6.9 g/dL (6.5-8.0); Triglycerides 187 mg/dL (<150)
== END 2024-08-09 06:41 | disposition home or self-care (01) ==
LOC: HO.HMGCLDS 06:40
PROVIDERS: PCP Nurse Practitioner Family; Visit Provider Nurse Practitioner Family
DX: E11.9 Type 2 diabetes mellitus without complications (principal)
CPT/HCPCS: 36415; 80053; 80061; 81001; 82043; 82570; 83036; 84443; 85025

== ENCOUNTER → 2024-08-10 11:03 | Outpatient (BNV) | payer MEDICARE, BC, SELFPAY | PROVIDERS: Admitting Provider Orthopaedic Surgery; PCP Nurse Practitioner Family; Visit Provider Internal Medicine Cardiovascular Disease | DX: R00.1 Bradycardia, unspecified (principal) | CPT/HCPCS: 93010 ==

== ENCOUNTER 2024-08-16 09:48 | Outpatient (AMB) | payer BC, MEDICARE, SELFPAY ==
--- NOTE | 2024-08-16 09:49 | MHC.PC.OV ---
Vital Signs 08/16/24 09:50 Height 5 ft 7 in Weight 207 lb BMI 32.4 BP 130/76 Blood Pressure Location Lt brachial Position Sitting Pulse 65 Pulse Source Pulse Oximeter Temp 98.3 F Temp Source Oral Pulse Oximetry (%) 97 Intake Visit Reasons: Preop clearance TKA rev. 08/30/24 Manager Of Housekeeping Required: No Accompanied by: Self / Same As Patient Allergies niacin (NIACIN) Allergy (Intermediate, Verified 08/16/24 09:50) AGITATION nystatin (NYSTATIN) Allergy (Unknown, Verified 08/16/24 09:50) RASH ropinirole (ROPINIROLE) Allergy (Unknown, Verified 08/16/24 09:50) ANXIOUS duloxetine Adverse Reaction (Unknown, Verified 08/16/24 09:50) Unknown Tobacco use date assessed: 02/15/24 Fall risk assessment: No Falls in past year Last assessed Fall Risk: 08/16/24 Dental Screening Dental Screen Date: 02/15/24 HPI Preop clearance TKA rev. 08/30/24 HPI Details pt is clear for surgery from my standpoint Chief Complaint The patient presents for a preoperative evaluation for a right total knee revision. History of Present Illness The patient is a 64-year-old male presenting with a preoperative evaluation for a right total knee revision. The initial knee replacement was performed last year, but the patient now has loosened bodies in the joint, which are particularly noticeable during ambulation. He denies any recent fevers, chills, chest pain, or dyspnea, and there are no signs of infection. Social History Health Maintenance Review of Systems - General: Denies fever, chills - Cardiovascular: Denies chest pain - Respiratory: Denies dyspnea Physical Exam General: Cooperative, healthy appearing, comfortable, no acute distress and well developed, obese Orientation: Patient oriented x3 Limitations: No limitations Head: Normal to inspection Ears: Hearing grossly normal bilaterally Nose: Normal external nose present Face and sinus: Normal facial exam Eyes: Appearance normal, both eyes and all related structures Neck: Normal visual inspection and Yes full ROM, no cervical lymphadenopathy noted Respiratory: Normal respiratory effort and able to speak in complete sentences. Fairly clear to auscultation bilaterally Cardiovascular: Regular rate and rhythm. Normal S1 and S2 GI: Normal to inspection. Soft to palpation and nontender Skin: No rashes or lesions noted Neuro: Patient oriented x3 Extremities: Normal to inspection Results - Labs: Completed - EKG: Completed Plan The patient is cleared for surgery from a medical standpoint, as there are no contraindications noted during the preoperative evaluation. Discussion Notes I have discussed with the patient that he is medically cleared for the upcoming right total knee revision surgery. We reviewed the absence of any signs of infection or other contraindications. The patient understands the plan and is prepared for the procedure. Patient Instructions [facility] Medical History Arthritis Fatty liver GERD (gastroesophageal reflux disease) Sleep apnea Restless legs syndrome Hypothyroid Depression High cholesterol Surgical History Hx of foot surgery Status post right knee replacement (06/30/23) H/O rotator cuff surgery S/P tendon repair S/P ankle joint replacement Social History Household Members: Family Housing: House Are you a primary cattle care worker to a significant other at home: No Do you presently have visiting nurse or other home services: No Alcohol intake: current Alcohol intake frequency: does not drink Patient Tobacco Use Status: Former Tobacco user e-Cigarette/Vaping Use: Former Use Second Hand Smoke Exposure: No Substance Use Type: Marijuana service: No Current occupational status: disabled Cognitive needs: No Hearing needs: No Vision needs: No Questionnaire Thrive Questionnaire Date Thrive assessed: 02/15/24 Within the past 12 months, did the food you bought not last and you didn't have the money to get more?: I choose not to answer this question Within the past 12 months, did you worry whether your food would run out before you got money to buy more?: Never true Do you have trouble paying for medicines?: No Do you have trouble getting transportation to medical appointments?: No Do you have trouble paying your heating and electricity bill?: No Do you have trouble taking care of your child, family member or friend?: No Do you have trouble with day-to-day activities such as bathing, preparing meals, shopping, managing finances, etc.?: No Are you currently unemployed and looking for a job?: No Are you interested in more education?: No Please select the resources that you would like help with: None Currently or been in a relationship where the following occur: No concerns reported THRIVE Score: 0 AUDIT C Alcohol Use Questionnaire (AUDIT-C) 1. How often do you have a drink containing alcohol?: Never 3. How often do you have six or more drinks on one occasion?: Never Total Score: 0 Score Reviewed/Action Taken: Yes LACEY-7 AMB Questionnaire LACEY-7 Date LACEY - 7 assessed: 08/16/24 Feeling nervous, anxious, or on edge: 0 = Not at all Not being able to stop or control worryin = Not at all Worrying too much about different things: 0 = Not at all Trouble relaxin = Not at all Being so restless that it is hard to sit still: 0 = Not at all Becoming easily annoyed or irritable: 0 = Not at all Feeling afraid as if something awful might happen: 0 = Not at all Total LACEY-7 score (0-4 normal; 5-9 mild; 10-14 moderate; 15-21 severe): 0 Source: Developed by Drs. Woody Florentino, Sue Dash, Shamar Ott and colleagues, with an educational min from [employer]. LACEY-7 Assessment Billing LACEY-7 Assessment Tool: LACEY-7 Assessment 53850 Physical exam (Primary Care) Vital Signs: Last Vital Signs Temp 98.3 F 08/16/24 09:50 Pulse 65 08/16/24 09:50 BP 130/76 08/16/24 09:50 Pulse Ox 97 08/16/24 09:50 BMI result Body Mass Index 32.4 Tobacco/Smoking Status: Tobacco use Status Tobacco use date assessed 02/15/24 08/16/24 09:50 Patient Tobacco Use Status Former Tobacco user 08/16/24 09:50 e-Cigarette/Vaping Use Former Use 08/16/24 09:50 Thrive Assessment: Date of Thrive Assessment Date Thrive assessed 02/15/24 08/16/24 09:50 Currently or been in a relationship where the following occur: No concerns reported Coding Level of Care Code Est Pt Prev Care >65y(30526) Diagnoses Pre-op evaluation Z01.818 Additional Codes LACEY-7 Assessment Billing - LACEY-7 Assessment Tool: LACEY-7 Assessment 18669 ([id number]) Assessment & Plan Assessment & Plan (1) Pre-op evaluation: Code(s): Z01.818 - Encounter for other preprocedural examination Category: Medical Plan .
[2024-08-16 09:50] VITALS: BP 130/76; PULSE 65; TEMP 36.8; O2SAT 97; BMI 32.4
--- OUTSIDE RECORDS SUMMARY | 2024-08-16 10:25 | XMS_ITS | Patient Health Record ---
Author Organization [facility] Address [address] [place] [address] Care Team Providers Care Preform Plate Maker Name Role Phone Sj Scott MD Primary Care Provider Unavailab Che Dukes Unavailable [phone] Allergies Allergen (clinical drug ingredient) Drug/Non Drug [...] primary osteoarthritis of the ankle and/or foot (582031553) Primary osteoarthrit is, left ankle and foot (M19.072) Active confirmed Plan Of Treatment Pending Test Test Name Order Date *Liver Function Test (LFT) 11/05/2017 [id number] NAIL, 6 OR MORE 01/21/2018 [id number] NAIL, 6 OR MORE 04/26/2018 [id number] NAIL, 6 OR MORE 07/29/2018 [id number] NAIL, 6 OR MORE 11/01/2018 [id number] NAIL, 6 OR MORE 04/04/2019 Insurance Providers Payer Name Payer Address Payer Phone Subscriber Number Group Number Insured Name Patient Relationship to Insured Coverage Start Date Coverage End Date Medicare [employer] [address] [place] [address] [id number] Hang Bernal Self - patient is the insured [facility] [address] [place] [address] [phone] [id number] Hang Bernal Self - patient is the insured Medical (General) History Medical History History ICD Code Depression Joint implants/screws Surgical History Surgery Date(Month/Year) right ankle replacement (multiple surger ies) Hospitalization History Reason Date(Month/Year) [facility] [place] [facility] [place] finger [place]
== END 2024-08-16 10:19 | disposition home or self-care (01) ==
LOC: HO.HMCC 09:49
PROVIDERS: PCP Nurse Practitioner Family; Visit Provider Nurse Practitioner Family
DX: Z01.818 Encounter for other preprocedural examination (principal); M17.11 Unilateral primary osteoarthritis, right knee

== ENCOUNTER → 2024-08-16 09:48 | Outpatient (BNVA) | payer BC, MEDICARE, SELFPAY | PROVIDERS: PCP Nurse Practitioner Family; Visit Provider Nurse Practitioner Family | DX: Z01.818 Encounter for other preprocedural examination (principal); Z13.30 Encounter for screening examination for mental health and behavioral disorders, unspecified | CPT/HCPCS: 96127 ==

== ENCOUNTER 2024-08-24 06:58 | Outpatient (REF) | payer MEDICARE, BC, SELFPAY ==
--- OUTSIDE RECORDS SUMMARY | 2024-08-24 07:02 | XMS_ITS | Patient Health Record ---
Author Organization [facility] Address [address] [place] [address] Care Team Providers Care Mobile Qa Tester Name Role Phone Sj Scott MD Primary Care Provider Unavailab Che Dukes Unavailable [phone] Allergies Allergen (clinical drug ingredient) Drug/Non Drug [...] Problem Status W/U Status Risk Notes Problem Primary osteoarthritis , left ankle and foot (M19.072) Active confirmed Plan Of Treatment Pending Test Test Name Order Date *Liver Function Test (LFT) 11/05/2017 [id number] NAIL, 6 OR MORE 01/21/2018 [id number] NAIL, 6 OR MORE 04/26/2018 [id number] NAIL, 6 OR MORE 07/29/2018 [id number] NAIL, 6 OR MORE 11/01/2018 [id number] NAIL, 6 OR MORE 04/04/2019 Insurance Providers Payer Name Payer Address Payer Phone Subscriber Number Group Number Insured Name Patient Relationship to Insured Coverage Start Date Coverage End Date Medicare [employer] [address] [facility] [address] [id number] Hang Bernal Self - patient is the insured [facility] [address] [place] [address] [phone] [id number] Hang Bernal Self - patient is the insured Medical (General) History Medical History History ICD Code Depression Joint implants/screws Surgical History Surgery Date(Month/Year) right ankle replacement (multiple surger ies) Hospitalization History Reason Date(Month/Year) [facility] [place]
[2024-08-24 08:14] LABS: Alanine Aminotransferase 18 U/L (0-40); Albumin Level 3.7 g/dL (3.5-5.0); Alkaline Phosphatase 67 U/L (39-117); Anion Gap 12 (12-20); Aspartate Amino Transferase 21 U/L (5-37); Blood Urea Nitrogen 14 mg/dL (9-16); Calcium 8.5 mg/dL (8.4-10.2); Carbon Dioxide 25 mmol/L (22-29); Chloride 106 mmol/L (96-108); Estimated Glomerular Filt Rate > 60; Potassium 3.9 mmol/L (3.3-5.1); Sodium 139 mmol/L (135-145); Total Protein 6.8 g/dL (6.5-8.0)
[2024-08-24 08:41] LABS: Appearance Urine Clear; Glucose Urine UA Negative (Negative); PH 7.0 (5.0-9.0); Specific Gravity - Urine 1.015 (1.005-1.025); UMIC TRIGGER UACC YES
== END 2024-08-24 06:59 | disposition home or self-care (01) ==
LOC: HO.LAB 06:58
PROVIDERS: PCP Nurse Practitioner Family; Visit Provider Orthopaedic Surgery
DX: R31.29 Other microscopic hematuria (principal); Z96.651 Presence of right artificial knee joint; I10 Essential (primary) hypertension; E11.9 Type 2 diabetes mellitus without complications; E03.9 Hypothyroidism, unspecified
CPT/HCPCS: 36415; 80053; 81001; 85652; 86140; 87086; 88112

== ENCOUNTER 2024-09-01 11:19 | Outpatient (AMB) | payer MEDICARE, BC, SELFPAY ==
--- NOTE | 2024-09-01 11:32 | MHC.OFFVIS ---
Vital Signs 09/01/24 11:38 Height 5 ft 7 in Weight 207 lb BMI 32.4 Intake Visit Reasons: Pre-Op: R TKA Revision w/NE 09/06/24 Intake Note: Hang is a 64 year old male who presents today for a preoperative visit of RT TKA, DOS: 09/06/[address] Zamora. Pain management agreement reviewed and signed. Allergies niacin (NIACIN) Allergy (Intermediate, Verified 09/01/24 11:40) AGITATION nystatin (NYSTATIN) Allergy (Unknown, Verified 09/01/24 11:40) RASH ropinirole (ROPINIROLE) Allergy (Unknown, Verified 09/01/24 11:40) ANXIOUS duloxetine Adverse Reaction (Unknown, Verified 09/01/24 11:40) Unknown Medication List - Last Reconciled 09/01/24 by Sabina Romano PA-C blood sugar diagnostic (FreeStyle Lite Strips) Test sugar once a day blood-glucose meter (FreeStyle Lite Meter kit) As directed to test blood sugar once a day bupropion HCl XL 150 mg PO QAM clonidine HCl 0.2 mg PO BID fenofibrate 160 mg PO DAILY@1700 lancets (FreeStyle Lancets) Test blood sugar once a day levothyroxine (Synthroid) 100 mcg PO DAILY pramipexole 1 mg PO TID pravastatin 40 mg PO DAILY@1700 walker Folding Front wheeled walker HPI Comments Details: Mr Bernal presents to the office today for preop visit. He is scheduled for right total knee arthroplasty with Dr. Zamora. He continues to have ongoing pain and difficulty with ambulation in the right knee, which is affecting his quality of life; therefore, he has elected to move forward with surgery. [facility] Medical History Arthritis Fatty liver GERD (gastroesophageal reflux disease) Sleep apnea Restless legs syndrome Hypothyroid Depression High cholesterol Surgical History Hx of foot surgery Status post right knee replacement (06/30/23) H/O rotator cuff surgery S/P tendon repair S/P ankle joint replacement Social History Household Members: Family Housing: House Are you a primary childcare administrator to a significant other at home: No Do you presently have visiting nurse or other home services: No Alcohol intake: current Alcohol intake frequency: holidays/special occasions only Patient Tobacco Use Status: Former Tobacco user e-Cigarette/Vaping Use: Former Use Second Hand Smoke Exposure: No Substance Use Type: Marijuana service: No Current occupational status: disabled Cognitive needs: No Hearing needs: No Vision needs: No Review of Systems Const All systems reviewed & are unremarkable except as noted in HPI and below Physical Exam Vital Signs: BMI result Body Mass Index 32.4 Const General: cooperative, healthy appearing, comfortable, no acute distress, well developed and alert Orientation/consciousness: patient oriented x3 HEENT Head: Yes normal to inspection, Yes normocephalic and Yes atraumatic Eyes General: appearance normal, both eyes and all related structures Neck Neck: Yes normal visual inspection and Yes no lymphadenopathy Resp Effort & Inspection: normal respiratory effort and able to speak in complete sentences Cardio Rate: regular rate Peripheral pulses: Peripheral pulses 2+ throughout GI Inspection: Yes normal to inspection Palpation (GI): Soft to palpation Skin General skin exam: no rashes or lesions noted Neuro General: patient oriented x3 Extrem Other: Right knee surgical scar well healed. He has varus alignment of the right knee. There is no effusion. He has mostly medial-sided tenderness to palpation with trace effusion. Incision is clean dry and intact. Psych Appearance: grossly normal Mental Status: mental status grossly normal Assessment & Plan Assessment & Plan (1) Status post total knee replacement, right: Code(s): Z96.651 - Presence of right artificial knee joint Category: Surgical (2) Aseptic loosening of prosthetic knee: Code(s): T84.038A - Mechanical loosening of other internal prosthetic joint, initial encounter; Z96.659 - Presence of unspecified artificial knee joint Category: Medical Plan I discussed in detail the procedure and what to expect pre and post operatively. We discussed the risks, benefits and alternatives to the surgery as well as the rehabilitation course. The risks; which include, but are not limited to infection, bleeding, nerve injury, ongoing pain, swelling, and stiffness, perioperative risk of injury to bones and soft tissues, and blood clots. I?ve answered all questions and with their understanding they have consented to move forward with Right total knee arthroplasty with Dr. Zamora Patient tolerated ASA, Oxycodone post op with previous TKA surgery His plan is to be DC home with VNA services-he is hesitant to begin outpatient PT He has his walker from previous surgery Orders: Orders Type and Screen 09/01/24 Z01.818 - Encounter for other preprocedural examination Coding Level of Care Code Est Pt Level 3 (13479) Complex EM visit Add On G2211 Diagnoses Status post total knee replacement, right Z96.651 Aseptic loosening of prosthetic knee T84.038A; Z96.659
[2024-09-01 11:38] VITALS: BMI 32.4
--- OUTSIDE RECORDS SUMMARY | 2024-09-01 12:18 | XMS_ITS | Patient Health Record ---
Author Organization [facility] Address [address] [place] [address] Care Team Providers Care Document Imaging Specialist Name Role Phone Sj Scott MD Primary Care Provider Unavailab Che Dukes Unavailable [phone] Allergies Allergen (clinical drug ingredient) Drug/Non Drug [...] primary osteoarthritis of the ankle and/or foot (906652256) Primary osteoarthrit is, left ankle and foot (M19.072) Active confirmed Plan Of Treatment Pending Test Test Name Order Date *Liver Function Test (LFT) 11/05/2017 [id number] NAIL, 6 OR MORE 01/21/2018 [id number] NAIL, 6 OR MORE 04/26/2018 [id number] NAIL, 6 OR MORE 07/29/2018 [id number] NAIL, 6 OR MORE 11/01/2018 [id number] NAIL, 6 OR MORE 04/04/2019 Insurance Providers Payer Name Payer Address Payer Phone Subscriber Number Group Number Insured Name Patient Relationship to Insured Coverage Start Date Coverage End Date Medicare National [employer] [address] [place] [address] [id number] Hang Bernal Self - patient is the insured [facility] [address] [place] [address] [phone] [id number] Hang Bernal Self - patient is the insured Medical (General) History Medical History History ICD Code Depression Joint implants/screws Surgical History Surgery Date(Month/Year) right ankle replacement (multiple surger ies) Hospitalization History Reason Date(Month/Year) [facility] [place] pt cut finger off 2017
== END 2024-09-01 12:08 | disposition home or self-care (01) ==
LOC: HO.HOS 11:20
PROVIDERS: PCP Nurse Practitioner Family; Visit Provider Physician Assistant
DX: Z96.651 Presence of right artificial knee joint (principal); T84.038A Mechanical loosening of other internal prosthetic joint, initial encounter; Z96.659 Presence of unspecified artificial knee joint
CPT/HCPCS: 99024

== ENCOUNTER → 2024-09-01 11:19 | Outpatient (BNVA) | payer MEDICARE, BC, SELFPAY | PROVIDERS: PCP Nurse Practitioner Family; Visit Provider Physician Assistant | DX: Z01.818 Encounter for other preprocedural examination (principal); T84.032A Mechanical loosening of internal right knee prosthetic joint, initial encounter; Z96.651 Presence of right artificial knee joint | CPT/HCPCS: 99212 ==

== ENCOUNTER 2024-09-06 07:00 | Outpatient (BNV) | payer MEDICARE, BC, SELFPAY | END 2024-09-06 12:14 | PROVIDERS: Admitting Provider Physician Assistant; PCP Nurse Practitioner Family; Visit Provider Radiology Diagnostic Radiology | DX: Z96.651 Presence of right artificial knee joint (principal) | CPT/HCPCS: 73560 ==

== ENCOUNTER 2024-09-06 07:00 | Day surgery (SDC) | payer MEDICARE, BC, SELFPAY ==
--- NOTE | 2024-08-10 | ECG_ITS ---
Test Reason : PREOP Blood Pressure : */* mmHG Vent. Rate : 51 BPM Atrial Rate : 51 BPM P-R Int : 178 ms QRS Dur : 106 ms QT Int : 428 ms P-R-T Axes : 22 -3 36 degrees QTcB Int : 394 ms Sinus bradycardia Nonspecific T wave abnormality Abnormal ECG No previous ECGs available Referred By: Loretta Rajput Electronically Signed By: CARLOS MANUEL PUENTE MD
[2024-08-10 10:31] VITALS: BP 134/79; PULSE 59; RESP 18; O2SAT 94; BMI 32.9
--- NOTE | 2024-08-10 10:49 | P.CONAN_ITS ---
Documented by User: Loretta Rajput NP 09/05/24 14:38 HPI - Anesthesia Eval Consult details Narrative: 64yo M for Right Knee Total Revision, 09/06/24 s/p R TKA 06/2023 with spinal and block - no issues with anesthesia per patient report Medically optimized per PCP No recent illness No CP/SOB within limits of knee pain - able to do housework GERD: Resolved POLO: No CPAP at this time, partner states mostly resolved PMFSH Active Problems Active Problems: All Active Problems Diabetes (Acute) Marijuana dependence (Acute) History of nicotine dependence (Acute) Microscopic hematuria (Acute) Aseptic loosening of prosthetic knee (Acute) Screening for prostate cancer (Acute) Physical exam (Acute) Status post total knee replacement, right (Acute) Preoperative clearance (Acute) Arthritis of right knee (Acute) Numbness and tingling in left hand (Acute) Hypothyroid (Acute) Hypertension (Acute) 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, bilateral (Acute) Osteoarthritis of knees, bilateral (Acute) Past Medical History Medical History Arthritis Fatty liver GERD (gastroesophageal reflux disease) Sleep apnea Restless legs syndrome Hypothyroid Depression High cholesterol Family History Family history of problems with anesthesia: No Surgical History Surgical History Hx of foot surgery Status post right knee replacement (06/30/23) H/O rotator cuff surgery S/P tendon repair S/P ankle joint replacement History of Problems with Anesthesia: No Social History Social History Household Members: Family Housing: House Are you a primary medicare compliance auditor to a significant other at home: No Do you presently have visiting nurse or other home services: No Alcohol intake: current Alcohol intake frequency: holidays/special occasions only Patient Tobacco Use Status: Former Tobacco user e-Cigarette/Vaping Use: Former Use Second Hand Smoke Exposure: No Use of substances other than those prescribed or required for medical reasons: Yes Substance Use Type: Marijuana Substance Use Frequency: Occasionally Have you been hit, kicked, punched, or otherwise hurt by someone within the past year? If so, by whom?: No Are you DNR?: No Advance Directives: No Advance Directives Information Provided: No Advance Directives on File: No Poor oral hygiene: Yes service: No Current occupational status: disabled Cognitive needs: No Hearing needs: No Vision needs: No Meds Allergies Allergy/AdvReac Type Severity Reaction Status Date / Time niacin (NIACIN) Allergy Intermediate AGITATION Verified 09/01/24 11:40 nystatin (NYSTATIN) Allergy Unknown RASH Verified 09/01/24 11:40 ropinirole (ROPINIROLE) Allergy Unknown ANXIOUS Verified 09/01/24 11:40 duloxetine AdvReac Unknown Unknown Verified 09/01/24 11:40 Exam Height,Weight and Vital Signs: Height 5 ft 7 in Weight 95.254 kg Last Vital Signs Pulse 59 08/10/24 10:31 Resp 18 08/10/24 10:31 BP 134/79 08/10/24 10:31 Pulse Ox 94 08/10/24 10:31 O2 Del Method Room Air 08/10/24 10:31 Pertinent Lab Results Pertinent Lab Results: Lab Results 08/10/24 Range/Units 10:40 Nasal Screen MRSA (PCR) NEGATIVE (Negative) Nasal S. aureus Screen NEGATIVE (Negative) Nasal MRSA/S.aureus Interp SEE NOTE Laboratory Tests 08/09/24 06:55 WBC 8.4 Hgb 13.2 L Hct 40.7 L Plt Count 436 H Sodium 139 Potassium 3.9 Chloride 107 Carbon Dioxide 23 BUN 24 H Creatinine 0.91 Narrative Narrative: EKG 08/2024 Vent. Rate : 51 BPM Atrial Rate : 51 BPM P-R Int : 178 ms QRS Dur : 106 ms QT Int : 428 ms P-R-T Axes : 22 -3 36 degrees QTcB Int : 394 ms Sinus bradycardia Nonspecific T wave abnormality Abnormal ECG No previous ECGs available Airway Mallampati Class: I TM Dist: >3cm Neck ROM: Full Loose/Missing/Broken Teeth: Yes (missing molars) Heart: RRR Lungs: CTAB Assessment and Plan Assessment Anesthesia Assessment: Anesthesia Plan Discussed and PAT Visit Final Anesthetic Review Family History of Problems with Anesthesia: No History of Problems with Anesthesia: No Documented by User: Martha Sethi MD 09/06/24 08:20 PMFSH Past Medical History Medical History Arthritis Fatty liver GERD (gastroesophageal reflux disease) Sleep apnea Restless legs syndrome Hypothyroid Depression High cholesterol Surgical History Surgical History Hx of foot surgery Status post right knee replacement (06/30/23) H/O rotator cuff surgery S/P tendon repair S/P ankle joint replacement Social History Social History Household Members: Family Housing: House Are you a primary medicare compliance auditor to a significant other at home: No Do you presently have visiting nurse or other home services: No Alcohol intake: current Alcohol intake frequency: holidays/special occasions only Patient Tobacco Use Status: Former Tobacco user e-Cigarette/Vaping Use: Former Use Second Hand Smoke Exposure: No Use of substances other than those prescribed or required for medical reasons: Yes Substance Use Type: Marijuana Substance Use Frequency: Occasionally Have you been hit, kicked, punched, or otherwise hurt by someone within the past year? If so, by whom?: No Are you DNR?: No Advance Directives: No Advance Directives Information Provided: No Advance Directives on File: No Poor oral hygiene: Yes service: No Current occupational status: disabled Cognitive needs: No Hearing needs: No Vision needs: No Meds Allergies Allergy/AdvReac Type Severity Reaction Status Date / Time niacin (NIACIN) Allergy Intermediate AGITATION Verified 09/01/24 11:40 nystatin (NYSTATIN) Allergy Unknown RASH Verified 09/01/24 11:40 ropinirole (ROPINIROLE) Allergy Unknown ANXIOUS Verified 09/01/24 11:40 duloxetine AdvReac Unknown Unknown Verified 09/01/24 11:40 Assessment and Plan Assessment Anesthesia Assessment: Chart Reviewed Final Anesthetic Review NPO: Yes ASA Class: III Final Preanesthetic Review: No Changes in Pt Med Stat, Meds/Allgs Chart Reviewed, Consent Obtained/Reviewed and Anes Risks/Benef Reviewed Patient Risk: Intermediate Procedure Risk: Intermediate Anesthetic Plan Anesthetic Plan: GA (redo, long case per surgeon) Disposition: Standard PACU
[2024-08-10 12:54] LABS: MRSA Nasal PCR NEGATIVE (Negative); SA Nasal PCR NEGATIVE (Negative)
[2024-09-06] VITALS (17 sets, daily range): BP systolic 75–144; BP diastolic 38–93; PULSE 56–78; RESP 10–18; TEMP 36.1–36.6; O2SAT 92–97; BMI 32.6
--- NOTE | ~2024-09-06 | XR_ITS ---
EXAMINATION: XR KNEE, RIGHT CLINICAL INFORMATION: rt tka COMPARISON: Earlier same day. 02/29/2024. 12/21/2023 TECHNIQUE: Two views of the right knee. FINDINGS: Revision arthroplasty right knee. Tibial and femoral components are in place, in anatomic alignment, without periprosthetic lucency or evidence of periprosthetic fracture. Similar calcifications superior to the patella, seen on prior exams. Normal patellar alignment on the lateral projection. There is ventral soft tissue swelling and gas. There are ventral skin jorge a present. There are soft tissue vascular calcifications. XR/XR knee RT 2V IMPRESSION: Right knee revision arthroplasty without complication evident. Electronically signed by: Kermit Montesinos MD 09/06/2024 02:13 PM EDT
--- NOTE | ~2024-09-06 | XR_ITS ---
EXAMINATION: XR KNEE, RIGHT CLINICAL INFORMATION: s/p right total knee arthroplasty revision , intraoperative x-ray COMPARISON: February 29, 2024 TECHNIQUE: AP view of the right knee. FINDINGS: Image related to revision arthroplasty is evident with new hardware placed with elongated tibial and femoral stems. There is fragmentation of the inferior tip of the medial femoral condyle. No other changes are evident. XR/XR knee RT 1V IMPRESSION: There is a fragmented appearance of the inferior medial femoral condyle of uncertain significance. Electronically signed by: Benny Ryan MD 09/06/2024 12:54 PM EDT
--- NOTE | 2024-09-06 07:08 | MHC.SHP ---
Pre-Procedural Eval Section A - 24 Hr Update-Section A only Date of Service: 09/06/24 The patient is an INPATIENT: No Changes since office visit: No Cold of Flu in the past 2 weeks, No New Medical Problems, No Changes in Medication and No Patient answered all questions The patient has been examined within 24 hours of the surgical procedure. The History & Physical has been completed within 30 days and I have reviewed it.: Yes Section B - Complete if H&P > 30 days Chief Complaint: Mechanical loosening of other internal prosthetic Allergies: Allergies Allergy/AdvReac Type Severity Reaction Status Date / Time niacin (NIACIN) Allergy Intermediate AGITATION Verified 09/01/24 11:40 nystatin (NYSTATIN) Allergy Unknown RASH Verified 09/01/24 11:40 ropinirole (ROPINIROLE) Allergy Unknown ANXIOUS Verified 09/01/24 11:40 duloxetine AdvReac Unknown Unknown Verified 09/01/24 11:40 Plan I have reviewed the history and physical and performed a pertinent physical examination on my patient. No changes have occurred unless specified. Time Spent With Patient Time: Total time managing care of this patient today ____ minutes.
--- NOTE | 2024-09-06 07:22 | PHA.MEDREC ---
Pharmacy Consult ? Medication Reconciliation Pharmacy has completed the medication reconciliation. Reviewed med rec done by nursing. Pravastatin was filled this month for 90 day supply and listed on note from office visit on 08/30/24.
[2024-09-06 07:30] LABS: Hematocrit 41.4 % (42.0-52.0); Hemoglobin 13.6 g/dl (14.0-18.0)
[2024-09-06] MEDS: Lactated Ringers 1,000 ML 100 ML IVCONT ×2 (07:45→15:41)
--- NOTE | 2024-09-06 07:52 | PC.NURSE ---
okay to proceed abrasion assessed by dr de la cruz
--- NOTE | 2024-09-06 13:28 | PM.OP ---
Brief Operative Note Date of Service: 09/06/24 Pre-op diagnosis: Right prosthetic knee loosening Post-op diagnosis: same Procedure: Revision right knee arthroplasty Implants: Bertrand Triathlon TS femur #3 with 5 mm distal augments and 5 mm posterolateral augment and a 14x50 mm stem Bertrand #4 universal baselplate with 10mm medial augment and 5 mm lateral augment, 12x50 mm stem and medial cone, B Surgeon: Hernando Zamora MD Anesthesia: GETA and regional Was an Rotary Driller used for this Procedure?: Yes Rotary Driller: Sabina Romano Estimated blood loss (mL): 250 IV fluids (mL): 1,500 Pathology: other Condition: stable Disposition: PACU
[2024-09-06] MEDS: 0.9 % Sodium Chloride Flush 3 ML SYRINGE IVFLUSH ×2 (15:41→21:29)
--- NOTE | 2024-09-06 17:38 | PM.DS ---
DS: Providers Provider Date of Service: 09/06/24 <Sabina Romano PA-C - Last Filed: 09/06/24 17:42> Date of discharge: 09/07/24 <Sabina Romano PA-C - Last Filed: 09/06/24 17:42> Primary care physician: Matthew Vale [employer] <Sabina Romano PA-C - Last Filed: 09/06/24 17:42> Consults: 09/06/24 15:30 Consult to Hospitalist Routine Comment: Consulting Provider: [facility] Reason For Exam: med management / DM <Sabina Romano PA-C - Last Filed: 09/06/24 17:42> DS: Diagnosis Discharge Diagnosis (1) Status post revision of total replacement of right knee: Status: Acute <RAMAN Starr Last Filed: 09/06/24 17:42> DS: Summary Hospital Course Hospital Course: The patient underwent a successful revision right total knee arthroplasty with Dr Zamora on 09/06/24, was transferred to PACU and then to the floor to recover. During their stay, their vitals were stable, afebrile at 98.1. Labs were unremarkable, H/H 11.7/33.9. POD 1 he was started on ASA 325mg tabs po bid for DVT ppx, they also received Physical Therapy services twice a day. Physical therapy should include gait training, ROM to tolerance and quad strength. He is WBAT. Prior to discharge, his dressing was changed, incision clean dry and intact, new Aquacel dressing applied. The Aquacel dressing shoulder remain intact and dry at all times. Any concerns with the dressing, please contact orthopedic office. No showering. Plan is to be DC home with [facility] <RAMAN Starr Last Filed: 09/06/24 17:42> Time Attestation Discharge Coordination Time (in mins): 30 <RAMAN Garcia Last Filed: 09/07/24 09:44> Quality: Safe Use of Opioids Does Pt have an Active Cancer Diagnosis on the Problem List?: No <Nissa James PA-C - Last Filed: 09/07/24 09:44> Quality: Stroke Does the patient have a stroke diagnosis?: No <Nissa James PA-C - Last Filed: 09/07/24 09:44> Physical Exam Vital Signs: Vital Signs: Last Vital Signs Temp 97 F 09/06/24 15:30 Pulse 61 09/06/24 15:30 Resp 17 09/06/24 15:30 BP 144/78 H 09/06/24 15:30 Pulse Ox 94 09/06/24 15:30 O2 Del Method Nasal Cannula 09/06/24 15:30 O2 Flow Rate 2 09/06/24 15:30 BMI result Body Mass Index 32.6 <Sabina Romano PA-C - Last Filed: 09/06/24 17:42> Const: General: cooperative, healthy appearing and no acute distress <Nissa James PA-C - Last Filed: 09/07/24 09:44> Resp: Effort & Inspection: normal respiratory effort and able to speak in complete sentences <Nissa James PA-C - Last Filed: 09/07/24 09:44> Extrem: Other: rt knee dressing is c/d/i. Able to dorsi/plantar flex. Calf is supple and nontender. Sensation intact. Pedal pulse intact. <Nissa James PA-C - Last Filed: 09/07/24 09:44> DS: Data Data Completed and Pending Completed studies during hospitalization [Text1]: Procedures Introduction of Anesthetic Agent into Peripheral Nerves and Plexi, Percutaneous Approach (06/30/23) Replacement of Right Knee Joint with Synthetic Substitute, Cemented, Open Approach (06/30/23) <Sabina Romano PA-C - Last Filed: 09/06/24 17:42> Pending studies at discharge: Pending at discharge 09/06/24 13:04 Surgical [PTH] Routine <RAMAN Starr Last Filed: 09/06/24 17:42> Labs on day of discharge: Laboratory Results - last 24 hr 09/06/24 07:21 Hgb 13.6 L Hct 41.4 L <RAMAN Starr Last Filed: 09/06/24 17:42> Discharge Plan Discharge Patient Disposition: Home Health Service <Sabina Romano PA-C - Last Filed: 09/06/24 17:42> Referrals: Sabina Romano PA-C [Physician Vice President Fixed Income, Orthopedics] - 1 Week Referral Note: 09/22/24 14:00 [facility] Orthopedic Surgeons Sabina Romano PA-C <Sabina Romano PA-C - Last Filed: 09/06/24 17:42> Discharge Medications: New docusate sodium 100 mg Capsule 100 mg PO BID 7 Days Qty: 14 0RF celecoxib 200 mg Capsule 200 mg PO BID 30 Days Qty: 60 0RF aspirin 325 mg Tablet 325 mg PO BID 42 Days Qty: 84 0RF acetaminophen 325 mg Tablet 650 mg PO Q6H PRN (Reason: Pain, Mild 1-3,Fever,Headache) 30 Days Qty: 240 0RF oxycodone 5 mg Tablet 5 mg PO Q4H PRN (Reason: Pain, Moderate(Pain Scale 4-6)) 7 Days Qty: 42 0RF Rx Instructions: Partial Fill upon patient request. Continued (DME) blood-glucose meter [FreeStyle Lite Meter] Kit See Rx Instructions .Route Qty: 1 0RF Rx Instructions: As directed to test blood sugar once a day clonidine HCl 0.2 mg tablet 0.2 mg PO BID Qty: 180 5RF pramipexole 1 mg tablet 1 mg PO TID Qty: 270 1RF fenofibrate 160 mg tablet 160 mg PO DAILY@1700 Qty: 90 1RF (DME) lancets [FreeStyle Lancets] 28 gauge misc See Rx Instructions .Route Qty: 100 1RF Rx Instructions: Test blood sugar once a day (DME) FreeStyle Lite Strips Strip See Rx Instructions .Route Qty: 100 1RF Rx Instructions: Test sugar once a day bupropion HCl 150 mg tablet extended release 24 hr 150 mg PO QAM Qty: 90 0RF levothyroxine [Synthroid] 100 mcg tablet 100 mcg PO DAILY Qty: 90 1RF pravastatin 40 mg tablet 40 mg PO DAILY@1700 Qty: 90 1RF (DME) walker Misc See Rx Instructions .MEDSUPPLY Qty: 1 0RF Rx Instructions: Folding Front wheeled walker <Sabina Romano PA-C - Last Filed: 09/06/24 17:42> Discharge Orders: Discharge Order (Routine); Ordered 09/07/24 Ordered By: Nissa James <Sabina Romano PA-C - Last Filed: 09/06/24 17:42> Diet: Regular diet <Sabina Romano PA-C - Last Filed: 09/06/24 17:42> Regular diet <Nissa James PA-C - Last Filed: 09/07/24 09:44> Activity on Discharge: Use cane or walker <Sabina Romano PA-C - Last Filed: 09/06/24 17:42> Use cane or walker <Nissa James PA-C - Last Filed: 09/07/24 09:44> Activity Restrictions/Additional Instructions: Physical Therapy for Total knee arthroplasty: WBAT, gait training, ROM 0-12, quad strength Limit stair climbing No showering, no tub bath-keep dressing clean, dry and intact No driving x6 weeks Continue Aspirin twice a day x 6 weeks Follow up with [facility] Orthopedics in 2 weeks <Sabina Romano PA-C - Last Filed: 09/06/24 17:42> Print Language: Pashto <Sabina Romano PA-C - Last Filed: 09/06/24 17:42>
--- NOTE | 2024-09-06 17:42 | W.MHC.F2F ---
Service Date Service Date: 09/06/24 Encounter Date of encounter: 09/06/24 Reasons for Services Signs and symptoms assessed: Weakness, poor balance, poor gait mechanics Reason for physical therapy: home safety and mobility, therapeutic exercises, restore joint function, gait/transfer training, ADL training and energy conservation Reason for occupational therapy: home safety and mobility, therapeutic exercises, restore joint function, gait/transfer training, ADL training and energy conservation Overseeing Care: Hernando Zamora Homebound: Leaving the home is medically contraindicated at this time without the asist of a device and/or another person due th the listed conditions above and below. Reason homebound: unsteady gait / fall risk, pain with ambulation, poor balance / fall risk and unable to drive Homebound supporting statement: Pt. is considered home bound due to recent surgery. Unable to drive, poor balance, poor gait mechanics. Certification: Based on the above findings, I certify that this patient is confined to the home and needs intermittent long term care, physical therapy and/or speech therapy, or continues to need occupational therapy. The patient is under my care, and I have initiated the establishment of the plan of care. The patient will be followed by a physician who will periodically review the plan of care. Time Spent With Patient Time: Total time managing care of this patient today ____ minutes.
[2024-09-06] MEDS: oxyCODONE HCl ER 10 MG TAB.ER.12H PO (21:11)
--- NOTE | 2024-09-06 22:18 | HO.PM.IMCN ---
History of Present Illness Data of Consult Service Date: 09/06/24 Requesting physician: Hernando Zamora Primary Care Provider: Matthew Vale [facility] HPI Reason for consult: medical management Patient is a 64-year-old male with a past medical history significant for arthritis, fatty liver, POLO (no CPAP), RLS, hypothyroid, depression class 1 obesity and hyperlipidemia, s/p R TKA today. Medical history and medications were reviewed with the patient. He denies any chest pain, shortness of breath, nausea or vomiting. He has been able to urinate since the surgery. Numbness and tingling has subsided in the right lower extremity. Sensation and motor intact. He has no medical concerns currently. rates his R knee pain currently a 04/18. Review of Systems Constitutional: Constitutional: Denies body ache(s), Denies chills, Denies fatigue, Denies fever(s) and Denies headache(s) Eyes: Eyes: Denies change in vision ENT: Denies headache(s) Cardiovascular: Cardiovascular: Denies chest pain and Denies dyspnea Respiratory: Respiratory: Denies cough, Denies dyspnea and Denies wheezing Gastrointestinal: Gastrointestinal: Denies abdominal pain, Denies nausea and Denies vomiting Genitourinary: Genitourinary: Denies dysuria and Denies urinary frequency Musculoskeletal: Musculoskeletal: Denies back pain Integumentary/Breasts: Skin/Breast: Denies rash Neurologic: Denies confusion and Denies headache(s) Psychiatric: Psychiatric: Denies confusion Endocrine: Endocrine: Denies fatigue Hematologic/Lymphatic: Hematologic/Lymphatic: Denies easy bleeding and Denies easy bruising Allergic/Immunologic: Allergic/Immunologic: Denies wheezing [facility] Medical History Arthritis Fatty liver GERD (gastroesophageal reflux disease) Sleep apnea Restless legs syndrome Hypothyroid Depression High cholesterol Surgical History Hx of foot surgery Status post right knee replacement (06/30/23) H/O rotator cuff surgery S/P tendon repair S/P ankle joint replacement Social History Household Members: Spouse and Family Housing: House Are you a primary healthcare financial analyst to a significant other at home: No Do you presently have visiting nurse or other home services: No Alcohol intake: current Alcohol intake frequency: holidays/special occasions only Patient Tobacco Use Status: Former Tobacco user Tobacco use type: Cigarette e-Cigarette/Vaping Use: Former Use Second Hand Smoke Exposure: No Substance Use Type: Marijuana service: No Current occupational status: disabled Cognitive needs: No Hearing needs: No Vision needs: No Narrative: previous tobacco, smokes MJ. no etoh. Meds Allergies Allergy/AdvReac Type Severity Reaction Status Date / Time niacin (NIACIN) Allergy Intermediate AGITATION Verified 09/01/24 11:40 nystatin (NYSTATIN) Allergy Unknown RASH Verified 09/01/24 11:40 ropinirole (ROPINIROLE) Allergy Unknown ANXIOUS Verified 09/01/24 11:40 duloxetine AdvReac Unknown Unknown Verified 09/01/24 11:40 Active Medications: Current Medications Acetaminophen (Acetaminophen 325 Mg Tablet) 650 mg PO Q6H PRN PRN Reason: Pain, Mild 1-3,fever,headache Aspirin (Aspirin 325 Mg Tablet) 325 mg PO BID [facility] Bupropion HCl (Bupropion Hcl Xl 150 Mg Tab.Er.24h) 150 mg PO DAILY [facility] Celecoxib (Celecoxib 200 Mg Capsule) 200 mg PO BID [facility] Last Admin: 09/06/24 21:10 Dose: 200 mg Clonidine HCl (Clonidine Hcl 0.2 Mg Tablet) 0.2 mg PO BID [facility]; Protocol Last Admin: 09/06/24 21:10 Dose: 0.2 mg Docusate Sodium (Docusate Sodium 100 Mg Capsule) 100 mg PO BID [facility] Last Admin: 09/06/24 21:11 Dose: 100 mg Fenofibrate (Fenofibrate 160 Mg Tablet) 160 mg PO DAILY@1700 [facility] Last Admin: 09/06/24 17:13 Dose: 160 mg Hydromorphone HCl (Hydromorphone Hcl 0.5 Mg/0.5 Ml Syringe) 0.25 mg IVPUSH Q4H PRN; Protocol PRN Reason: Pain, Severe (Pain Scale 7-10) Last Admin: 09/06/24 21:28 Dose: 0.25 mg Lactated Ringer's (Lr) 1,000 mls @ 100 mls/hr IVCONT .Q10H [facility] Stop: 09/07/24 08:00 Last Admin: 09/06/24 15:41 Dose: 100 mls/hr Levothyroxine Sodium (Levothyroxine Sodium 100 Mcg Tablet) 100 mcg PO DAILY@0600 [facility] Ondansetron HCl (Ondansetron Hcl 4 Mg/2 Ml Vial) 4 mg IVPUSH Q8H PRN PRN Reason: Nausea and Vomiting Oxycodone HCl (Oxycodone Hcl Immed Release 5 Mg Tablet) 5 mg PO Q4H PRN PRN Reason: Pain, Moderate(Pain Scale 4-6) Oxycodone HCl (Oxycodone Hcl Er 10 Mg Tab.Er.12h) 10 mg PO BID [facility] Last Admin: 09/06/24 21:11 Dose: 10 mg Pramipexole Dihydrochloride (Pramipexole Di-Hcl 1 Mg Tablet) 1 mg PO TID [facility] Last Admin: 09/06/24 21:11 Dose: 1 mg Sodium Chloride (0.9 % Sodium Chloride Flush 3 Ml Syringe) 3 ml IVFLUSH QSHIFT [facility] Last Admin: 09/06/24 21:29 Dose: 3 ml Physical Exam Vital Signs and Narrative: Vital Signs: Last Vital Signs Temp 97.3 F 09/06/24 19:30 Pulse 71 09/06/24 19:30 Resp 18 09/06/24 21:58 BP 127/80 09/06/24 19:30 Pulse Ox 92 09/06/24 19:30 O2 Del Method Room Air 09/06/24 19:30 O2 Flow Rate 2 09/06/24 15:30 BMI result Body Mass Index 32.6 General: AOx3, no acute distress Resp: CTA bilaterally CVS: S1, S2, RRR GI: +BS, NT, no distention Skin: Warm, dry Neuro: Cranial nerves II-XII grossly intact bilaterally. Motor grossly intact bilaterally Extremities: No LE edema. sensation and motor intact bilateral LE Psych: Appropriate affect Const: General: No confusion Orientation/consciousness: No confusion Neuro: General: No confusion Results Labs 09/06/24 07:21 Imaging Radiologist's Impressions: Impressions Knee X-Ray 09/06/24 11:21 IMPRESSION: There is a fragmented appearance of the inferior medial femoral condyle of uncertain significance. Electronically signed by: Benny Ryan MD 09/06/2024 12:54 PM EDT RP Knee X-Ray 09/06/24 14:00 IMPRESSION: Right knee revision arthroplasty without complication evident. Electronically signed by: Kermit Montesinos MD 09/06/2024 02:13 PM EDT RP Assessment and Plan (1) Status post total knee replacement, right: Status: Acute (2) Status post revision of total replacement of right knee: Status: Acute (3) Aseptic loosening of prosthetic knee: Status: Acute Plan Patient is a 64-year-old male with a past medical history significant for arthritis, fatty liver, POLO (no CPAP), RLS, hypothyroid, depression, class 1 obesity and hyperlipidemia, s/p R TKA today. No current medical concerns. Medical hx and medications reviewed. s/p R TKA, revision due to loosening from previous TKA - POD 0 - pain well controlled - plan per ortho POLO - no CPAP RLS - continue pramipexole hypothryoid - continue levothryoxine depression - continue bupropion HLD - continue statin and fenofibrate class 1 obesity - BMI 32.6 - weight loss encouraged Thank you for allowing me to participate in the pt's care. Signing off. Please contact the medical team if any questions or concerns.
[2024-09-07] MEDS: Lactated Ringers 1,000 ML 100 ML IVCONT (01:27)
[2024-09-07 03:25] VITALS: BP 131/73; PULSE 68; RESP 18; TEMP 36.7; O2SAT 93
[2024-09-07 05:57] LABS: MANUAL DIFF FLAG NO
[2024-09-07 06:07] LABS: Hematocrit 35.3 % (42.0-52.0); Hemoglobin 11.7 g/dl (14.0-18.0); Imm Gran Abs Auto 0.08 X10*3/uL (0.00-0.03); Imm Gran Pct Auto 0.8 % (0.0-0.4); Lymphocytes Absolute Auto 1.6 X10*3/uL (1.2-4.9); Mean Corpuscular HGB Conc 33.1 g/dl (31.0-36.0); Mean Corpuscular Hemoglobin 27.2 pg (27.0-33.0); Mean Corpuscular Volume 82.1 fL (80.0-98.0); NRBC Abs Auto 0.000 X10*3/uL (0.0-0.012); NRBC Pct Auto 0.0 /100WBC (0.0-0.2); Platelet Count 309 X10*3/uL (160-400); Red Blood Count 4.30 X10*6/uL (4.60-5.80); White Blood Count 9.9 X10*3/uL (4.8-10.8)
[2024-09-07 06:21] LABS: Anion Gap 11 (12-20); Blood Urea Nitrogen 14 mg/dL (9-16); Calcium 7.9 mg/dL (8.4-10.2); Carbon Dioxide 24 mmol/L (22-29); Chloride 107 mmol/L (96-108); Creatinine Clr Calc Pharmacy 112.0; Estimated Glomerular Filt Rate > 60; Potassium 4.0 mmol/L (3.3-5.1); Sodium 138 mmol/L (135-145)
[2024-09-07] MEDS: oxyCODONE HCl Immed Release 5 MG TABLET PO (07:28)
[2024-09-07 07:51] VITALS: BP 167/92; PULSE 71; RESP 16; TEMP 37; O2SAT 93
--- NOTE | 2024-09-07 08:05 | PM.PNORT ---
Subjective Subjective Date of Service: 09/07/24 Interval history: POD1 s/p revision RTKA Patient is resting in bed comfortably No overnight events Pain is managed No additional complaints Physical Exam Vital Signs: Vital Signs: Last Vital Signs Temp 98.6 F 09/07/24 07:51 Pulse 71 09/07/24 07:51 Resp 16 09/07/24 07:51 BP 167/92 H 09/07/24 07:51 Pulse Ox 93 09/07/24 07:51 O2 Del Method Room Air 09/07/24 07:51 O2 Flow Rate 2 09/06/24 15:30 BMI result Body Mass Index 32.6 Const: General: cooperative, healthy appearing and no acute distress Resp: Effort & Inspection: normal respiratory effort and able to speak in complete sentences Extrem: Other: rt knee dressing is c/d/i. Able to dorsi/plantar flex. Calf is supple and nontender. Sensation intact. Pedal pulse intact. Procedures Date of Service Date of Service: 09/07/24 Progress Note: A&P Assessment and plan (1) Status post revision of total replacement of right knee: Status: Acute Plan Continue pain mgmnt Begin ASA for dvt ppx begin PT for Revision RTKA Dispo planning-Pending PT eval, pain mgmnt, anticipate home later this afternoon vs tomorrow Time Spent With Patient Time: Total time managing care of this patient today ____ minutes. Quality Stroke Does the patient have a stroke diagnosis?: No VTE Prior VTE?: No VTE Risk Level:: Medical - moderate - high VTE Device Contraindication: N/A - Device Ordered VTE Drug Contraindication: N/A - Med Ordered
[2024-09-07] MEDS: buPROPion HCl XL 150 MG TAB.ER.24H PO (08:17)
[2024-09-07] MEDS: oxyCODONE HCl ER 10 MG TAB.ER.12H PO (08:18)
[2024-09-07 09:01] VITALS: BP 167/92; PULSE 71; O2SAT 93
--- NOTE | 2024-09-07 09:18 | HO.POSTANES ---
Post Anesthesia Evaluation Post Anesthesia Evaluation Date of Service: 09/07/24 Vital Signs: Vital Signs Temp Pulse Resp BP Pulse Ox O2 Del Method 09/07/24 07:51 98.6 F 71 16 167/92 H 93 Room Air 09/07/24 03:25 98.1 F 68 18 131/73 93 Room Air 09/06/24 23:00 97.9 F 69 18 133/77 93 Room Air 09/06/24 22:10 18 09/06/24 21:58 18 Anesthesia: Nerve Block and General Mental Status: Awake Pain Control: Satisfactory Nausea/Vomiting: None Hydration: Adequate Anesthesia-Related Issues: No Anes. Related Issues
--- NOTE | 2024-09-07 11:20 | MHC.CM.PN ---
Patient discharged with [facility] for home services. Patient discharged prior to being seen by case management.
[2024-09-07 12:20] VITALS: BP 120/58; PULSE 74; RESP 18; TEMP 36.8; O2SAT 95
--- NOTE | 2024-09-08 07:09 | W.PM.OPN ---
Operative Note Operative Note Date of Service: 09/06/24 Narrative: Date of Service: 09/06/24 Pre-op diagnosis: Right prosthetic knee loosening Post-op diagnosis: same Procedure: Revision right knee arthroplasty Implants: [employer] Triathlon TS femur #3 with 5 mm distal augments and 5 mm posterolateral augment and a 14x50 mm stem Bertrand #4 universal baselplate with 10mm medial augment and 5 mm lateral augment, 12x50 mm stem and medial cone, B Surgeon: Hernando Zamora MD Anesthesia: GETA and regional Was an Plant Security Guard used for this Procedure?: Yes Plant Security Guard: Sabina Romano Estimated blood loss (mL): 250 IV fluids (mL): 1,500 Pathology: other Condition: stable Disposition: PACU Procedure in detail: The patient was brought to the operating room and prepped and draped in standard sterile fashion. A time-out was called to identify proper site proper procedure proper surgeon and IV antibiotics were administered. 1 g of IV tranexamic acid was administered. I began by making a midline incision to the retinaculum and performed a medial parapatellar arthrotomy. Normal joint fluid was expressed. As expected the knee was tight extended incision proximally quadriceps snip. This allowed for more lateral translation of the patella but he was still difficult to fully mobilize and so I had to dissect out the lateral aspect of the joint and the extensive fibrosis surrounding the patella. I was gently able to fully expose the knee and began my evaluation. I removed the TS insert with a sagittal saw and then once the post was removed the insert was removed an osteotome. This revealed a loose tibial component. In order to adequately assess and access the tibial component however I removed the well fixed femur. Flexible osteotomes were used circumferentially around the implant while protecting the MCL and the posterior soft tissues. I was able to remove the component in its entirety with attached cement and minimal bone loss. I irrigated copiously and used a rongeur and a curette to move all excess bone. I then turned my attention of the tibia I removed the tibial component easily. There was medial bone loss especially posteromedially. The lateral bone appeared healthy. There was an uncontained posterior medial defect. At this point I returned to the femur and used a intramedullary guide to place my TS cutting guide. Distal femoral cutting guide was used to remove the excess anterior bone down to normal-appearing bone. I used the medial epicondyle as a reference point and selected 5 mm augments at this level. I sized a size 3 femur and then used the TLS cutting block to perform my clean-up cuts of the anterior posterior and chamfer cuts of the femur. Again this resulted in minimal bone loss and I was able to make cuts down to normal appearing bone with a 5 mm augment lab posterolaterally only. Once I was satisfied with the fit of the trial I turned my attention of the tibia. Intramedullary guide was used to make my clean-up cuts of the tibia. The posterior soft tissues were protected all times and once all excess bone cement was removed I made a my tibial cuts and selected a 10 mm medial augment with a medial cone and a 5 mm lateral augment. I prepared the canal for the cone and was able to ream down to healthy-appearing bone. A trial cone was placed with a 4 tibia with a 5 mm lateral augment and a 10 mm medial augment. This was placed using a 16 mm insert and I was very satisfied with the tracking and stability. I obtained a AP radiograph to confirm alignment. I was satisfied with the alignment and with the stability of the implants as well as the tracking and motion. He had been in varus for some time and his medial compartment was tight. Therefore I removed all instrumentation and once again irrigated extensively removing all bone cement and necrotic debris. I then mixed 2 bags of Palacos bone cement with gentamicin on the back table and then cemented the tibia and femur in standard fashion while applying axial compression. Once the cement was dry all excess cement was removed and I trialed several inserts and was most satisfied with the 19 mm PS insert. This was as much as the medial compartment would tolerate given his longstanding varus. My final insert was placed in the knee reduced. I was extremely satisfied with the extension and flexion as well as the medial and lateral stability and the patellofemoral tracking. The tourniquet had been let down at the 120 minute osorio and there was no brisk bleeding. A where we will ablation device was used to maintain hemostasis. At this point the arthrotomy incision was closed with a Quill in the subcutaneous tissue with a 2-0 Vicryl and the skin with jorge a. Local TXA was administered. Patient was then placed in sterile dressing and brought to recovery room in stable condition there were no known complications.
== END 2024-09-07 12:52 | disposition home health service (06) ==
LOC: HO.SSS 14:09 → HO.S3 14:09
PROVIDERS: Physician Assistant; PCP Nurse Practitioner Family; Visit Provider Orthopaedic Surgery
PROC: (CPT 27487; principal; 2024-09-06 09:50)
DX: T84.032A Mechanical loosening of internal right knee prosthetic joint, initial encounter (principal); Y79.2 Prosthetic and other implants, materials and accessory orthopedic devices associated with adverse incidents; Y92.9 Unspecified place or not applicable; M25.561 Pain in right knee; R26.2 Difficulty in walking, not elsewhere classified; Z96.651 Presence of right artificial knee joint; G25.81 Restless legs syndrome; E78.00 Pure hypercholesterolemia, unspecified; E03.9 Hypothyroidism, unspecified; G47.30 Sleep apnea, unspecified; Z79.899 Other long term (current) drug therapy; Z99.89 Dependence on other enabling machines and devices; Z88.8 Allergy status to other drugs, medicaments and biological substances; Z96.669 Presence of unspecified artificial ankle joint; Z98.890 Other specified postprocedural states; Z87.891 Personal history of nicotine dependence
CPT/HCPCS: 27487; 36415; 73560; 80048; 85014; 85018; 85025; 86850; 86900; 86901; 87640; 87641; 88305; 88311; 93005; 97162; C1713; C1776; J0131; J0665; J0690; J1100; J1171; J2003; J2004; J2250; J2371; J2405; J2704; J3010; J7120

== ENCOUNTER → 2024-09-06 07:00 | Outpatient (BNV) | payer MEDICARE, BC, SELFPAY | PROVIDERS: PCP Nurse Practitioner Family; Visit Provider Physician Assistant | DX: Z96.651 Presence of right artificial knee joint (principal); T84.038A Mechanical loosening of other internal prosthetic joint, initial encounter; Z96.659 Presence of unspecified artificial knee joint | CPT/HCPCS: 99222 ==

== ENCOUNTER → 2024-09-06 07:00 | Outpatient (BNV) | payer MEDICARE, BC, SELFPAY | PROVIDERS: Admitting Provider Physician Assistant; PCP Nurse Practitioner Family; Visit Provider Orthopaedic Surgery | DX: Z47.1 Aftercare following joint replacement surgery (principal); Z96.651 Presence of right artificial knee joint | CPT/HCPCS: 27487; 99024; G0180 ==

== ENCOUNTER 2024-09-22 08:27 | Outpatient (REF) | payer MEDICARE, BC, SELFPAY ==
--- NOTE | ~2024-09-22 | XR_ITS ---
EXAMINATION: XR KNEE, RIGHT CLINICAL INFORMATION: M17.11 - Unilateral primary osteoarthritis, right knee COMPARISON: Radiographs on September 06, 2004 TECHNIQUE: Three views of the right knee. FINDINGS: Status post revision arthroplasty of the right knee. Prosthetic components are in satisfactory alignment, without evidence of periprosthetic fracture or abnormal lucency. Unchanged calcification in the suprapatellar region. Metallic skin jorge a in the anterior knee remain in place. XR/XR knee RT 3V IMPRESSION: Stable appearance of the right knee, status post revision arthroplasty, without evidence of complication. Electronically signed by: Kelly Benoit MD 09/22/2024 02:49 PM EDT
--- OUTSIDE RECORDS SUMMARY | 2024-09-23 08:38 | XMS_ITS | Patient Health Record ---
Author Organization [facility] Address [address] [place] [address] Care Team Providers Care Video Game Repair Technician Name Role Phone Sj cSott MD Primary Care Provider Unavailab Che Dukes Unavailable [phone] Allergies Allergen (clinical drug ingredient) Drug/Non Drug [...] Twice a day; Duration: 30 days 09/17/2017 Not-vEaristo g Social History Tobacco Use: Social History [...] Order Date *Liver Function Test (LFT) 11/05/2017 [id number] NAIL, 6 OR MORE 01/21/2018 [id number] NAIL, 6 OR MORE 04/26/2018 [id number] NAIL, 6 OR MORE 07/29/2018 [id number] NAIL, 6 OR MORE 11/01/2018 [id number] NAIL, 6 OR MORE 04/04/2019 Insurance Providers Payer Name Payer Address Payer Phone Subscriber Number Group Number Insured Name Patient Relationship to Insured Coverage Start Date Coverage End Date Medicare National [employer] [address] [place] [address] [id number] Hang Bernal Self - patient is the insured [facility] [address] [place] [address] [phone] [id number] Hang Bernal Self - patient is the insured Medical (General) History Medical History History ICD Code Depression Joint implants/screws Surgical History Surgery Date(Month/Year) right ankle replacement (multiple surger ies) Hospitalization History Reason Date(Month/Year) [facility] [place] [place] ER pt cut finger off 2017
== END 2024-09-22 08:28 | disposition home or self-care (01) ==
LOC: HO.HOSX 08:27
PROVIDERS: Visit Provider Physician Assistant
DX: Z47.1 Aftercare following joint replacement surgery (principal); M17.11 Unilateral primary osteoarthritis, right knee; Z96.651 Presence of right artificial knee joint
CPT/HCPCS: 73562; 99212

== ENCOUNTER 2024-09-22 13:46 | Outpatient (AMB) | payer MEDICARE, BC, SELFPAY ==
--- NOTE | 2024-09-22 13:54 | A.OFFVIS_ITS ---
Intake Visit Reasons: 2WKPO: R TKA Rev w/NE 09/06/24 Intake Note: Hang is a 64 year old male who presents post operatively after undergoing a RT TKA, DOS 09/06/[address] Zamora. Allergies niacin (NIACIN) Allergy (Intermediate, Verified 09/22/24 14:02) AGITATION nystatin (NYSTATIN) Allergy (Unknown, Verified 09/22/24 14:02) RASH ropinirole (ROPINIROLE) Allergy (Unknown, Verified 09/22/24 14:02) ANXIOUS duloxetine Adverse Reaction (Unknown, Verified 09/22/24 14:02) Unknown HPI HPI 2WKPO: R TKA Rev w/NE 09/06/24: Details: 64-year-old gentleman returns to the office today for revision right total knee arthroplasty with Dr. Zamora on 09/06/2024. Doing well working with physical therapy. He has his last home visit tomorrow and then he transitions to outpatient physical therapy. He continues to ambulate with a walker and is still taking aspirin for DVT prophylaxis. [facility] Medical History Arthritis Fatty liver GERD (gastroesophageal reflux disease) Sleep apnea Restless legs syndrome Hypothyroid Depression High cholesterol Surgical History Status post total knee replacement, right Hx of foot surgery Status post right knee replacement (06/30/23) H/O rotator cuff surgery S/P tendon repair S/P ankle joint replacement Social History Household Members: Spouse and Family Housing: House Are you a primary healthcare recruiter to a significant other at home: No Do you presently have visiting nurse or other home services: No Alcohol intake: current Alcohol intake frequency: holidays/special occasions only Patient Tobacco Use Status: Former Tobacco user Tobacco use type: Cigarette e-Cigarette/Vaping Use: Former Use Second Hand Smoke Exposure: No Substance Use Type: Marijuana service: No Current occupational status: disabled Cognitive needs: No Hearing needs: No Vision needs: No Review of Systems Const All systems reviewed & are unremarkable except as noted in HPI and below Physical Exam Extrem Other: Right knee incision is clean dry and intact. He has mild swelling but no joint effusion present. Range of motion 10-90 degrees. His is able to activate quad. Calf supple and nontender neurovascularly intact. Assessment & Plan Assessment & Plan (1) Status post revision of total replacement of right knee: Code(s): Z96.651 - Presence of right artificial knee joint Category: Surgical Plan: Srikanth removed today Steri-Strips applied. The patient will transition to outpatient physical therapy and he was given the contact information to make an appointment. I did stress the importance of caution with activities such as stairs until he has good quad control. He should avoid the swimming pool as this is an increased risk for injury getting in and out of the pool. No driving for another 4 weeks. He will see us back in 4 weeks with routine follow-up sooner if needed. Orders: Orders XR knee RT 3V Today M17.11 - Unilateral primary osteoarthritis, right knee Coding Level of Care Code Global (90516) Diagnoses Status post revision of total replacement of right knee Z96.651
--- OUTSIDE RECORDS SUMMARY | 2024-09-22 14:41 | XMS_ITS | Patient Health Record ---
Author Organization [facility] Address [address] [place] [address] Care Team Providers Care Negative Turner Name Role Phone Sj Scott MD Primary Care Provider Unavailab Che Dukes Unavailable [phone] Allergies Allergen (clinical drug ingredient) Drug/Non Drug [...] primary osteoarthritis of the ankle and/or foot (698737554) Primary osteoarthrit is, left ankle and foot (M19.072) Active confirmed Plan Of Treatment Pending Test Test Name Order Date *Liver Function Test (LFT) 11/05/2017 [id number] NAIL, 6 OR MORE 01/21/2018 [id number] NAIL, 6 OR MORE 04/26/2018 [id number] NAIL, 6 OR MORE 07/29/2018 [id number] NAIL, 6 OR MORE 11/01/2018 [id number] NAIL, 6 OR MORE 04/04/2019 Insurance Providers Payer Name Payer Address Payer Phone Subscriber Number Group Number Insured Name Patient Relationship to Insured Coverage Start Date Coverage End Date Medicare National [employer] [address] [place] [address] [id number] Hang Bernal Self - patient is the insured [facility] [address] [place] [address] [phone] [id number] Hang Bernal Self - patient is the insured Medical (General) History Medical History History ICD Code Depression Joint implants/screws Surgical History Surgery Date(Month/Year) right ankle replacement (multiple surger ies) Hospitalization History Reason Date(Month/Year) [facility] [place] pt cut finger off 2017
== END 2024-09-22 14:10 | disposition home or self-care (01) ==
LOC: HO.HOS 13:47
PROVIDERS: PCP Nurse Practitioner Family; Visit Provider Physician Assistant
DX: Z96.651 Presence of right artificial knee joint (principal)
CPT/HCPCS: 99024

== ENCOUNTER → 2024-09-22 13:51 | Outpatient (BNV) | payer MEDICARE, BC, SELFPAY | PROVIDERS: Visit Provider Radiology Body Imaging | DX: M25.861 Other specified joint disorders, right knee (principal) | CPT/HCPCS: 73562 ==

== ENCOUNTER 2024-10-20 14:21 | Outpatient (REF) | payer BC, MEDICARE, SELFPAY ==
--- NOTE | ~2024-10-20 | XR_ITS ---
EXAMINATION: XR KNEE, RIGHT CLINICAL INFORMATION: M25.561 - Pain in right knee COMPARISON: Radiographs on September 22, 2024 TECHNIQUE: Three views of the right knee. FINDINGS: Prosthetic components of the right total knee arthroplasty are appropriately aligned without periprosthetic fracture or abnormal lucency. Small suprapatellar joint effusion. Frontal view of the left knee shows mild degenerative changes with joint space narrowing and small marginal osteophytes. XR/XR knee RT 3V IMPRESSION: Status post right knee revision arthroplasty; no acute complications. Electronically signed by: Kelly Benoit MD 10/20/2024 03:24 PM EDT
--- OUTSIDE RECORDS SUMMARY | 2024-10-20 18:07 | XMS_ITS | Patient Health Record ---
Author Organization [facility] Address [address] [place] [address] Care Team Providers Care Shipmaster Name Role Phone Sj Scott MD Primary Care Provider Unavailab Che Dukes Unavailable [phone] Allergies Allergen (clinical drug ingredient) Drug/Non Drug [...] primary osteoarthritis of the ankle and/or foot (015171387) Primary osteoarthrit is, left ankle and foot (M19.072) Active confirmed Plan Of Treatment Pending Test Test Name Order Date *Liver Function Test (LFT) 11/05/2017 [id number] NAIL, 6 OR MORE 01/21/2018 [id number] NAIL, 6 OR MORE 04/26/2018 [id number] NAIL, 6 OR MORE 07/29/2018 [id number] NAIL, 6 OR MORE 11/01/2018 [id number] NAIL, 6 OR MORE 04/04/2019 Insurance Providers Payer Name Payer Address Payer Phone Subscriber Number Group Number Insured Name Patient Relationship to Insured Coverage Start Date Coverage End Date Medicare National [employer] [address] [place] [address] [id number] Hang Bernal Self - patient is the insured [facility] [address] [place] [address] [phone] [id number] Hang Bernal Self - patient is the insured Medical (General) History Medical History History ICD Code Depression Joint implants/screws Surgical History Surgery Date(Month/Year) right ankle replacement (multiple surger ies) Hospitalization History Reason Date(Month/Year) [facility] [place] 2017
== END 2024-10-20 14:22 | disposition home or self-care (01) ==
LOC: HO.HOSX 14:21
PROVIDERS: Visit Provider Orthopaedic Surgery
DX: Z47.1 Aftercare following joint replacement surgery (principal); M25.561 Pain in right knee; Z96.651 Presence of right artificial knee joint
CPT/HCPCS: 73562; 99212

== ENCOUNTER 2024-10-20 14:54 | Outpatient (AMB) | payer MEDICARE, BC, SELFPAY ==
--- NOTE | 2024-10-20 15:00 | A.OFFVIS_ITS ---
Vital Signs 10/20/24 15:12 Height 5 ft 7 in Weight 208 lb BMI 32.6 Intake Visit Reasons: 2nd PO: R TKA Rev w/NE 09/06/24 Intake Note: Hang is a 64 year old male who presents today for a post operative appointment about 5 weeks s/p Revision Right TKA 09/06/24. Hx of Right TKA 06/30/23- revision indicated in setting of aseptic loosening. Patient reports that he is doing w ell, but he has not started physical therapy yet. He explains that by the time physical therapy got his referral about a week later - he is going to [facility], and has only attended his assessment. His pain is well managed - he takes pain medication only after Physical Therapy. Allergies niacin (NIACIN) Allergy (Intermediate, Verified 09/22/24 14:02) AGITATION nystatin (NYSTATIN) Allergy (Unknown, Verified 09/22/24 14:02) RASH ropinirole (ROPINIROLE) Allergy (Unknown, Verified 09/22/24 14:02) ANXIOUS duloxetine Adverse Reaction (Unknown, Verified 09/22/24 14:02) Unknown HPI HPI 2nd PO: R TKA Rev w/NE 09/06/24: Details: Hang is a 64 year old male who presents today for a post operative appointment about 5 weeks s/p Revision Right TKA 09/06/24. Hx of Right TKA 06/30/23- revision indicated in setting of aseptic loosening. Patient reports that he is doing well, but he started physical therapy last week after home PT was completed. He explains that by the time physical therapy got his referral about a week later - he is going to [facility], and has only attended his assessment. His pain is well managed - he takes pain medication only after Physical Therapy. [facility] Medical History Arthritis Fatty liver GERD (gastroesophageal reflux disease) Sleep apnea Restless legs syndrome Hypothyroid Depression High cholesterol Surgical History Status post total knee replacement, right Hx of foot surgery Status post right knee replacement (06/30/23) H/O rotator cuff surgery S/P tendon repair S/P ankle joint replacement Social History Household Members: Spouse and Family Housing: House Are you a primary healthcare manager to a significant other at home: No Do you presently have visiting nurse or other home services: No Alcohol intake: current Alcohol intake frequency: holidays/special occasions only Patient Tobacco Use Status: Former Tobacco user Tobacco use type: Cigarette e-Cigarette/Vaping Use: Former Use Second Hand Smoke Exposure: No Substance Use Type: Marijuana service: No Current occupational status: disabled Cognitive needs: No Hearing needs: No Vision needs: No Physical Exam Vital Signs: BMI result Body Mass Index 32.6 Extrem Other: Incision clean dry and intact 0-120 Stable to varus and valgus stress Results Reviewed Results Reviewed: I personally reviewed relevant radiographs. Right total knee arthroplasty in expected post operative position with no hardware complications or evidence of loosening Assessment & Plan Assessment & Plan (1) Status post revision of total replacement of right knee: Code(s): Z96.651 - Presence of right artificial knee joint Category: Surgical Plan: Status post right knee arthroplasty revision doing well. May discontinue aspirin. Follow up 6 weeks. Orders: Orders XR knee RT 3V Today M25.561 - Pain in right knee Coding Level of Care Code Global (55594) Diagnoses Status post revision of total replacement of right knee Z96.651
[2024-10-20 15:12] VITALS: BMI 32.6
== END 2024-10-20 15:34 | disposition home or self-care (01) ==
LOC: HO.HOS 14:55
PROVIDERS: PCP Nurse Practitioner Family; Visit Provider Orthopaedic Surgery
DX: Z96.651 Presence of right artificial knee joint (principal)
CPT/HCPCS: 99024

== ENCOUNTER → 2024-10-20 15:06 | Outpatient (BNV) | payer BC, MEDICARE, SELFPAY | PROVIDERS: Visit Provider Radiology Body Imaging | DX: Z96.651 Presence of right artificial knee joint (principal) | CPT/HCPCS: 73562 ==

== ENCOUNTER 2024-11-10 08:25 | Outpatient (AMB) | payer MEDICARE, BC, SELFPAY ==
--- OUTSIDE RECORDS SUMMARY | 2024-11-10 08:44 | XMS_ITS | Patient Health Record ---
Author Organization [facility] Address [address] [place] [address] Care Team Providers Care Escort Patients Name Role Phone Sj Scott MD Primary Care Provider Unavailab Che Dukes Unavailable [phone] Allergies Allergen (clinical drug ingredient) Drug/Non Drug [...] primary osteoarthritis of the ankle and/or foot ([id number]) Primary osteoarthrit is, left ankle and foot (M19.072) Active confirmed Plan Of Treatment Pending Test Test Name Order Date *Liver Function Test (LFT) 11/05/2017 [id number] NAIL, 6 OR MORE 01/21/2018 [id number] NAIL, 6 OR MORE 04/26/2018 [id number] NAIL, 6 OR MORE 07/29/2018 [id number] NAIL, 6 OR MORE 11/01/2018 [id number] NAIL, 6 OR MORE 04/04/2019 Insurance Providers Payer Name Payer Address Payer Phone Subscriber Number Group Number Insured Name Patient Relationship to Insured Coverage Start Date Coverage End Date Medicare National [employer] [address] [place] [address] [id number] Hang Bernal Self - patient is the insured [facility] [address] [place] [address] [phone] [id number] Hang Bernal Self - patient is the insured Medical (General) History Medical History History ICD Code Depression Joint implants/screws Surgical History Surgery Date(Month/Year) right ankle replacement (multiple surger ies) Hospitalization History Reason Date(Month/Year) [facility] [place] pt cut finger off 2017
--- NOTE | 2024-11-10 08:50 | A.OFFVIS_ITS ---
Intake Visit Reasons: 3m Follow up Intake Note: patient presents today for: 3m follow up urology medications: none blood thinners: aspirin Dining Services Manager Required: No Accompanied by: Spouse Allergies niacin (NIACIN) Allergy (Intermediate, Verified 11/10/24 08:51) AGITATION nystatin (NYSTATIN) Allergy (Unknown, Verified 11/10/24 08:51) RASH ropinirole (ROPINIROLE) Allergy (Unknown, Verified 11/10/24 08:51) ANXIOUS duloxetine Adverse Reaction (Unknown, Verified 11/10/24 08:51) Unknown HPI Comments Details: Hang Jones is a 64-year-old male patient of Dr. Norton who was accompanied by his significant other at today's office visit. He has a past medical history of fatty liver, GERD, sleep apnea, restless leg syndrome, hypothyroidism, depression, and hypercholesteremia. He presents to the office today for follow-up of his microscopic hematuria. In discussion with the patient today reports to be doing and feeling well. He discusses his recent right knee revision with Dr. Zamora. Previous workup has included a CT urogram 05/03 no findings to explain the patient's hematuria. Pelvic contents unremarkable. Mildly limited evaluation of the urinary bladder as the bladder did not yet contain contrast on delayed imaging. We discussed microscopic hematuria in the setting of previous nicotine dependence workup and concurrent marijuana dependence to include cystoscopy. In office urinalysis results reviewed with the patient today. Microscopic hematuria again noted. We discussed at length potential causes of microscopic hematuria as well as further workup to include cystoscopy given patient's risk factors. However, patient declines at this time. He otherwise denies any bothersome urinary issues. He denies urinary urgency, urinary frequency, incontinence, nocturia, hematuria, dysuria, foul smelling urine, changes to urinary stream, flank pain, fever, and or chills. He is happy with her current voiding parameters. PSA 03/05 1.3. Urine cytology 05/03, 08/03, 09/02 Negative for high-grade urothelial carcinoma. He does report a known workplace chemical exposure for 5 years as well as a previous history of nicotine dependence and current recreational marijuana. All questions were answered. He otherwise offers no other issues or concerns at this time. [facility] Medical History Aseptic loosening of prosthetic knee Arthritis Fatty liver GERD (gastroesophageal reflux disease) Sleep apnea Restless legs syndrome Hypothyroid Depression High cholesterol Surgical History Status post total knee replacement, right Hx of foot surgery Status post right knee replacement (06/30/23) H/O rotator cuff surgery S/P tendon repair S/P ankle joint replacement Social History Household Members: Spouse and Family Housing: House Are you a primary pet care technician to a significant other at home: No Do you presently have visiting nurse or other home services: No Alcohol intake: current Alcohol intake frequency: holidays/special occasions only Patient Tobacco Use Status: Former Tobacco user Tobacco use type: Cigarette e-Cigarette/Vaping Use: Former Use Second Hand Smoke Exposure: No Substance Use Type: Marijuana service: No Current occupational status: disabled Cognitive needs: No Hearing needs: No Vision needs: No Review of Systems Const All systems reviewed & are unremarkable except as noted in HPI and below Physical Exam Const General: cooperative, comfortable, no acute distress, well developed, alert and awake Orientation/consciousness: patient oriented x3 Limitations: ambulation with walker HEENT Head: Yes normal to inspection, Yes normocephalic and Yes atraumatic Ears: hearing grossly normal bilaterally Eyes General: appearance normal, both eyes and all related structures Neck Neck: Yes normal visual inspection and Yes trachea midline Chest Chest palpation & inspection: normal inspection of the chest Resp Effort & Inspection: normal respiratory effort and able to speak in complete sentences Cardio Rate: regular rate GI Inspection: Yes normal to inspection General: Yes no CVA tenderness Back/Spine/Pelvis Back: no CVA tenderness Skin General skin exam: no rashes or lesions noted Neuro General: patient oriented x3 Extrem General: Yes normal to inspection Psych Appearance: grossly normal and well kempt Mental Status: mental status grossly normal Speech and movement: Normal speech and movement present and Clear speech present Affect: normal affect Attitude: cooperative Thought process: Normal thought process present Thought content: Normal thought content present Insight: Fair insight present (Psych) Judgement: Fair judgement present (Psych) Results AMB Urinalysis, Automated UA Leukoctes 0 Simran/uL Last Edit by SEN Blanco on 11/10/24 09:03 UA Nitrite Last Edit by SEN Blanco on 11/10/24 09:03 UA Urobilinogen 1 mg/dL Last Edit by SEN Blanco on 11/10/24 09:03 UA Protein 0 mg/dL Last Edit by SEN Blanco on 11/10/24 09:03 UA pH 6.0 Last Edit by SEN Blanco on 11/10/24 09:03 UA Blood 10 Leonard/uL Last Edit by SEN Blanco on 11/10/24 09:03 UA Specific [place] 1.025 Last Edit by SEN Blanco on 11/10/24 09: 03 UA Ketone Last Edit by SEN Blanco on 11/10/24 09:03 UA Bilirubin 0 mg/dL Last Edit by SEN Blanco on 11/10/24 09:03 UA Glucose 0 mg/dL Last Edit by SEN Blanco on 11/10/24 09:03 Results Reviewed Results Reviewed: Laboratory Last Values Urine pH (Auto) 6.0 11/10/24 09:03 Specific [place] (Auto) 1.025 11/10/24 09:03 Urine Protein (Auto) 0 mg/dL 11/10/24 09:03 Glucose (UA)(Auto) 0 mg/dL 11/10/24 09:03 Urine Blood (Auto) 10 Leonard/uL 11/10/24 09:03 Urine Bilirubin (Auto) 0 mg/dL 11/10/24 09:03 Urine Urobilinogen (Auto) 1 mg/dL 11/10/24 09:03 Leukocyte Esterase (Auto) 0 Simran/uL 11/10/24 09:03 Assessment & Plan Assessment & Plan (1) Microscopic hematuria: Code(s): R31.29 - Other microscopic hematuria Category: Medical (2) Marijuana dependence: Code(s): F12.20 - Cannabis dependence, uncomplicated Category: Medical Plan In office urinalysis results reviewed with the patient today; as noted above; will send for urine cytology. We did discussed potential causes of microscopic hematuria as well as further workup to include cystoscopy. He currently denies any bothersome urinary issues or concerns. He reports be happy with current voiding parameters. Previous urine cytology results were reviewed. All questions were answered. He would like to continue with surveillance monitoring at this time; we did discussed potential delay in treatment. Follow-up in 6 months; or sooner with any issues, concerns, and or questions. Orders: Orders Urine Cytology Today F12.20 - Cannabis dependence, uncomplicated, R31.29 - Other microscopic hematuria AMB Urinalysis Automated Today Z13.9 - Encounter for screening, unspecified Patient Instructions: The patient had an opportunity to ask questions regarding the treatment plan. All questions were answered. Physical exam, labs, and imaging were discussed and reviewed in detail. As well as risks, benefits, and discussion of treatment choices. No major barriers to understanding were identified. The patient expressed understanding and agreement with the above treatment plan. The patient was made aware they should contact our office by phone for worsening of their current condition, the appearance of new symptoms, or with any questions or concerns. Compliance is encouraged with any medications and follow up testing that is ordered. It is a privilege to be allowed the opportunity to participate in? your urological care.? Again, if you have any questions or concerns If you have any questions or concerns please do not hesitate to contact me. The office is [phone]. This note is constructed using voice recognition software. While every effort has been made to ensure accuracy health information administrator errors may have been included. Yours sincerely, MARTI Caballero Coding Level of Care Code Est Pt Level 3 (93609) Complex EM visit Add On G2211 Diagnoses Microscopic hematuria R31.29 Marijuana dependence F12.20
== END 2024-11-10 09:20 | disposition home or self-care (01) ==
LOC: HO.HUSH 08:26
PROVIDERS: PCP Nurse Practitioner Family; Visit Provider Nurse Practitioner Family
DX: R31.29 Other microscopic hematuria (principal); F12.20 Cannabis dependence, uncomplicated; Z13.9 Encounter for screening, unspecified
CPT/HCPCS: 99213; G2211

== ENCOUNTER 2024-11-10 08:25 | Outpatient (REF) | payer MEDICARE, BC, SELFPAY | END 2024-11-10 08:26 | disposition home or self-care (01) | LOC: HO.LAB 08:25 | PROVIDERS: PCP Nurse Practitioner Family; Visit Provider Nurse Practitioner Family | DX: R31.29 Other microscopic hematuria (principal); F12.20 Cannabis dependence, uncomplicated; Z13.89 Encounter for screening for other disorder | CPT/HCPCS: 81003; 88112; 99212 ==

== ENCOUNTER 2024-12-01 13:19 | Outpatient (REF) | payer BC, MEDICARE, SELFPAY ==
--- NOTE | ~2024-12-01 | XR_ITS ---
EXAMINATION: XR KNEE, RIGHT CLINICAL INFORMATION: M25.561 - Pain in right knee COMPARISON: October 20, 2024. TECHNIQUE: AP view in standing position of the knees. Lateral and sunrise view of the right knee. FINDINGS: Metallic prosthesis with a femoral and tibial plateau component demonstrated loosening in both the femoral and to a lesser extent tibial component. Old traumatic deformity in the lateral tibial plateau/proximal metaphysis of the tibia. No gross malalignment. Vascular calcifications. There is a moderate to severe osteoarthrosis in the left knee no fully evaluated. XR/XR knee RT 3V IMPRESSION: Status post right knee arthroplasty prosthesis with likely loosening in both femoral and to a lesser extent the tibial component. Atherosclerosis disease, peripheral. Bicompartmental osteoarthrosis/osteoarthritis, moderate to severe, left knee. Electronically signed by: Fady Bush MD 12/01/2024 02:00 PM EDT
--- OUTSIDE RECORDS SUMMARY | 2024-12-01 17:41 | XMS_ITS | Patient Health Record ---
Author Organization [facility] Address [address] [place] [address] Care Team Providers Care Communication Skills Instructor Name Role Phone Sj Scott MD Primary Care Provider Unavailab Che Dukes Unavailable [phone] Allergies Allergen (clinical drug ingredient) Drug/Non Drug [...] primary osteoarthritis of the ankle and/or foot (227020273) Primary osteoarthrit is, left ankle and foot (M19.072) Active confirmed Plan Of Treatment Pending Test Test Name Order Date *Liver Function Test (LFT) 11/05/2017 [id number] NAIL, 6 OR MORE 01/21/2018 [id number] NAIL, 6 OR MORE 04/26/2018 [id number] NAIL, 6 OR MORE 07/29/2018 [id number] NAIL, 6 OR MORE 11/01/2018 [id number] NAIL, 6 OR MORE 04/04/2019 Insurance Providers Payer Name Payer Address Payer Phone Subscriber Number Group Number Insured Name Patient Relationship to Insured Coverage Start Date Coverage End Date Medicare National [employer] [address] [place] [address] [id number] Hang Bernal Self - patient is the insured [facility] [address] [place] [address] [phone] [id number] Hang Bernal Self - patient is the insured Medical (General) History Medical History History ICD Code Depression Joint implants/screws Surgical History Surgery Date(Month/Year) right ankle replacement (multiple surger ies) Hospitalization History Reason Date(Month/Year) [facility] [place] ER pt cut finger off 2017
== END 2024-12-01 13:20 | disposition home or self-care (01) ==
LOC: HO.HOSX 13:19
PROVIDERS: PCP Nurse Practitioner Family; Visit Provider Orthopaedic Surgery
DX: M25.561 Pain in right knee (principal); Z96.651 Presence of right artificial knee joint
CPT/HCPCS: 73562

== ENCOUNTER 2024-12-01 13:19 | Outpatient (AMB) | payer BC, MEDICARE, SELFPAY ==
--- NOTE | 2024-12-01 13:26 | MHC.OFFVIS ---
Intake Visit Reasons: PO: R TKA Rev w/NE 09/06/24-F/U Intake Note: Hang is a 64 year old male who presents today for a post operative appointment about 3 months s/p s/p Revision Right TKA 09/06/24. Hx of Right TKA 06/30/23- revision indicated in setting of aseptic loosening. He is attending Physical Therapy with [facility]. Patient reports that he is struggling with pain and stiffness. He leaves physical therapy having significant increased pain. He is feeling a bit worried/disspointed in progress post operatively Allergies niacin (NIACIN) Allergy (Intermediate, Verified 11/10/24 08:51) AGITATION nystatin (NYSTATIN) Allergy (Unknown, Verified 11/10/24 08:51) RASH ropinirole (ROPINIROLE) Allergy (Unknown, Verified 11/10/24 08:51) ANXIOUS duloxetine Adverse Reaction (Unknown, Verified 11/10/24 08:51) Unknown HPI HPI PO: R TKA Rev w/NE 09/06/24-F/U: Details: Hang is a 64 year old male who presents today for a post operative appointment about 3 months s/p s/p Revision Right TKA 09/06/24. Hx of Right TKA 06/30/23 with aseptic loosening. He is attending Physical Therapy with [facility]. Patient reports that he is struggling with pain and stiffness. He leaves physical therapy having significant increased pain. He is feeling a bit worried/disspointed in progress post operatively. We started him off slowly and have been using a walker. I was under the impression that he would continue the walker but he is progress to a cane and having some discomfort at this point. [facility] Medical History Aseptic loosening of prosthetic knee Arthritis Fatty liver GERD (gastroesophageal reflux disease) Sleep apnea Restless legs syndrome Hypothyroid Depression High cholesterol Surgical History Status post total knee replacement, right Hx of foot surgery Status post right knee replacement (06/30/23) H/O rotator cuff surgery S/P tendon repair S/P ankle joint replacement Social History Household Members: Spouse and Family Housing: House Are you a primary caretaker resort to a significant other at home: No Do you presently have visiting nurse or other home services: No Alcohol intake: current Alcohol intake frequency: holidays/special occasions only Patient Tobacco Use Status: Former Tobacco user Tobacco use type: Cigarette e-Cigarette/Vaping Use: Former Use Second Hand Smoke Exposure: No Substance Use Type: Marijuana service: No Current occupational status: disabled Cognitive needs: No Hearing needs: No Vision needs: No Physical Exam Extrem Other: 3-100 10 degrees of motion. Trace effusion. Stable to varus and valgus stress. Gait antalgia. No sharp tenderness to palpation. Results Reviewed Results Reviewed: I personally reviewed relevant radiographs. Radiographs are unchanged compared to prior. There is radiolucency around the components but this is not worse compared to prior. Assessment & Plan Assessment & Plan (1) Status post revision of total replacement of right knee: Code(s): Z96.651 - Presence of right artificial knee joint Category: Surgical Plan: 64 yo M with uncomplicated revision for aseptic loosening. Presented with some more pain than I would suggest and radiographs concerning for possible evidence of loosening. We had been very careful in first 6 weeks after surgery and he was doign very well. He has done less well since last visit. Infection had been ruled out with nl labs and negative Synovasure. Hopefully he has just been overdoing it and mild activity modification will help. No need to discontinue cane. Will see me in 6 weeks. Orders: Orders XR knee RT 3V 12/01/24 M25.561 - Pain in right knee Medications: New celecoxib (Celebrex) 200 mg PO DAILY 30 caps 2RF Coding Level of Care Code Global (61595) Diagnoses Status post revision of total replacement of right knee Z96.651
== END 2024-12-01 14:43 | disposition home or self-care (01) ==
LOC: HO.HOS 13:20
PROVIDERS: PCP Nurse Practitioner Family; Visit Provider Orthopaedic Surgery
DX: Z96.651 Presence of right artificial knee joint (principal)
CPT/HCPCS: 99024

== ENCOUNTER → 2024-12-01 13:47 | Outpatient (BNV) | payer BC, MEDICARE, SELFPAY | PROVIDERS: PCP Nurse Practitioner Family; Visit Provider Radiology Diagnostic Radiology | DX: M25.561 Pain in right knee (principal); Z96.651 Presence of right artificial knee joint | CPT/HCPCS: 73562 ==

== ENCOUNTER 2024-12-06 09:00 | Outpatient (RCR) | payer BC, SELFPAY ==
--- NOTE | 2024-10-18 09:57 | MHC.PT.EP ---
[facility] [place] Office [place] Office [place] Office [address] Biju Chua [address] [phone] F: [phone] F: [phone] F: [phone] F: [phone] Physical Therapy Plan of Care Date of Evaluation: 10/18/24 Date of Surgery: Diagnosis: s/p 09/06/24 R TKA revision Assessment: Patient is a 64 year old handed male who reports to physical therapy with a diagnosis of s/p R TKA revision 10/07/24. He does not work and has been living a fairly sedentary life. Past medical history includes TKA, GERD, sleep apnea, and RLS. Current impairments include pain, ROM, strength, posture, balance, gait mechanics, and functional mobility. Functional limitations include ability to walk, stand, negotiate stairs and be active at home and in the community. Pt is motivated and has good rehab potential to progress with skilled physical therapy towards prior level of function by addressing impairments and functional limitations and pursuing goals. 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 Manual therapy to restore motion and function. Therapeutic exercise to improve strength and flexibility. Neuromuscular re-education for posture and balance. Therapeutic activities to return to functional activities of daily living. Electronically signed by: Prince Moore PT Please sign and return to therapist. Thank you for your referral.
--- NOTE | 2024-12-27 13:41 | MHC.PT.DC ---
[facility] [place] Office [place] Office [place] Office [address] Biju Chua [address] [phone] F: [phone] F: [phone] F: [phone] F: [phone] Physical Therapy Discharge Report Diagnosis: s/p 09/06/24 R TKA revision Date of Surgery: Date of Evaluation: 10/18/24 Date of Discharge: 12/18/24 Treatments to Date: 9 Cancellations to Date: No Shows to Date: Discharge Status: Independent with HEP Patient Elected to Stop Discharge Summary: Pt has been having a tough time with progress as this time due to pain and swelling. He elected to stop PT and continue with HEP. 12/06; Pt RX modified to his raquel. Pt wishes to think about continuing with therapy or just reducing his session. Pt is going to start more walking per MD recommendation. 11/29; Pt balance no foam is challenging. Pt tends to WB on L L.E in standing. Pt gait continues with sc and walker at times. 11/17/24: pt continues to have high amount of ant knee pain and notes icing often at home. we will attempt progress and pain management in upcoming appts. 11/15/24: pt progressing well with ROM (123). Strength is limited still. Difficulty ascending 6 stair. educated thoroughly on time frame and management of stiffness. 11/08/24: we have been having difficulty with strength/functional progression due to pain and soreness. ROM has maintained. continue to pursue progress while managing pain. 11/03/24: pt has been feeling better overall with skilled PT. AAROM flexion 122. continue to progress as tolerated with stairs and other functional activities. 11/01; Pt didn't c/o giving out with exs. Pt fatigued after LAQ's. Pt knee ROM progressing Flexion 114. 10/27; Pt ROM progressing. Worked on gait push off and swing through. Pt has sl lag with SLR and LAQ. Knee jt WTT. 10/25/24: pt progressed with ROM, hip strength. no adverse reactions. AAROM flexion 125. Patient is a 64 year old handed male who reports to physical therapy with a diagnosis of s/p R TKA revision 10/07/24. He does not work and has been living a fairly sedentary life. Past medical history includes TKA, GERD, sleep apnea, and RLS. Current impairments include pain, ROM, strength, posture, balance, gait mechanics, and functional mobility. Functional limitations include ability to walk, stand, negotiate stairs and be active at home and in the community. Pt is motivated and has good rehab potential to progress with skilled physical therapy towards prior level of function by addressing impairments and functional limitations and pursuing goals. Electronically signed by: Prince Moore, PT Please sign and return to therapist. Thank you for your referral.
== END 2024-12-27 13:41 | disposition home or self-care (01) ==
LOC: HO.PTCHIC 09:00
PROVIDERS: PCP Nurse Practitioner Family; Visit Provider Physician Assistant
DX: Z47.1 Aftercare following joint replacement surgery (principal); Z96.651 Presence of right artificial knee joint
CPT/HCPCS: 97110; 97162

== ENCOUNTER 2025-01-12 07:49 | Outpatient (REF) | payer BC, SELFPAY ==
--- NOTE | ~2025-01-12 | XR_ITS ---
EXAMINATION: XR KNEE, RIGHT CLINICAL INFORMATION: M25.561 - Pain in right knee COMPARISON: 12/01/2024 TECHNIQUE: AP bilateral standing, sunrise, and and lateral views of the right knee. FINDINGS: Again seen are changes related to revision of a total knee arthroplasty on the right. The tibial and femoral components are cemented . There is anatomic alignment. No joint effusion is evident. There is heterotopic ossification anterior to the superior margin of the femoral component and posterior to the joint. No periprosthetic fracture is identified. There is moderate narrowing of the lateral joint space of the left knee and mild narrowing of the medial compartment. There are tricompartmental marginal osteophytes. There is valgus deformity. XR/XR knee RT 3V IMPRESSION: Status post revision total knee arthroplasty on the right with resolution of a joint effusion. Moderate left knee osteoarthritis with valgus deformity. Electronically signed by: Benny Ryan MD 01/12/2025 10:38 AM TRELL
--- OUTSIDE RECORDS SUMMARY | 2025-01-12 07:52 | XMS_ITS | Patient Health Record ---
Author Organization [facility] Address [address] [place] [address] Care Team Providers Care Regional Office Coordinator Name Role Phone Sj Scott MD Primary Care Provider Unavailab Che Dukes Unavailable [phone] Allergies Allergen (clinical drug ingredient) Drug/Non Drug [...] primary osteoarthritis of the ankle and/or foot ([id number]) Primary osteoarthrit is, left ankle and foot (M19.072) Active confirmed Plan Of Treatment Pending Test Test Name Order Date *Liver Function Test (LFT) 11/05/2017 [id number] NAIL, 6 OR MORE 01/21/2018 [id number] NAIL, 6 OR MORE 04/26/2018 [id number] NAIL, 6 OR MORE 07/29/2018 [id number] NAIL, 6 OR MORE 11/01/2018 [id number] NAIL, 6 OR MORE 04/04/2019 Insurance Providers Payer Name Payer Address Payer Phone Subscriber Number Group Number Insured Name Patient Relationship to Insured Coverage Start Date Coverage End Date Medicare National [employer] [address] [facility] [place] [address] [id number] Hang Bernal Self - patient is the insured [facility] [address] [place] [address] [phone] [id number] Hang Bernal Self - patient is the insured Medical (General) History Medical History History ICD Code Depression Joint implants/screws Surgical History Surgery Date(Month/Year) right ankle replacement (multiple surger ies) Hospitalization History Reason Date(Month/Year) [facility] [place] [facility] pt cut finger off 2017
== END 2025-01-12 07:50 | disposition home or self-care (01) ==
LOC: HO.HOSX 07:49
PROVIDERS: Visit Provider Orthopaedic Surgery
DX: M25.561 Pain in right knee (principal); Z96.651 Presence of right artificial knee joint
CPT/HCPCS: 73562

== ENCOUNTER 2025-01-12 10:21 | Outpatient (AMB) | payer BC, MEDICARE, SELFPAY ==
--- NOTE | 2025-01-12 10:30 | A.OFFVIS_ITS ---
Intake Visit Reasons: Ov - R TKA Rev w/NE 09/06/24-F/U Intake Note: Hang is a 64 year old male who presents today for a follow up of his right knee about 5 months s/p Revision Right TKA 09/06/24. Hx of Right TKA 06/30/23 - revision indicated in setting of aseptic loosening. Ruled out infection with Synovasure and Labs, at his last visit his pain was improving. He reports that his pain is improving but continues to have pain with gait initiation, has some pain with overuse. Allergies niacin (NIACIN) Allergy (Intermediate, Verified 01/12/25 10:32) AGITATION nystatin (NYSTATIN) Allergy (Unknown, Verified 01/12/25 10:32) RASH ropinirole (ROPINIROLE) Allergy (Unknown, Verified 01/12/25 10:32) ANXIOUS duloxetine Adverse Reaction (Unknown, Verified 01/12/25 10:32) Unknown HPI HPI Ov - R TKA Rev w/NE 09/06/24-F/U: Details: Hang is a 64 year old male who presents today for a follow up of his right knee about 5 months s/p Revision Right TKA 09/06/24. Hx of Right TKA 06/30/23 -re vision indicated in setting of aseptic loosening. Ruled out infection with Synovasure and Labs, at his last visit his pain was improving. He reports that his pain is improving but continues to have pain with gait initiation, has some pain with overuse. [facility] Medical History Aseptic loosening of prosthetic knee Arthritis Fatty liver GERD (gastroesophageal reflux disease) Sleep apnea Restless legs syndrome Hypothyroid Depression High cholesterol Surgical History Status post total knee replacement, right Hx of foot surgery Status post right knee replacement (06/30/23) H/O rotator cuff surgery S/P tendon repair S/P ankle joint replacement Social History Household Members: Spouse and Family Housing: House Are you a primary home health care social worker to a significant other at home: No Do you presently have visiting nurse or other home services: No Alcohol intake: current Alcohol intake frequency: holidays/special occasions only Patient Tobacco Use Status: Former Tobacco user Tobacco use type: Cigarette e-Cigarette/Vaping Use: Former Use Second Hand Smoke Exposure: No Substance Use Type: Marijuana service: No Current occupational status: disabled Cognitive needs: No Hearing needs: No Vision needs: No Physical Exam Exam Exam: 0-110 degrees of motion. No effusion. Incision clean dry and intact. No tenderness to palpation. Stable to varus and valgus stress. Results Reviewed Results Reviewed: I personally reviewed relevant radiographs. FINDINGS: Changes related to revision of a total knee arthroplasty on the right. The tibial and femoral components are cemented . There is anatomic alignment. No joint effusion is evident. There is heterotopic ossification anterior to the superior margin of the femoral component and posterior to the joint. No periprosthetic fracture is identified. Assessment & Plan Assessment & Plan (1) Status post revision of total replacement of right knee: Code(s): Z96.651 - Presence of right artificial knee joint Category: Surgical Plan: Status post revision for aseptic loosening. Has been doing well. He seems to have trouble when he overdoes it. I recommend gentle continuation of daily motion and weight-bearing as tolerated. I will see him back in 3 months' time he will let me know if anyt Orders: Orders XR knee RT 3V 01/12/25 M25.561 - Pain in right knee Coding Level of Care Code Global (13294) Diagnoses Status post revision of total replacement of right knee Z96.651
== END 2025-01-12 11:21 | disposition home or self-care (01) ==
PROVIDERS: PCP Nurse Practitioner Family; Visit Provider Orthopaedic Surgery
DX: Z47.89 Encounter for other orthopedic aftercare (principal); Z96.651 Presence of right artificial knee joint
CPT/HCPCS: 99213

== ENCOUNTER → 2025-01-12 10:24 | Outpatient (BNV) | payer BC, SELFPAY | PROVIDERS: Visit Provider Radiology Diagnostic Radiology | DX: M25.561 Pain in right knee (principal) | CPT/HCPCS: 73562 ==